=== PATIENT | male | born 1950 | race Caucasian/White ===

== ENCOUNTER 2024-09-15 13:42 | Emergency (ER) | payer MEDICARE, SELFPAY ==
[2024-09-15 13:44] VITALS: BP 126/71; PULSE 79; RESP 16; TEMP 36.6; O2SAT 98
--- NOTE | 2024-09-15 14:06 | EDS_ITS ---
HPI HPI - Fall History of Present Illness Chief Complaint: Fall Informant: patient and family Occured/Mechanism Occurred: Weeks Usually ambulates: Without assistance Pain/Injury Pain Location: head, neck and upper extremity (Right shoulder) Current Severity: Mild Maximum Severity: Mild Narrative Narrative: 74-year-old male history of hypertension and Parkinson's. Fell at home 2 to 3 weeks ago in the middle of the night. Denies any LOC. CT of his head complains some neck discomfort and right shoulder discoveries had since that time. Worse with movement. He is on no blood thinners. He denies any recent illness. Prior similar symptoms: Yes Recent Illness/Hospitalization: No PFSH PFSH Medical History Essential (primary) hypertension Home Medications ?Medication ?Instructions ?Recorded ?Last Taken ?Type gabapentin 600 mg tablet 600 mg PO QHS 02/17/24 Unkno wn History losartan 25 mg tablet 25 mg PO QDAY 02/17/24 Unkno wn History sertraline 25 mg tablet 25 mg PO QDAY 02/17/24 Unkno wn History carbidopa ER 50 mg-levodopa 200 mg See Rx Instructions PO .COMPLEX 04/29/24 Unknown History tablet,extended release pramipexole 0.75 mg tablet 0.75 mg PO TID 05/06/24 Unk nown History Allergy/AdvReac Type Severity Reaction Status Date / Time No Known Allergies Allergy Verified 09/15/24 13:46 Family History Mother , 80 yrs old No problems noted. Father , 83 years old Heart disease Surgical History Hx of appendectomy Social History household members: spouse and children current occupational status: retired pets and animals: No Smoking Status: Former smoker alcohol intake: never caffeine: Yes Type: coffee Number of servings: 1 do you feel safe at home: Yes ROS ROS ED ROS Narrative Denies recent illness. Constitutional Constitutional ED: Denies chills or fever(s) Eyes Eyes: Denies blurry vision ENT ENT ED: Denies ear pain Cardiovascular Cardiovascular: Denies chest pain Respiratory/Chest Respiratory/Chest: Denies cough or dyspnea Gastrointestinal Gastrointestinal: Denies abdominal pain Genitourinary Genitourinary ED: Denies dysuria or hematuria Musculoskeletal Musculoskeletal: Reports neck pain; Denies arthralgias or back pain Integumentary Denies abscess or Abrasions Neurologic Neurologic: Denies headache(s) Psychiatric Psychiatric: Denies anxiety Endocrine Endocrinology: Denies polydipsia Hematologic/Lymphatic Hematologic/Lymphatic: Denies easy bleeding, easy bruising or lymphadenopathy Allergic/Immunologic Allergic/Immunologic ED: Denies mouth swelling, tongue swelling or urticaria EXAM Physical Exam Narrative Exam Narrative: Well-appearing 74-year-old male. Vital signs are stable afebrile. He is sitting upright in bed. Family is present. No distress. H EENT exam. Right [place]. Moist membranes. No trauma to his face or scalp. Nontender no hematomas. Neck diffuse soft tissue tenderness. Trachea midline. Back, thoracic and lumbar spine nontender no bruising. Lungs clear to auscultation bilaterally. Heart regular rhythm no murmur. Rate about 80. Chest wall and ribs nontender. Abdomen soft nontender. Pelvic girdle intact. Patient is moving all 4 extremities. No deformity. Normal key carrier strength. Normal dorsi plantarflexion. Hips are nontender and without rotation or shortening. Mild tenderness right shoulder no deformity. No swelling. No redness or warmth. Bilateral elbows forearms wrist and hands are nontender. Neurologically he is awake alert. Answering questions and following commands. Parkinsonian movements. He knows month, year and president. Const Vital Signs: 09/15/24 13:44 09/15/24 14:06 Temperature 97.8 F Temperature Source Oral Pulse Rate 79 Respiratory Rate 16 Respiratory Effort Normal Respiratory Depth Normal Respiratory Pattern Normal Blood Pressure 126/71 H Blood Pressure Mean 89 Pulse Ox 98 Oxygen Delivery Method Room Air Room Air Positive well nourished and well developed; Negative for obese, cachectic, contractures or unkempt General Appearance ED: well developed and NAD; Negative for unkempt, cachectic or contractures Nutritional Appearance: Negative for cachectic or obese HEENT Reports normocephalic atraumatic; Negative for trauma, contusion, hematoma or tenderness Eyes PERRL and EOMs intact bilaterally General Eye ED: Negative for pale conjunctiva or scleral icterus Neck full ROM, no lymphadenopathy and supple General: Negative for tenderness Chest Wall inspection of chest normal and palpation of chest normal Resp normal respiratory effort, no retractions and clear to auscultation bilaterally Auscultation: Negative for rales, rhonchi, wheezes or diminished lung sounds Cardio regular rate, regular rhythm, S1 normal heart sound, S2 normal heart sound and no murmurs GI non-tender, non-distended and no masses Auscultation: normoactive bowel sounds Palpation: soft; Negative for guarding or rebound tenderness present Back/Spine no CVA tenderness General Back: Negative for CVA tenderness Cervical Spine: Negative for cervical spine tenderness Thoracic Spine / Upper Back: Negative for ROM limited Lumbar Spine / Lower Back: Negative for lumbar spinal tenderness or paraspinal muscle tenderness Neuro oriented x3, CN's II-XII intact bilaterally, moves all extremities and no focal motor deficits Markell Coma Scale: document GCS findings Spontaneous Obeys Commands Oriented 15 Sensorium / Orientation: alert, oriented to person, oriented to place, oriented to time and orientation impaired; Negative for confused, lethargic or stuporous Motor Exam: strength 5/5 throughout Psych mental status grossly normal and thought process normal Appearance: Negative for unkempt Attitude: No agitated Mood & Affect: Negative for depressed, anxious or tearful Skin Lesions: no lesions Rashes: no rashes Trauma: Negative for abrasion or laceration MDM MDM MDM Narrative Medical decision making narrative: 74-year-old male fell 2 to 3 weeks ago complaining of right shoulder discomfort and neck discomfort x-rays being obtained. No LOC. No headache. No blood thinners I do not think he needs a CAT scan of his head. His neurologic exam other than his Parkinson disease is relatively normal. Repeat exam unchanged. Doing well at 2:50 PM. We discussed his x-ray results. To be discharged home. Motrin and Tylenol for pain. History & Record Review Discussion w/independent historian: Patient and Family Additional record(s) reviewed:: Prior inpatient record, Prior outpatient record, Prior ED visit and Prior labs Radiography Diagnostic Testing: Clinical Impression(s) from Imaging Studies Cervical Spine X-Ray 09/15/24 14:25 IMPRESSION: 1. No acute fracture. 2. Degenerative changes of the cervical spine as described. Reading [facility] Shoulder X-Ray 09/15/24 14:25 IMPRESSION: 1. No acute fracture. 2. Degenerative changes as above. Reading Location: [facility] Right shoulder x-ray, 4 views, interpreted by myself and radiologist. Shows chronic changes. No fracture. No dislocation. C-spine x-ray, 3 views, interpreted by myself and the radiologist, shows chronic changes. Arthritis. No acute process. No fracture. Discharge Plan Triage Chief Complaint: Fall ED Provider: Cas Boyer Dx/Rx/DC Orders Prescriptions: No Action gabapentin 600 mg tablet 600 mg PO QHS losartan 25 mg tablet 25 mg PO QDAY sertraline 25 mg tablet 25 mg PO QDAY carbidopa-levodopa 50-200 mg tablet extended release See Rx Instructions PO .COMPLEX Rx Instructions: 1 tablet at 6 am, 11 am, 4 pm, and 10 pm pramipexole 0.75 mg tablet 0.75 mg PO TID Primary Care Provider: Earnest Amaral Referrals: Demetrio Golden DO [Non-Staff] - Print Language: Frisian
--- NOTE | 2024-09-15 14:25 | RAD_ITS ---
EXAM: XR Cervical Spine, 4 or 5 Views CLINICAL INDICATION: FALL TECHNIQUE: Frontal, lateral and bilateral oblique views of the cervical spine. COMPARISON: No relevant prior studies available. FINDINGS: VERTEBRAE: Degenerative facet arthropathy throughout the cervical spine. Normal alignment. No acute fracture. DISC SPACES: Degenerative disc disease throughout the cervical spine. SOFT TISSUES: Soft tissue swelling. RAD/Cerv Spine 2 or 3 Views IMPRESSION: 1. No acute fracture. 2. Degenerative changes of the cervical spine as described. Reading Location: [facility]
--- NOTE | 2024-09-15 14:25 | RAD_ITS ---
EXAM: XR Right Shoulder Complete, 2 or More Views CLINICAL INDICATION: FALL TECHNIQUE: Two or more views of the right shoulder. COMPARISON: No relevant prior studies available. FINDINGS: BONES/JOINTS: Mild degenerative change of the acromioclavicular and glenohumeral joints. No dislocation. No acute fracture. SOFT TISSUES: Soft tissue swelling. RAD/Shoulder min 2 Views IMPRESSION: 1. No acute fracture. 2. Degenerative changes as above. Reading Location: [facility]
[2024-09-15 15:12] VITALS: BP 122/78; PULSE 82; RESP 16; TEMP 36.6; O2SAT 98
== END 2024-09-15 15:13 | disposition home or self-care (01) ==
PROVIDERS: Emergency Provider Emergency Medicine; PCP Internal Medicine; Visit Provider Emergency Medicine
DX: M25.511 Pain in right shoulder (principal); G20.A1 Parkinson's disease without dyskinesia, without mention of fluctuations; M54.2 Cervicalgia; W19.XXXA Unspecified fall, initial encounter; Y92.009 Unspecified place in unspecified non-institutional (private) residence as the place of occurrence of the external cause; I10 Essential (primary) hypertension; Z79.899 Other long term (current) drug therapy; Z87.891 Personal history of nicotine dependence
CPT/HCPCS: 72040; 73030; 99282

== ENCOUNTER → 2024-09-20 | Outpatient (CLI) | payer MEDICARE, SELFPAY ==
[2024-09-20 18:05] LABS: CRP < 3.00 mg/L (0.0-3.0)
[2024-09-22 14:09] LABS: ANTINUCLEAR ANTIBODIES DIRECT Negative (Negative)
[2024-09-24 18:08] LABS: Albumin 4.1 g/dL (2.9-4.4); Folate, Hemolysate Test > 620.0 ng/mL (Not Estab.); Folate, RBC (Hct) Test 41.9 % (37.5-51.0); Folates, RBC Test > 1480 ng/mL (>498); Gamma Globulin 1.5 g/dL (0.4-1.8); Immunoglobulin A 145 mg/dL (61-437); Immunoglobulin G 1454 mg/dL (603-1613); Immunoglobulin M 130 mg/dL (15-143); PROEL- TOTAL PROTEIN 7.4 g/dL (6.0-8.5); Vitamin B1, Thiamine 79.6 nmol/L (66.5-200.0)
== END | disposition home or self-care (01) ==
LOC: MTLAB 15:11
PROVIDERS: PCP Internal Medicine
DX: G24.9 Dystonia, unspecified (principal); M62.838 Other muscle spasm; R20.9 Unspecified disturbances of skin sensation
CPT/HCPCS: 36415; 82747; 82784; 83883; 84165; 84425; 85014; 85652; 86038; 86140; 86225; 86235; 86334

== ENCOUNTER → 2024-10-07 | Outpatient (CLI) | payer MEDICARE, SELFPAY ==
--- NOTE | 2024-10-07 06:47 | MRI_ITS ---
PROCEDURE: BRAIN W/WO CONTRAST 10/07/2024 REASON FOR EXAM: HYPERREFLEXIA, SPASTICITY. Weakness on the right side for 1 month. TECHNIQUE: BRAIN W/WO CONTRAST Multiplanar and multisequence images were obtained. CONTRAST: Clariscan VOLUME: 14 mL intravenous COMPARISON: None. FINDINGS: Brain: No intracranial mass or mass effect is seen. No acute process is evident. Diffusion: Diffusion-weighted images demonstrate no area of restricted diffusion. Ventricles: Normal for age. Sinuses: [id number] mucosal thickening is seen of the bilateral ethmoid and maxillary sinuses. No air-fluid level is noted. The remaining paranasal sinuses appear clear. Mastoids: Clear. Following intravenous contrast administration, no area of abnormal enhancement is seen.: MRI/Brain W/WO Contrast IMPRESSION: 1. No acute intracranial process is seen. 2. Chronic appearing paranasal sinus disease. Reading Location: [place] [id number]
--- NOTE | 2024-10-07 06:47 | MRI_ITS ---
PROCEDURE: SPINE THORACIC W/WO CONTRAST 10/07/2024 REASON FOR EXAM: HYPERREFLEXIA, SPASTICITY. Right-sided weakness for 1 month. TECHNIQUE: Thoracic spine MRI without and with intravenous gadolinium-based contrast. Multiplanar and multisequence images were obtained. CONTRAST: Clariscan VOLUME: 14mL IV COMPARISON: None. FINDINGS: Vertebrae: Thoracic vertebral body heights are preserved. Bone marrow signal is unremarkable. Alignment: Normal. No spondylolisthesis. Spinal Cord: Thoracic spinal cord is of normal size. No clear thoracic cord signal changes are seen. No area of abnormal enhancement is seen. Disc spaces: Mild degenerative disc disease is seen, most prominent in the mid to lower thoracic spine. No significant disc bulge or herniation is evident. No spinal canal stenosis or significant neural foraminal narrowing is evident. Paraspinal Tissues: Unremarkable. Postcontrast images: No area of abnormal enhancement is seen. MRI/Spine Thoracic W/WO Contrast IMPRESSION: Mild degenerative changes, most prominent at the mid to lower thoracic spine. Reading Location: [place] [id number]
--- OUTSIDE RECORDS SUMMARY | 2024-10-07 07:06 | XMS RPT_ITS | CCD ---
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 Name Role Phone LINH LATHAM MD Admitting Unavailable LINH LATHAM MD Attending Unavailable LINH LATHAM MD Primary Care Unavailable LINH LATHAM MD Consulting Unavailable PROVIDER, UNKNOWN Consulting Unavailable PROVIDER, UNKNOWN Consulting Unavailable PROVIDER, UNKNOWN Consulting Unavailable LINH LATHAM MD Admitting Unavailable LATOUFlora, LINH WONG Attending Unavailable LINH LATHAM MD Primary Care Unavailable LINH LATHAM MD Consulting Unavailable PROVIDER, UNKNOWN Consulting Unavailable PROVIDER, UNKNOWN Consulting Unavailable PROVIDER, UNKNOWN Consulting Unavailable LATOUFlora, LINH WONG Admitting Unavailable LATOUFlora, LINH WONG Attending Unavailable LINH LATHAM MD Primary Care Unavailable LINH LATHAM MD Consulting Unavailable PROVIDER, UNKNOWN Consulting Unavailable PROVIDER, UNKNOWN Consulting Unavailable PROVIDER, UNKNOWN Consulting Unavailable Merlin WONG, Dr. Cardozo Emergency Provider [phone] Munir WONG, Dr. Tinoco Primary Care Provider Dr. Earnest Amaral MD Referring Provider Britta PACKAGE DELIVERY DRIVER-CSussy Attending Provider [phone] Merlin WONG, Dr. Cardozo Attending Provider Britta PACKAGE DELIVERY DRIVER-CSussy Referring Provider [phone] Sussy Callejas Attending Unavailable Sussy Callejas Referring Unavailable Nam, Earnest Primary Care Unavailable Nam, Earnest Primary Care Unavailable Cas Boyer Attending Unavailable Sussy Callejas Referring Unavailable Nam, Earnest Primary Care Unavailable Sussy Callejas Attending Unavailable Demetrio Golden Primary Care Unavailable Demetrio Golden Referring Unavailable Sly Cervantes Attending Unavailable Nam, Earnest Primary Care Unavailable Nam, Earnest Referring Unavailable Sussy Callejas Attending Unavailable Sussy Callejas Attending Unavailable Nam, Earnest Primary Care Unavailable Nam, Earnest Referring Unavailable Demetrio Golden Primary Care Unavailable Linh Latham Referring Unavailable Sly Cervantes Attending Unavailable Demetrio Golden Primary Care Unavailable Demetrio Golden Referring Unavailable Sly Cervantes Attending Unavailable Stephanie Machado Attending Provider David WONG, Dr. Peralta Attending Provider [phone] Medications Current Medications Medication Drug Class(es) Dates Sig (Normalized) Sig (Original) Petroleum (3 sources) Start: 09-29-2024 take 1 tablet by mouth twice daily Petroleum 650 mg tablet Active 650 mg PO TWICE A DAY September 29, 2024 12:00am baclofen 5 mg oral tablet (3 sources) gamma-Aminobutyri c Acid-ergic Agonist Start: 09-29-2024 take 1 tablet by mouth once daily before dinner Baclofen 5 mg tablet Active 5 mg PO EVERY EVENING 30 1 September 29, 2024 12:00am Take before dinner Capsicum (Cayenne) (3 sources) Start: 09-29-2024 take 1 capsule by mouth once daily Capsicum (Cayenne) 450 mg capsule Active 450 mg PO daily September 29, 2024 12:00am cholecalciferol 0.025 mg oral capsule (3 sources) Vitamin D Start: 09-29-2024 take 1 capsule by mouth once daily Cholecalciferol (Vitamin D3) 25 mcg (1,000 unit) capsule Active 25 ug PO daily September 29, 2024 12:00am colon support (3 sources) Start: 09-29-2024 take 40 mg by mouth twice daily as needed colon support Active 1 {tbl} PO TWICE A DAY as needed September 29, 2024 12:00am Potassium 99mg, slippery elm 200mg, senna leaf 85mg, Inulin 75mg, cascara bark extract 50mg, black walnut hulls 50mg, aloe vera extract 40mg gabapentin 600 mg oral tablet (6 sources) Anti-epileptic Agent Start: 02-17-2024 take 1 tablet by mouth at bedtime Gabapentin 600 mg tablet Active 600 mg PO AT BEDTIME February 17, 2024 1:00am Handicap Placard (2 sources) Start: 09-30-2024 Handicap Placard Active 0 .ROUTE .COMPLEX 1 0 September 30, 2024 12:00am Duration: 5 years ICD10: Z86.69 homeopathic prostate drops (3 sources) Start: 09-29-2024 take 1 drop(s) by mouth twice daily homeopathic prostate drops Active 0 PO .COMPLEX September 29, 2024 12:00am orally 1/2 dropper full BID - Dr. Darci Bangura; losartan potassium 25 mg oral tablet (9 sources) Angiotensin 2 Receptor Raymond Start: 09-29-2024 take 1 tablet by mouth twice daily Losartan 25 mg tablet Active 25 mg PO TWICE A DAY September 29, 2024 11:39am Start: 02-17-2024 End: 09-29-2024 take 1 tablet by mouth once daily Losartan 25 mg tablet Discontinued 25 mg PO daily February 17, 2024 1:00am September 29, 2024 11:48am lysine 1000 mg oral tablet (3 sources) Start: 09-29-2024 take 1 tablet by mouth once daily Lysine 1,000 mg tablet Active 1000 mg PO daily September 29, 2024 12:00am magnesium oxide 500 mg oral capsule (3 sources) Start: 09-29-2024 take 1 capsule by mouth once daily Magnesium Oxide 500 mg capsule Active 500 mg PO daily September 29, 2024 12:00am olive leaf extract 500 mg oral capsule (3 sources) Start: 09-29-2024 take 1 capsule by mouth once daily [place] 500 mg capsule Active 500 mg PO daily September 29, 2024 12:00am oregano allergenic extract (3 sources) Non-Standardized Food Allergenic Extract Start: 09-29-2024 take 1 tablet by mouth once daily oregano 450 mg tablet Active 1 NMA PO daily September 29, 2024 12:00am pramipexole dihydrochloride 0.75 mg oral tablet (18 sources) Nonergot Dopamine Agonist Start: 05-06-2024 take 1 tablet by mouth three times daily Pramipexole 0.75 mg tablet Active 0.75 mg PO THREE TIMES A DAY May 06, 2024 2:39pm Start: 04-29-2024 End: 05-06-2024 take 1 tablet by mouth twice daily Pramipexole 0.75 mg tablet Discontinued 0.75 mg PO TWICE A DAY April 29, 2024 2:39pm May 06, 2024 2:39pm Start: 02-17-2024 End: 04-29-2024 take 1 tablet by mouth three times daily Pramipexole 0.75 mg tablet Discontinued 0.75 mg PO THREE TIMES A DAY February 17, 2024 1:00am April 29, 2024 2:53pm sertraline 50 mg oral tablet (9 sources) Serotonin Reuptake Inhibitor Start: 09-29-2024 take 1 tablet by mouth once daily in the morning Sertraline 50 mg tablet Active 50 mg PO EVERY MORNING September 29, 2024 12:00am Start: 02-17-2024 End: 09-29-2024 take 1 tablet by mouth once daily Sertraline 25 mg tablet Discontinued 25 mg PO daily February 17, 2024 1:00am September 29, 2024 11:39am tiZANidine 4 mg oral tablet (5 sources) Central alpha-2 Adrenergic Agonist Start: 09-20-2024 take 1-2 tablets by mouth once daily at bedtime as needed for muscle spasms Tizanidine 4 mg tablet Active 8 mg PO AT BEDTIME as needed for muscle spasticity 60 1 September 20, 2024 12:00am Take 1 - 2 tablets PRN muscle spasms QHS Vitamins A,C,P-Vkov-Zvogyv (Preservision Areds) 4,296 mcg-226 mg-90 mg capsule (3 sources) Start: 09-29-2024 Vitamins A,C,K-Wvpy-Mpcgcj (Preservision Areds) 4,296 mcg-226 mg-90 mg capsule Active 1 NMA PO every day in the morning and in the evening September 29, 2024 12:00am zinc gluconate 50 mg oral tablet (3 sources) Start: 09-29-2024 take 1 tablet by mouth every other day Zinc Gluconate 50 mg tablet Active 50 mg PO every other day September 29, 2024 12:00am Completed/Discontinued Medications Medication Drug Class(es) Dates Sig (Normalized) Sig (Original) carbidopa 50 mg / levodopa 200 mg extended release oral tablet (20 sources) Aromatic Amino Acid Decarboxylation Inhibitor, Aromatic Amino Acid Start: 02-17-2024 End: 04-29-2024 Carbidopa-Levodop a 50-200 mg tablet extended release Discontinued 0 PO .COMPLEX 120 1 March 31, 2024 2:24pm April 29, 2024 2:33pm Take 1 tablet PO at 6:30am, 1 tablet PO at 2:00pm, and 2 tablets PO at 10:00pm clonazePAM 1 mg oral tablet (5 sources) Benzodiazepine Start: 09-20-2024 End: 09-29-2024 Clonazepam (Klonopin) 1 mg tablet Discontinued 1 mg PO ONCE 1 0 September 20, 2024 12:00am September 29, 2024 11:48am MRI Take 30 minutes prior to MRI levoFLOXacin 500 mg oral tablet (6 sources) Quinolone Antimicrobial Start: 08-31-2013 End: 02-17-2024 take 1 tablet by mouth once daily Levofloxacin 500 MG tablet Discontinued 500 mg PO DAILY August 31, 2013 12:00am February 17, 2024 3:28pm predniSONE 10 mg oral tablet (6 sources) Start: 08-31-2013 End: 02-17-2024 take 6 tablets by mouth once daily, then take 4 tablets by mouth once daily, then take 2 tablets by mouth once daily, then take 1 tablet by mouth once daily Prednisone 10 MG tablet Discontinued 10 mg PO DAILY 48 0 August 31, 2013 12:00am February 17, 2024 3:28pm 6 po qd x 3 days, 4 po qd x 3 days, 2 po qd x 3 days, 1 po qd x 3 days Problems Problem Classification Problem Date Documented Da te Episodic/Chronic Diseases of white blood cells (1 source) Decreased white blood cell count, unspecified; Translations: [Decreased white blood cell count, unspecified] Onset: 08-02-2024 Chronic Disorders of lipid metabolism (1 source) Pure hypercholesterolemi a, unspecified; Translations: [Pure hypercholesterolemi a, unspecified] Onset: 08-02-2024 Chronic E Codes: Fall (6 sources) Fall; Translations: [Unspecified fall, initial encounter] 09-15-2024 Episodic Essential hypertension (1 source) Essential (primary) hypertension; Translations: [Essential (primary) hypertension] Onset: 07-28-2024 Chronic Genitourinary symptoms and ill-defined conditions (12 sources) Urinary incontinence; Translations: [Unspecified urinary incontinence] Onset: 09-29-2024 09-21-2024 Chronic Malaise and fatigue (1 source) Other fatigue; Translations: [Other fatigue] Onset: 07-28-2024 Episodic Mood disorders (1 source) Major depressive disorder, recurrent, in full remission; Translations: [Major depressive disorder, recurrent, in full remission] Onset: 07-28-2024 Chronic Nutritional deficiencies (1 source) Vitamin D deficiency, unspecified; Translations: [Vitamin D deficiency, unspecified] Onset: 08-02-2024 Chronic Other connective tissue disease (12 sources) Spasticity; Translations: [Other muscle spasm] 09-20-2024 Episodic Other connective tissue disease (2 sources) Other muscle spasm; Translations: [Other muscle spasm] Onset: 09-20-2024 Episodic Other hereditary and degenerative nervous system conditions (1 source) Restless legs syndrome; Translations: [Restless legs syndrome] Onset: 07-28-2024 Chronic Other hereditary and degenerative nervous system conditions (13 sources) Dyskinesia; Translations: [Dystonia, unspecified] 04-29-2024 Chronic Comment on above: 04/07/2024 patient tyler samaniegoues to have marked dyskinesia. It is hard to say if he improves slightly or not. He does have a early a.m. stiffness which is new since we have reduced his Sinemet slightly. During the day though he has recurrent dyskinesia.In order to address this we have decided to reduce the daytime Sinemet 25 200 ER to 1 in the AM 1 at 2 PM and 2 nightly. Hopefully he will have less dyskinesia during the day and have less stiffness and decreased movement in the morning.Today only with asked him to skip his 2 PM dose. We have asked him to note any changes in his stiffness or movement and to give us a call tomorrow to let us know how he is progressing.04/29/2024Patient shows continued prominent movements. Nevertheless this is much less than what he initially presented with.At this point in time I hope to get a CT of the head to see what the intracranial anatomy looks like. We have been hoping to obtain an MRI but I think his movement is too prominent to allow an MRI to be done and I am unwilling to provide the patient with significant sedation or conscious sedation for purposes of obtaining an MRI. Other hereditary and degenerative nervous system conditions (2 sources) Dystonia, unspecified; Translations: [Dystonia, unspecified] Onset: 09-24-2024 Chronic Other nervous system disorders (7 sources) Cervical myelopathy; Translations: [Disease of spinal cord, unspecified] 09-20-2024 Chronic Other nervous system disorders (13 sources) H/O: brain disorder; Translations: [Personal history of other diseases of the nervous system and sense organs] 09-15-2024 Episodic Other nervous system disorders (12 sources) Disturbed sensory perception; Translations: [Unspecified disturbances of skin sensation] 09-20-2024 Episodic Other nervous system disorders (12 sources) Hyperreflexia; Translations: [Abnormal reflex] 09-20-2024 Episodic Other nervous system disorders (1 source) Abnormal reflex; Translations: [Abnormal reflex] Onset: 09-29-2024 Episodic Other nervous system disorders (2 sources) Unspecified disturbances of skin sensation; Translations: [Unspecified disturbances of skin sensation] Onset: 09-20-2024 Episodic Other nervous system disorders (1 source) Personal history of other diseases of the nervous system and sense organs; Translations: [Personal history of other diseases of the nervous system and sense organs] Onset: 09-29-2024 Episodic Other non-traumatic joint disorders (7 sources) Pain in right shoulder; Translations: [Acute pain of right shoulder] Onset: 09-22-2024 09-15-2024 Episodic Other screening for suspected conditions (not mental disorders or infectious disease) (1 source) Encounter for screening for malignant neoplasm of prostate; Translations: [Encounter for screening for malignant neoplasm of prostate] Onset: 08-02-2024 Episodic Parkinson`s disease (2 sources) Parkinson`s disease; Translations: [Parkinson's disease without dyskinesia, without mention of fluctuations] Onset: 03-15-2024 Spondylosis; intervertebral disc disorders; other back problems (6 sources) Neck pain; Translations: [Cervicalgia] 09-15-2024 Episodic Results Test Name Value Interpretation Reference Range Facility Neurology Visit Reporton Neurology Visit Report [facility] [address], [address] [place] [id number] OFFICE VISIT Date of Service: 09/29/24 MR#: [id number] Acct: [id number] Name: SYDNIE JESUS Rep #: [id number] : 1950 Provider: ELSIE burr Age/Sex: 74/M Location: [facility] Status: Signed HPI HPI Chief Complaint: Acute follow-up Details: History of present illness: Mr. Jesus is a 74-year-old right-handed male who originally established care with neurologist Dr. Cervantes on 02/17/2024 for management of Parkinson's disease. Patient reported symptoms of Parkinson's disease being present for approximately 4 years, but possibly longer. Prior to establishing care, he was managed by his primary care physician who prescribed carbidopa???levodopa with adjunct therapy of pramipexole and gabapentin 600mg QHS for restless leg syndrome. He also takes sertraline for depression. Patient has marked, recurrent dyskinesias on exam but also reports periods of rigidity, particularly in the morning. Patient would likely benefit from consultation with a movement disorder specialist as his Parkinson's is complex. This was discussed with patient and and they would like to defer at this time as long distance transportation appears to be an issue. His carbidopa???levodopa ER 50-200mg frequency has been adjusted several times in attempts to maintain within his therapeutic window. Original: 2 tab / 2 tab / 1 tab 1st adjustment: 1.5 tab / 1.5 tab / 1 tab 2nd adjustment: 1 tab / 1 tab / 2 tab 3rd adjustment: 1 tab / 1 tab / 1 tab / 1 tab (6a, 11a, 4p, 10p) Additionally, his pramipexole 0.75mg frequency has been adjusted. Original: 0.75 mg TID 1st adjustment: 0.75 mg BID 2nd adjustment: 0.75 mg TID (05/03/24 called with complaints of increased RLS so returned to original dose) Most recent laboratory studies all grossly unremarkable conducted at [facility] (07/28/2024): CBC: WBC 4, Hgb 14.3, Hct 40.6, MCV 94, Plt 189 Ferritin: 191 (normal) CMP: Na 143, K 3.5, Glucose 101, BUN 22, Cr 0.92, AST 18, ALT 18, eGFR >60 Lipid profile: LDL 127, HDL 85, cholesterol 230, TG 92 TSH: 2.58 Vit D: 32.4 Vit B12: 920 Ma.1 Interim history: Mr. Jesus presents to neurology today for an acute visit for ongoing muscle spasticity and pain. He was last seen by myself on 09/20/2024 for acute concerns. He is accompanied by his and daughter. At his last visit, patient was found to be hyperreflexic and spastic with concerns of a demyelinating disease or myelopathy superimposed on his Parkinson's disease. MRI imaging of his b rain/spine were ordered along with several labs. Tizanidine was prescribed for his muscle spasms and he was encouraged to use OTC medications for pain/discomfort. Orthopedic referral was placed for right shoulder evaluation. Laboratory studies that were ordered were reviewed and are listed below. MRI is scheduled for 10/28/2024. Laboratory Tests: 09/20/24 15:15 ESR 5 C-React Prot Ext Range < 3.00 Total Protein (PEP) 7.4 Globulin 3.3 Whole Bld Vitamin B1 79.6 RBC Folate Hemolysate > 620.0 RBC Folate > 1480 Hematocrit 41.9 IgG 1454 IgA 145 IgM 130 Albumin (YANDEL) 4.1 Albumin/Globulin (YANDEL) 1.3 Lrcet-4-Bvfjliywq YANDEL 0.3 Owcmh-0-Swogfsbbo YANDEL 0.6 Beta-Globulins (YANDEL) 0.9 Gamma Globulins (YANDEL) 1.5 YANDEL M-Edmond Not Observed [place] Screen Negative Free [place] LC, Quant 34.9 H Free Lambda LC, Quant 19.4 Free [place]/Lambda Ratio 1.80 H HTLVI/II Antibodies Negative Patient was examined concurrently with neurologist Dr. Cervantes today. Patient remains hyperreflexic on exam and demonstrates poor mobility in general. There is no rigidity or p arkinsonian tremor. Patient reports ongoing muscle spasms and pain in his lower extremities with onset in the evenings. Baclofen will be prescribed in addition to his tizanidine. ROS: Unchanged since previous visit Physical Exam: Constitutional: Well-developed, thinly built right-handed male. Unable to obtain today's weight. Respiratory: Somewhat shallow respirations but breathing comfortably on room air. Symmetric chest movement. Clear to auscultation bilaterally. Cardio: Regular rate and rhythm. No auscultated murmurs. Neurological Exam: Mental Status: Awake and alert. Oriented to day, month, and year. He is bradyphrenic. Reflexes: Patient remains hyperreflexic. Triceps, biceps, and brachioradialis deep tendon reflexes are 3+ bilaterally. Patellar deep tendon reflexes are 4+ bilaterally. Motor: Muscle bulk normal, but there is increased tone throughout. There is no cogwheeling of the wrists. He has continuous (more content not included)... Normal [facility] Folates, RBCon 09-24-2024 Fol.,Hemolysate > 620.0 Normal Not Estab. [facility] Comment on above: Order Comment: Test( s) [id number]-Erp. B1, Whole Blood was developed and its performance characteristics determined by [facility]. It has not been cleared or approved by the Food and Drug Administration. Performed By: #### L 3100.5450, L501.6710, L3410.9992, L3100.3425, L3100.1725, L101.9900, L3130.0010, L3300.8000 #### [facility] [address] [place], [place], [address] Folate, RBC > 1480 Normal >498 [facility] Comment on above: Order Comment: Test( s) [id number]-Zxa. B1, Whole Blood was developed and its performance characteristics determined by [facility]. It has not been cleared or approved by the Food and Drug Administration. Performed By: #### L 3100.5450, L501.6710, L3410.9992, L3100.3425, L3100.1725, L101.9900, L3130.0010, L3300.8000 #### [facility] [address] [place], [place], [id number] [phone]) Hematocrit (Bld) [Volume fraction] 41.9 % Normal 37.5-51.0 [facility] Comment on above: Order Comment: Test( s) [id number]-Sbv. B1, Whole Blood was developed and its performance characteristics determined by [facility]. It has not been cleared or approved by the Food and Drug Administration. Performed By: #### L 3100.5450, L501.6710, L3410.9992, L3100.3425, L3100.1725, L101.9900, L3130.0010, L3300.8000 #### [facility] [address] [place], [place], [id number] (790) YANDEL + Protein Elect, Serumon 09-24-2024 Albumin [Mass/Vol] 4.1 g/dL Normal 2.9-4.4 [facility] Comment on above: Order Comment: Test( s) [id number]-Eyy. B1, Whole Bloodwas developed and its performance characteristicsdetermined by [facility]. It has not been cleared or approvedby the Food and Drug Administration.N Performed By: #### L 3100.5450, L501.6710, L3410.9992, L3100.3425, L3100.1725, L101.9900, L3130.0010, L3300.8000 ####[facility] [address] [place], [address] Albumin/Globulin [Mass ratio] 1.3 {ratio} Normal 0.7-1.7 [facility] Comment on above: Order Comment: Test( s) 458157-Smg. B1, Whole Bloodwas developed and its performance characteristicsdetermined by [facility]. It has not been cleared or approvedby the Food and Drug Administration.N Performed By: #### L 3100.5450, L501.6710, L3410.9992, L3100.3425, L3100.1725, L101.9900, L3130.0010, L3300.8000 ####[facility] [address] [place], [place], [phone]) WHEID-2-OAPJ 0.3 g/dL Normal 0.0-0.4 [facility] Comment on above: Order Comment: Test( s) [id number]-Lfa. B1, Whole Bloodwas developed and its performance characteristicsdetermined by [facility]. It has not been cleared or approvedby the Food and Drug Administration.N Performed By: #### L 3100.5450, L501.6710, L3410.9992, L3100.3425, L3100.1725, L101.9900, L3130.0010, L3300.8000 ####[facility] [address] [place], [place], [phone](111) VGLNA-6-BJJI 0.6 g/dL Normal 0.4-1.0 [facility] Comment on above: Order Comment: Test( s) [id number]-Pab. B1, Whole Bloodwas developed and its performance characteristicsdetermined by [facility]. It has not been cleared or approvedby the Food and Drug Administration.N Performed By: #### L 3100.5450, L501.6710, L3410.9992, L3100.3425, L3100.1725, L101.9900, L3130.0010, L3300.8000 ####[facility] [address] [place], [place], [phone](861) BETA GLOBULIN 0.9 g/dL Normal 0.7-1.3 [facility] Comment on above: Order Comment: Test( s) 188023-Izl. B1, Whole Bloodwas developed and its performance characteristicsdetermined by [facility]. It has not been cleared or approvedby the Food and Drug Administration.N Performed By: #### L 3100.5450, L501.6710, L3410.9992, L3100.3425, L3100.1725, L101.9900, L3130.0010, L3300.8000 ####[facility] [address] [place], [address] GAMMA GLOBULIN 1.5 g/dL Normal 0.4-1.8 [facility] Comment on above: Order Comment: Test( s) 523189-Ioz. B1, Whole Bloodwas developed and its performance characteristicsdetermined by [facility]. It has not been cleared or approvedby the Food and Drug Administration.N Performed By: #### L 3100.5450, L501.6710, L3410.9992, L3100.3425, L3100.1725, L101.9900, L3130.0010, L3300.8000 ####[facility] [address] [place], [address] Globulin (S) [Mass/Vol] 3.3 g/dL Normal 2.2-3.9 [facility] Comment on above: Order Comment: Test( s) 559509-Bnp. B1, Whole Bloodwas developed and its performance characteristicsdetermined by [facility]. It has not been cleared or approvedby the Food and Drug Administration.N Performed By: #### L 3100.5450, L501.6710, L3410.9992, L3100.3425, L3100.1725, L101.9900, L3130.0010, L3300.8000 ####[facility] [address] [place], [address] YANDEL RESULT,S Comment Normal . [facility] Comment on above: Order Comment: Test( s) 470283-Fsy. B1, Whole Bloodwas developed and its performance characteristicsdetermined by [facility]. It has not been cleared or approvedby the Food and Drug Administration.N Result Comment: No m onoclonality detected. Performed By: #### L 3100.5450, L501.6710, L3410.9992, L3100.3425, L3100.1725, L101.9900, L3130.0010, L3300.8000 ####[facility] [address] [place], [address] IMMUNOGLOB A QN 145 mg/dL Normal 61-437 [facility] Comment on above: Order Comment: Test( s) 326272-Kzc. B1, Whole Bloodwas developed and its performance characteristicsdetermined by Alexis Bittar. It has not been cleared or approvedby the Food and Drug Administration.N Performed By: #### L 3100.5450, L501.6710, L3410.9992, L3100.3425, L3100.1725, L101.9900, L3130.0010, L3300.8000 ####[facility] [address] [place], [address] IMMUNOGLOB G QN 1454 mg/dL Normal 603-1613 [facility] Comment on above: Order Comment: Test( s) 305468-Eyt. B1, Whole Bloodwas developed and its performance characteristicsdetermined by Alexis Bittar. It has not been cleared or approvedby the Food and Drug Administration.N Performed By: #### L 3100.5450, L501.6710, L3410.9992, L3100.3425, L3100.1725, L101.9900, L3130.0010, L3300.8000 ####[facility] [address] [place], [address] IMMUNOGLOB M QN 130 mg/dL Normal 15-143 [facility] Comment on above: Order Comment: Test( s) 657490-Lqe. B1, Whole Bloodwas developed and its performance characteristicsdetermined by Alexis Bittar. It has not been cleared or approvedby the Food and Drug Administration.N Performed By: #### L 3100.5450, L501.6710, L3410.9992, L3100.3425, L3100.1725, L101.9900, L3130.0010, L3300.8000 ####[facility] [address] [place], [address] M-Edmond Not Observed Normal Not Observed [facility] Comment on above: Order Comment: Test( s) 905001-Plp. B1, Whole Bloodwas developed and its performance characteristicsdetermined by Alexis Bittar. It has not been cleared or approvedby the Food and Drug Administration.N Performed By: #### L 3100.5450, L501.6710, L3410.9992, L3100.3425, L3100.1725, L101.9900, L3130.0010, L3300.8000 ####[facility] [address] [place], [address] NOTE: Comment Normal . [facility] Comment on above: Order Comment: Test( s) 289320-Aps. B1, Whole Bloodwas developed and its performance characteristicsdetermined by Alexis Bittar. It has not been cleared or approvedby the Food and Drug Administration.N Result Comment: Prot ein electrophoresis scan will follow via computer, mail, or thermometer maker delivery. Performed By: #### L 3100.5450, L501.6710, L3410.9992, L3100.3425, L3100.1725, L101.9900, L3130.0010, L3300.8000 ####[facility] [address] [place], [place], [address] Protein [Mass/Vol] 7.4 g/dL Normal 6.0-8.5 [facility] Comment on above: Order Comment: Test( s) 609757-Dyo. B1, Whole Bloodwas developed and its performance characteristicsdetermined by Alexis Bittar. It has not been cleared or approvedby the Food and Drug Administration.N Performed By: #### L 3100.5450, L501.6710, L3410.9992, L3100.3425, L3100.1725, L101.9900, L3130.0010, L3300.8000 ####[facility] [address] [place], [place], [id number] [place] Lambda Light Chainson 09-24-2024 FR KAPPA LT CHN 34.9 mg/L Abnormal 3.3-19.4 [facility] Comment on above: Order Comment: Test( s) 358432-Wjh. B1, Whole Bloodwas developed and its performance characteristicsdetermined by Alexis Bittar. It has not been cleared or approvedby the Food and Drug Administration. Performed By: #### L 3100.5450, L501.6710, L3410.9992, L3100.3425, L3100.1725, L101.9900, L3130.0010, L3300.8000 ####[facility] [address] [place], [address] FR LAMBDA LT CH 19.4 mg/L Normal 5.7-26.3 [facility] Comment on above: Order Comment: Test( s) 190919-Xdt. B1, Whole Bloodwas developed and its performance characteristicsdetermined by Alexis Bittar. It has not been cleared or approvedby the Food and Drug Administration. Performed By: #### L 3100.5450, L501.6710, L3410.9992, L3100.3425, L3100.1725, L101.9900, L3130.0010, L3300.8000 ####[facility] [address] [place], [place], [id number] KAPPA/LAMBDA % 1.80 Abnormal 0.26-1.65 [facility] Comment on above: Order Comment: Test( s) 450008-Kmb. B1, Whole Bloodwas developed and its performance characteristicsdetermined by Alexis Bittar. It has not been cleared or approvedby the Food and Drug Administration. Performed By: #### L 3100.5450, L501.6710, L3410.9992, L3100.3425, L3100.1725, L101.9900, L3130.0010, L3300.8000 ####[facility] [address] [place], [place], [address] Vitamin B1, Thiamineon 09-24 VIT B1 THIAMINE 79.6 nmol/L Normal 66.5-200.0 [facility] Comment on above: Order Comment: Test( s) 742098-Qmz. B1, Whole Bloodwas developed and its performance characteristicsdetermined by Alexis Bittar. It has not been cleared or approvedby the Food and Drug Administration. Result Comment: Perf ormed at: - [facility] [id number] Case Management Associate: Deny Donahue PhD, Phone: [phone] Performed at: [address] [id number] Case Management Associate: Aj Watson MD, Phone: [phone] Performed By: #### L 3100.5450, L501.6710, L3410.9992, L3100.3425, L3100.1725, L101.9900, L3130.0010, L3300.8000 ####[facility] [address] [place], [address] [place] w/ Reflex Mult Confirmon 09-23-2024 ANTI-DNA (DS)AB TNP Normal [facility] Comment on above: Performed By: #### L 3100.5450, L501.6710, L3410.9992, L3100.3425, L3100.1725, L101.9900, L3130.0010, L3300.8000 #### [facility] [address] [place], [place], [id number] ANTI-SS-A TNP Normal [facility] Comment on above: Performed By: #### L 3100.5450, L501.6710, L3410.9992, L3100.3425, L3100.1725, L101.9900, L3130.0010, L3300.8000 #### [facility] [address] [place], [address] ANTI-SS-B TNP Normal [facility] Comment on above: Performed By: #### L 3100.5450, L501.6710, L3410.9992, L3100.3425, L3100.1725, L101.9900, L3130.0010, L3300.8000 #### [facility] [address] [place], [address] L3410.9992on 09-22-2024 [facility] COM[facility] Normal . [facility] Comment on above: Order Comment: [id number] HTLV-1/HTLV-2 Result Comment: Test Ordered: [id number] HTLV-I/II Antibodies, Qual HTLV-I/II Antibodies, Qual Negative LALCA Reference Range: Negative Performed at: [facility] [address] [id number] Case Management Associate: [facility], Phone: [phone] Performed at: [address] [id number] Case Management Associate: Deny Donahue PhD, Phone: [phone] Performed By: #### L 3100.5450, L501.6710, L3410.9992, L3100.3425, L3100.1725, L101.9900, L3130.0010, L3300.8000 #### [facility] [address] [place], [address] Albumin Elph [Mass/Vol]Order ed By: Sussy Callejas on 09-20-2024 Albumin [Mass/Vol] 4.1 g/dL 2.9-4.4 [facility] CRPon 09-20-2024 C-REACTIVE PROT < 3.00 Normal 0.0-3.0 [facility] Comment on above: Performed By: #### L 3100.5450, L501.6710, L3410.9992, L3100.3425, L3100.1725, L101.9900, L3130.0010, L3300.8000 #### [facility] [address] [place], [address] Erythrocyte Sed Rateon 09-20 SED RATE 5 mm/hr Normal 0-20 [facility] Comment on above: Performed By: #### L 3100.5450, L501.6710, L3410.9992, L3100.3425, L3100.1725, L101.9900, L3130.0010, L3300.8000 #### [facility] [address] [place], [address] Erythrocyte folate measureme nt with hematocritOrdered By: Sussy Callejas on 09-20-2024 Hematocrit (Bld) [Volume fraction] 41.9 % 37.5-51.0 [facility] Erythrocyte sedimentation ra teOrdered By: Sussy Callejas on 09-20-2024 ESR (Bld) [Velocity] 5 mm/h 0-20 [facility] Interpretation of serum or p lasma protein pattern by immunofixation (narrative resultOrdered By: Sussy Callejas on 09-20-2024 Protein Fractions Immunofixation Eric [Interp] Not Observed g/dL Not Observed [facility] Neurology Visit Reporton Neurology Visit Report [facility] [address], [address] [place] [address] OFFICE VISIT Date of Service: 09/20/24 MR#: [id number] Acct: [id number] Name: SYDNIE JESUS Rep #: [id number] : 1950 Provider: ELSIE burr Age/Sex: 74/M Location: [facility] Status: Signed HPI HPI Details: History of present illness: Mr. Jesus is a 74-year-old right-handed male who originally established care with neurologist Dr. Cervantes on 02/17/2024 for management of Parkinson's disease. Patient reported symptoms of Parkinson's disease being present for approximately 4 years, but possibly longer. Prior to establishing care, he was managed by his primary care physician who prescribed carbidopa???levodopa with adjunct therapy of pramipexole and gabapentin 600mg QHS for restless leg syndrome. He also takes sertraline for depression. Patient has marked, recurrent dyskinesias on exam but also reports periods of rigidity, particularly in the morning. Patient would likely benefit from consultation with a movement disorder specialist as his Parkinson's is complex. This was discussed with patient and and they would like to defer at this time as long distance transportation appears to be an issue. His carbidopa???levodopa ER 50-200mg frequency has been adjusted several times in attempts to maintain within his therapeutic window. Original: 2 tab / 2 tab / 1 tab 1st adjustment: 1.5 tab / 1.5 tab / 1 tab 2nd adjustment: 1 tab / 1 tab / 2 tab 3rd adjustment: 1 tab / 1 tab / 1 tab / 1 tab (6a, 11a, 4p, 10p) Additionally, his pramipexole 0.75mg frequency has been adjusted. Original: 0.75 mg TID 1st adjustment: 0.75 mg BID 2nd adjustment: 0.75 mg TID (05/03/24 called with complaints of increased RLS so returned to original dose) Most recent laboratory studies all grossly unremarkable conducted at OSH (07/28/2024): CBC: WBC 4, Hgb 14.3, Hct 40.6, MCV 94, Plt 189 Ferritin: 191 (normal) CMP: Na 143, K 3.5, Glucose 101, BUN 22, Cr 0.92, AST 18, ALT 18, eGFR >60 Lipid profile: LDL 127, HDL 85, cholesterol 230, TG 92 TSH: 2.58 Vit D: 32.4 Vit B12: 920 Ma.1 Interim history: Mr. Jesus presents to neurology today 09/20/2024 with his and daughter for an acute follow- up with complaints of progressive weakness and pain. He was last seen in office by Dr. Cervantes on 04/29/2024. On today's exam, patient is further debilitated when compared to his office presentation in April. He is confined to a wheelchair. He has difficulty standing and is unable to take more than a few shuffled steps. Previously, he could ambulate down the hallway and back without difficulty. Patient is very spastic with 4+ hyperreflexia in the lower extremities and 3+ in the upper extremities. There is clonus noted in the lower extremities. He has an extensor plantar response. Additionally, there is vibratory sensory loss noted in his lower extremities. Patient with persistent dyskinesias but they are markedly decreased in severity. Due to the concern of these newly identified neurological abnormalities, exam was repeated concurrently with Dr. Meyer who is in agreement with the subsequent assessment and plan. A question is raised for presence of a demyelinating disease or myelopathy superimposed on his Parkinson's disease. Detailed neuroimaging and lab work will need to be pursued. An order for an urgent MRI W/WO contrast of the brain, cervical, thoracic, and lumbar is placed. At his previous neurology visit, a baseline CT brain without contrast was ordered by Dr. Cervantes but was not completed as patient/ ultimately declined. Patient presented to the emergency department on 09/15/2024 after sustaining a fall 2 to 3 weeks prior. Patient presented with complaints of persistent pain, particularly in his right shoulder. X-rays of his cervical spine and shoulder were conducted and are available on chart review. Chronic degenerative changes were noted but there was no evidence of acute fracture or dislocation. He was treated with Tylenol and Motrin and discharged home. His fall may have been related to the above findings. subsequently called the neurology office requesting an orthopedic consult for a steroid injection and also a muscle relaxant. A referral was placed to orthopedics for right shoulder evaluation. A muscle relaxant was deferred until patient could be assessed in office. Patient was advised to use OTC medications such as acetaminophen and ibuprofen or diclofenac gel PRN for discomfort. Patient still endorses pain in his lower extremities due to muscle spasms. Tizanidine 4-8 mg tablet PO nightly as needed will be prescribed. Additionally, at his previous appointment, pramipexole 0.75 mg was reduced from TID dosing to BID dosing. The patient reportedly did not tolerate this with complaints of increased restless leg symptoms and r (more content not included)... Normal [facility] No Panel InformationOrdered By: Sussy Callejas on 09-20-2024 Addendum Document Comment . [facility] Comment on above: Protein electrophore sis scan will follow via computer,mail, or thermometer maker delivery. Serum DNA double strand anti body assay (units/volume)Ordered By: Sussy Callejas on 09-20-2024 DNA double strand Ab Qn (S) [facility] Comment on above: Test not performed Serum Scl-70 antibody assay (units/volume)Ordered By: Sussy Callejas on 09-20-2024 SCL-70 extractable nuclear Ab Qn (S) [facility] Comment on above: Test not performed Serum globulin measurement ( mass/volume)Ordered By: Sussy Callejas on 09-20-2024 Globulin (S) [Mass/Vol] 3.3 g/dL 2.2-3.9 [facility] Serum immunoglobulin kappa l ight chains/immunoglobulin lambda light chains mass ratioOrdered By: Sussy Callejas on 09-20-2024 Immunoglobulin light chains.kappa/Immunoglob ulin light chains.lambda (S) [Mass ratio] 1.80 High 0.26-1.65 [facility] Serum or plasma C reactive p rotein measurement (mass/volume)Ordered By: Sussy Callejas on 09-20-2024 CRP [Mass/Vol] mg/L 0.0-3.0 [facility] Serum or plasma IgA measurem ent (mass/volume)Ordered By: Sussy Callejas on 09-20-2024 IgA [Mass/Vol] 145 mg/dL 61-437 [facility] Serum or plasma IgG measurem ent (mass/volume)Ordered By: Sussy Callejas on 09-20-2024 IgG [Mass/Vol] 1454 mg/dL 603-1613 [facility] Serum or plasma alpha 1 glob ulin measurement by electrophoresis (mass/volume)Ordered By: Sussy Callejas on 09-20-2024 Alpha 1 globulin Elph [Mass/Vol] 0.3 g/dL 0.0-0.4 [facility] Alpha 1 globulin Elph [Mass/Vol] 0.6 g/dL 0.4-1.0 [facility] Serum or plasma beta globuli n measurement by electrophoresis (mass/volume)Ordered By: Sussy Callejas on 09-20-2024 Beta globulin Elph [Mass/Vol] 0.9 g/dL 0.7-1.3 [facility] Serum or plasma gamma globul in measurement by electrophoresis (mass/volume)Ordered By: Sussy Callejas on 09-20-2024 Gamma globulin Elph [Mass/Vol] 1.5 g/dL 0.4-1.8 [facility] Serum or plasma immunoelectr ophoresis interpretation (nominal result)Ordered By: Sussy Callejas on 09-20-2024 Interpretation IEP [Interp] Comment . [facility] Comment on above: No monoclonality det ected. Serum or plasma immunoglobul in kappa light chains measurement (mass/volume)Ordered By: Sussy Callejas on 09-20-2024 Immunoglobulin light chains.kappa [Mass/Vol] 34.9 mg/L High 3.3-19.4 [facility] Serum or plasma protein herrera urement (mass/volume)Ordered By: Sussy Callejas on 09-20-2024 Protein [Mass/Vol] 7.4 g/dL 6.0-8.5 [facility] Serum or plasma thiamine frantz surement (mass/volume)Ordered By: Sussy Callejas on 09-20-2024 Thiamine [Mass/Vol] 79.6 nmol/L 66.5-200.0 [facility] Comment on above: Performed at: - [facility] [address] [id number] Director: Deny Donahue PhD, Phone: [phone] at: - [facility] [address] [id number] Director: Aj Watson MD, Phone: [phone] Cerv Spine 2 or 3 Viewson Cerv Spine 2 or 3 Views [facility] Imaging Services [address] [place] [address] Cerv Spine 2 or 3 Views MR#: [id number] Acct: [id number] Name: SYDNIE JESUS Rep #: [id number] : 1950 M 74 From: Asaf Avalos MD PCP: Dr. Earnest Amaral MD Status: REG ER Study: Cerv Spine 2 or 3 Views Date of Exam: 09/15/24 Exam# [id number] Ordering Dr: Cas Boyer MD EXAM: XR Cervical Spine, 4 or 5 Views CLINICAL INDICATION: FALL TECHNIQUE: Frontal, lateral and bilateral oblique views of the cervical spine. COMPARISON: No relevant prior studies available. FINDINGS: VERTEBRAE: Degenerative facet arthropathy throughout the cervical spine. Normal alignment. No acute fracture. DISC SPACES: Degenerative disc disease throughout the cervical spine. SOFT TISSUES: Soft tissue swelling. RAD/Cerv Spine 2 or 3 Views IMPRESSION: 1. No acute fracture. 2. Degenerative changes of the cervical spine as described. Reading Location: [facility] CC: Dr. Cas Boyer MD; Dr. Earnest Amaral MD Lead Tinner: Signed Normal [facility] Emergency Department Summary on 09-15-2024 [facility] [address] [place] [address] Emergency Department Summary 09/15/24 MR#: [id number] Acct: [id number] Name: SYDNIE JESUS Rep #: [id number] : 1950 74 From: Cas Boyer MD PCP: Dr. Earnest Amaral MD Status:REG ER Location: ED HPI HPI - Fall History of Present Illness Chief Complaint: Fall Informant: patient and family Occured/Mechanism Occurred: Weeks Usually ambulates: Without assistance Pain/Injury Pain Location: head, neck and upper extremity (Right shoulder) Current Severity: Mild Maximum Severity: Mild Narrative Narrative: 74-year-old male history of hypertension and Parkinson's. Fell at home 2 to 3 weeks ago in the middle of the night. Denies any LOC. CT of his head complains some neck discomfort and right shoulder discoveries had since that time. Worse with movement. He is on no blood thinners. He denies any recent illness. Prior similar symptoms: Yes Recent Illness/Hospitalization: No PFSH PFS Medical History Essential (primary) hypertension Home Medications ???Medication ???Instructions ???Recorded ???Last Taken ???Type gabapentin 600 mg tablet 600 mg PO QHS 02/17/24 Unknown His tory losartan 25 mg tablet 25 mg PO QDAY 02/17/24 Unknown His tory sertraline 25 mg tablet 25 mg PO QDAY 02/17/24 Unknown His tory carbidopa ER 50 mg-levodopa 200 mg See Rx Instructions PO .COMPLEX 04/29/24 Unknown History tablet,extended release pramipexole 0.75 mg tablet 0.75 mg PO TID 05/06/24 Unknown Hi story Allergy/AdvReac Type Severity Reaction Status Date / Time No Known Allergies Allergy Verified 09/15/24 13:46 Family History Mother , 80 yrs old No problems noted. Father , 83 years old Heart disease Surgical History Hx of appendectomy Social History household members: spouse and children current occupational status: retired pets and animals: No Smoking Status: Former smoker alcohol intake: never caffeine: Yes Type: coffee Number of servings: 1 do you feel safe at home: Yes ROS ROS ED ROS Narrative Denies recent illness. Constitutional Constitutional ED: Denies chills or fever(s) Eyes Eyes: Denies blurry vision ENT ENT ED: Denies ear pain Cardiovascular Cardiovascular: Denies chest pain Respiratory/Chest Respiratory/Chest: Denies cough or dyspnea Gastrointestinal Gastrointestinal: Denies abdominal pain Genitourinary Genitourinary ED: Denies dysuria or hematuria Musculoskeletal Musculoskeletal: Reports neck pain; Denies arthralgias or back pain Integumentary Denies abscess or Abrasions Neurologic Neurologic: Denies headache(s) Psychiatric Psychiatric: Denies anxiety Endocrine Endocrinology: Denies polydipsia Hematologic/Lymphatic Hematologic/Lymphatic: Denies easy bleeding, easy bruising or lymphadenopathy Allergic/Immunologic Allergic/Immunologic ED: Denies mouth swelling, tongue swelling or urticaria EXAM Physical Exam Narrative Exam Narrative: Well-appearing 74-year-old male. Vital signs are stable afebrile. He is sitting upright in bed. Family is present. No distress. H EENT exam. Right [place]. Moist membranes. No trauma to his face or scalp. Nontender no hematomas. Neck diffuse soft tissue tenderness. Trachea midline. Back, thoracic and lumbar spine nontender no bruising. Lungs clear to auscultation bilaterally. Heart regular rhythm no murmur. Rate about 80. Chest wall and ribs nontender. Abdomen soft nontender. Pelvic girdle intact. Patient is moving all 4 extremities. No deformity. Normal explosive ordnance specialist strength. Normal dorsi plantarflexion. Hips are nontender and without rotation or shortening. Mild tenderness right shoulder no deformity. No swelling. No redness or warmth. Bilateral elbows forearms wrist and hands are nontender. Neurologically he is awake alert. Answering questions and following commands. Parkinsonian movements. He knows month, year and president. Const Vital Signs: 09/15/24 13:44 09/15/24 14:06 Temperature 97.8 F Temperature Source Oral Pulse Rate 79 Respiratory Rate 16 Respiratory Effort Normal Respiratory Depth Normal Respiratory Pattern Normal Blood Pressure 126/71 H Blood Pressure Mean 89 Pulse Ox 98 Oxygen Delivery Method Room Air Room Air Positive well nourished and well developed; Negative for obese, cachectic, contractures or unkempt General Appearance ED: well developed and NAD; Negative for unkempt, cachectic or contractures Nutritional Appearance: Negative for cachectic or obese HEENT Reports normocephalic atraumatic; (more content not included)... Normal [facility] Shoulder min 2 Viewson 09-15 Shoulder min 2 Views [facility] Imaging Services [address] [place] [address] Shoulder min 2 Views MR#: [id number] Acct: [id number] Name: SYDNIE JESUS Rep #: [id number] : 1950 74 From: Asaf Avalos MD PCP: Dr. Earnest Amaral MD Status: REG ER Study: Shoulder min 2 Views Date of Exam: 09/15/24 Exam# [id number] Ordering Dr: Cas Boyer MD EXAM: XR Right Shoulder Complete, 2 or More Views CLINICAL INDICATION: FALL TECHNIQUE: Two or more views of the right shoulder. COMPARISON: No relevant prior studies available. FINDINGS: BONES/JOINTS: Mild degenerative change of the acromioclavicular and glenohumeral joints. No dislocation. No acute fracture. SOFT TISSUES: Soft tissue swelling. RAD/Shoulder min 2 Views IMPRESSION: 1. No acute fracture. 2. Degenerative changes as above. Reading [facility] CC: Dr. Cas Boyer MD; Dr. Earnest Amaral MD Lead Tinner: Signed Normal [facility] FERRITIN [CCL]on 07-29-2024 Ferritin [Mass/Vol] 191.0 ng/mL Normal 30.3-565.7 [facility] Comment on above: Result Comment: [address] [address] Leonardo Stacy III, M.D. [id number] Performed By: #### 2 [id number] #### [facility],[address] [place] [address] CBC + DIFFon 07-28-2024 Baso # 0.01 x10EE3/UL Normal 0.00 - 0.10 [facility] Comment on above: Performed By: #### 2 [id number] #### [facility],[address] [place] [address] Basophils/100 WBC (Bld) 0.2 % Normal 0.0 - 2.0 [facility] Comment on above: Performed By: #### 2 10236 #### [facility],[address] [place] [address] CBC + DIFF Normal [facility] Comment on above: Result Comment: CBC- COMPLETE BLOOD COUNT Performed By: #### 2 57843 #### [facility],[address] [place] [address] EO # 0.30 x10EE3/UL Normal 0.00 - 0.50 [facility] Comment on above: Performed By: #### 2 50610 #### [facility],[address] [place], [place] [id number] Eosinophils/100 WBC (Bld) 7.4 % High 0.0 - 7.0 [facility] Comment on above: Performed By: #### 2 91103 #### [facility],[address] [place], [place] [id number] Erythrocyte distribution width (RBC) [Ratio] 12.8 % Normal 12.0 - 15.6 [facility] Comment on above: Performed By: #### 2 68135 #### [facility],[address] [place] [address] Hematocrit (Bld) [Volume fraction] 40.6 % Normal 40.0 - 52.0 [facility] Comment on above: Performed By: #### 2 51407 #### [facility],[address] [place] [address]7029 Hemoglobin (Bld) [Mass/Vol] 14.3 g/dL Normal 13.0 - 17.5 [facility] Comment on above: Performed By: #### 2 04904 #### [facility],[address] [place] [address]1302 Lymph # 1.22 x10EE3/UL Normal 0.80 - 2.80 [facility] Comment on above: Performed By: #### 2 21867 #### [facility],[address] [place], [place] [id number] Lymphocytes/100 WBC (Bld) 30.4 % Normal 20.0 - 45.0 [facility] Comment on above: Performed By: #### 2 00108 #### [facility],[address] [place] [address] 14059 MANUAL DIFF N/A Normal [facility] Comment on above: Performed By: #### 2 65537 #### [facility],[address] [place] [address] MCH (RBC) [Entitic mass] 33 pg Normal 27 - 33 [facility] Comment on above: Performed By: #### 2 11783 #### [facility],[address] [place] [address] MCHC 35 X10 3 Normal 32 - 36 [facility] Comment on above: Performed By: #### 2 53027 #### [facility],[address] [place] [address] 59262 MCV (RBC) [Entitic vol] 94 fL Normal 81 - 98 [facility] Comment on above: Performed By: #### 2 24934 #### [facility],[address] [place] [address] 72761 Hodgeman # 0.31 x10EE3/UL Normal 0.20 - 1.00 [facility] Comment on above: Performed By: #### 2 74190 #### [facility],[address] [place] [address] 31733 MONOS % 7.6 % Normal 0.0 - 10.0 [facility] Comment on above: Performed By: #### 2 69265 #### [facility] [place] [address] 84234 Morphology Eric (Bld) [Interp] N/A Normal [facility] Comment on above: Performed By: #### 2 39234 #### [facility],[address] [place] [address] 29844 Neut # 2.18 x10EE3/UL Normal 1.50 - 7.10 [facility] Comment on above: Performed By: #### 2 08105 #### [facility],[address] [place] [address] 18342 Neutrophils/100 WBC (Bld) 54.4 % Normal 46.0 - 76.0 [facility] Comment on above: Performed By: #### 2 54098 #### [facility],[address] [place] [address] 50616 PLATELET 189 x10EE3/UL Normal 150 - 450 [facility] Comment on above: Performed By: #### 2 39396 #### [facility],[address] [place], [place] [id number] Platelet mean volume (Bld) [Entitic vol] 9.0 fL Normal 6.4 - 10.5 [facility] Comment on above: Result Comment: AUTO MATED DIFFERENTIAL Performed By: #### 2 63097 #### [facility],[address] [place] [address] 90739 RBC 4.32 x 10EE6/UL Low 4.50 - 6.00 [facility] Comment on above: Performed By: #### 2 05278 #### [facility],[address] [place] [address] 22140 WBC 4.0 x 10EE3/UL Low 4.5 - 10.8 [facility] Comment on above: Performed By: #### 2 74411 #### [facility],[address] [place] [address] 96755 CMP with eGFRon 07-28-2024 AGE 73 years Normal [facility] Comment on above: Performed By: #### 2 37607 #### [facility],[address] [place] [address] 33220 Albumin [Mass/Vol] 3.8 g/dL Normal 3.4 - 5.0 [facility] Comment on above: Performed By: #### 2 67724 #### [facility],[address] [place] [address] 77114 Albumin/Globulin [Mass ratio] 1.2 {ratio} Normal 0.9 - 1.6 [facility] Comment on above: Performed By: #### 2 03967 #### [facility],[address] [place] [address] 40237 ALK PHOS 76 U/L Normal 46 - 116 [facility] Comment on above: Performed By: #### 2 37627 #### [facility],[address] [place] [address] 78380 ALT [Catalytic activity/Vol] 18 U/L Normal 16 - 63 [facility] Comment on above: Performed By: #### 2 14936 #### [facility],[address] [place] [address] 19834 Anion gap [Moles/Vol] 10 mmol/L Normal 10 - 20 [facility] Comment on above: Performed By: #### 2 79771 #### [facility],[address] [place] [address] 60666 AST [Catalytic activity/Vol] 18 U/L Normal 15 - 37 [facility] Comment on above: Performed By: #### 2 24391 #### [facility],[address] [place] [address] 53486 B/C RATIO 24 ratio Normal 0 - 30 [facility] Comment on above: Performed By: #### 2 57280 #### [facility],[address] [place] [address] 71726 Bilirubin [Mass/Vol] 0.8 mg/dL Normal 0.2 - 1.0 [facility] Comment on above: Performed By: #### 2 32305 #### [facility],[address] [place] [address] 64942 Calcium [Mass/Vol] 9.0 mg/dL Normal 8.5 - 10.1 [facility] Comment on above: Performed By: #### 2 74281 #### [facility],[address] [place] [address] 45517 Chloride [Moles/Vol] 106 mmol/L Normal 98 - 107 [facility] Comment on above: Performed By: #### 2 94552 #### [facility],[address] [place] [address] 50316 CMP with eGFR Normal [facility] Comment on above: Result Comment: COMP REHENSIVE METABOLIC PANEL Performed By: #### 2 70901 #### [facility],[address] [place] [address] 64389 CO2 [Moles/Vol] 30.2 mmol/L Normal 21.0 - 32.0 [facility] Comment on above: Performed By: #### 2 37100 #### [facility],[address] [place] [address] 36719 Creatinine [Mass/Vol] 0.92 mg/dL Normal 0.70 - 1.30 [facility] Comment on above: Performed By: #### 2 82989 #### [facility],[address] [place] [address] 90872 GFR/1.73 sq M.predicted among non-blacks MDRD (S/P/Bld) [Vol rate/Area] mL/min/{1.73_m2} Normal 60 - 999 [facility] Comment on above: Performed By: #### 2 47417 #### [facility],[address] [place] [address] 49239 Result Comment: ACCO RDING TO THE NATIONAL KIDNEY DISEASE EDUCATION PROGRAM(NKDE), A NORMAL eGFR IS A VALUE GREATER THAN OR EQUAL TO 60 ML/MIN/1.73 SQ METERS. CHRONIC KIDNEY DISEASE: <60mL/MIN/1.73 SQ METERS KIDNEY FAILURE: <15mL/MIN/1.73 SQ METERS THIS TEST SHOULD ONLY BE USED FOR PATIENTS 18 YEARS OF AGE AND OLDER. Globulin (S) [Mass/Vol] 3.2 g/dL Normal 1.5 - 3.8 [facility] Comment on above: Performed By: #### 2 38983 #### [facility],[address] [place] [address] 25368 Glucose [Mass/Vol] 101 mg/dL Normal 74 - 106 [facility] Comment on above: Performed By: #### 2 55889 #### [facility],[address] [place] [address] 49408 Potassium [Moles/Vol] 3.5 mmol/L Normal 3.5 - 5.1 [facility] Comment on above: Performed By: #### 2 74960 #### [facility],[address] [place] [address] 16656 Protein [Mass/Vol] 7.0 g/dL Normal 6.4 - 8.2 [facility] Comment on above: Performed By: #### 2 28634 #### [address] [address] Sodium [Moles/Vol] 143 mmol/L Normal 136 - 145 [facility] Comment on above: Performed By: #### 2 15473 #### [facility],[address] [place] [address] 62725 Urea nitrogen [Mass/Vol] 22 mg/dL High 7 - 18 [facility] Comment on above: Performed By: #### 2 75206 #### [facility],[address] [place] [address] 69372 LIPID PROFILEon 07-28-2024 Cholesterol [Mass/Vol] 230 mg/dL Normal 0 - 240 [facility] Comment on above: Performed By: #### 2 90317 #### [facility],[address] [place] [address] 36059 Cholesterol in HDL [Mass/Vol] 85 mg/dL High 40 - 60 [facility] Comment on above: Performed By: #### 2 49310 #### [facility],[address] [place] [address] 04672 Cholesterol in LDL [Mass/Vol] 127 mg/dL Normal 0 - 129 [facility] Comment on above: Performed By: #### 2 47236 #### [facility],[address] [place] [address] 37088 Cholesterol.total/Gardenia sterol in HDL [Mass ratio] 2.7 {ratio} Normal 0.0 - 5.0 [facility] Comment on above: Performed By: #### 2 10362 #### [facility],[address] [place] [address] 26395 Lipid 1996 panel Normal [facility] Comment on above: Result Comment: LIPI D PROFILE Performed By: #### 2 42792 #### [facility],[address] [place] [address] 29594 Triglyceride [Mass/Vol] 92 mg/dL Normal 0 - 150 [facility] Comment on above: Performed By: #### 2 69655 #### [facility],[address] [place] [address] 68656 MAGNESIUMon 07-28-2024 Magnesium [Mass/Vol] 2.1 mg/dL Normal 1.8 - 2.4 [facility] Comment on above: Performed By: #### 2 92804 #### [facility],[address] [place] [address] 90208 TSHon 07-28-2024 TSH Qn 2.58 m[IU]/L Normal 0.35 - 3.74 [facility] Comment on above: Performed By: #### 2 19224 #### [facility],[address] [place] [address] 53699 VITAMIN B-12on 07-28-2024 Cobalamin (Vitamin B12) [Mass/Vol] 920 pg/mL Normal 193 - 986 [facility] Comment on above: Performed By: #### 2 24524 #### [facility],[address] [place], [place] [id number] VITAMIN D, 25 HYDROXYon 05-2 VitD 32.40 ng/mL Normal 30.00 - 100 [facility] Comment on above: Result Comment: 25-O HD3 indicates both endogenous production and supplementation. 25-OHD2 is an indicator of exogenous sources, such as diet or supplementation. Therapy is based on measurement of Total 25-OHD, with levels <20 ng/mL indicative of Vitamin D deficiency, while levels between 20 ng/mL and 30 ng/mL suggest insufficiency. Optimal levels are >=30ng/mL. Vitamin D, 25-OH D3 Not Established Vitamin D, 25-OH D2 Not Established Performed By: #### 2 26022 #### [facility],[address] [place] [address] 79176 Neurology Visit Reporton Neurology Visit Report [facility] [address], [address] [place] [address] OFFICE VISIT Date of Service: 04/29/24 MR#: [id number] Acct: [id number] Name: SYDNIE JESUS Rep #: [id number] : 1950 Provider: Dr. Sly cee MD Age/Sex: 73/M Location: [facility].BN Status: Signed HPI HPI Details: The patient is a 73-year-old right handed male who presents for a 1 month follow up on Dyskinesia and Parkinson's disease. Patient presents with his for follow-up evaluation of movement disorder. Patient has been previously seen by me in neurology clinic. Date was 03/31/2024. Patient had uncontrolled choreiform and dystonic movements consistent with excess dopamine dosing. Patient had been on Sinemet at a higher dose as well as Mirapex. Sinemet was reduced to Sinemet 25 200 ER 1 in the AM and 1 nightly. Mirapex was continued at the same dose. Patient appeared to make good improvement in his dosing but experienced increased stiffness particularly in the morning. Patient had talked to nurse practitioner Sussy Israel on 04/27/2024. Sinemet was changed at that time to Sinemet ER 50-100 to schedule noted below. Patient apparently has improved substantially. Patient remains on Mirapex(Pramipexole)0.75 mg 3 times daily. This will be reduced to Mirapex 0.75 mg p.o. twice daily. Exam Const Other: Blood pressure 144/84 pulse 86 respiration 17 temperature 98.7 O2 sat 98%. BMI is 20.6%. Neurologic examination: Mental status: Patient remains awake and alert. He does have a recent memory defect. He does have some limitations in comprehension since . CN II-XII: Shows the patient has continuous movement of head for the most part. There are some pauses. It is dyskinesia of the head. Less dyskinesia of the face and tongue noted. No ocular movement abnormality noted. Motor exam shows that he has continued baseline strength arms and legs. Cerebellar function shows that at the moment he does not have cogwheel rigidity or bradykinesia. He does have significant dyskinesia but much less than noted on prior evaluation. This dosing schedule seems to be helping. He still has too much dyskinesia though. Reflexes deferred at this time because of movement disorder. Sensory exam showed no particular sensory difficulties. Station gait patient is able to rise from chair with normal speed. He is able to walk down the hallway and back again with normal speed. Less movement of arms and trunk dyskinesia noted. Assessment and Plan Assessment and Plan (1) Dyskinesia: Status: Chronic Comment: 04/07/2024 patient continues to have marked dyskinesia. It is hard to say if he improves slightly or not. He does have a early a.m. stiffness which is new since we have reduced his Sinemet slightly. During the day though he has recurrent dyskinesia. In order to address this we have decided to reduce the daytime Sinemet 25 200 ER to 1 in the AM 1 at 2 PM and 2 nightly. Hopefully he will have less dyskinesia during the day and have less stiffness and decreased movement in the morning. Today only with asked him to skip his 2 PM dose. We have asked him to note any changes in his stiffness or movement and to give us a call tomorrow to let us know how he is progressing. 04/29/2024 Patient shows continued prominent movements. Nevertheless this is much less than what he initially presented with. At this point in time I hope to get a CT of the head to see what the intracranial anatomy looks like. We have been hoping to obtain an MRI but I think his movement is too prominent to allow an MR I to be done and I am unwilling to provide the patient with significant sedation or conscious sedation for purposes of obtaining an MRI. Plan: 1. Mirapex dose will be reduced to twice daily. 2. Current sentiment dose will be continued. Next line #3. CT of the head will be obtained. 4. Patient return to neurology clinic in about 2 months. Orders: Orders Brain/Head without Contrast Today G24.9 - Dystonia, unspecified Medications: Changed From carbidopa-levodopa 50-200 mg ER Take 1 tablet PO at 6:30am, 1 tablet PO at 2:00pm, and 2 tablets PO at 10:00pm 120 tabs 1RF To carbidopa-levodopa 50-200 mg ER 1 tablet at 6 am, 11 am, 4 pm, and 10 pm From pramipexole 0.75 mg PO TID To pramipexole 0.75 mg PO BID Intake Vital Signs 03/31/24 13:08 04/29/24 13:27 Height 5 ft 10.25 in 5 ft 10.25 in Weight: 143 lb 145 lb BMI 20.3 20.6 BP 140/86 H 144/84 H Blood Pressure Location Lt brachial Lt brachial Position Sitting Sitting Respiration 15 17 Pulse 80 86 Pulse Source Monitor Monitor Temp 98.4 F 98.7 F Temp Source Temporal Temporal Pulse Oximetry (%) 97 98 Oxygen Delivery Method room air room air Intake Visit Reasons: 1 M Track Rider Required: No Accompanied by: A (more content not included)... Normal [facility] Neurology Visit Reporton Neurology Visit Report [facility] [address] [place] [id number] OFFICE VISIT Date of Service: 03/31/24 MR#: [id number] Acct: [id number] Name: SYDNIE JESUS Rep #: [id number] : 1950 Provider: Dr. Sly cee MD Age/Sex: 73/M Location: [facility] Status: Signed with Addenda ADDENDUM by ELSIE Callejas on 04/07/24 at 1140 Addendum (04/07/24): The patient and his , Lexy, had reached out in regard to poor tolerance of changing the timing / dosing of his Sinemet. His therapeutic window has been difficult to determine with his concurrent symptoms of both stiffness and dyskinesias. At last office visit on 03/31/24, the patient was instructed to skip his afternoon dose of Sinemet with hopes of improving his dyskinesias. The reported that this caused intolerable stiffness and did not help with the abnormal movements. The timing / dosing of the Sinemet was also adjusted starting the following day. The patient stated that this caused worsening of stiffness and they ultimately went back to the previous timing / dosing of 1.5 tabs @ 0630; 1.5 tabs @ 1400; 1 tab @ 2200. He is currently on Sinemet ER 50-200 mg. The timing / dosing has been adjusted twice. The course was as follows on a 0630, 1400, 2200 schedule: Original dosage: 2 tab / 2 tab / 1 tab 1st visit adjustment: 1.5 tab / 1.5 tab / 1 tab 2nd visit adjustment: 1 tab / 1 tab / 2 tab The patient describes some morning stiffness, but the 'wearing off effect' appears to be most prominent prior to the 1400 dose and 2200 dose. After discussion, it was mutually agreed upon to tri al QID dosing of the Sinemet rather than TID in hopes of minimizing his motor fluctuations. Timing / dosing adjusted to: 0600: 1 tab 1100: 1 tab 1600: 1 tab 2200: 1 tab The patient/ stated they will call the office in a few days to discuss whether or not this adjustment was beneficial. If it was not, adjunct pharmacotherapy may need to be added or current regimen adjusted further. The patient may need to follow up with a movement disorder specialist. In addition to Sinemet, the patient takes pramipexole and sertraline. He stated that he was prescribed the the pramipexole around the same time or before Sinemet was prescribed. He stated he has been on/off sertraline for depression. Most recently, he stated he was off sertraline for the summer months but restarted in the winter months. He is currently still taking. 04/07/24 1140 Date Sussy Callejas cc: * Signed HPI HPI Details: The patient is a 73-year-old right handed male who presents for a 1 month follow up on Parkinson's disease. This patient has Parkinson's disease. He is accompanied by his mother for evaluation. Patient has marked dyskinesia that appears to be related to excess Sinemet. Patient was reducing Sinemet to 1-1/2 pill every morning 1/2 pill every afternoon and 1 pill nightly. The medicine he takes is Sinemet 25 200 ER. Patient notes that he has some regulatory consultant stiffness. Then when he is active during the day he has marked dyskinesia which is very uncontrolled. He may have some stiffening if he sits in a chair or becomes relatively inactive. Because of his marked dyskinesia we have decided to reduce his Sinemet 25 200 ER to 1 in the morning, 1 at 2 PM and 2 nightly. 2 pills a nightly is an attempt to manage regulatory consultant stiffness. Today only the patient will not take his 2 PM dose at all to see if his dyskinesia decreases during the day. He will call him tomorrow to inform us as to the result. Neuroexam: Mental status: He is awake and alert and has intact cognition as before. CN II-XII: Pupils are equal extraocular muscles are intact marked dyskinesia of head face noted. Patient can phonate and he can swallow. Motor: No focal weakness. He is relatively thinly built. BMI is 20.3. He has marked dyskinesia mostly of the upper extremities but to a lesser extent the trunk and legs. Cerebellar testing shows that he does not have bradykinesia, cogwheeling or altered gait. The most amazing feature is his marked dyskinesia. There is no parkinsonian tremor. Reflexes somewhat difficult to ascertain but I believe on the order of 1+. His movement makes it difficult to check. Sensory appears intact. Station and gait patient is able to walk down the hallway and back quickly without difficulty. He has normal turning. He does not freeze. Assessment and Plan Assessment and Plan (1) Dyskinesia: Status: Chronic Comment: Patient continues to have marked dyskinesia. It is hard to say if he improves slightly or not. He does have a early a.m. stiffness which is new since we have reduced his Sinemet slightly. During the day though he has recurrent dyskinesia. In order to address this we have decided to reduce the dayt (more content not included)... Normal [facility] Neurology Visit Reporton Neurology Visit Report [facility] [address], [address] [place] [address] OFFICE VISIT Date of Service: 02/17/24 MR#: [id number] Acct: [id number] Name: SYDNIE JESUS Rep #: [id number] : 1950 Provider: Dr. Sly cee MD Age/Sex: 73/M Location: [facility]. Status: Signed HPI HPI Chief Complaint: Establish Care Details: The patient is a 73-year-old right handed male who presents to [facility]. He was referred 01/16/[address] Linh Latham with [facility] for parkinsons disease. This patient presents with his for evaluation of Parkinson's disease. Nurse practitioner Sussy is present value stream coach. Patient is awake and alert and able to answer questions on his own behalf. His is also able to add additional information is needed. Outside records are available for review. Patient has had Parkinson's for about 3 years. This is according to his statement by the patient. Patient's current therapeutic regimen includes Sinemet 50/200 extended release 2 at 10:30 AM, 2 at 2 PM and 1 at 10 PM. Patient notes that he is often stiff in the morning but the medicine does begin taking effect. He then developed diffuse dyskinesia which is disturbing. It tends to decrease at 2 PM and resumes following taking the 2 PM doses. He goes to bed at about 10 PM and takes 1 pill prior to going to sleep. He is also on Mirapex for restless leg syndrome as well as gabapentin for restless leg syndrome. Patient is seen a number of physicians for management of his Parkinson's disease. Currently he is disease is being managed by primary care. Patient does not have constipation. Patient does have active times during the day with limited movement as long as he is doing something of purpose such as walking to a particular target. When he stops at rest dyskinesias emerge and are difficult if not impossible to control. Patient does not have hallucinations or delusions. Mentation remains relatively good although he may have a recent memory defect that may be of concern. ROS General Denies recent viral illnesses. Head without headache. No changes in vision no change in hearing. No difficulty swallowing. Respiratory without hemoptysis normal breathing Cardiac no chest pain or palpitations Abdomen denies constipation. Does not cough up blood vomit blood past blood in stool or urine. Extremities without trauma. He does have uncontrolled dyskinesia. Skin without rash or wound. Endocrine without thyroid disease or diabetes Psychiatric without delusions or hallucination. Possible recent memory defect Exam Const Other: Blood pressure is 150/90 pulse is 81 respiration 16 temperature 98.2 O2 sat 97%. General appearance is that of a thinly built male with a BMI of 19.9% (weight is stable) HEENT shows he is normocephalic. No conjunctival injection Respirations clear to auscultation Cardiac normal heart sounds without murmur Abdomen nondistended Extremities without evidence of trauma Skin without rash Neurologic examination Mental status: Patient is awake and alert. He is oriented to person place day month year. Memory testing is 1 out of 3. Patient may have been distracted. Language shows no psychological operations expression. Insight and judgment appears to be preserved. No delusions or hallucinations noted. CN II-XII: Pupils equal round 4 mm in size minimal reaction. Visual umanzor full to confrontation. Extraocular muscles are intact. No nystagmus. No ptosis. No gaze palsy. Sensory function face appears to be intact. Motor function face shows that he may have a mildly masked facies. Hearing is intact. Oropharyngeal function shows that he appears to be able to swallow without difficulty. No vocal tremor present. Tongue midline. No lingual dyskinesia identified. Motor examination no focal weakness identified. Cerebellar function: No tremor but he has marked dyskinesia of whole body including trunk arms and legs. He has difficulty controlling the movement. When I ask him to do something purposeful such as to sit forward so I can listen to his lungs he could do so without dyskinesia. When I ask him to walk down the hallway he is able to do that with minimal dyskinesia. When he comes to rest dyskinesia becomes prominent. No obvious parkinsonian tremor noted at this point in time. He does not demonstrate cogwheeling or bradykinesia and can move fluidly. Reflexes 2+ at biceps 3+ at knees. Toes signs not checked. Sensory exam is intact to tactile and vibratory sense all 4 extremities. Station gait shows that when he does ambulate he does so smoothly and quickly. He has normal turning. He has normal arm swing. When he comes to rest for Romberg testing he has a tendency to develop dyskinesia again. When he actually performs Romberg testing and holds his arms in front of him no dyskinesia noted. Assessment and Plan Assessment and (more content not included)... Normal [facility] CBC + DIFFon 10-02-2023 Baso # 0.01 x10EE3/UL Normal 0.00 - 0.10 [facility] Comment on above: Performed By: #### 2 72025 #### [facility],[address] [place] [address] Basophils/100 WBC (Bld) 0.2 % Normal 0.0 - 2.0 [facility] Comment on above: Performed By: #### 2 84639 #### [facility],[address] [place] [address] CBC + DIFF Normal [facility] Comment on above: Result Comment: CBC- COMPLETE BLOOD COUNT Performed By: #### 2 64137 #### [facility],[address] [place] [address] EO # 0.20 x10EE3/UL Normal 0.00 - 0.50 [facility] Comment on above: Performed By: #### 2 53397 #### [facility],[address] [place] [address] Eosinophils/100 WBC (Bld) 5.5 % Normal 0.0 - 7.0 [facility] Comment on above: Performed By: #### 2 64299 #### [facility],[address] [place] [address] Erythrocyte distribution width (RBC) [Ratio] 12.8 % Normal 12.0 - 15.6 [facility] Comment on above: Performed By: #### 2 94545 #### [facility],[address] [place], [place] [id number] Hematocrit (Bld) [Volume fraction] 39.1 % Low 40.0 - 52.0 [facility] Comment on above: Performed By: #### 2 71816 #### [facility],[address] [place] [address] 30150 Hemoglobin (Bld) [Mass/Vol] 13.5 g/dL Normal 13.0 - 17.5 [facility] Comment on above: Performed By: #### 2 54021 #### [facility],[address] [place] [address] Lymph # 0.94 x10EE3/UL Normal 0.80 - 2.80 [facility] Comment on above: Performed By: #### 2 19356 #### [facility],[address] [place], [place] [id number] Lymphocytes/100 WBC (Bld) 25.7 % Normal 20.0 - 45.0 [facility] Comment on above: Performed By: #### 2 32025 #### [facility],[address] [place] [address] 64443 MANUAL DIFF N/A Normal [facility] Comment on above: Performed By: #### 2 66539 #### [facility],[address] [place] [address] 61660 MCH (RBC) [Entitic mass] 32 pg Normal 27 - 33 [facility] Comment on above: Performed By: #### 2 63737 #### [facility],[address] [place] [address] 38427 MCHC 34 X10 3 Normal 32 - 36 [facility] Comment on above: Performed By: #### 2 59431 #### [facility],[address] [place] [address] 56521 MCV (RBC) [Entitic vol] 93 fL Normal 81 - 98 [facility] Comment on above: Performed By: #### 2 05744 #### [facility],[address] [place] [address] 15308 Hodgeman # 0.21 x10EE3/UL Normal 0.20 - 1.00 [facility] Comment on above: Performed By: #### 2 40348 #### [facility],[address] [place] [address] 22076 MONOS % 5.6 % Normal 0.0 - 10.0 [facility] Comment on above: Performed By: #### 2 55652 #### [facility],[address] [place] [address] 81573 Morphology Eric (Bld) [Interp] N/A Normal [facility] Comment on above: Performed By: #### 2 63118 #### [facility],[address] [place] [address] 53877 Neut # 2.31 x10EE3/UL Normal 1.50 - 7.10 [facility] Comment on above: Performed By: #### 2 04208 #### [facility],[address] [place] [address] 56625 Neutrophils/100 WBC (Bld) 63.0 % Normal 46.0 - 76.0 [facility] Comment on above: Performed By: #### 2 39335 #### [facility],[address] [place] [address] 20513 PLATELET 190 x10EE3/UL Normal 150 - 450 [facility] Comment on above: Performed By: #### 2 28151 #### [facility],[address] [place] [address] 93670 Platelet mean volume (Bld) [Entitic vol] 8.8 fL Normal 6.4 - 10.5 [facility] Comment on above: Result Comment: AUTO MATED DIFFERENTIAL Performed By: #### 2 60663 #### [facility],[address] [place] [address] 73988 RBC 4.19 x 10EE6/UL Low 4.50 - 6.00 [facility] Comment on above: Performed By: #### 2 03727 #### [facility],[address] [place] [address] 84308 WBC 3.7 x 10EE3/UL Low 4.5 - 10.8 [facility] Comment on above: Performed By: #### 2 17098 #### [facility],[address] [place] [address] 25613 CMP with eGFRon 10-02-2023 AGE 73 years Normal [facility] Comment on above: Performed By: #### 2 50948 #### [facility],[address] [place] [address] 81056 Albumin [Mass/Vol] 3.5 g/dL Normal 3.4 - 5.0 [facility] Comment on above: Performed By: #### 2 71251 #### [facility],[address] [place] [address] 07437 Albumin/Globulin [Mass ratio] 1.0 {ratio} Normal 0.9 - 1.6 [facility] Comment on above: Performed By: #### 2 20419 #### [facility],[address] [place] [address] 29776 ALK PHOS 63 U/L Normal 46 - 116 [facility] Comment on above: Performed By: #### 2 51070 #### [facility],[address] [place] [address] 75532 ALT [Catalytic activity/Vol] 8 U/L Low 16 - 63 [facility] Comment on above: Performed By: #### 2 26786 #### [facility],[address] [place] [address] 52571 Anion gap [Moles/Vol] 9 mmol/L Low 10 - 20 [facility] Comment on above: Performed By: #### 2 33720 #### [facility],[address] [place] [address] 67788 AST [Catalytic activity/Vol] 17 U/L Normal 15 - 37 [facility] Comment on above: Performed By: #### 2 19579 #### [facility],[address] [place] [address] 80114 B/C RATIO 21 ratio Normal 0 - 30 [facility] Comment on above: Performed By: #### 2 52810 #### [facility],[address] [place] [address] 73492 Bilirubin [Mass/Vol] 1.2 mg/dL High 0.2 - 1.0 [facility] Comment on above: Performed By: #### 2 03203 #### [facility],[address] [place] [address] 86577 Calcium [Mass/Vol] 8.9 mg/dL Normal 8.5 - 10.1 [facility] Comment on above: Performed By: #### 2 21712 #### [facility],[address] [place] [address] 26564 Chloride [Moles/Vol] 105 mmol/L Normal 98 - 107 [facility] Comment on above: Performed By: #### 2 17608 #### [facility],[address] [place] [address] 49238 CMP with eGFR Normal [facility] Comment on above: Result Comment: COMP REHENSIVE METABOLIC PANEL Performed By: #### 2 15765 #### [facility],[address] [place] [address] 61099 CO2 [Moles/Vol] 30.6 mmol/L Normal 21.0 - 32.0 [facility] Comment on above: Performed By: #### 2 94441 #### [facility],[address] [place] [address] 95746 Creatinine [Mass/Vol] 0.86 mg/dL Normal 0.70 - 1.30 [facility] Comment on above: Performed By: #### 2 55651 #### [facility],[address] [place] [address] 95452 GFR/1.73 sq M.predicted among non-blacks MDRD (S/P/Bld) [Vol rate/Area] mL/min/{1.73_m2} Normal 60 - 999 [facility] Comment on above: Performed By: #### 2 97782 #### [facility],[address] [place] [address] 07616 Result Comment: ACCO RDING TO THE NATIONAL KIDNEY DISEASE EDUCATION PROGRAM(NKDE), A NORMAL eGFR IS A VALUE GREATER THAN OR EQUAL TO 60 ML/MIN/1.73 SQ METERS. CHRONIC KIDNEY DISEASE: <60mL/MIN/1.73 SQ METERS KIDNEY FAILURE: <15mL/MIN/1.73 SQ METERS THIS TEST SHOULD ONLY BE USED FOR PATIENTS 18 YEARS OF AGE AND OLDER. Globulin (S) [Mass/Vol] 3.6 g/dL Normal 1.5 - 3.8 [facility] Comment on above: Performed By: #### 2 90094 #### [address] [address] Glucose [Mass/Vol] 102 mg/dL Normal 74 - 106 [facility] Comment on above: Performed By: #### 2 79170 #### [facility],[address] [place] [address] 56638 Potassium [Moles/Vol] 3.6 mmol/L Normal 3.5 - 5.1 [facility] Comment on above: Performed By: #### 2 38490 #### [facility],[address] [place] [address] 24493 Protein [Mass/Vol] 7.1 g/dL Normal 6.4 - 8.2 [facility] Comment on above: Performed By: #### 2 83146 #### [facility],[address] [place] [address] 54104 Sodium [Moles/Vol] 141 mmol/L Normal 136 - 145 [facility] Comment on above: Performed By: #### 2 30765 #### [facility],[address] [place] [address] 67256 Urea nitrogen [Mass/Vol] 18 mg/dL Normal 7 - 18 [facility] Comment on above: Performed By: #### 2 59261 #### [facility],[address] [place] [address] 28392 FERRITINon 10-02-2023 Ferritin [Mass/Vol] 227 ng/mL Normal 8 - 388 [facility] Comment on above: Performed By: #### 2 56531 #### [facility],[address] [place] [address] 09224 LIPID PROFILEon 10-02-2023 Cholesterol [Mass/Vol] 195 mg/dL Normal 0 - 240 [facility] Comment on above: Performed By: #### 2 78580 #### [facility],[address] [place] [address] 65731 Cholesterol in HDL [Mass/Vol] 86 mg/dL High 40 - 60 [facility] Comment on above: Performed By: #### 2 08704 #### [facility],[address] [place] [address] 55908 Cholesterol in LDL [Mass/Vol] 100 mg/dL Normal 0 - 129 [facility] Comment on above: Performed By: #### 2 62253 #### [facility],[address] [place] [address] 63733 Cholesterol.total/Gardenia sterol in HDL [Mass ratio] 2.3 {ratio} Normal 0.0 - 5.0 [facility] Comment on above: Performed By: #### 2 42541 #### [facility],[address] [place] [address] 69583 Lipid 1996 panel Normal [facility] Comment on above: Result Comment: LIPI D PROFILE Performed By: #### 2 38674 #### [facility],[address] [place] [address] 80457 Triglyceride [Mass/Vol] 43 mg/dL Normal 0 - 150 [facility] Comment on above: Performed By: #### 2 53897 #### [facility],[address] [place], [place] [id number] VITAMIN D, 25 HYDROXYon 08-0 VitD 34.50 ng/mL Normal 30.00 - 100 [facility] Comment on above: Result Comment: 25-O HD3 indicates both endogenous production and supplementation. 25-OHD2 is an indicator of exogenous sources, such as diet or supplementation. Therapy is based on measurement of Total 25-OHD, with levels <20 ng/mL indicative of Vitamin D deficiency, while levels between 20 ng/mL and 30 ng/mL suggest insufficiency. Optimal levels are >=30ng/mL. Vitamin D, 25-OH D3 Not Established Vitamin D, 25-OH D2 Not Established Performed By: #### 2 68795 #### [place] [id number] Vital Signs Date Time Vital Sign Value Performing Clinician Faci lity 09-29-2024 11:32-0400 Body temperature 98.6 [degF] Dr. Cas Boyer MD Work Phone: 6(010)271-053634 [place] [address] 09-29-2024 11:32-0400 Diastolic blood pressure 88 mm[Hg] Dr. Cas Boyer MD Work Phone: 5(423)750-808234 [place] [address] 09-29-2024 11:32-0400 Heart rate 82 /min Dr. Cas Boyer MD Work Phone: 4(004)339-099972 [place] [address] 09-29-2024 11:32-0400 Respiratory rate 15 /min Dr. Cas Boyer MD Work Phone: 6(381)993-726772 [place] [address] 09-29-2024 11:32-0400 SaO2% (BldA) [Mass fraction] 100 % Dr. Cas Boyer MD Work Phone: 4(264)192-093472 [place] [address] 09-29-2024 11:32-0400 Systolic blood pressure 153 mm[Hg] Dr. Cas Boyer MD Work Phone: 9(410)331-018272 [address] [place] [address] 09-20-2024 13:23-0400 Body temperature 98.4 [degF] Dr. Cas Boyer MD Work Phone: 3(641)466-743134 [place] [address] 09-20-2024 13:23-0400 Diastolic blood pressure 77 mm[Hg] Dr. Cas Boyer MD Work Phone: 0(807)436-146472 [place] [address] 09-20-2024 13:23-0400 Heart rate 83 /min Dr. Cas Boyer MD Work Phone: 6(116)302-665072 [place] [address] 09-20-2024 13:23-0400 Respiratory rate 15 /min Dr. Cas Boyer MD Work Phone: 0(472)183-117234 [place] [address] 09-20-2024 13:23-0400 SaO2% (BldA) [Mass fraction] 98 % Dr. Cas Boyer MD Work Phone: 1(076)509-324072 [place] [address] 09-20-2024 13:23-0400 Systolic blood pressure 127 mm[Hg] Dr. Cas Boyer MD Work Phone: 5(583)416-573934 [place] [address] 09-15-2024 15:12-0400 Body temperature 97.8 [degF] Dr. Cas Boyer MD Work Phone: 8(937)591-569734 [place] [address] 09-15-2024 15:12-0400 Diastolic blood pressure 78 mm[Hg] Dr. Cas Boyer MD Work Phone: 4(641)360-378134 [place] [address] 09-15-2024 15:12-0400 Heart rate 82 /min Dr. Cas Boyer MD Work Phone: 9(121)318-424972 [place] [address] 09-15-2024 15:12-0400 Respiratory rate 16 /min Dr. Cas Boyer MD Work Phone: 2(129)130-611872 [place] [address] 09-15-2024 15:12-0400 SaO2% (BldA) [Mass fraction] 98 % Dr. Cas Boyer MD Work Phone: 1(478)287-324572 [place] [address] 09-15-2024 15:12-0400 Systolic blood pressure 122 mm[Hg] Dr. Cas Boyer MD Work Phone: 7(701)865-973072 [place] [address] 09-15-2024 13:44-0400 Body height 178.[address] Cas Boyer MD Work Phone: 3(175)730-493734 [place] [address] Encounters Encounter Date Encounter Type Care Provider Facility Start: 10-06-2024 End: 10-06-[address] Cas Boyer MD Work Phone: 4(566)[phone] [place] [address] Radiology Start: 10-06-2024 End: 10-06-[address] Fabian Hernandez MD -[facility] Start: 09-29-2024 End: 09-29-2024 Patient encounter procedure Sussy Callejas NP-C -[facility] Work Phone: Start: 09-29-2024 End: 09-29-[address] Cas Boyer MD Work Phone: [facility] Start: 09-20-2024 End: 09-20-[address] Cas Boyer MD Work Phone: -[facility] [place] Start: 09-20-2024 End: 09-20-2024 Patient encounter procedure Sussy Callejas NP-C -[facility] Work Phone: Start: 09-20-2024 End: 09-20-2024 Patient encounter procedure Sussy Callejas NP-C -[facility] Work Phone: Start: 09-20-2024 End: 09-20-[address] Cas Boyer MD Work Phone: [facility] Start: 09-20-2024 End: 09-20-2024 ambulatory Sussy Callejas Facility:[facility] Start: 09-15-2024 End: 09-15-2024 Emergency department patient visit Dr. Cas Boyer MD Work Phone: -Emergency Department Work Phone: Start: 08-02-2024 [facility] Start: 07-28-2024 End: 07-28-2024 [facility] Start: 07-28-2024 End: 07-28-2024 Encounter for general adult medical examination without abnormal findings [facility] Start: 04-29-2024 End: 04-29-2024 ambulatory Demetrio Golden Facility:[facility] Start: 03-31-2024 End: 03-31-2024 ambulatory Demetrio Chantel Facility:[facility] Start: 02-17-2024 End: 02-17-2024 ambulatory Demetrio Chantel Facility:[facility] Start: 10-02-2023 End: 10-02-2023 [facility] Procedures Date Procedure Procedure Detail Performing Clinician Start: 09-20-2024 Albumin/Globulin ratio Dr. Cas Boyer MD Work Phone: Start: 09-20-[address] Ronal Boyer MD Work Phone: Comment on above: Performed at: [place] [id number] Director: Deny Donahue PhD, Phone: [phone] Start: 09-20-2024 Antibody to centrome re measurement Dr. Cas Boyer MD Work Phone: Comment on above: Test not performed Start: 09-20-2024 Antibody to extracta ble nuclear antigen measurement Dr. Cas Boyer MD Work Phone: Comment on above: Test not performed Start: 09-20-2024 Antibody to JEN-[address] Cas Boyer MD Work Phone: Comment on above: Test not performed Start: 09-20-2024 Antibody to lupus La protein measurement Dr. Cas Boyer MD Work Phone: Comment on above: Test not performed Start: 09-20-2024 Antibody to SS-A measurement Dr. Cas Boyer MD Work Phone: Comment on above: Test not performed Start: 09-20-[address] Cas Boyer MD Work Phone: Comment on above: Test not performed Start: 09-20-2024 Folic acid measurement, RBC Dr. Cas Boyer MD Work Phone: Start: 09-20-[address] measurement Dr[address] Cas Boyer MD Work Phone: Start: 09-20-[address] Cas cruz MD Work Phone: Comment on above: Test Ordered: [id number] HTLV-I/II Antibodies, QualHTLV-I/II Antibodies, Qual Negative [facility] Reference Range: NegativePerformed at: [facility] - [employer] [id number] [id number] Director: [facility], Phone: [phone] at: [facility] LabTim[place] [id number] [place], [place] [id number] Director: Deny Donahue PhD, Phone: [phone] Start: 09-20-2024 LENGTH CONTROL TESTER antibody measurement Dr. Cas Boyer MD Work Phone: Comment on above: Test not performed Start: 09-20-2024 Urine lambda light c arielle measurement Dr. Cas Boyer MD Work Phone: Start: 09-15-2024 Plain X-ray of shoulder Dr. Cas Boyer MD Work Phone: Start: 09-15-2024 X-ray of cervical spine Dr. Cas Boyer MD Work Phone: Plan of Treatment Date Care Activity Detail Author Start: 10-28-2024 ambulatory Ambulatory Facility:[facility] Start: 10-06-2024 X-ray of cervical spine Cerv Spine 2 or 3 Views [facility] Start: 10-06-2024 XR Cervical spine 2 or 3 Views [facility] Start: 09-15-2024 [facility] C reactive protein [Mass/volume] in Serum or Plasma [facility] Cytoplasmic ANCA Screen [facility] Erythrocyte sediment ation rate [facility] Folic acid measureme nt, RBC [facility] MR Brain WO and W co ntrast IV [facility] MR Cervical spine WO and W contrast IV [facility] MR Lumbar spine WO a nd W contrast IV [facility] MRI of thoracic spin e with contrast [facility] Patient Education ED [facility] Work Phone: Procedure [facility] Serum immunofixation [facility] Thiamine measurement [facility] Vitamin B6 measurement [facility] Payers Date Payer Category Payer Self-pay 2017 Medicaid [id number] 1950 Unknown [id number] 2.16.8 [id number] 1950 Unknown [id number] 2.16.8 [id number] 1950 Unknown [id number] 2.16.8 [id number] Medicare [id number] Unknown [id number] 2.16.8 [id number] Unknown [id number] 2.16.8 [id number] Unknown [id number] 2.16.8 [id number] Unknown [id number] 2.16.8 [id number] Unknown [id number] 2.16.8 [id number] Unknown [id number] 2.16.8 [id number] Unknown [id number] 2.16.8 [id number] Unknown [id number] 2.16.8 [id number] Social History Date Type Detail Facility Start: 09-15-2024 [facility] Start: 1950 Sex Assigned At Male [facility] Evaluation note 09-20-2024 Note Date & Type Note Facility 09-20-2024 Evaluation note Diagnosis Onset Date Resolution Alteration in sensory perception acute September 20, 2024 1:21pm Hyperreflexia acute September 20, 2024 1:21pm Muscle spasticity acute September 202024 1:21pm Urinary incontinence acute September 20, 2024 1:21pm Dyskinesia chronic September 20 1:21pm Cervical myelopathy suspected September 20, 2024 1:21pm History of Parkinson's disease inactive September 20, 2024 1:21pm [facility] Work Phone: Evaluation note 09-20-2024 Note Date & Type Note Facility 09-20-2024 Evaluation note Diagnosis Onset Date Resolution Alteration in sensory perception acute September 20, 2024 1:21pm Hyperreflexia acute September 20, 2024 1:21pm Muscle spasticity acute September 202024 1:21pm Urinary incontinence acute September 20, 2024 1:21pm Dyskinesia chronic September 20 1:21pm Cervical myelopathy suspected September 20, 2024 1:21pm History of Parkinson's disease inactive September 20, 2024 1:21pm Alteration in sensory perception acute September 29, 2024 11:23am Hyperreflexia acute September 29, 2024 11:23am Muscle spasticity acute September 292024 11:23am Urinary incontinence acute September 29, 2024 11:23am Dyskinesia chronic September 29 11:23am Cervical myelopathy suspected September 29, 2024 11:23am History of Parkinson's disease inactive September 29, 2024 11:23am [facility] Work Phone: Evaluation note 09-20-2024 Note Date & Type Note Facility 09-20-2024 Evaluation note Diagnosis Onset Date Resolution Alteration in sensory perception acute September 20, 2024 1:21pm Hyperreflexia acute September 20, 2024 1:21pm Muscle spasticity acute September 202024 1:21pm Urinary incontinence acute September 20, 2024 1:21pm Dyskinesia chronic September 20 1:21pm History of Parkinson's disease chronic September 20, 2024 1:21pm Cervical myelopathy suspected September 20, 2024 1:21pm Alteration in sensory perception acute September 29, 2024 11:23am Hyperreflexia acute September 29, 2024 11:23am Muscle spasticity acute September 292024 11:23am Urinary incontinence acute September 29, 2024 11:23am Dyskinesia chronic September 29 11:23am History of Parkinson's disease chronic September 29, 2024 11:23am Cervical myelopathy suspected September 29, 2024 11:23am [employer] Work Phone: Discharge summary 09-15-2024 Note Date & Type Note Facility 09-15-2024 Discharge summary [facility] Radiology Diagnostic study note 09-15-2024 Note Date & Type Note Facility 09-15-2024 Radiology Diagnostic study note [facility] Imaging Services [address] [place] [address] Shoulder min 2 Views MR#: [id number] Acct: [id number] Name: SYDNIE JESUS Rep #: [id number] : 1950 M 74 From: Tiera Avalos MD PCP: Dr. Earnest Amaral MD Status: REG ER Study:Shoulder min 2 Views Date of Exam: 09/15/24 Exam# [id number] Ordering Dr: Arminda Boyer MD EXAM: XR Right Shoulder Complete, 2 or More Views CLINICAL INDICATION: FALL TECHNIQUE: Two or more views of the right shoulder. COMPARISON: No relevant prior studies available. FINDINGS: BONES/JOINTS: Mild degenerative change of the acromioclavicular and glenohumeral joints. No dislocation. No acute fracture. SOFT TISSUES: Soft tissue swelling. RAD/Shoulder min 2 Views IMPRESSION: 1. No acute fracture. 2. Degenerative changes as above. Reading Location: [facility] CC: Dr. Cas Boyer MD; Dr. Earnest Amaral MD ~ Lead Tinner: Signed [facility] Radiology Diagnostic study note 09-15-2024 Note Date & Type Note Facility 09-15-2024 Radiology Diagnostic study note [facility] Imaging Services [address] [place], [place] [address] Cerv Spine 2 or 3 Views MR#: [id number] Acct: [id number] Name: SYDNIE JESUS Rep #: [id number] : 1950 M 74 From: Tiera Avalos MD PCP: Dr. Earnest Amaral MD Status: REG ER Study:Cerv Spine 2 or 3 Views Date of Exam: 09/15/24 Exam# [id number] Ordering Dr: Arminda Boyer MD EXAM: XR Cervical Spine, 4 or 5 Views CLINICAL INDICATION: FALL TECHNIQUE: Frontal, lateral and bilateral oblique views of the cervical spine. COMPARISON: No relevant prior studies available. FINDINGS: VERTEBRAE: Degenerative facet arthropathy throughout the cervical spine. Normal alignment. No acute fracture. DISC SPACES: Degenerative disc disease throughout the cervical spine. SOFT TISSUES: Soft tissue swelling. RAD/Cerv Spine 2 or 3 Views IMPRESSION: 1. No acute fracture. 2. Degenerative changes of the cervical spine as described. [facility] CC: Dr. Cas Boyer MD; Dr. Earnest Amaral MD ~ Lead Tinner: Signed [facility] Discharge summary 09-15-2024 Note Date & Type Note Facility 09-15-2024 Discharge summary Note Date/Time September 15, 2024 2:51pm [facility] Medical Records Department [address] [place] [address] Emergency Department Summary 09/15/24 MR#: [id number] Acct: [id number] Name: SYDNIE JESUS Rep #:[id number] : 1950 74 From: Cas Boyer MD PCP: Dr. Earnest Amaral MD Status:REG ER Location: ED HPI HPI - Fall History of Present Illness Chief Complaint: Fall Informant: patient and family Occured/Mechanism Occurred: Weeks Usually ambulates: Without assistance Pain/Injury Pain Location: head, neck and upper extremity (Right shoulder) Current Severity: Mild Maximum Severity: Mild Narrative Narrative: 74-year-old male history of hypertension and Parkinson's. Fell at home 2 to 3 weeks ago in the middle of the night. Denies any LOC. CT of his head complainssome neck discomfort and right shoulder discoveries had since that time. Worse with movement. He is on no blood thinners. He denies any recent illness. Prior similar symptoms: Yes Recent Illness/Hospitalization: No [facility] Medical History Essential (primary) hypertension Home Medications ?Medication ?Instructions ?Recorded ?Last Taken ?Type gabapentin 600 mg tablet 600 mg PO QHS 02/17/24 Unkno wn History losartan 25 mg tablet 25 mg PO QDAY 02/17/24 Unkno wn History sertraline 25 mg tablet 25 mg PO QDAY 02/17/24 Unkno wn History carbidopa ER 50 mg-levodopa 200 mg See Rx Instructions PO .COMPLEX 04/29/24 Unknown History tablet,extended release pramipexole 0.75 mg tablet 0.75 mg PO TID 05/06/24 Unk nown History Allergy/AdvReac Type Severity Reaction Status Date / Time No Known Allergies Allergy Verified 09/15/24 13:46 Family History Mother , 80 yrs old No problems noted. Father , 83 years old Heart disease Surgical History Hx of appendectomy Social History household members: spouse and children current occupational status: retired pets and animals: No Smoking Status: Former smoker alcohol intake: never caffeine: Yes Type: coffee Number of servings: 1 do you feel safe at home: Yes ROS ROS ED ROS Narrative Denies recent illness. Constitutional Constitutional ED: Denies chills or fever(s) Eyes Eyes: Denies blurry vision ENT ENT ED: Denies ear pain Cardiovascular Cardiovascular: Denies chest pain Respiratory/Chest Respiratory/Chest: Denies cough or dyspnea Gastrointestinal Gastrointestinal: Denies abdominal pain Genitourinary Genitourinary ED: Denies dysuria or hematuria Musculoskeletal Musculoskeletal: Reports neck pain; Denies arthralgias or back pain Integumentary Denies abscess or Abrasions Neurologic Neurologic: Denies headache(s) Psychiatric Psychiatric: Denies anxiety Endocrine Endocrinology: Denies polydipsia Hematologic/Lymphatic Hematologic/Lymphatic: Denies easy bleeding, easy bruising or lymphadenopathy Allergic/Immunologic Allergic/Immunologic ED: Denies mouth swelling, tongue swelling or urticaria EXAM Physical Exam Narrative Exam Narrative: Well-appearing 74-year-old male. Vital signs are stable afebrile. He is sitting upright in bed. Family is present. No distress. H EENT exam. Right [place]. Moist membranes. No trauma to his face or scalp. Nontender no hematomas. Neck diffuse soft tissue tenderness. Trachea midline. Back, thoracic and lumbar spine nontender no bruising. Lungs clear to auscultation bilaterally. Heart regular rhythm no murmur. Rate about 80. Chest wall and ribs nontender. Abdomen soft nontender. Pelvic girdle intact. Patient is moving all 4 extremities. No deformity. Normal explosive ordnance specialist strength. Normal dorsi plantarflexion. Hips are nontender and without rotation or shortening. Mild tenderness right shoulder no deformity. No swelling. No redness or warmth. Bilateral elbows forearms wrist and hands are nontender. Neurologically he is awake alert. Answering questions and following commands. Parkinsonian movements. He knows month, year and president. Const Vital Signs: 09/15/24 13:44 09/15/24 14:06 Temperature 97.8 F Temperature Source Oral Pulse Rate 79 Respiratory Rate 16 Respiratory Effort Normal Respiratory Depth Normal Respiratory Pattern Normal Blood Pressure 126/71 H Blood Pressure Mean 89 Pulse Ox 98 Oxygen Delivery Method Room Air Room Air Positive well nourished and well developed; Negative for obese, cachectic, contractures or unkempt General Appearance ED: well developed and NAD; Negative for unkempt, cachectic or contractures Nutritional Appearance: Negative for cachectic or obese HEENT Reports normocephalic atraumatic; Negative for trauma, contusion, hematoma or tenderness Eyes PERRL and EOMs intact bilaterally General Eye ED: Negative for pale conjunctiva or scleral icterus Neck full ROM, no lymphadenopathy and supple General: Negative for tenderness Chest Wall inspection of chest normal and palpation of chest normal Resp normal respiratory effort, no retractions and clear to auscultation bilaterally Auscultation: Negative for rales, rhonchi, wheezes or diminished lung sounds Cardio regular rate, regular rhythm, S1 normal heart sound, S2 normal heart sound and no murmurs GI non-tender, non-distended and no masses Auscultation: normoactive bowel sounds Palpation: soft; Negative for guarding or rebound tenderness present Back/Spine no CVA tenderness General Back: Negative for CVA tenderness Cervical Spine: Negative for cervical spine tenderness Thoracic Spine / Upper Back: Negative for ROM limited Lumbar Spine / Lower Back: Negative for lumbar spinal tenderness or paraspinal muscle tenderness Neuro oriented x3, CN's II-XII intact bilaterally, moves all extremities and no focal motor deficits Markell Coma Scale: document GCS findings Spontaneous Obeys Commands Oriented 15 Sensorium / Orientation: alert, oriented to person, oriented to place, oriented to time and orientation impaired; Negative for confused, lethargic or stuporous Motor Exam: strength 5/5 throughout Psych mental status grossly normal and thought process normal Appearance: Negative for unkempt Attitude: No agitated Mood & Affect: Negative for depressed, anxious or tearful Skin Lesions: no lesions Rashes: no rashes Trauma: Negative for abrasion or laceration MDM MDM MDM Narrative Medical decision making narrative: 74-year-old male fell 2 to 3 weeks ago complaining of right shoulder discomfort and neck discomfort x-rays being obtained. No LOC. No headache. No blood thinners I do not think he needs a CAT scan of his head. His neurologic exam other than his Parkinson disease is relatively normal. Repeat exam unchanged. Doing well at 2:50 PM. We discussed his x-ray results. To be discharged home. Motrin and Tylenol for pain. History & Record Review Discussion w/independent historian: Patient and Family Additional record(s) reviewed:: Prior inpatient record, Prior outpatient record,Prior ED visit and Prior labs Radiography Diagnostic Testing: Clinical Impression(s) from Imaging Studies Cervical Spine X-Ray 09/15/24 14:25 IMPRESSION: 1. No acute fracture. 2. Degenerative changes of the cervical spine as described. Reading Location: [facility] Shoulder X-Ray 09/15/24 14:25 IMPRESSION: 1. No acute fracture. 2. Degenerative changes as above. Reading Location: RAD-- Right shoulder x-ray, 4 views, interpreted by myself and radiologist. Shows chronic changes. No fracture. No dislocation. C-spine x-ray, 3 views, interpreted by myself and the radiologist, shows chronicchanges. Arthritis. No acute process. No fracture. Discharge Plan Triage Chief Complaint: Fall ED Provider: Cas Boyer Dx/Rx/DC Orders Prescriptions: No Action gabapentin 600 mg tablet 600 mg PO QHS losartan 25 mg tablet 25 mg PO QDAY sertraline 25 mg tablet 25 mg PO QDAY carbidopa-levodopa 50-200 mg tablet extended release See Rx Instructions PO .COMPLEX Rx Instructions: 1 tablet at 6 am, 11 am, 4 pm, and 10 pm pramipexole 0.75 mg tablet 0.75 mg PO TID Primary Care Provider: Earnest Amaral Referrals: Demetrio Golden DO [Non-Staff] - Print Language: Swedish What to do if you have Problems For any increased pain, shortness of breath, bleeding, nausea or vomiting, chestpain, or any unexpected problems, contact your Primary Care Provider. Call [facility] ([phone]) or report to the closest Emergency Room. Call 911 if necessary. 09/15/24 1451 <Electronically signed by Cas Boyer MD> Cosigner Signature (if applicable): CC: Dr. Earnest Amaral MD ~ Signed [facility] Work Phone: Evaluation note Note Date & Type Note Facility Evaluation note No assessment information availa ble [facility] Work Phone: Hospital Discharge instructions Note Date & Type Note Facility Hospital Discharge instructions Additional Instructions Motrin for inflammation and pain. Tylenol for pain. Ice to your shoulder. Ice and heat to your neck. If this is not progressively getting better follow-up with a local orthopedic physician they can do a steroid injection in your right shoulder. 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 Yes September 15, 2024 2:06pm Chief Complaint and Reason for Visit Chief Complaint Admit Date Fall September 15, 2024 1:42 pm Chief Complaint Admit Date Fall September 15, 2024 1:42 pm Follow up September 20, 2024 1:21 pm Chief Complaint Admit Date fallSeptember 15, 2024 1:42 pm Follow up September 20, 2024 1:21 pm EORDERS September 20, 2024 3:10 pm Reason for Visit Admit Date Alteration in sensory perception September 202024 1:21pm Hyperreflexia September 20, 2024 1:21 pm Muscle spasticity September 20, 2024 1:21 pm Urinary incontinence September 20, 2024 1:2 1pm Dyskinesia September 20, 2024 1:21 pm Cervical myelopathy September 20, 2024 1:21 pm History of Parkinson's disease August 1:21pm Chief Complaint Admit Date Fall September 15, 2024 1:42 pm Follow up September 20, 2024 1:21 pm EORDERS September 20, 2024 3:10 pm ACUTE VISIT September 29, 2024 11:2 3am Reason for Visit Admit Date Alteration in sensory perception September 202024 1:21pm Hyperreflexia September 20, 2024 1:21 pm Muscle spasticity September 20, 2024 1:21 pm Urinary incontinence September 20, 2024 1:2 1pm Dyskinesia September 20, 2024 1:21 pm Cervical myelopathy September 20, 2024 1:21 pm History of Parkinson's disease August 1:21pm Alteration in sensory perception September 292024 11:23am Hyperreflexia September 29, 2024 11:2 3am Muscle spasticity September 29, 2024 11:2 3am Urinary incontinence September 29, 2024 11: 23am Dyskinesia September 29, 2024 11:2 3am Cervical myelopathy September 29, 2024 11:2 3am History of Parkinson's disease August 11:23am Chief Complaint Admit Date Fall September 15, 2024 1:42 pm Follow up September 20, 2024 1:21 pm EORDERS September 20, 2024 3:10 pm ACUTE VISIT September 29, 2024 11:2 3am CERVICAL SPINE October 06, 2024 1:3 2pm Room 3 October 06, 2024 1:4 8pm Reason for Visit Admit Date Alteration in sensory perception September 202024 1:21pm Hyperreflexia September 20, 2024 1:21 pm Muscle spasticity September 20, 2024 1:21 pm Urinary incontinence September 20, 2024 1:2 1pm Dyskinesia September 20, 2024 1:21 pm History of Parkinson's disease August 1:21pm Cervical myelopathy September 20, 2024 1:21 pm Alteration in sensory perception September 292024 11:23am Hyperreflexia September 29, 2024 11:2 3am Muscle spasticity September 29, 2024 11:2 3am Urinary incontinence September 29, 2024 11: 23am Dyskinesia September 29, 2024 11:2 3am History of Parkinson's disease August 11:23am Cervical myelopathy September 29, 2024 11:2 3am Additional Source Comments (unrecognized sect ion and content) No Status Records FoundNo Status Records Found INFORMATION SOURCE (unrecogn ized section and content) DATE CREATED AUTHOR 08/03/[address] [facility] DATE CREATED AUTHOR AUTHOR'S ORGANIZ ATION 10/01/2024 [facility] Care Teams (unrecognized sec tion and content) Team Status: Active Member Role/Relationship Status Dates Dr. Earnest Amaral MD Primary Care Provider Active Team Status: Inactive Member Role/Relationship Status Dates Dr. Cas Boyer MD Emergency Provider Active S tart: September 15, 2024 End: September 15, 2024 Dr. Earnest Amaral MD Primary Care Provider Active Start: September 15, 2024 End: September 15, 2024 Team Status: Inactive Member Role/Relationship Status Dates Dr. Earnest Amaral MD Primary Care Provider Active Start: September 20, 2024 End: September 20, 2024 Dr. Earnest Amaral MD Referring Provider Active Sta rt: September 20, 2024 End: September 20, 2024 Sussy Callejas NP-C Attending Provider Active S tart: September 20, 2024 End: September 20, 2024 Team Status: Inactive Member Role/Relationship Status Dates Dr. Cas Boyer MD Attending Provider Active S tart: September 15, 2024 End: September 15, 2024 Dr. Cas Boyer MD Emergency Provider Active S tart: September 15, 2024 End: September 15, 2024 Dr. Earnest Amaral MD Primary Care Provider Active Start: September 15, 2024 End: September 15, 2024 Team Status: Inactive Member Role/Relationship Status Dates Dr. Earnest Amaral MD Primary Care Provider Active Start: September 20, 2024 End: September 20, 2024 Sussy Callejas NP-C Attending Provider Active S tart: September 20, 2024 End: September 20, 2024 Sussy Callejas NP-C Referring Provider Active S tart: September 20, 2024 End: September 20, 2024 Team Status: Inactive Member Role/Relationship Status Dates Dr. Earnest Amaral MD Primary Care Provider Active Start: September 29, 2024 End: September 29, 2024 Dr. Earnest Amaral MD Referring Provider Active Sta rt: September 29, 2024 End: September 29, 2024 Sussy aCllejas NP-C Attending Provider Active S tart: September 29, 2024 End: September 29, 2024 Team Status: Active Member Role/Relationship Status Dates Dr. Earnest Amaral MD Primary Care Provider Active Start: October 06, 2024 Dr. Earnest Amaral MD Referring Provider Active Sta rt: October 06, 2024 JE Davidson Attending Provider Active Star t: October 06, 2024 Team Status: Inactive Member Role/Relationship Status Dates Dr. Earnest Amaral MD Primary Care Provider Active Start: October 06, 2024 End: October 06, 2024 Dr. Fabian Hernandez MD Attending Provider Active S tart: October 06, 2024 End: October 06, 2024 Team Status: Inactive Member Role/Relationship Status Dates Dr. Earnest Amaral MD Primary Care Provider Active Start: October 06, 2024 End: October 06, 2024 Dr. Earnest Amaral MD Referring Provider Active Sta rt: October 06, 2024 End: October 06, 2024 JE Davidson Attending Provider Active Star t: October 06, 2024 End: October 06, 2024 Goals (unrecognized section and content) Goals may be documented in a n alternate sectionGoals may be documented in an alternate sectionGoals may be documented in an alternate sectionGoals may be documented in an alternate sectionGoals may be documented in an alternate sectionGoals may be documented in an alternate section FOR RECORDS PERTAINING TO PATIENTS WHO ARE OR HAVE BEEN ENROLLED IN A CHEMICAL DEPENDENCY/SUBSTANCEABUSE PROGRAM, SOME INFORMATION MAY BE OMITTED. This clinical summary was aggregated from multiple sources. Caution should be exercised in using it in the provision of clinical care. This summary normalizes information from multiple sources, and as a consequence, information in this document may materially change the coding, format and clinical context of patient data. In addition, data may be omitted in some cases. CLINICAL DECISIONS SHOULD BE BASED ON THE PRIMARY CLINICAL RECORDS. [employer] provides no warranty or guarantee of the accuracy or completeness of information in this document.
--- NOTE | 2024-10-07 07:10 | MRI_ITS ---
PROCEDURE: SPINE CERVICAL W/WO CONTRAST 10/07/2024 REASON FOR EXAM: HYPERREFLEXIA, SPASTICITY. Weakness on right side for 1 month. TECHNIQUE: SPINE CERVICAL W/WO CONTRAST Multiplanar and multisequence images were obtained with intravenous gadolinium-based contrast administration. CONTRAST: Clariscan VOLUME: 14 mL intravenous. COMPARISON: Cervical spine studies of 10/06/2024 and of 09/15/2024.. FINDINGS: Vertebrae: Cervical vertebral body heights are preserved. Cervical spine degenerative changes are again seen, again most prominent in the C6-C7 level, where moderately severe disc narrowing is noted, and vertebral body osteophytosis is seen, along with more subtle other osseous reactive changes. Alignment: No significant subluxation is seen. Spinal Cord: At the level of greatest spinal canal narrowing, C3-C4, cervical cord signal changes are consistent with chronic cord contusion. C2-3: Unremarkable C3-4: At least moderate spinal canal stenosis is seen, in the presence of ligamentum flavum hypertrophy, uncovertebral joint hypertrophy, [id number] broad-based disc protrusion/extrusion. No definite neural foraminal narrowing noted. C4-5: Mild disc bulge. No central canal or neural foraminal stenosis. C5-6: No significant disc bulge or herniation is noted. No spinal canal stenosis or significant neural foraminal narrowing is identified. C6-7: Mild vertebral body osteophytosis and a mild disc bulge are noted. No significant degree of spinal canal stenosis is seen. No definite neural foraminal narrowing is noted. C7-T1: Unremarkable Postcontrast images: No area of significant postcontrast enhancement is seen. MRI/Spine Cervical W/WO Contrast IMPRESSION: Multilevel cervical degenerative disc disease, as described, but with at least moderate spinal canal stenosis at the C3-C4 level, also with cervical cord signal changes at that level consistent with chronic co rd contusion. Reading Location: [facility]
--- NOTE | 2024-10-07 07:10 | MRI_ITS ---
PROCEDURE: SPINE LUMBAR W/WO CONTRAST 10/07/2024 REASON FOR EXAM: HYPERREFLEXIA, SPASCITY TECHNIQUE: SPINE LUMBAR W/WO CONTRAST Multiplanar and multisequence images were obtained without and with intravenous gadolinium-based contrast administration. CONTRAST: Clariscan VOLUME: 14 mL COMPARISON: None FINDINGS: Vertebrae: There are no compression fractures. There are no significant bone marrow abnormalities. Alignment: There is maintenance of the normal lumbar lordosis. Conus Medullaris: The conus medullaris terminates normally at the T12-L1 level. L1-2: There is mild disc degeneration. There is no disc bulging or disc protrusion. There is mild bilateral facet arthropathy with ligamentum flavum bulging. There is mild compression of the thecal sac. There is no lateral recess stenosis. There is mild foraminal narrowing bilaterally. L2-3: There is mild disc degeneration. There is no disc bulging or disc protrusion. There is mild bilateral facet arthropathy with ligamentum flavum bulging. There is mild compression of the thecal sac. There is no lateral recess stenosis. There is mild foraminal narrowing bilaterally. L3-4: There is mild disc degeneration. There is no disc bulging or disc protrusion. There is mild bilateral facet arthropathy with ligamentum flavum bulging. There is mild compression of the thecal sac. There is no lateral recess stenosis. There is mild foraminal narrowing bilaterally. L4-5: There is mild disc degeneration. There is no disc bulging or disc protrusion. There is mild bilateral facet arthropathy with ligamentum flavum bulging. There is mild compression of the thecal sac. There is no lateral recess stenosis. There is mild foraminal narrowing bilaterally. L5-S1: There is mild disc degeneration. There is no disc bulging or disc protrusion. There is mild bilateral facet arthropathy with ligamentum flavum bulging. There is mild compression of the thecal sac. There is no lateral recess stenosis. There is mild foraminal narrowing bilaterally. Sacrum: Unremarkable. Postcontrast images: There is no abnormal contrast enhancement. MRI/Spine Lumbar W/WO Contrast IMPRESSION: Mild diffuse degenerative disc disease of the lumbar spine. There is mild comp ression of the thecal sac and mild foraminal narrowing, bilaterally, throughout the lumbar spine. Reading Location: [id number]
== END | disposition home or self-care (01) ==
PROVIDERS: PCP Internal Medicine
DX: G95.9 Disease of spinal cord, unspecified (principal); M62.838 Other muscle spasm; R29.2 Abnormal reflex; G24.9 Dystonia, unspecified; R20.9 Unspecified disturbances of skin sensation; Z86.69 Personal history of other diseases of the nervous system and sense organs; R32 Unspecified urinary incontinence; R26.9 Unspecified abnormalities of gait and mobility
CPT/HCPCS: 70553; 72156; 72157; 72158; A9575

== ENCOUNTER 2024-10-16 17:36 | Inpatient (IN) | payer MEDICARE, SELFPAY ==
--- OUTSIDE RECORDS SUMMARY | 2024-10-16 17:40 | XMS RPT_ITS | CCD ---
Author Organization [facility] Care Team Providers Care Figure Refinisher And Repairer Name Role Phone LINH LATHAM MD Admitting Unavailable LINH LATHAM MD Attending Unavailable VIRGILIO, LINH WONG Primary Care Unavailable VIRGILIO, LINH WONG Consulting Unavailable PROVIDER, UNKNOWN Consulting Unavailable PROVIDER, UNKNOWN Consulting Unavailable PROVIDER, UNKNOWN Consulting Unavailable LATOUFlora, LINH WONG Admitting Unavailable LATOUFlora, LINH WONG Attending Unavailable VIRGILIO, LINH WONG Primary Care Unavailable VIRGILIO, LINH WONG Consulting Unavailable PROVIDER, UNKNOWN Consulting Unavailable PROVIDER, UNKNOWN Consulting Unavailable PROVIDER, UNKNOWN Consulting Unavailable LATOUFlora, LINH WONG Admitting Unavailable LATOUFlora, LINH WONG Attending Unavailable LATOUFlora, LINH WONG Primary Care Unavailable LINH LATHAM MD Consulting Unavailable PROVIDER, UNKNOWN Consulting Unavailable PROVIDER, UNKNOWN Consulting Unavailable PROVIDER, UNKNOWN Consulting Unavailable Dr. Cas Boyer MD Emergency Provider Dr. Earnest Amaral MD Primary Care Provider Dr. Earnest Amaral MD Referring Provider [phone] Britta SHARMA-Sussy Curry Attending Provider [phone] Dr. Cas Boyer MD Attending Provider Britta SPIDER ASSEMBLER-CSussy Referring Provider [phone] Stephanie Machado Attending Provider [phone] Fabian Hernandez MD Attending Provider [phone] Earnest Amaral Primary Care Unavailable Sussy Callejas Attending Unavailable Sussy Callejas Referring Unavailable ChantelDemetrio miller Primary Care Unavailable Demetrio Golden Referring Unavailable Sly Cervantes Attending Unavailable Demetrio Golden Referring Unavailable Sly Cervantes Attending Unavailable Demetrio Golden Primary Care Unavailable Earnest Amaral Referring Unavailable Nam, Earnest Primary Care Unavailable Sussy Callejas Attending Unavailable Stephanie Mayer Attending Unavailable Nam, Earnest Referring Unavailable Nam, Earnest Primary Care Unavailable Fabian Hernandez Attending Unavailable Nam, Earnest Primary Care Unavailable Nam, Earnest Primary Care Unavailable Nam, Earnest Referring Unavailable Sussy Callejas Attending Unavailable Demetrio Golden Primary Care Unavailable Sly Cervantes Attending Unavailable Linh Latham Referring Unavailable Munir, Earnest Primary Care Unavailable Sussy Callejas Attending Unavailable Sussy Callejas Referring Unavailable Nam, Earnest Primary Care Unavailable Cas Boyer Attending Unavailable MALACHI BOYER Attending Unavailable PENNY GARAY Consulting Unavailable DERIAN FITZPATRICK Admitting Unavailable Medications Current Medications Medication Drug Class(es) Dates Sig (Normalized) Sig (Original) Leslie (4 sources) Start: 09-29-2024 take 1 tablet by mouth twice daily Leslie 650 mg tablet Active 650 mg PO TWICE A DAY September 29, 2024 12:00am baclofen 5 mg oral tablet (4 sources) gamma-Aminobutyri c Acid-ergic Agonist Start: 09-29-2024 take 1 tablet by mouth once daily before dinner Baclofen 5 mg tablet Active 5 mg PO EVERY EVENING 30 September 29, 2024 12:00am Take before dinner Capsicum (Cayenne) (4 sources) Start: 09-29-2024 take 1 capsule by mouth once daily Capsicum (Cayenne) 450 mg capsule Active 450 mg PO daily September 29, 2024 12:00am cholecalciferol 0.025 mg oral capsule (4 sources) Vitamin D Start: 09-29-2024 take 1 capsule by mouth once daily Cholecalciferol (Vitamin D3) 25 mcg (1,000 unit) capsule Active 25 ug PO daily September 29, 2024 12:00am colon support (4 sources) Start: 09-29-2024 take 40 mg by mouth twice daily as needed colon support Active 1 {tbl} PO TWICE A DAY as needed September 29, 2024 12:00am Potassium 99mg, slippery elm 200mg, senna leaf 85mg, Inulin 75mg, cascara bark extract 50mg, black walnut hulls 50mg, aloe vera extract 40mg gabapentin 600 mg oral tablet (7 sources) Anti-epileptic Agent Start: 02-17-2024 take 1 tablet by mouth at bedtime Gabapentin 600 mg tablet Active 600 mg PO AT BEDTIME February 17, 2024 1:00am Handicap Placard (3 sources) Start: 09-30-2024 Handicap Placard Active 0 .ROUTE .COMPLEX 1 0 September 30, 2024 12:00am Duration: 5 years ICD10: Z86.69 homeopathic prostate drops (4 sources) Start: 09-29-2024 take 1 drop(s) by mouth twice daily homeopathic prostate drops Active 0 PO .COMPLEX September 29, 2024 12:00am orally 1/2 dropper full BID - Dr. Darci Bangura; losartan potassium 25 mg oral tablet (11 sources) Angiotensin 2 Receptor Raymond Start: 09-29-2024 take 1 tablet by mouth twice daily Losartan 25 mg tablet Active 25 mg PO TWICE A DAY September 29, 2024 11:39am Start: 02-17-2024 End: 09-29-2024 take 1 tablet by mouth once daily Losartan 25 mg tablet Discontinued 25 mg PO daily February 17, 2024 1:00am September 29, 2024 11:48am lysine 1000 mg oral tablet (4 sources) Start: 09-29-2024 take 1 tablet by mouth once daily Lysine 1,000 mg tablet Active 1000 mg PO daily September 29, 2024 12:00am magnesium oxide 500 mg oral capsule (4 sources) Start: 09-29-2024 take 1 capsule by mouth once daily Magnesium Oxide 500 mg capsule Active 500 mg PO daily September 29, 2024 12:00am olive leaf extract 500 mg oral capsule (4 sources) Start: 09-29-2024 take 1 capsule by mouth once daily [place] 500 mg capsule Active 500 mg PO daily September 29, 2024 12:00am oregano allergenic extract (4 sources) Non-Standardized Food Allergenic Extract Start: 09-29-2024 take 1 tablet by mouth once daily oregano 450 mg tablet Active 1 NMA PO daily September 29, 2024 12:00am pramipexole dihydrochloride 0.75 mg oral tablet (20 sources) Nonergot Dopamine Agonist Start: 05-06-2024 take [...] 2024 2:53pm sertraline 50 mg oral tablet (11 sources) Serotonin Reuptake Inhibitor Start: 09-29-2024 take 1 tablet by mouth once daily in the morning Sertraline 50 mg tablet Active 50 mg PO EVERY MORNING September 29, 2024 12:00am Start: 02-17-2024 End: 09-29-2024 take 1 tablet by mouth once daily Sertraline 25 mg tablet Discontinued 25 mg PO daily February 17, 2024 1:00am September 29, 2024 11:39am tiZANidine 4 mg oral tablet (6 sources) Central alpha-2 Adrenergic Agonist Start: 09-20-2024 take 1-2 tablets by mouth once daily at bedtime as needed for muscle spasms Tizanidine 4 mg tablet Active 8 mg PO AT BEDTIME as needed for muscle spasticity 60 1 September 20, 2024 12:00am Take 1 - 2 tablets PRN muscle spasms QHS Vitamins A,C,O-Prtz-Ilxjcq (Preservision Areds) 4,296 mcg-226 mg-90 mg capsule (4 sources) Start: 09-29-2024 Vitamins A,C,T-Vohv-Ytcquc (Preservision Areds) 4,296 mcg-226 mg-90 mg capsule Active 1 NMA PO every day in the morning and in the evening September 29, 2024 12:00am zinc gluconate 50 mg oral tablet (4 sources) Start: 09-29-2024 take 1 tablet by [...] at 10:00pm clonazePAM 1 mg oral tablet (6 sources) Benzodiazepine Start: 09-20-2024 End: 09-29-2024 Clonazepam (Klonopin) 1 mg tablet Discontinued 1 mg PO ONCE 1 0 September 20, 2024 12:00am September 29, 2024 11:48am MRI Take 30 minutes prior to MRI levoFLOXacin 500 mg oral tablet (7 sources) Quinolone Antimicrobial Start: 08-31-2013 End: 02-17-2024 take 1 tablet by mouth once daily Levofloxacin 500 MG tablet Discontinued 500 mg PO DAILY August 31, 2013 12:00am February 17, 2024 3:28pm predniSONE 10 mg oral tablet (7 sources) Start: 08-31-2013 End: 02-17-2024 take 6 [...] days Problems Problem Classification Problem Date Documented Date Episodic/Chronic Diseases of white blood cells (1 source) Decreased white blood cell count, unspecified; Translations: [Decreased white blood cell count, unspecified] Onset: 08-02-2024 Chronic Disorders of lipid metabolism (1 source) Pure hypercholesterolemia , unspecified; Translations: [Pure hypercholesterolemia , unspecified] Onset: 08-02-2024 Chronic E Codes: Fall (7 sources) Fall; Translations: [Unspecified fall, initial encounter] 09-15-2024 Episodic Essential hypertension (1 source) Essential (primary) hypertension; Translations: [Essential (primary) hypertension] Onset: 07-28-2024 Chronic Genitourinary symptoms and ill-defined conditions (15 sources) Urinary incontinence; Translations: [Unspecified urinary incontinence] Onset: 10-07-2024 09-21-2024 Chronic Infective arthritis and osteomyelitis (except that caused by tuberculosis or sexually transmitted disease) (1 source) Osteomyelitis of vertebra, cervical region; Translations: [Osteomyelitis of cervical spine (HCC)] Onset: 10-07-2024 Chronic Malaise and fatigue (1 source) Other fatigue; Translations: [Other fatigue] Onset: 07-28-2024 Episodic Mood disorders (1 source) Major depressive disorder, recurrent, in full remission; Translations: [Major depressive disorder, recurrent, in full remission] Onset: 07-28-2024 Chronic Nutritional deficiencies (1 source) Vitamin D deficiency, unspecified; Translations: [Vitamin D deficiency, unspecified] Onset: 08-02-2024 Chronic Other INFORMATION ASSURANCE SPECIALIST infection and poliomyelitis (1 source) Extradural and subdural abscess, unspecified; Translations: [Epidural abscess (HCC)] Onset: 10-07-2024 Episodic Other connective tissue disease (15 sources) Spasticity; Translations: [Other muscle spasm] 09-20-2024 Episodic Other connective tissue disease (2 sources) Other muscle spasm; Translations: [Other muscle spasm] Onset: 09-20-2024 Episodic Other hereditary and degenerative nervous system conditions (1 source) Restless legs syndrome; Translations: [Restless legs syndrome] Onset: 07-28-2024 Chronic Other hereditary and degenerative nervous system conditions (16 sources) Dyskinesia; Translations: [Dystonia, unspecified] 04-29-2024 Chronic Comment on above: 04/07/2024 patient tyler adenues to have marked dyskinesia. It is hard [...] Onset: 09-24-2024 Chronic Other nervous system disorders (10 sources) Cervical myelopathy; Translations: [Disease of spinal cord, unspecified] 09-20-2024 Chronic Other nervous system disorders (2 sources) Disease of spinal cord, unspecified; Translations: [Disease of spinal cord, unspecified] Onset: 10-07-2024 Chronic Other nervous system disorders (17 sources) H/O: brain disorder; Translations: [Personal history of other diseases of the nervous system and sense organs] 09-15-2024 Episodic Other nervous system disorders (15 sources) Disturbed sensory perception; Translations: [Unspecified disturbances of skin sensation] 09-20-2024 Episodic Other nervous system disorders (16 sources) Hyperreflexia; Translations: [Abnormal reflex] 09-20-2024 Episodic Other nervous system disorders (1 source) Abnormal reflex; Translations: [Abnormal reflex] Onset: 10-07-2024 Episodic Other nervous system disorders (2 sources) Unspecified disturbances of skin sensation; Translations: [Unspecified disturbances of skin sensation] Onset: 09-20-2024 Episodic Other nervous system disorders (1 source) Personal history of other diseases of the nervous system and sense organs; Translations: [Personal history of other diseases of the nervous system and sense organs] Onset: 10-07-2024 Episodic Other nervous system disorders (1 source) Unspecified abnormalities of gait and mobility; Translations: [Unspecified abnormalities of gait and mobility] Onset: 10-07-2024 Episodic Other non-traumatic joint disorders (8 sources) Pain in right shoulder; Translations: [Acute [...] Spondylosis; intervertebral disc disorders; other back problems (9 sources) Neck pain; Translations: [Cervicalgia] Onset: 10-06-2024 09-15-2024 Episodic Results Test Name Value Interpretation Reference Range Facility CBC W Auto Differential pane l (Bld)on 10-14-2024 Basophils (Bld) [#/Vol] 0.03 10*3/uL Normal <0.11 [facility] Comment on above: Order Comment: Speci men Type: BLOOD SPECIMENOrdering Facility: [facility] Address: [address] [place] [address] Performed By: #### 6 465-8, 686-6 #### [facility] CLIA [id number] [address] [place] [address] [place] Basophils/100 WBC (Bld) 0.7 % Normal [facility] Comment on above: Order Comment: Speci men Type: BLOOD SPECIMENOrdering Facility: [facility] Address: [address] [place] [address] Performed By: #### 6 462-6, 093-1 #### [facility] CLIA [id number] [address] [place] [address] [place] Differential cell count method Nom (Bld) Auto Normal [facility] Comment on above: Order Comment: Speci men Type: BLOOD SPECIMENOrdering Facility: [facility] Address: [address] [place] [address] Performed By: #### 6 430-3, 263-7 #### [facility] CLIA [id number] [address] [place] [address] [place] Eosinophils (Bld) [#/Vol] 0.45 10*3/uL Normal <0.46 [facility] Comment on above: Order Comment: Speci men Type: BLOOD SPECIMENOrdering Facility: [facility] Address: [address] [place] [address] Performed By: #### 6 464-1, 355-3 #### [facility] CLIA [id number] [address] [place] Eosinophils/100 WBC (Bld) 9.9 % Normal [facility] Comment on above: Order Comment: Speci men Type: BLOOD SPECIMENOrdering Facility: [facility] Address: [address] [place] [address] Performed By: #### 6 469-5, 615-3 #### [facility] CLIA [id number] [address] [place] Erythrocyte distribution width (RBC) [Ratio] 12.7 % Normal 11.5-15.0 [facility] Comment on above: Order Comment: Speci men Type: BLOOD SPECIMENOrdering Facility: [facility] Address: [address] [place] [address] Performed By: #### 6 466-0, 096-3 #### [facility] CLIA [id number] [address] [place] Hematocrit (Bld) [Volume fraction] 34.5 % Low 39.0-51.0 [facility] Comment on above: Order Comment: Speci men Type: BLOOD SPECIMENOrdering Facility: [facility] Address: [address] [place] [address] Performed By: #### 6 555-0, 571-3 #### [facility] CLIA [id number] [address] [place] Hemoglobin (Bld) [Mass/Vol] 11.7 g/dL Low 13.0-17.0 [facility] Comment on above: Order Comment: Speci men Type: BLOOD SPECIMENOrdering Facility: [facility] Address: [address] [place] [address] Performed By: #### 6 464-7, 694-4 #### [facility] CLIA [id number] [address] [place] Immature granulocytes (Bld) [#/Vol] 10*3/uL Normal <0.10 [facility] Comment on above: Order Comment: Speci men Type: BLOOD SPECIMENOrdering Facility: [facility] Address: [address] [place] [address] Performed By: #### 6 4626, 905-3 #### [facility] CLIA [id number] [address] Immature granulocytes/100 WBC (Bld) 0.2 % Normal [facility] Comment on above: Order Comment: Speci men Type: BLOOD SPECIMENOrdering Facility: [facility] Address: [address] [place] [address] Performed By: #### 6 462, 147-3 #### [facility] CLIA [id number] [address] Lymphocytes (Bld) [#/Vol] 0.74 10*3/uL Low 1.00-4.00 [facility] Comment on above: Order Comment: Speci men Type: BLOOD SPECIMENOrdering Facility: [facility] Address: [address] [place] [address] Performed By: #### 6 462-9, 997-3 #### [facility] CLIA [id number] [address] Lymphocytes/100 WBC (Bld) 16.2 % Normal [facility] Comment on above: Order Comment: Speci men Type: BLOOD SPECIMENOrdering Facility: [facility] Address: [address] [place] [address] Performed By: #### 6 4626, 435-3 #### [facility] CLIA [id number] [address] MCH (RBC) [Entitic mass] 32.2 pg Normal 26.0-34.0 [facility] Comment on above: Order Comment: Speci men Type: BLOOD SPECIMENOrdering Facility: [facility] Address: [address] [place] [address] Performed By: #### 6 4626, 695-3 #### [facility] CLIA [id number] [address] MCHC (RBC) [Mass/Vol] 33.9 g/dL Normal 30.5-36.0 [facility] Comment on above: Order Comment: Speci men Type: BLOOD SPECIMENOrdering Facility: [facility] Address: [address] [place] [address] Performed By: #### 6 4626, 875-3 #### [facility] CLIA [id number] [address] MCV (RBC) [Entitic vol] 95.0 fL Normal 80.0-100.0 [facility] Comment on above: Order Comment: Speci men Type: BLOOD SPECIMENOrdering Facility: [facility] Address: [address] [place] [address] Performed By: #### 6 4626, 235-3 #### [facility] CLIA [id number] [address] Monocytes (Bld) [#/Vol] 0.41 10*3/uL Normal <0.87 [facility] Comment on above: Order Comment: Speci men Type: BLOOD SPECIMENOrdering Facility: [facility] Address: [address] [place] [address] Performed By: #### 6 4626, 975-3 #### [facility] CLIA [id number] [address] Monocytes/100 WBC (Bld) 9.0 % Normal [facility] Comment on above: Order Comment: Speci men Type: BLOOD SPECIMENOrdering Facility: [facility] Address: [address] [place] [address] Performed By: #### 6 465-9, 885-3 #### [facility] CLIA [id number] [address] Neutrophils (Bld) [#/Vol] 2.92 10*3/uL Normal 1.45-7.50 [facility] Comment on above: Order Comment: Speci men Type: BLOOD SPECIMENOrdering Facility: [facility] Address: [address] [place] [address] Performed By: #### 6 462-6, 555-3 #### [facility] CLIA [id number] [address] Neutrophils/100 WBC (Bld) 64.0 % Normal [facility] Comment on above: Order Comment: Speci men Type: BLOOD SPECIMENOrdering Facility: [facility] Address: [address] [place] [address] Performed By: #### 6 462-6, 955-3 #### [facility] CLIA [id number] [address] [place] Nucleated RBC (Bld) [#/Vol] 10*3/uL Normal <0.01 [facility] Comment on above: Order Comment: Speci men Type: BLOOD SPECIMENOrdering Facility: [facility] Address: [address] [place] [address] Performed By: #### 6 462-6, 461-3 #### [facility] CLIA [id number] [address] Nucleated RBC/100 WBC (Bld) [Ratio] 0.0 /100 WBC Normal [facility] Comment on above: Order Comment: Speci men Type: BLOOD SPECIMENOrdering Facility: [facility] Address: [address] [place] [address] Performed By: #### 6 462-6, 385-3 #### [facility] CLIA [id number] [address] [place] Platelet mean volume (Bld) [Entitic vol] 9.3 fL Normal 9.0-12.7 [facility] Comment on above: Order Comment: Speci men Type: BLOOD SPECIMENOrdering Facility: [facility] Address: [address] [place] [address] Performed By: #### 6 462-6, 246-3 #### [facility] CLIA [id number] [address] [place] Platelets (Bld) [#/Vol] 191 10*3/uL Normal 150-400 [facility] Comment on above: Order Comment: Speci men Type: BLOOD SPECIMENOrdering Facility: [facility] Address: [address] [place] [address] Performed By: #### 6 462-6, 635-3 #### [facility] CLIA [id number] [address] OF [facility] RBC (Bld) [#/Vol] 3.63 10*6/uL Low 4.20-6.00 [facility] Comment on above: Order Comment: Speci men Type: BLOOD SPECIMENOrdering Facility: [facility] Address: [address] [place] [address] Performed By: #### 6 462-6, 635-3 #### [facility] CLIA [id number] [address] [place] [address] OF [facility] WBC (Bld) [#/Vol] 4.56 10*3/uL Normal 3.70-11.00 [facility] Comment on above: Order Comment: Speci men Type: BLOOD SPECIMENOrdering Facility: [facility] Address: [address] [place] [address] Performed By: #### 6 462-6, 635-3 #### [facility] CLIA [id number] [address] OF [facility] Comprehensive metabolic 2000 panelon 10-14-2024 Albumin [Mass/Vol] 3.5 g/dL Low 3.9-4.9 [facility] Comment on above: Order Comment: Speci men Type: BLOOD SPECIMENOrdering Facility: [facility] Address: [address] [place] [address] Performed By: #### 2 4323-8, 72851-3, 2777-1 ####[facility] [id number] [place] [address] [place] ALP [Catalytic activity/Vol] 75 U/L Normal 38-113 [facility] Comment on above: Order Comment: Speci men Type: BLOOD SPECIMENOrdering Facility: [facility] Address: [address] [place] [address] Performed By: #### 2 4323-8, , 2776-03 ####[facility] [id number] [place] [id number] [place] ALT With P-5'-P [Catalytic activity/Vol] U/L Low 10-54 [facility] Comment on above: Order Comment: Speci men Type: BLOOD SPECIMENOrdering Facility: [facility] Address: [address] [place] [address] Performed By: #### 2 4323-8, , 2776-03 ####[facility] [id number] [address] STATES OF [facility] Anion gap [Moles/Vol] 10 mmol/L Normal 8-15 [facility] Comment on above: Order Comment: Speci men Type: BLOOD SPECIMENOrdering Facility: [facility] Address: [address] [place] [address] Performed By: #### 2 4323-8, , 2776-03 ####[facility] [id number] [address] [place] AST With P-5'-P [Catalytic activity/Vol] 34 U/L Normal 14-40 [facility] Comment on above: Order Comment: Speci men Type: BLOOD SPECIMENOrdering Facility: [facility] Address: [address] [place] [address] Performed By: #### 2 4323-8, , 2776-03 ####[facility] [id number] [place] [address] [place] Bilirubin [Mass/Vol] 0.5 mg/dL Normal 0.2-1.3 [facility] Comment on above: Order Comment: Speci men Type: BLOOD SPECIMENOrdering Facility: [facility] Address: [address] [place] [address] Performed By: #### 2 4323-8, , 2776-03 ####[facility] [id number] [place] [address] [place] Calcium [Mass/Vol] 9.0 mg/dL Normal 8.5-10.2 [facility] Comment on above: Order Comment: Speci men Type: BLOOD SPECIMENOrdering Facility: [facility] Address: [address] [place] [address] Performed By: #### 2 4323-8, , 2776-03 ####[facility]ORY[facility] [id number] [place] [address] [place] Chloride [Moles/Vol] 104 mmol/L Normal 98-107 [facility] Comment on above: Order Comment: Speci men Type: BLOOD SPECIMENOrdering Facility: [facility] Address: [address] [place] [address] Performed By: #### 2 4323-8, , 2776-03 ####[facility] [id number] [place] [address] [place] CO2 [Moles/Vol] 26 mmol/L Normal 22-30 [facility] Comment on above: Order Comment: Speci men Type: BLOOD SPECIMENOrdering Facility: [facility] Address: [address] [place] [address] Performed By: #### 2 4323-8, , 2776-03 ####[facility] [id number] [place] [id number] [place] Creatinine [Mass/Vol] 0.57 mg/dL Low 0.73-1.22 [facility] [facility] Comment on above: Order Comment: Speci men Type: BLOOD SPECIMENOrdering Facility: [facility] Address: [address] [place] [address] Performed By: #### 2 4323-8, , 2776-03 ####[facility] EASTCLIA [id number] [place] [address] [place] eGFRcr SerPlBld CKD-EPI 2020 104 mL/min/1.73m??? Normal >=60 [facility] Comment on above: Order Comment: Dwayne cheung Type: BLOOD SPECIMENOrdering Facility: [facility] Address: [address] [place] [address] Result Comment: Gifty mated Glomerular Filtration Rate (eGFR) is calculated using the 2020 CKD-EPI creatinine equation. This equation utilizes serum creatinine, sex, and age as parameters. The creatinine assay has traceable calibration to isotope dilution-mass spectrometry. Refer to KDIGO guidelines for clinical interpretation. In patients with unstable renal function, e.g. those with acute kidney injury, the eGFR may not accurately reflect actual GFR. Performed By: #### 2 4323-8, 60730-2, 2776- ####[facility] [id number] [place] [id number] [place] Glucose [Mass/Vol] 103 mg/dL High 74-99 [facility] Comment on above: Order Comment: Dwayne jonatan Type: BLOOD SPECIMENOrdering Facility: [facility] Address: [address] [place] [address] Result Comment: The [place] Diabetes Association (ADA) provides guidance for cutoff values for fasting glucose and random glucose. The ADA defines fasting as no caloric intake for at least 8 hours. Fasting plasma glucose results between 100 to 125 mg/dL indicate increased risk for diabetes (prediabetes). Fasting plasma glucose results greater than or equal to 126 mg/dL meet the criteria for diagnosis of diabetes. In the absence of unequivocal hyperglycemia, results should be confirmed by repeat testing. In a patient with classic symptoms of hyperglycemia or hyperglycemic crisis, random plasma glucose results greater than or equal to 200 mg/dL meet the criteria for diagnosis of diabetes. Reference: Standards of Medical Care in Diabetes 2016, [place] Diabetes Association. Diabetes Care. 2016.39(Suppl 1). Performed By: #### 2 4323-8, 85700-0, 2776- ####[facility] LABORATORYCLIA [id number] [place] [address] [place] Potassium [Moles/Vol] 3.8 mmol/L Normal 3.7-5.1 [facility] Comment on above: Order Comment: Speci men Type: BLOOD SPECIMENOrdering Facility: [facility] Address: [address] [place] [address] Performed By: #### 2 4323-8, , 2776-03 ####[facility]ORATORYCLIA [id number] [place] [address] [place] Protein [Mass/Vol] 6.2 g/dL Low 6.3-8.0 [facility] Comment on above: Order Comment: Speci men Type: BLOOD SPECIMENOrdering Facility: [facility] Address: [address] [place] [address] Performed By: #### 2 4323-8, , 2776-03 ####[facility]ORATORYCLIA [id number] [place] [address] [place] Sodium [Moles/Vol] 140 mmol/L Normal 136-144 [facility] Comment on above: Order Comment: Speci men Type: BLOOD SPECIMENOrdering Facility: [facility] Address: [address] [place] [address] Performed By: #### 2 4323-8, , 2776-03 ####[facility]ORATORYCLIA [id number] [place] [address] [place] Urea nitrogen [Mass/Vol] 18 mg/dL Normal 9-24 [facility] Comment on above: Order Comment: Speci men Type: BLOOD SPECIMENOrdering Facility: [facility] Address: [address] [place] [address] Performed By: #### 2 4323-8, , 2776-03 ####[facility]ORATORYCLIA [id number] [place] [address] [place] Magnesium SerPl-mCncon 10-14 Magnesium [Mass/Vol] 1.9 mg/dL Normal 1.7-2.3 [facility] Comment on above: Order Comment: Speci men Type: BLOOD SPECIMENOrdering Facility: [facility] Address: [address] [place] [address] Performed By: #### 2 4323-8, 23058-7, 2777-1 ####[facility]CLIA [id number] [place] [address] [facility] [place] Phosphate SerPl-mCncon 10-14 Phosphate [Mass/Vol] 3.1 mg/dL Normal 2.7-4.8 [facility] Comment on above: Order Comment: Speci men Type: BLOOD SPECIMENOrdering Facility: [facility] Address: [address] [place] [address] Performed By: #### 2 4323-8, 08094-6, 2777-1 ####[facility] LABORATORYCLIA [id number] [place] [address] [facility] [place] THERAPY NTon 10-14-2024 THERAPY NT HNO ID: [id number] Author: URBANO KRAFT OTR/Leobardo Service: Occupational Therapy Author Type: Occupational Therapist Type: Therapy (PT/OT/Speech/Resp) Filed: 10/14/2024 13:55 Note Text: Occupational Therapy Treatment Summary SERVICE DATE: 10/14/2024 SERVICE TIME: 1315 to 1341 ROOM: [place] [address] OT 6 Clicks Score: 13 DISCHARGE RECOMMENDATIONS Acute Rehab Recommended Discharge Disposition Comments: Pt currenlty functioning well below functional baseline at this time. Recommending AR at ar for continued skilled therapy services. Recommended Discharge Disposition Due to: Patient requires active, intensive rehabilitation by multiple therapy disciplines. Anticipate the patient will tolerate 3 hours of therapy per day., Patient requires daily (5x/week) skilled therapy at next level of care., ADL impairment, Coordination deficits, Dominant side deficits, Functional status decline, Motor planning deficits, Requires multiple therapy disciplines ASSESSMENT Response to Therapy Interventions: Good Participation in Activities, Low Activity Tolerance, Pain, Requires Additional Time to Complete Activities Patient progress well overall, as he requires less physical assistance for transfers and mobility. Patient does still require increased assistance with ADLs due to weakness in hands with limited dexterity. At this time, patient needs further OT services to maximize functional independence, all goals on-going. PRECAUTIONS Bed/Chair Alarm, Fall Risk, Spine, Brace [place] collar CURRENT HOSPITAL COURSE Presents with progressive RUE/RLE weakness and numbness. 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 s/p C3-C6 PSF with decompressive laminectomies on 10/08. Relevant Past Medical History: Parkinson's disease HOME LIVING Patient Lives With: Spouse Assistance Available: Part-Time Entry To Home: Ramp Number Of Stairs To Bed/Bath: 0 Tub/Shower Type: tub shower (however pt sponge bathes) Equipment Owned: Cane PRIOR FUNCTIONAL LEVEL Within Functional Limits Independent with mobility with only occasional use of a cane. Reports a few falls over the past few months. Baseline Cognition: Oriented to self, Oriented to place, Oriented to situation, Oriented to time SUBJECTIVE agreeable to session COGNITION Orientation Deficits: (AxOx3) Responsiveness: Alert Follows Commands: 2-step Commands Cueing to Follow Commands: Minimum Executive Function Deficits: Sequencing, Safety Awareness, Problem Solving 4AT Score: 0 (10/12/24) Delirium Positive/Negative: Negative (10/12/24) THERAPY DIAGNOSIS Decreased activities of daily living (ADL), Reduced mobility-other, Muscle Weakness (generalized), Unsteadiness on feet, General symptoms and signs-other, Signs and Symptoms Involving Cognitive Functions and Awareness TREATMENT INTERVENTIONS Therapeutic Activity (68336), Self Residential Management (97463) Timed Code Treatment (minutes): 26 Skilled Treatment Time (minutes): 26 Therapeutic Activity (85377) Treatment Minutes: 14 $ Therapeutic Activity (02802) Billed Units: 1 unit Self Residential Management (66056) Treatment Minutes: 12 $ Self Residential Management (23098) Billed Units: 1 unit TRAINING AND EDUCATION PROVIDED Assistive Device Use, Benefits of In-Hospital Mobility, Bed Mobility, Disease Specific Education, Discharge Planning, Functional Mobility Involving ADLs, Fine Motor Coordination, Role of Occupational Therapy, Safety/Judgment, Precautions/Restrictions, Transfer - Sit to Stand, Transfer - Toilet/Commode, Grooming Tasks THERAPEUTIC SKILLS USED Activity Dosing, Cues for Sequencing/Proper Technique for Activity, Cuing Tactile, Cuing Verbal, Cuing Visual, Physical Assist FUNCTIONAL STATUS Activities of Daily Living Assist Level Additional Information Feeding Minimal Assistance Issued red built up handles to help patient be able to hold and manipulate feeding utensils better. Grooming Moderate Assistance Facilitated hair washing, hair combing and face washing activity to increase activity tolerance and participation in self care. Patient struggling to open shower cap packaging due to limited hand strength and dexterity. Bathing Upper Body Moderate Assistance Bathing Lower Body Maximal Assistance Dressing Upper Body Moderate Assistance Dressing Lower Body Maximal Assistance Toileting Maximal Assistance Mobility Assist Level Additional Information Bed Mobility Rolling: Minimal Assistance Reviewed cervical precautions and log roll technique. Supine To Sit: Minimal Assistance Sit to Stand Minimal Assistance Min direction for hand placement when standing up. Stand to Sit Minimal Assistance Min direction for good eccentric control and safety. Bed to Chair Toilet/Commode Minimal Assistance Min verbal direction for hand and body placement and safety with use of grab bar. Shower Functional Mobility Minimal Assistance, Additional Infor (more content not included)... Normal [facility] CBC W Auto Differential pane l (Bld)on 10-13-2024 Basophils (Bld) [#/Vol] 10*3/uL Normal <0.11 [facility] Comment on above: Order Comment: Speci men Type: BLOOD SPECIMENOrdering Facility: [facility] Address: [address] [place] [address] Performed By: #### 4 3408-4, 635-3 #### [facility] CLIA [id number] [address] [place] [address] [place] Basophils/100 WBC (Bld) 0.4 % Normal [facility] Comment on above: Order Comment: Speci men Type: BLOOD SPECIMENOrdering Facility: [facility] Address: [address] [place] [address] Performed By: #### 4 3408-4, 635-3 #### [facility] CLIA [id number] [address] [place] [address] [place] Differential cell count method Nom (Bld) Auto Normal [facility] Comment on above: Order Comment: Speci men Type: BLOOD SPECIMENOrdering Facility: [facility] Address: [address] [place] [address] Performed By: #### 4 3408-4, 635-3 #### [facility] CLIA [id number] [address] [place] [address] [place] Eosinophils (Bld) [#/Vol] 0.50 10*3/uL High <0.46 [facility] Comment on above: Order Comment: Speci men Type: BLOOD SPECIMENOrdering Facility: [facility] Address: [address] [place] [address] Performed By: #### 4 3408-4, 635-3 #### [facility] CLIA [id number] [address] STATES OF [facility] Eosinophils/100 WBC (Bld) 10.8 % Normal [facility] Comment on above: Order Comment: Speci men Type: BLOOD SPECIMENOrdering Facility: [facility] Address: [address] [place] [address] Performed By: #### 4 3408-4, 715-3 #### [facility] CLIA [id number] [address] [place] Erythrocyte distribution width (RBC) [Ratio] 12.8 % Normal 11.5-15.0 [facility] Comment on above: Order Comment: Speci men Type: BLOOD SPECIMENOrdering Facility: [facility] Address: [address] [place] [address] Performed By: #### 4 3408-4, 305-3 #### [facility] CLIA [id number] [address] STATES OF [facility] Hematocrit (Bld) [Volume fraction] 32.4 % Low 39.0-51.0 [facility] Comment on above: Order Comment: Speci men Type: BLOOD SPECIMENOrdering Facility: [facility] Address: [address] [place] [address] Performed By: #### 4 3408-4, 925-3 #### [facility] CLIA [id number] [address] [place] Hemoglobin (Bld) [Mass/Vol] 11.1 g/dL Low 13.0-17.0 [facility] Comment on above: Order Comment: Speci men Type: BLOOD SPECIMENOrdering Facility: [facility] Address: [address] [place] [address] Performed By: #### 4 3408-4, 635-3 #### [facility] CLIA [id number] [address] Immature granulocytes (Bld) [#/Vol] 10*3/uL Normal <0.10 [facility] Comment on above: Order Comment: Speci men Type: BLOOD SPECIMENOrdering Facility: [facility] Address: [address] [place] [address] Performed By: #### 4 3408-4, 635-3 #### [facility] CLIA [id number] [address] Immature granulocytes/100 WBC (Bld) 0.2 % Normal [facility] Comment on above: Order Comment: Speci men Type: BLOOD SPECIMENOrdering Facility: [facility] Address: [address] [place] [address] Performed By: #### 4 3408-4, 635-3 #### [facility] CLIA [id number] [address] Lymphocytes (Bld) [#/Vol] 0.91 10*3/uL Low 1.00-4.00 [facility] Comment on above: Order Comment: Speci men Type: BLOOD SPECIMENOrdering Facility: [facility] Address: [address] [place] [address] Performed By: #### 4 3408-4, 635-3 #### [facility] CLIA [id number] [address] Lymphocytes/100 WBC (Bld) 19.7 % Normal [facility] Comment on above: Order Comment: Speci men Type: BLOOD SPECIMENOrdering Facility: [facility] Address: [address] [place] [address] Performed By: #### 4 3408-4, 635-3 #### [facility] CLIA [id number] [address] MCH (RBC) [Entitic mass] 33.0 pg Normal 26.0-34.0 [facility] Comment on above: Order Comment: Speci men Type: BLOOD SPECIMENOrdering Facility: [facility] Address: [address] [place] [address] Performed By: #### 4 3408-4, 635-3 #### [facility] CLIA [id number] [address] [place] MCHC (RBC) [Mass/Vol] 34.3 g/dL Normal 30.5-36.0 [facility] Comment on above: Order Comment: Speci men Type: BLOOD SPECIMENOrdering Facility: [facility] Address: [address] [place] [address] Performed By: #### 4 3408-4, 635-3 #### [facility] CLIA [id number] [address] STATES OF [facility] MCV (RBC) [Entitic vol] 96.4 fL Normal 80.0-100.0 [facility] Comment on above: Order Comment: Speci men Type: BLOOD SPECIMENOrdering Facility: [facility] Address: [address] [place] [address] Performed By: #### 4 3408-4, 365-3 #### [facility] CLIA [id number] [address] OF [facility] Monocytes (Bld) [#/Vol] 0.40 10*3/uL Normal <0.87 [facility] Comment on above: Order Comment: Speci men Type: BLOOD SPECIMENOrdering Facility: [facility] Address: [address] [place] [address] Performed By: #### 4 3408-4, 635-3 #### [facility] CLIA [id number] [address] Monocytes/100 WBC (Bld) 8.6 % Normal [facility] Comment on above: Order Comment: Speci men Type: BLOOD SPECIMENOrdering Facility: [facility] Address: [address] [place] [address] Performed By: #### 4 3408-4, 635-3 #### [facility] CLIA [id number] [address] [place] [address] [place] Neutrophils (Bld) [#/Vol] 2.79 10*3/uL Normal 1.45-7.50 [facility] Comment on above: Order Comment: Speci men Type: BLOOD SPECIMENOrdering Facility: [facility] Address: [address] [place] [address] Performed By: #### 4 3408-4, 635-3 #### [facility] CLIA [id number] [address] [place] [address] [place] Neutrophils/100 WBC (Bld) 60.3 % Normal [facility] Comment on above: Order Comment: Speci men Type: BLOOD SPECIMENOrdering Facility: [facility] Address: [address] [place] [address] Performed By: #### 4 3408-4, 635-3 #### [facility] CLIA [id number] [address] [place] [address] [place] Nucleated RBC (Bld) [#/Vol] 10*3/uL Normal <0.01 [facility] Comment on above: Order Comment: Speci men Type: BLOOD SPECIMENOrdering Facility: [facility] Address: [address] [place] [address] Performed By: #### 4 3408-4, 635-3 #### [facility] CLIA [id number] [address] [place] Nucleated RBC/100 WBC (Bld) [Ratio] 0.0 /100 WBC Normal [facility] Comment on above: Order Comment: Speci men Type: BLOOD SPECIMENOrdering Facility: [facility] Address: [address] [place] [address] Performed By: #### 4 3408-4, 635-3 #### [facility] CLIA [id number] [address] [place] [address] [place] Platelet mean volume (Bld) [Entitic vol] 9.5 fL Normal 9.0-12.7 [facility] Comment on above: Order Comment: Speci men Type: BLOOD SPECIMENOrdering Facility: [facility] Address: [address] [place] [address] Performed By: #### 4 3408-4, 635-3 #### [facility] CLIA [id number] [address] OF [facility] Platelets (Bld) [#/Vol] 187 10*3/uL Normal 150-400 [facility] Comment on above: Order Comment: Speci men Type: BLOOD SPECIMENOrdering Facility: [facility] Address: [address] [place] [address] Performed By: #### 4 3408-4, 635-3 #### [facility] CLIA [id number] [address] OF [facility] RBC (Bld) [#/Vol] 3.36 10*6/uL Low 4.20-6.00 [facility] Comment on above: Order Comment: Speci men Type: BLOOD SPECIMENOrdering Facility: [facility] Address: [address] [place] [address] Performed By: #### 4 3408-4, 635-3 #### [facility] CLIA [id number] [address] WBC (Bld) [#/Vol] 4.63 10*3/uL Normal 3.70-11.00 [facility] Comment on above: Order Comment: Speci men Type: BLOOD SPECIMENOrdering Facility: [facility] Address: [address] [place] [address] Performed By: #### 4 3408-4, 635-3 #### [facility] CLIA [id number] [address] Comprehensive metabolic 2000 panelon 10-13-2024 Albumin [Mass/Vol] 3.4 g/dL Low 3.9-4.9 [facility] Comment on above: Order Comment: Speci men Type: BLOOD SPECIMENOrdering Facility: [facility] Address: [address] [place] [address] Performed By: #### 2 4323-8 ####[facility]ORYCLIA [id number] [address] [place] ALP [Catalytic activity/Vol] 69 U/L Normal 38-113 [facility] Comment on above: Order Comment: Speci men Type: BLOOD SPECIMENOrdering Facility: [facility] Address: [address] [place] [address] Performed By: #### 2 4323-8 ####[facility]ORATORYCLIA [id number] [place] [address] [place] ALT With P-5'-P [Catalytic activity/Vol] U/L Low 10-54 [facility] Comment on above: Order Comment: Speci men Type: BLOOD SPECIMENOrdering Facility: [facility] Address: [address] [place] [address] Performed By: #### 2 4323-8 ####[facility]ATORYCLIA [id number] [address] Anion gap [Moles/Vol] 6 mmol/L Low 8-15 [facility] Comment on above: Order Comment: Speci men Type: BLOOD SPECIMENOrdering Facility: [facility] Address: [address] [place] [address] Performed By: #### 2 4323-8 ####[facility]ATORYCLIA [id number] [address] [place] AST With P-5'-P [Catalytic activity/Vol] 25 U/L Normal 14-40 [facility] Comment on above: Order Comment: Speci men Type: BLOOD SPECIMENOrdering Facility: [facility] Address: [address] [place] [address] Performed By: #### 2 4323-8 ####[facility]ATORYCLIA [id number] [address] [place] Bilirubin [Mass/Vol] 0.4 mg/dL Normal 0.2-1.3 [facility] Comment on above: Order Comment: Speci men Type: BLOOD SPECIMENOrdering Facility: [facility] Address: [address] [place] [address] Performed By: #### 2 4323-8 ####[facility]ATORYCLIA [id number] [place] [address] [place] Calcium [Mass/Vol] 8.9 mg/dL Normal 8.5-10.2 [facility] Comment on above: Order Comment: Speci men Type: BLOOD SPECIMENOrdering Facility: [facility] Address: [address] [place] [address] Performed By: #### 2 4323-8 ####[facility]ATORYCLIA [id number] [address] [place] Chloride [Moles/Vol] 104 mmol/L Normal 98-107 [facility] Comment on above: Order Comment: Speci men Type: BLOOD SPECIMENOrdering Facility: [facility] Address: [address] [place] [address] Performed By: #### 2 4323-8 ####[facility]ORYCLIA [id number] [address] [place] CO2 [Moles/Vol] 28 mmol/L Normal 22-30 [facility] Comment on above: Order Comment: Speci men Type: BLOOD SPECIMENOrdering Facility: [facility] Address: [address] [place] [address] Performed By: #### 2 4323-8 ####[facility]ATORYCLIA [id number] [place] [address] [place] Creatinine [Mass/Vol] 0.62 mg/dL Low 0.73-1.22 [facility] Comment on above: Order Comment: Speci men Type: BLOOD SPECIMENOrdering Facility: [facility] Address: [address] [place] [address] Performed By: #### 2 4323-8 ####[facility]ORYCLIA [id number] [place] [address] [place] eGFRcr SerPlBld CKD-EPI 2020 102 mL/min/1.73m??? Normal >=60 [facility] Comment on above: Order Comment: Dwayne cheung Type: BLOOD SPECIMENOrdering Facility: [facility] Address: [address] [place] [address] Result Comment: Gifty mated Glomerular Filtration Rate (eGFR) is calculated using the 2020 CKD-EPI creatinine equation. This equation utilizes serum creatinine, sex, and age as parameters. The creatinine assay has traceable calibration to isotope dilution-mass spectrometry. Refer to KDIGO guidelines for clinical interpretation. In patients with unstable renal function, e.g. those with acute kidney injury, the eGFR may not accurately reflect actual GFR. Performed By: #### 2 4323-8 ####[facility]ORYCLIA [id number] [place] [address] [place] Glucose [Mass/Vol] 103 mg/dL High 74-99 [facility] Comment on above: Order Comment: Dwayne cehung Type: BLOOD SPECIMENOrdering Facility: [facility] Address: [address] [place] [address] Result Comment: The [place] [employer] (ADA) provides guidance for cutoff values for fasting glucose and random glucose. The ADA defines fasting as no caloric intake for at least 8 hours. Fasting plasma glucose results between 100 to 125 mg/dL indicate increased risk for diabetes (prediabetes). Fasting plasma glucose results greater than or equal to 126 mg/dL meet the criteria for diagnosis of diabetes. In the absence of unequivocal hyperglycemia, results should be confirmed by repeat testing. In a patient with classic symptoms of hyperglycemia or hyperglycemic crisis, random plasma glucose results greater than or equal to 200 mg/dL meet the criteria for diagnosis of diabetes. Reference: Standards of Medical Care in Diabetes 2016, [place] [employer]. Diabetes Care. 2016.39(Suppl 1). Performed By: #### 2 4323-8 ####[facility] LABORATORYCLIA [id number] [place] [address] [place] Potassium [Moles/Vol] 3.9 mmol/L Normal 3.7-5.1 [facility] Comment on above: Order Comment: Dwayne cheung Type: BLOOD SPECIMENOrdering Facility: [facility] Address: [address] [place] [address] Performed By: #### 2 4323-8 ####[facility]ORYCLIA [id number] [place] [address] [place] Protein [Mass/Vol] 6.0 g/dL Low 6.3-8.0 [facility] Comment on above: Order Comment: Speci men Type: BLOOD SPECIMENOrdering Facility: [facility] Address: [address] [place] [address] Performed By: #### 2 4323-8 ####[facility]ORYCLIA [id number] [place] [address] [place] Sodium [Moles/Vol] 138 mmol/L Normal 136-144 [facility] Comment on above: Order Comment: Speci men Type: BLOOD SPECIMENOrdering Facility: [facility] Address: [address] [place] [address] Performed By: #### 2 4323-8 ####[facility]ORYCLIA [id number] [address] STATES [facility] Urea nitrogen [Mass/Vol] 22 mg/dL Normal 9-24 [facility] Comment on above: Order Comment: Speci men Type: BLOOD SPECIMENOrdering Facility: [facility] Address: [address] [place] [address] Performed By: #### 2 4323-8 ####[facility]ORYCLIA [id number] [place] [address] [place] Magnesium SerPl-mCncon 10-13 Magnesium [Mass/Vol] 2.0 mg/dL Normal 1.7-2.3 [facility] Comment on above: Order Comment: Speci men Type: BLOOD SPECIMENOrdering Facility: [facility] Address: [address] [place] [address] Performed By: #### 6 462-6, 635-3 #### [facility] CLIA [id number] [address] [place] [address] [place] NURSING PROGon 10-13-2024 NURSING PROG HNO ID: [id number] Author: KATHIA MILLS, ALEA Service: Nursing Author Type: Registered Nurse Type: Nursing Progress Note Filed: 10/13/2024 14:01 Note Text: Transfer Note: PATIENT NAME: Phillip Jesus Patient Location: [id number]- 01 Room: CX-KVCI-0597 Patient transferred out to room/unit in stable condition. Actions taken: Report given/called to 9100 Normal [facility] Phosphate SerPl-mCncon 10-13 Phosphate [Mass/Vol] 2.8 mg/dL Normal 2.7-4.8 [facility] Comment on above: Order Comment: Speci men Type: BLOOD SPECIMENOrdering Facility: [facility] Address: [address] [place] [address] Performed By: #### 6 462-6, 635-3 #### [facility] CLIA [id number] [address] THERAPY NTon 10-13-2024 THERAPY NT HNO ID: [id number] Author: LALY STILES, ROBBIE Service: Physical Therapy Author Type: Automotive Brake Adjuster Type: Therapy (PT/OT/Speech/Resp) Filed: 10/13/2024 11:59 Note Text: -- Attestation signed by Laly Stiles, PT at 10/13/2024 11:59 AM I reviewed and agree with the documentation corresponding to this therapy visit. SIGNATURE: Laly Stiles PT DATE: October 13, 2024 TIME: 11:59 AM -- Physical Therapy Treatment Summary SERVICE DATE: 10/13/2024 SERVICE TIME: 900 to 927 ROOM: [place] [address] PT 6 Clicks Score: 15 DISCHARGE RECOMMENDATIONS Acute Rehab Recommended Discharge Disposition Due to: Patient requires active, intensive rehabilitation by multiple therapy disciplines. Anticipate the patient will tolerate 3 hours of therapy per day., Balance deficits, Functional status decline, Requires multiple therapy disciplines, Coordination deficits ASSESSMENT Response to Therapy Interventions: Good Participation in Activities, Improved Tolerance for Activity, Multiple Ongoing Medical Issues Patient continues to progress towards physical therapy goals with hands-on assist. Pt improving, however, no PT goals met and remains well below his baseline. Pt is motivated and will easily tolerate 15hrs of therapy weekly. Continue to recommend Acute Rehab at discharge. PRECAUTIONS Bed/Chair Alarm, Fall Risk, Spine, Brace [place] collar CURRENT HOSPITAL COURSE Presents with progressive RUE/RLE weakness and numbness. 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 s/p C3-C6 PSF with decompressive laminectomies on 10/08. Relevant Past Medical History: Parkinson's disease HOME LIVING Patient Lives With: Spouse Assistance Available: Part-Time Entry To Home: Ramp Number Of Stairs To Bed/Bath: 0 Tub/Shower Type: tub shower (however pt sponge bathes) Equipment Owned: Cane PRIOR FUNCTIONAL LEVEL Within Functional Limits Independent with mobility with only occasional use of a cane. Reports a few falls over the past few months. SUBJECTIVE Pt pleasant and agreeable to PT. THERAPY DIAGNOSIS Reduced mobility-other, Muscle Weakness (generalized), Unsteadiness on feet, General symptoms and signs-other TREATMENT INTERVENTIONS Therapeutic Exercise (41719), Therapeutic Activity (71255) Timed Code Treatment (minutes): 27 Skilled Treatment Time (minutes): 27 Therapeutic Exercise (62920) Treatment Minutes: 12 $ Therapeutic Exercise (27796) Billed Units: 1 unit Exercise Ankle Pumps (number of reps): 10 BLE Quad Sets (number of reps): 10 BLE Glut Sets (number of reps): 10 Heel Slides (number of reps): 10 BLE SAQ (number of reps): 10 BLE LAQ (number of reps): 10 BLE Hip Abduction (number of reps): 10 BLE Exercise: Hip adduction against pillow with 2s hold: 10 BLE Hands on assist for majority of exercises to maintain proper joint alignment. Verbal, tactile, and visual cues to encouraged respective muscle activation and optimal range of motion. Educated pt on importance of completing these exercises throughout the day to maintain current strength levels. Therapeutic Activity (42986) Treatment Minutes: 15 $ Therapeutic Activity (17606) Billed Units: 1 unit Challenged pt to complete bed mobility, transfers, and increased ambulation this session with decreased physical assist. Discussed spinal precautions and how to maintain with all tasks. Pt able to recite 3/3 this session. See grid below for all mobility details. TRAINING AND EDUCATION PROVIDED Bed Mobility, Benefits of In-Hospital Mobility, Discharge Planning, Falls Prevention, Positioning, Role of Physical Therapy, Transfers THERAPEUTIC SKILLS USED Activity Dosing, Assessment of Tolerance Including Vitals Response to Activity, Cues for Sequencing/Proper Technique for Activity, Physical Assist, Movement Facilitation FUNCTIONAL STATUS mobility performed during session in bold, other mobility completed during prior session and may no longer be correct or appropriate to complete. Bed Mobility Rolling: Minimal Assistance, Additional Information x1 via log roll to the right for bed mobility Supine To Sit: Moderate Assistance, Additional Information HOB elevated ~30 degrees. Slightly progressing towards Sweta. Cues and physical assist for all sequencing. Scooting: Minimal Assistance, Additional Information Cues to scoot towards the EOB so that bilat feet were evenly placed on the floor. Very light assist via draw sheet. Transfers Sit To Stand: Moderate Assistance, Additional Information EOB elevated ~2-3 inches. Cues for hand placement to correct pt from pulling up on FWW. Progressing towards Sweta. Stand To Sit: Minimal Assistance, Additional Information x1 to recliner. Cues for body positioning and alignment. Cues to reach ba (more content not included)... Normal [facility] CBC W Auto Differential pane l (Bld)on 10-12-2024 Basophils (Bld) [#/Vol] 10*3/uL Normal <0.11 [facility] Comment on above: Order Comment: Speci men Type: BLOOD SPECIMEN [facility] Address: [address] [place] [address] Performed By: #### T SCR #### [facility] CLIA [id number] 1 [place] [address] [place] Basophils/100 WBC (Bld) 0.5 % Normal [facility] Comment on above: Order Comment: Speci men Type: BLOOD SPECIMEN [facility] Address: [address] [place] [address] Performed By: #### T SCR #### [facility] CLIA [id number] [address] Differential cell count method Nom (Bld) Auto Normal [facility] Comment on above: Order Comment: Speci men Type: BLOOD SPECIMEN [facility] Address: [address] [place] [address] Performed By: #### T SCR #### [facility] CLIA [id number] [address] Eosinophils (Bld) [#/Vol] 0.46 10*3/uL High <0.46 [facility] Comment on above: Order Comment: Speci men Type: BLOOD SPECIMEN [facility] Address: [address] [place] [address] Performed By: #### T SCR #### [facility] CLIA [id number] [address] Eosinophils/100 WBC (Bld) 11.0 % Normal [facility] Comment on above: Order Comment: Speci men Type: BLOOD SPECIMEN [facility] Address: [address] [place] [address] Performed By: #### T SCR #### [facility] CLIA [id number] [address] Erythrocyte distribution width (RBC) [Ratio] 12.8 % Normal 11.5-15.0 [facility] Comment on above: Order Comment: Speci men Type: BLOOD SPECIMEN [facility] Address: [address] [place] [address] Performed By: #### T SCR #### [facility] CLIA [id number] [address] [place] Hematocrit (Bld) [Volume fraction] 30.9 % Low 39.0-51.0 [facility] Comment on above: Order Comment: Speci men Type: BLOOD SPECIMEN [facility] Address: [address] [place] [address] Performed By: #### T SCR #### [facility] CLIA [id number] [address] [place] Hemoglobin (Bld) [Mass/Vol] 10.1 g/dL Low 13.0-17.0 [facility] Comment on above: Order Comment: Speci men Type: BLOOD SPECIMEN [facility] Address: [address] [place] [address] Performed By: #### T SCR #### [facility] CLIA [id number] [address] [place] Immature granulocytes (Bld) [#/Vol] 10*3/uL Normal <0.10 [facility] Comment on above: Order Comment: Speci men Type: BLOOD SPECIMEN [facility] Address: [address] [place] [address] Performed By: #### T SCR #### [facility] CLIA [id number] [address] Immature granulocytes/100 WBC (Bld) 0.2 % Normal [facility] Comment on above: Order Comment: Speci men Type: BLOOD SPECIMEN [facility] Address: [address] [place] [address] Performed By: #### T SCR #### [facility] CLIA [id number] [address] [place] Lymphocytes (Bld) [#/Vol] 0.72 10*3/uL Low 1.00-4.00 [facility] Comment on above: Order Comment: Speci men Type: BLOOD SPECIMEN [facility] Address: [address] [place] [address] Performed By: #### T SCR #### [facility] CLIA [id number] [address] [place] Lymphocytes/100 WBC (Bld) 17.2 % Normal [facility] Comment on above: Order Comment: Speci men Type: BLOOD SPECIMEN [facility] Address: [address] [place] [address] Performed By: #### T SCR #### [facility] CLIA [id number] [address] MCH (RBC) [Entitic mass] 31.3 pg Normal 26.0-34.0 [facility] Comment on above: Order Comment: Speci men Type: BLOOD SPECIMEN [facility] Address: [address] [place] [address] Performed By: #### T SCR #### [facility] CLIA [id number] [address] MCHC (RBC) [Mass/Vol] 32.7 g/dL Normal 30.5-36.0 [facility] Comment on above: Order Comment: Speci men Type: BLOOD SPECIMEN [facility] Address: [address] [place] [address] Performed By: #### T SCR #### [facility] CLIA [id number] [address] MCV (RBC) [Entitic vol] 95.7 fL Normal 80.0-100.0 [facility] Comment on above: Order Comment: Speci men Type: BLOOD SPECIMEN [facility] Address: [address] [place] [address] Performed By: #### T SCR #### [facility] CLIA [id number] [address] Monocytes (Bld) [#/Vol] 0.36 10*3/uL Normal <0.87 [facility] Comment on above: Order Comment: Speci men Type: BLOOD SPECIMEN [facility] Address: [address] [place] [address] Performed By: #### T SCR #### [facility] CLIA [id number] [address] [place] Monocytes/100 WBC (Bld) 8.6 % Normal [facility] Comment on above: Order Comment: Speci men Type: BLOOD SPECIMEN [facility] Address: [address] [place] [address] Performed By: #### T SCR #### [facility] CLIA [id number] [address] [place] [address] [place] Neutrophils (Bld) [#/Vol] 2.61 10*3/uL Normal 1.45-7.50 [facility] Comment on above: Order Comment: Speci men Type: BLOOD SPECIMEN [facility] Address: [address] [place] [address] Performed By: #### T SCR #### [facility] CLIA [id number] [address] Neutrophils/100 WBC (Bld) 62.5 % Normal [facility] Comment on above: Order Comment: Speci men Type: BLOOD SPECIMEN [facility] Address: [address] [place] [address] Performed By: #### T SCR #### [facility] [place] [id number] [address] [place] Nucleated RBC (Bld) [#/Vol] 10*3/uL Normal <0.01 [facility] Comment on above: Order Comment: Speci men Type: BLOOD SPECIMEN [facility] Address: [address] [place] [address] Performed By: #### T SCR #### [facility] CLIA [id number] [address] [place] Nucleated RBC/100 WBC (Bld) [Ratio] 0.0 /100 WBC Normal [facility] Comment on above: Order Comment: Speci men Type: BLOOD SPECIMEN [facility] Address: [facility] [place] [address] Performed By: #### T SCR #### [facility] CLIA [id number] [address] [place] Platelet mean volume (Bld) [Entitic vol] 10.1 fL Normal 9.0-12.7 [facility] Comment on above: Order Comment: Speci men Type: BLOOD SPECIMEN [facility] Address: [address] [place] [address] Performed By: #### T SCR #### [facility] CLIA [id number] [address] [place] Platelets (Bld) [#/Vol] 156 10*3/uL Normal 150-400 [facility] Comment on above: Order Comment: Speci men Type: BLOOD SPECIMEN [facility] Address: [address] [place] [address] Performed By: #### T SCR #### [facility] CLIA [id number] [address] RBC (Bld) [#/Vol] 3.23 10*6/uL Low 4.20-6.00 [facility] Comment on above: Order Comment: Speci men Type: BLOOD SPECIMEN [facility] Address: [address] [place] [address] Performed By: #### T SCR #### [facility] CLIA [id number] [address] WBC (Bld) [#/Vol] 4.18 10*3/uL Normal 3.70-11.00 [facility] Comment on above: Order Comment: Speci men Type: BLOOD SPECIMEN [facility] Address: [address] [place] [address] Performed By: #### T SCR #### [facility] CLIA [id number] [address] Comprehensive metabolic 2000 panelon 10-12-2024 Albumin [Mass/Vol] 3.3 g/dL Low 3.9-4.9 [facility] Comment on above: Order Comment: Speci men Type: BLOOD SPECIMENOrdering Facility: [facility] Address: [address] [place] [address] Performed By: #### 2 4323-8, , 2776-03 ####[facility] LABORATORYCLIA [id number] [address] STATES OF [facility] ALP [Catalytic activity/Vol] 59 U/L Normal 38-113 [facility] Comment on above: Order Comment: Speci men Type: BLOOD SPECIMENOrdering Facility: [facility] Address: [address] [place] [address] Performed By: #### 2 4323-8, , 2776-03 ####[facility]ORYCLIA [id number] [address] STATES OF [facility] ALT With P-5'-P [Catalytic activity/Vol] 20 U/L Normal 10-54 [facility] Comment on above: Order Comment: Speci men Type: BLOOD SPECIMENOrdering Facility: [facility] Address: [address] [place] [address] Performed By: #### 2 4323-8, , 2776-03 ####[facility]ORYCLIA [id number] [address] Anion gap [Moles/Vol] 8 mmol/L Normal 8-15 [facility] Comment on above: Order Comment: Speci men Type: BLOOD SPECIMENOrdering Facility: [facility] Address: [address] [place] [address] Performed By: #### 2 4323-8, , 2776-03 ####[facility]ORYCLIA [id number] [address] [place] AST With P-5'-P [Catalytic activity/Vol] 27 U/L Normal 14-40 [facility] Comment on above: Order Comment: Speci men Type: BLOOD SPECIMENOrdering Facility: [facility] Address: [address] [place] [address] Performed By: #### 2 4323-8, , 2776-03 ####[facility]ORYCLIA [id number] [place] [address] [place] Bilirubin [Mass/Vol] 0.4 mg/dL Normal 0.2-1.3 [facility] Comment on above: Order Comment: Speci men Type: BLOOD SPECIMENOrdering Facility: [facility] Address: [address] [place] [address] Performed By: #### 2 4322-8, , 2776-03 ####[facility]ORYCLIA [id number] [place] [id number] [place] Calcium [Mass/Vol] 8.6 mg/dL Normal 8.5-10.2 [facility] Comment on above: Order Comment: Speci men Type: BLOOD SPECIMENOrdering Facility: [facility] Address: [address] [place] [address] Performed By: #### 2 8, , 2776-03 ####[facility]ORYCLIA [id number] [place] [address] [place] Chloride [Moles/Vol] 106 mmol/L Normal 98-107 [facility] Comment on above: Order Comment: Speci men Type: BLOOD SPECIMENOrdering Facility: [facility] Address: [address] [place] [address] Performed By: #### 2 4322-8, , 2776-03 ####[facility]ORYCLIA [id number] [place] [id number] [place] CO2 [Moles/Vol] 25 mmol/L Normal 22-30 [facility] Comment on above: Order Comment: Speci men Type: BLOOD SPECIMENOrdering Facility: [facility] Address: [address] [place] [address] Performed By: #### 2 4322-8, , 2776-03 ####[facility]ORYCLIA [id number] [place] [address] [place] Creatinine [Mass/Vol] 0.63 mg/dL Low 0.73-1.22 [facility] Comment on above: Order Comment: Dwayne cheung Type: BLOOD SPECIMENOrdering Facility: [facility] Address: [address] [place] [address] Performed By: #### 2 4323-8, 16300-9, 2776-03 ####[facility]ORYCLIA [id number] [address] [place] eGFRcr SerPlBld CKD-EPI 2020 101 mL/min/1.73m??? Normal >=60 [facility] Comment on above: Order Comment: Dwayne cheung Type: BLOOD SPECIMENOrdering Facility: [facility] Address: [address] [place] [address] Result Comment: Gifty mated Glomerular Filtration Rate (eGFR) is calculated using the 2020 CKD-EPI creatinine equation. This equation utilizes serum creatinine, sex, and age as parameters. The creatinine assay has traceable calibration to isotope dilution-mass spectrometry. Refer to KDIGO guidelines for clinical interpretation. In patients with unstable renal function, e.g. those with acute kidney injury, the eGFR may not accurately reflect actual GFR. Performed By: #### 2 4323-8, , 2776-03 ####[facility]ORYCLIA [id number] [place] [address] [place] Glucose [Mass/Vol] 94 mg/dL Normal 74-99 [facility] Comment on above: Order Comment: Dwayne cheung Type: BLOOD SPECIMENOrdering Facility: [facility] Address: [address] [place] [address] Result Comment: The [place] Diabetes [employer] (ADA) provides guidance for cutoff values for fasting glucose and random glucose. The ADA defines fasting as no caloric intake for at least 8 hours. Fasting plasma glucose results between 100 to 125 mg/dL indicate increased risk for diabetes (prediabetes). Fasting plasma glucose results greater than or equal to 126 mg/dL meet the criteria for diagnosis of diabetes. In the absence of unequivocal hyperglycemia, results should be confirmed by repeat testing. In a patient with classic symptoms of hyperglycemia or hyperglycemic crisis, random plasma glucose results greater than or equal to 200 mg/dL meet the criteria for diagnosis of diabetes. Reference: Standards of Medical Care in Diabetes 2016, [place] [employer]. Diabetes Care. 2016.39(Suppl 1). Performed By: #### 2 4323-8, , 2776-03 ####[facility]ORYCLIA [id number] [place] [address] [place] Potassium [Moles/Vol] 4.1 mmol/L Normal 3.7-5.1 [facility] Comment on above: Order Comment: Speci men Type: BLOOD SPECIMENOrdering Facility: [facility] Address: [address] [place] [address] Performed By: #### 2 4323-8, , 2776-03 ####[facility]ORYCLIA [id number] [place] [address] [place] Protein [Mass/Vol] 5.9 g/dL Low 6.3-8.0 [facility] Comment on above: Order Comment: Speci men Type: BLOOD SPECIMENOrdering Facility: [facility] Address: [address] [place] [address] Performed By: #### 2 4323-8, , 2776-03 ####[facility]ATORYCLIA [id number] [place] [address] [place] Sodium [Moles/Vol] 139 mmol/L Normal 136-144 [facility] Comment on above: Order Comment: Speci men Type: BLOOD SPECIMENOrdering Facility: [facility] Address: [address] [place] [address] Performed By: #### 2 4323-8, , 2776-03 ####[facility]ORYCLIA [id number] [place] [address] [place] Urea nitrogen [Mass/Vol] 21 mg/dL Normal 9-24 [facility] Comment on above: Order Comment: Speci men Type: BLOOD SPECIMENOrdering Facility: [facility] Address: [facility] [place] [address] Performed By: #### 2 4323-8, , 2776-03 ####[facility]ORYCLIA [id number] [place] [address] [place] ECG COMPLETEon 10-12-2024 ECG COMPLETE Ventricular Rate : 8 9 BPM Atrial Rate : 89 BPM P-R Interval : 160 ms QRS Duration : 86 ms Q-T Interval : 360 ms QTC Calculation(Bazett) : 438 ms Calculated P [place] : 15 degrees Calculated R [place] : -20 degrees Calculated T [place] : 230 degrees SINUS RHYTHM WITH OCCASIONAL PREMATURE VENTRICULAR COMPLEXES LEFT VENTRICULAR HYPERTROPHY WITH REPOLARIZATION ABNORMALITY ( Sokolow-Mendez , Romhilt-Berrios ) ABNORMAL ECG WHEN COMPARED WITH ECG OF 08-Oct-2024 05:27, PREMATURE VENTRICULAR COMPLEXES ARE NOW PRESENT QT HAS SHORTENED Confirmed by MD VUONG VINAY ([id number]) on 10/12/2024 3:33:36 PM NAME : PHILLIP JESUS PID : [id number] : 1950 Gender : Male Race : ORD : [id number] Procedure Date : Oct 12 2024 09:52:43 Edit Date : Oct 12 2024 15:33:39 Diagnosis: SINUS RHYTHM WITH OCCASIONAL PREMATURE VENTRICULAR COMPLEXES LEFT VENTRICULAR HYPERTROPHY WITH REPOLARIZATION ABNORMALITY ( Sokolow-Mendez , Romhilt-Berrios ) ABNORMAL ECG WHEN COMPARED WITH ECG OF 08-Oct-2024 05:27, PREMATURE VENTRICULAR COMPLEXES ARE NOW PRESENT QT HAS SHORTENED Confirmed by MD VUONG VINAY ([id number]) on 10/12/2024 3:33:36 PM Test Reason : Chest Pain Location : 200 : [facility] 3201 Overread By : MD VUONG VINAY Edited By : MD VUONG VINAY Referred By : , Acquired by : LESTER THAYER [facility] HIGH SENSITIVITY TROPONIN To n 10-12-2024 Troponin T.cardiac High sensitivity method [Mass/Vol] 19 ng/L High <12 [facility] Comment on above: Order Comment: Speci men Type: BLOOD SPECIMEN Ordering Facility: [facility] Address: [address] [place] [address] [place] [address] Performed By: #### T SCR #### [facility] CLIA [id number] [address] [place] Troponin T.cardiac High sensitivity method [Mass/Vol] 18 ng/L High <12 [facility] Comment on above: Order Comment: Speci men Type: BLOOD SPECIMEN Ordering Facility: [facility] Address: [address] [place] [address] Performed By: #### T SCR #### [facility] CLIA [id number] [address] Magnesium SerPl-mCncon 10-12 Magnesium [Mass/Vol] 1.9 mg/dL Normal 1.7-2.3 [facility] Comment on above: Order Comment: Speci men Type: BLOOD SPECIMENOrdering Facility: [facility] Address: [address] [place] [address] Performed By: #### 2 4323-8, 52091-7, 2777-1 ####[facility] [id number] [address] Phosphate SerPl-mCncon 10-12 Phosphate [Mass/Vol] 2.7 mg/dL Normal 2.7-4.8 [facility] Comment on above: Order Comment: Speci men Type: BLOOD SPECIMENOrdering Facility: [facility] Address: [address] [place] [address] Performed By: #### 2 4323-8, 43746-9, 2777-1 ####[facility] [id number] [address] THERAPY NTon 10-12-2024 THERAPY NT HNO ID: [id number] Author: PRABHU GROVE OTR/L Service: Occupational Therapy Author Type: Occupational Therapist Type: Therapy (PT/OT/Speech/Resp) Filed: 10/12/2024 13:27 Note Text: Occupational Therapy Evaluation Summary SERVICE DATE: 10/12/2024 SERVICE TIME: 1018 to 1044 ROOM: [place] [address] OT 6 Clicks Score: 13 DISCHARGE RECOMMENDATIONS Acute Rehab Recommended Discharge Disposition Comments: Pt currenlty functioning well below functional baseline at this time. Recommending [facility] for continued skilled therapy services. Recommended Discharge Disposition Due to: Patient requires active, intensive rehabilitation by multiple therapy disciplines. Anticipate the patient will tolerate 3 hours of therapy per day., Patient requires daily (5x/week) skilled therapy at next level of care., ADL impairment, Coordination deficits, Dominant side deficits, Functional status decline, Motor planning deficits, Requires multiple therapy disciplines ASSESSMENT Response to Therapy Interventions: Good Participation in Activities, Low Activity Tolerance, Pain, Requires Additional Time to Complete Activities Mr. Jesus was seen today for an occupational therapy evaluation. Pt currently functioning well below functional baseline and requires significant assist with all ADLs and iADLs. Recommending [facility] for continued skilled therapy services. Anticipate that he will be able to tolerate 3 hours of skilled therapy services a day. PRECAUTIONS Bed/Chair Alarm, Fall Risk, Spine, Brace [place] collar CURRENT HOSPITAL COURSE Presents with progressive RUE/RLE weakness and numbness. 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 s/p C3-C6 PSF with decompressive laminectomies on 10/08. Relevant Past Medical History: Parkinson's disease HOME LIVING Patient Lives With: Spouse Assistance Available: Part-Time Entry To Home: Ramp Number Of Stairs To Bed/Bath: 0 Tub/Shower Type: tub shower (however pt sponge bathes) Equipment Owned: Cane PRIOR FUNCTIONAL LEVEL Within Functional Limits Independent with mobility with only occasional use of a cane. Reports a few falls over the past few months. Baseline Cognition: Oriented to self, Oriented to place, Oriented to situation, Oriented to time SUBJECTIVE Pt pleasant and agreeable to OT session COGNITION Orientation Deficits: (AxOx3) Responsiveness: Awake, Alert Follows Commands: 2-step Commands, Cueing Needed Cueing to Follow Commands: Minimum Executive Function Deficits: Sequencing, Safety Awareness, Problem Solving 4AT Score: 0 (10/12/24) Delirium Positive/Negative: Negative (10/12/24) THERAPY DIAGNOSIS Decreased activities of daily living (ADL), Reduced mobility-other, Muscle Weakness (generalized), Unsteadiness on feet, General symptoms and signs-other, Signs and Symptoms Involving Cognitive Functions and Awareness TREATMENT INTERVENTIONS Evaluation, Self Residential Management (09378) Timed Code Treatment (minutes): 11 Skilled Treatment Time (minutes): 26 $ Evaluation - Moderate (88612) Billed Units: 1 unit Self Residential Management (57354) Treatment Minutes: 11 $ Self Residential Management (15967) Billed Units: 1 unit TRAINING AND EDUCATION PROVIDED Activity Adaptation/Compensatory Strategies, Bed Mobility, Benefits of In-Hospital Mobility, Command Following, Expected Functional Level, Energy Conservation, Functional Mobility Involving ADLs, Grooming Tasks, Life Roles/Routines/Habits, Lower Extremity Dressing, Positioning, Role of Occupational Therapy, Precautions/Restrictions, Sitting Balance to Improve [place] with ADLs/Self-Care, Standing Balance to Improve [place] with ADLs/Self-Care, Transfer - Sit to Stand, Upper Extremity Dressing THERAPEUTIC SKILLS USED Activity Dosing, Assessment of Tolerance Including Vitals Response to Activity, Cues for Sequencing/Proper Technique for Activity, Cuing Verbal, Cuing Tactile, Physical Assist, Therapeutic Use of Self FUNCTIONAL STATUS Activities of Daily Living Assist Level Additional Information Feeding Minimal Assistance Modified with Ue's elevated on pillows and silverware built up to increase ease and independence due to swelling in hands and arms. Grooming Moderate Assistance Facilitated in unsupported sitting. Increased assist with repositioning and maintaining balance as well as supporting arm for washing face. Bathing Upper Body Moderate Assistance Bathing Lower Body Maximal Assistance Dressing Upper Body Moderate Assistance Education on importance of [place] J collar. Increased assist with management and adjusting collar at EOB Dressing Lower Body Maximal Assistance Education on figure-4 lower body dressing technique to maximize functional independence and safety with spinal precautions. Toileting Maximal Assistance Mobility Assist Level Additional Information Bed Mobility Supine To Sit: Moderate Assistance Sit to Stand (more content not included)... Normal [facility] THERAPY NT HNO ID: [id number] Author: LALY STILES PT Service: Physical Therapy Author Type: Automotive Brake Adjuster Type: Therapy (PT/OT/Speech/Resp) Filed: 10/12/2024 13:03 Note Text: -- Attestation signed by Laly Stiles PT at 10/12/2024 1:03 PM I reviewed and agree with the documentation corresponding to this therapy visit. SIGNATURE: Laly Stiles PT DATE: October 12, 2024 TIME: 1:03 PM -- Physical Therapy Treatment Summary SERVICE DATE: 10/12/2024 SERVICE TIME: 1131 to 1154 ROOM: [place] [address] PT 6 Clicks Score: 12 DISCHARGE RECOMMENDATIONS Acute Rehab Recommended Discharge Disposition Due to: Patient requires active, intensive rehabilitation by multiple therapy disciplines. 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 Patient progressing towards goals . Patient well below baseline . Recommend Acute Rehab to improve functional mobility to return to [facility]. PRECAUTIONS Bed/Chair Alarm, Fall Risk, Spine, Brace [place] J collar CURRENT HOSPITAL COURSE Presents with progressive RUE/RLE weakness and numbness. 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 s/p C3-C6 PSF with decompressive laminectomies on 10/08. Relevant Past Medical History: Parkinson's disease HOME LIVING Patient Lives With: Spouse Assistance Available: Part-Time Entry To Home: Ramp Number Of Stairs To Bed/Bath: 0 Tub/Shower Type: tub shower (however pt sponge bathes) Equipment Owned: Cane PRIOR FUNCTIONAL LEVEL Within Functional Limits Independent with mobility with only occasional use of a cane. Reports a few falls over the past few months. SUBJECTIVE agreeable to PT THERAPY DIAGNOSIS Reduced mobility-other, Muscle Weakness (generalized), Unsteadiness on feet, General symptoms and signs-other TREATMENT INTERVENTIONS Therapeutic Exercise (06342) Treatment Minutes: 10 $ Therapeutic Exercise (88798) Billed Units: 1 unit Patient completed general strengthening exercises in chair (ankle pump, quad set, gluteal set,long arc quad, short arc quad, hip adductor squeeze) x 10 reps bilateral lower extremity, with minimal assist. Therapeutic Activity (55588) Treatment Minutes: 5 $ Therapeutic Activity (44897) Billed Units: 0 units Gait Training (75018) Treatment Minutes: 8 $ Gait Training (66231) Billed Units: 1 unit Therapeutic Exercise (40738), Therapeutic Activity (27713), Gait Training (68068) Timed Code Treatment (minutes): 23 Skilled Treatment Time (minutes): 23 TRAINING AND EDUCATION PROVIDED Bed Mobility, Benefits of In-Hospital Mobility, Discharge Planning, Falls Prevention, Positioning, Role of Physical Therapy, Transfers THERAPEUTIC SKILLS USED Activity Dosing, Assessment of Tolerance Including Vitals Response to Activity, Cues for Sequencing/Proper Technique for Activity, Physical Assist, Movement Facilitation FUNCTIONAL STATUS mobility performed during session in bold, other mobility completed during prior session and may no longer be correct or appropriate to complete. Bed Mobility Supine To Sit: Moderate Assistance, Additional Information Scooting: Maximal Assistance, Additional Information Transfers Sit To Stand: Moderate Assistance, Minimal Assistance, Additional Information cues/assist to push up though LE's, hand placement and safety Stand To Sit: Minimal Assistance, Additional Information cues/assist to align up to chair , slowly lower , hand placement and safety Bed to Chair Gait Minimal Assistance, Additional Information cues/assist for upright posture , gait sequence and walker placement Gait Device: Wheeled Walker General Deviations/Observations: Narrow Base of Support, Flexed trunk posture, Sherry decreased, Step length decreased, Shuffling Gait, Non-functional gait speed Gait Distance (feet): 35- 40 feet intervals Stairs GOALS Patient will demonstrate progress to optimize functional mobility, maximize activity tolerance and endurance to maximize function upon discharge. Rolling with: Independent Transfer Supine to/from Sit with: Modified Independent Transfer Sit to/from Stand with: Modified Independent Ambulate with: Supervision Distance: 150 Device: Wheeled Walker Goal: Pt will recall and adhere to spinal precautions 100% of the time. Rehab Potential: Good Prog (more content not included)... Normal [facility] XR CERVICAL 2V AP/LATon 10-01 XR CERVICAL 2V AP/LAT * * *Final Report* * * DATE OF EXAM: Oct 12 2024 2:30PM AKX 5308 - XR CERVICAL 2V AP/LAT / PROCEDURE REASON: Post-operative / post-procedure assessment, asymptomatic * * * * Physician Interpretation * * * * EXAMINATION: XR CERVICAL 2V AP/LAT HISTORY: POST OP EVALUATION Post-operative / post-procedure assessment, asymptomatic. COMPARISON: Cervical spine radiographs 10/07/2024 TECHNIQUE: XR CERVICAL 2V AP/LAT Laterality: NOT APPLICABLE Number of different views (projections): 2 M: XB_1 FINDINGS: Surgical changes of posterior fusion spanning C3-C6. No hardware complication. Severe degenerative changes at C6-C7. IMPRESSION: C3-C6 posterior fusion. Marker Assembler: CHARISMA Transcribe Date/Time: Oct 12 2024 3:35P Dictated by : SHARON BOYCE MD This examination was interpreted and the report reviewed and electronically signed by: SHARON BOYCE MD on Oct 12 2024 3:36PM EST [id number] Normal [facility] CBC W Auto Differential pane l (Bld)on 10-11-2024 Basophils (Bld) [#/Vol] 10*3/uL Normal <0.11 [facility] Comment on above: Order Comment: Speci men Type: BLOOD SPECIMENOrdering Facility: [facility] Address: [address] [place] [address] Performed By: #### 4 3408-4, 635-3 #### [facility] CLIA [id number] [address] [place] [address] [place] Basophils/100 WBC (Bld) 0.4 % Normal [facility] Comment on above: Order Comment: Speci men Type: BLOOD SPECIMENOrdering Facility: [facility] Address: [address] [place] [address] Performed By: #### 4 3408-4, 635-3 #### [facility] CLIA [id number] [address] [place] [address] [place] Differential cell count method Nom (Bld) Auto Normal [facility] Comment on above: Order Comment: Speci men Type: BLOOD SPECIMENOrdering Facility: [facility] Address: [address] [place] [address] Performed By: #### 4 3408-4, 635-3 #### [facility] CLIA [id number] [address] [place] [address] [place] Eosinophils (Bld) [#/Vol] 0.34 10*3/uL Normal <0.46 [facility] Comment on above: Order Comment: Speci men Type: BLOOD SPECIMENOrdering Facility: [facility] Address: [address] [place] [address] Performed By: #### 4 3408-4, 635-3 #### [facility] CLIA [id number] [address] Eosinophils/100 WBC (Bld) 7.4 % Normal [facility] Comment on above: Order Comment: Speci men Type: BLOOD SPECIMENOrdering Facility: [facility] Address: [address] [place] [address] Performed By: #### 4 3408-4, 385-3 #### [facility] CLIA [id number] [address] [place] Erythrocyte distribution width (RBC) [Ratio] 12.4 % Normal 11.5-15.0 [facility] Comment on above: Order Comment: Speci men Type: BLOOD SPECIMENOrdering Facility: [facility] Address: [address] [place] [address] Performed By: #### 4 3408-4, 555-3 #### [facility] CLIA [id number] [address] [facility] Hematocrit (Bld) [Volume fraction] 33.5 % Low 39.0-51.0 [facility] Comment on above: Order Comment: Speci men Type: BLOOD SPECIMENOrdering Facility: [facility] Address: [address] [place] [address] Performed By: #### 4 3408-4, 585-3 #### [facility] CLIA [id number] [address] [place] Hemoglobin (Bld) [Mass/Vol] 11.1 g/dL Low 13.0-17.0 [facility] Comment on above: Order Comment: Speci men Type: BLOOD SPECIMENOrdering Facility: [facility] Address: [address] [place] [address] Performed By: #### 4 3408-4, 085-3 #### [facility] CLIA [id number] [address] Immature granulocytes (Bld) [#/Vol] 10*3/uL Normal <0.10 [facility] Comment on above: Order Comment: Speci men Type: BLOOD SPECIMENOrdering Facility: [facility] Address: [address] [place] [address] Performed By: #### 4 3408-4, 635-3 #### [facility] CLIA [id number] [address] Immature granulocytes/100 WBC (Bld) 0.4 % Normal [facility] Comment on above: Order Comment: Speci men Type: BLOOD SPECIMENOrdering Facility: [facility] Address: [address] [place] [address] Performed By: #### 4 3408-4, 635-3 #### [facility] CLIA [id number] [address] Lymphocytes (Bld) [#/Vol] 0.83 10*3/uL Low 1.00-4.00 [facility] Comment on above: Order Comment: Speci men Type: BLOOD SPECIMENOrdering Facility: [facility] Address: [address] [place] [address] Performed By: #### 4 3408-4, 635-3 #### [facility] CLIA [id number] [address] Lymphocytes/100 WBC (Bld) 18.1 % Normal [facility] Comment on above: Order Comment: Speci men Type: BLOOD SPECIMENOrdering Facility: [facility] Address: [address] [place] [address] Performed By: #### 4 3408-4, 635-3 #### [facility] CLIA [id number] [address] [facility] MCH (RBC) [Entitic mass] 31.1 pg Normal 26.0-34.0 [facility] Comment on above: Order Comment: Speci men Type: BLOOD SPECIMENOrdering Facility: [facility] Address: [address] [place] [address] Performed By: #### 4 3408-4, 635-3 #### [facility] CLIA [id number] [address] MCHC (RBC) [Mass/Vol] 33.1 g/dL Normal 30.5-36.0 [facility] Comment on above: Order Comment: Speci men Type: BLOOD SPECIMENOrdering Facility: [facility] Address: [address] [place] [address] Performed By: #### 4 3408-4, 635-3 #### [facility] CLIA [id number] [address] [place] MCV (RBC) [Entitic vol] 93.8 fL Normal 80.0-100.0 [facility] Comment on above: Order Comment: Speci men Type: BLOOD SPECIMENOrdering Facility: [facility] Address: [address] [place] [address] Performed By: #### 4 3408-4, 635-3 #### [facility] CLIA [id number] [address] [place] Monocytes (Bld) [#/Vol] 0.39 10*3/uL Normal <0.87 [facility] Comment on above: Order Comment: Speci men Type: BLOOD SPECIMENOrdering Facility: [facility] Address: [address] [place] [address] Performed By: #### 4 3408-4, 635-3 #### [facility] CLIA [id number] [address] Monocytes/100 WBC (Bld) 8.5 % Normal [facility] Comment on above: Order Comment: Speci men Type: BLOOD SPECIMENOrdering Facility: [facility] Address: [address] [place] [address] Performed By: #### 4 3408-4, 635-3 #### [facility] CLIA [id number] [address] [place] [address] [place] Neutrophils (Bld) [#/Vol] 2.99 10*3/uL Normal 1.45-7.50 [facility] Comment on above: Order Comment: Speci men Type: BLOOD SPECIMENOrdering Facility: [facility] Address: [address] [place] [address] Performed By: #### 4 3408-4, 635-3 #### [facility] CLIA [id number] [address] [place] [address] [place] Neutrophils/100 WBC (Bld) 65.2 % Normal [facility] Comment on above: Order Comment: Speci men Type: BLOOD SPECIMENOrdering Facility: [facility] Address: [address] [place] [address] Performed By: #### 4 3408-4, 635-3 #### [facility] CLIA [id number] [address] [place] [address] [place] Nucleated RBC (Bld) [#/Vol] 10*3/uL Normal <0.01 [facility] Comment on above: Order Comment: Speci men Type: BLOOD SPECIMENOrdering Facility: [facility] Address: [address] [place] [address] Performed By: #### 4 3408-4, 635-3 #### [facility] CLIA [id number] [address] [place] Nucleated RBC/100 WBC (Bld) [Ratio] 0.0 /100 WBC Normal [facility] Comment on above: Order Comment: Speci men Type: BLOOD SPECIMENOrdering Facility: [facility] Address: [address] [place] [address] Performed By: #### 4 3408-4, 635-3 #### [facility] CLIA [id number] [address] [place] Platelet mean volume (Bld) [Entitic vol] 9.7 fL Normal 9.0-12.7 [facility] Comment on above: Order Comment: Speci men Type: BLOOD SPECIMENOrdering Facility: [facility] Address: [address] [place] [address] Performed By: #### 4 3408-4, 635-3 #### [facility] CLIA [id number] [address] Platelets (Bld) [#/Vol] 169 10*3/uL Normal 150-400 [facility] Comment on above: Order Comment: Speci men Type: BLOOD SPECIMENOrdering Facility: [facility] Address: [address] [place] [address] Performed By: #### 4 3408-4, 635-3 #### [facility] CLIA [id number] [address] [facility] RBC (Bld) [#/Vol] 3.57 10*6/uL Low 4.20-6.00 [facility] Comment on above: Order Comment: Speci men Type: BLOOD SPECIMENOrdering Facility: [facility] Address: [address] [place] [address] Performed By: #### 4 3408-4, 635-3 #### [facility] CLIA [id number] [address] WBC (Bld) [#/Vol] 4.59 10*3/uL Normal 3.70-11.00 [facility] Comment on above: Order Comment: Speci men Type: BLOOD SPECIMENOrdering Facility: [facility] Address: [address] [place] [address] Performed By: #### 4 3408-4, 635-3 #### [facility] CLIA [id number] [address] CONSULTon 10-11-2024 CONSULT HNO ID: [id number] Author: ALEX MARTIN MD Service: Physical Medicine AND Rehabilitation Author Type: Physician Type: Consults Filed: 10/11/2024 11:03 Note Text: HOSPITAL INITIAL CONSULTATION: PMANDR SERVICE DATE: 10/11/2024 REASON FOR CONSULTATION: assessment of rehab service needs and recommendations regarding level of care assignment ASSESSMENT AND PLAN: Phillip Jesus is a 74 year old male with PMH of Parkinson's disease who was admitted to [facility] on 10/07/2024 for cervical cord compression with myelopathy due to epidural abscess s/p C3-C6 posterior spinal fusion w/ decompressive laminectomies. Patient currently in ICU for MAP goals, IV antibiotics as per ID, being evaluated for source of infection, echo completed 10/11. Patient was evaluated by physical therapy and noted to have functional deficits. PMANDR consulted to help address rehab needs. Patient deferred MYNOR-ISNCSCI exam, Clinical evaluation suggests incomplete tetraplegia. 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 Recommend OT evaluation to assess functional status. Bowel: Continue to monitor bowel pattern/frequency. Last bowel movement 10/10/2024. Patient reports preserved sensation and control. Bladder: Currently on external urinary collection device. May consider trial of void in appropriate with bladder scan to assess post void residual. Skin: Stage I decubitus ulcer over sacral region- continue excellent nursing cares and repositioning every 2 hours. Spasticity: - Limited assessment of proximal lower extremity spasticity but 1+ spasticity in both ankle plantar flexors. - Recommend PRAFOs at HS, remove in AM. Perform regular skin check. - Recommend daily range of motion and gentle stretching exercises. Regarding disposition: Too early to determine Rationale: - OT evaluation pending - Patient currently in ICU for MAP goals - Pending evaluation for source of infection - Pending cervical spine upright x-ray Patient admitted with cervical cord compression with myelopathy as a result of epidural abscess status post surgical decompression with resultant incomplete quadriplegia and impaired mobility and ADLs. Patient will benefit with acute inpatient rehabilitation once medically optimized and following pending evaluation. Discussed this in detail with patient and patient's (telephonically). Patient is interested to participate in acute inpatient rehabilitation to be able to go back to his functional baseline. Family/Patient Counseling: Provided SCI rehabilitation counseling to patient and/or family, discussed the role of [facility], current functional status and educated on different rehab settings. Follow-up: Recommend outpatient follow up with [facility] for continued SCI care. Patient deferred this to his is agreeable to schedule initial virtual follow-up. [facility] will continue to follow and update recommendations as appropriate. SUBJECTIVE: HPI: Phillip Jesus is a 74-year-old right-handed male with past medical history of Parkinson's disease who presented to [facility] on 10/07 with worsening weakness for past 1 month. Patient had a fall 1 month ago while ambulating without assistive device and since then he has noted progressive decline in function, progressive right upper and lower extremity weakness and numbness. He was unable to ambulate prior to admission and reported neck pain. He denied any change in bowel or bladder status. MRI at outside hospital demonstrated cervical cord compression, concern for C3-4 septic arthritis with compressive epidural abscess. [facility] was consulted who recommended surgical intervention. Patient underwent C3-C6 posterior spinal fusion w/ decompressive laminectomies on 10/08. Currently in ICU for MAP goals, on cefepime, vancomycin per ID, being evaluated for source of infection. Noted to have functional deficits on physical therapy assessment, OT assessment pending. Case management working onReferral to referral to acute rehab at [place]. Due to functional impairments with need for multidisciplinary therapy services and complex medical issues needing medical supervision, patient was referred [facility] for rehab recommendations and level of care assignment, Bowel/Bladder: LBM /10, Senna-Docusate BID, Miralax Daily, Dulcolax suppository PRN; External urinary collection device Pain Mgmt: Scheduled Tylenol, Robaxin, Gabapentin; PRN Oxycodone Wounds: Surgical incision over neck, stage I sacral decubitus ulcer DVT PPx: Heparin 5000 units q8 Weightbearing restrictions/precautions: Cervical orthosis Patient (more content not included)... Normal [facility] CONSULT PROGon 10-11-2024 CONSULT PROG HNO ID: [id number] Author: RADHA SO RPh Service: Pharmacy Author Type: Pharmacist Type: Consult Progress Note Filed: 10/11/2024 16:10 Note Text: PHARMACY VANCOMYCIN DOSING NOTE Patient Name: Phillip Jesus Admission Date: 10/07/2024 Date of Consult: 10/11/2024 Time of Consult: 4:10 PM RECOMMENDATIONS/PLAN: Pharmacy consulted for vancomycin dosing for Phillip Jesus, a 74 year old male. Vancomycin therapy has been discontinued. Vancomycin level(s) have been discontinued: Yes. The pharmacy vancomycin dosing service will sign off. Thank you for allowing us to participate in this patient's care. Please contact pharmacy if there are questions. Radha So [facility] CONSULT PROG HNO ID: [id number] Author: NAEEM POE DO Service: Infectious Disease Author Type: Physician Type: Consult Progress Note Filed: 10/12/2024 08:59 Note Text: PROGRESS NOTE INFECTIOUS DISEASE Some elements of the history, review of systems, and medical decision-making may be copied from my previous notes, however, all information has been reviewed and verified by me today. SERVICE TIME: 4:05 PM Following for abscess?. Reviewed available chart/notes/labs/microbiol ogical data and imaging. Subjective Patient more awake today, denies any fever or chills prior to admission Interval Events: Spoke with ortho spine- no purulence or necrosis seen in the OR Estimated Creatinine Clearance: 101.9 mL/min (A) (based on SCr of 0.61 mg/dL (L)). Medications: Current Facility-Administered Medications Medication Dose Route Frequency vancomycin dosing and monitoring per pharmacy OTHER As Directed NaCl 0.9% iv flush bag 20 mL INTRAVENOUS PRN potassium chloride ER 20-40 mEq tab(s) (KLOR-CON) 20-40 mEq ORAL/FEEDING TUBE PRN Or potassium chloride iv piggyback 20 mEq/100 mL 20 mEq INTRAVENOUS PRN magnesium sulfate iv piggyback in sterile water 2 g 50 mL 2 g INTRAVENOUS PRN phosphorus 500 mg tab(s) (K PHOS NEUTRAL) 500 mg ORAL/FEEDING TUBE PRN(NO DISPENSE) calcium gluconate 4 g in NaCl 0.9% 250 mL 4 g INTRAVENOUS PRN gabapentin 300 mg cap(s) (NEURONTIN) 300 mg ORAL/FEEDING TUBE q 12 H [Transfer Hold] sodium chloride 0.9 % (flush) 2-10 mL (BD POSIFLUSH) 2-10 mL INTRAVENOUS DIRECTED PRN And [Transfer Hold] perflutren lipid microspheres 1.1 mg/mL 1.3 mL injection (DEFINITY) 1.3 mL INTRAVENOUS DIRECTED PRN mupirocin 2 % 0.5 g nasal ointment (BACTROBAN) 0.5 g NASAL BID oxyCODONE IR 5-10 mg tab(s) (ROXICODONE) 5-10 mg ORAL q 4 H PRN ondansetron 4 mg tab(s) (ZOFRAN) 4 mg ORAL q 6 H PRN Or ondansetron (PF) 4 mg injection (ZOFRAN) 4 mg INTRAVENOUS q 6 H PRN polyethylene glycol 3350 17 g packet 17 g ORAL DAILY bisacodyl 10 mg suppository (DULCOLAX) 10 mg RECTAL DAILY PRN methocarbamol 750 mg tab(s) (ROBAXIN) 750 mg ORAL TID acetaminophen 1,000 mg tab(s) (TYLENOL) 1,000 mg ORAL q 6 H carbidopa-levodopa CR 50-200 mg 1 tablet (SINEMET CR) 1 tablet ORAL 4 times per day senna-docusate 8.6-50 mg 2 tablet (SENNA-S) 2 tablet ORAL/FEEDING TUBE BID pramipexole (MIRAPEX) tab(s) 0.75 mg 0.75 mg ORAL TID QUEtiapine 12.5 mg tab(s) (SEROquel) 12.5 mg ORAL/FEEDING TUBE AT BEDTIME vancomycin iv piggyback 1.25 g in D5W 250 mL (VANCOCIN) 1.25 g INTRAVENOUS q 12 HR labetalol 10 mg injection syringe (NORMODYNE) 10 mg INTRAVENOUS q 1 H PRN polyvinyl alcohol-povidone 1.4-0.6 % 1 drop (REFRESH) 1 drop BOTH EYES PRN heparin 5,000 Units injection 5,000 Units SUBCUTANEOUS q 8 H cefTRIAXone iv piggyback 2 g in dextrose (iso-osmotic) 50 mL (ROCEPHIN) 2 g INTRAVENOUS q 12 H [START ON 10/12/2024] sertraline 25 mg tab(s) (ZOLOFT) 25 mg ORAL/FEEDING TUBE DAILY Objective Physical Exam: BP 124/83 Pulse 84 Temp 36.9 ?C (98.4 ?F) (Oral) Resp 26 Ht 180.3 cm (5' 11) Wt 65.8 kg (145 lb 1 oz) SpO2 97% BMI 20.23 kg/m? Physical Exam Constitutional: Appearance: Normal appearance. He is not ill-appearing. HENT: Head: Normocephalic and atraumatic. Eyes: Extraocular Movements: Extraocular movements intact. Conjunctiva/sclera: Conjunctivae normal. Neck: Comments: +in collar Pulmonary: Effort: Pulmonary effort is normal. No respiratory distress. Breath sounds: Normal breath sounds. Abdominal: General: There is no distension. Palpations: Abdomen is soft. Tenderness: There is no abdominal tenderness. Musculoskeletal: General: No swelling. Normal range of motion. Skin: General: Skin is warm. Coloration: Skin is not jaundiced. Neurological: Mental Status: He is alert and oriented to person, place, and time. Mental status is at baseline. Lab data: Lab Results Component Value Date NEUTP 65.2 10/11/2024 ABSNEUT 2.99 10/11/2024 LYMPHP 18.1 10/11/2024 ABSLYMPH 0.83 10/11/2024 ABSMONO 0.39 10/11/2024 EODINP 7.4 10/11/2024 ABSEOSIN 0.34 10/11/2024 BASOP 0.4 10/11/2024 ABSBASO <0.03 10/11/2024 Lab Results Component Value Date PLT 169 10/11/2024 HB 11.1 10/11/2024 HCT 33.5 10/11/2024 ALB 3.3 10/11/2024 CA 8.7 10/11/2024 TBILI 0.5 10/11/2024 ALKPHOS 58 10/11/2024 AST 23 10/11/2024 GLUC 101 10/11/2024 BUN 16 10/11/2024 NA 141 10/11/2024 K 4.0 10/11/2024 CHLOR 106 10/11/2024 CO2 25 10/11/2024 ANION 10 10/11/2024 ALT <5 10/11/2024 Sed Rate, Westergren (mm/hr) Date Value 10/09/2024 10 CRP (mg/dL) Date Value 10/09/2024 <0.3 Microbiology data: Personally reviewed Positive Micro-30 Days No results found for the last 720 hours. ANTIMICROBIAL AGENTS: Active Antimicrobials (From admission, onward) Start Stop 10/11/24 1000 cefTRIAXone iv piggyback 2 g in dextrose (iso-osmotic) 50 mL (ROCEPHIN) 2 g, INTRAVENOUS, EVERY 12 H (more content not included)... 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 1. Patient is currently ordered Vancomycin 1.25 g IV q12h. Today is day 4 of therapy. 2. The most recent vancomycin level was 9.8 mcg/mL drawn at 0628 on 10-10-24. This is a 11.5 hour level on the 3rd day of therapy. This was a level before the 5th dose of the regimen 1gq12 hours. Dose was subsequently increased to 1.25g q12 hours. 3. The present dose of vancomycin is the recommended dosage for this patient at this time. Continue therapy as prescribed. While could consider increasing to 1.5g q12 hours to target level closer to 15 mcg/mL, will leave current dose since patient has already received x 2 doses of this regimen and age > 70 years (anticipate some accumulation) 4. The next vancomycin level has been ordered for 1800 on 10-12-24. (Completed) We will follow patient renal function, vancomycin levels and doses with you during the course of therapy. Additional recommendations will appear in follow up notes. If you have any questions, please contact Nando Klein at [employer]. Age: [age] year old Allergies: ALLERGIES[1] Last 3 Encounter Wt Readings: Date: Wt: 10/07/2024 65.8 kg (145 lb 1 oz) Last 1 Encounter Ht Readings: Date: Ht: 10/07/2024 180.3 cm (5' 11) CrCl: 101.9 mL/min Temp (24hrs), Av.6 ?C (97.9 ?F), Min:36.4 ?C (97.6 ?F), Max:36.9 ?C (98.4 ?F) - Current Temp: 36.4 ?C (97.6 ?F) Labs BUN (mg/dL) Date Value 10/11/2024 16 10/10/2024 17 10/09/2024 13 Creatinine (mg/dL) Date Value 10/11/2024 0.61 (L) 10/10/2024 0.68 (L) 10/09/2024 0.64 (L) WBC (k/uL) Date Value 10/11/2024 4.59 10/10/2024 5.80 10/09/2024 6.93 Vancomycin Levels: Vancomycin (ug/mL) Date/Time Value 10/10/2024 0628 9.8 (L) Nando Klein [facility] [1] No Known Allergies Normal [facility] CONSULT PROG HNO ID: [id number] Author: JULIA PALOMINO APRN.CNP Service: Wound/Ostomy Author Type: Nurse Practitioner Type: Consult Progress Note Filed: 10/11/2024 11:03 Note Text: -- Summary: Inpatient Wound Care EXCEPTIONAL CHILDREN TEACHER ASSISTANT -- WOUND CARE SERVICE CONSULT EXCEPTIONAL CHILDREN TEACHER ASSISTANT NOTE SERVICE DATE: 10/11/2024 SERVICE TIME: 08:16 am REASON FOR CONSULT: Wound Consult (From admission, onward) Start Ordered 10/10/2430 WOUND CARE CONSULT ([place], [place]) ONCE Electronically Signed By: Tereza Castaneda APRN.CNP [ ] 10/10/24 0916 My final recommendations will be communicated back to the requesting physician by way of shared Medical record. CHIEF COMPLAINT: coccyx Subjective HISTORY OF PRESENT ILLNESS: Mr. Jesus is a 74 year old male who is seen today with Rubina Marcelo, Wound/electrician journeyman wireman, and presented to hospital with complaints of Weakness. Patient has past medical history of Parkinson's disease and had a mechanical fall about one month ago and admits to functual decline since. PERTINENT REVIEW OF SYSTEMS: GENERAL: alert, appears weak PAIN ASSESSMENT: denies pain at this time SKIN: admits to having a dimple on coccyx for a long time, denies wounds RESPIRATORY: denies SOB GI/: denies nausea or vomiting PAST MEDICAL HISTORY[1] No past surgical history on file. SOCIAL HISTORY[2] FAMILY HISTORY[3] MEDICATIONS: Current Facility-Administered Medications Medication Dose Route Frequency vancomycin dosing and monitoring per pharmacy OTHER As Directed NaCl 0.9% iv flush bag 20 mL INTRAVENOUS PRN potassium chloride ER 20-40 mEq tab(s) (KLOR-CON) 20-40 mEq ORAL/FEEDING TUBE PRN Or potassium chloride iv piggyback 20 mEq/100 mL 20 mEq INTRAVENOUS PRN magnesium sulfate iv piggyback in sterile water 2 g 50 mL 2 g INTRAVENOUS PRN phosphorus 500 mg tab(s) (K PHOS NEUTRAL) 500 mg ORAL/FEEDING TUBE PRN(NO DISPENSE) calcium gluconate 4 g in NaCl 0.9% 250 mL 4 g INTRAVENOUS PRN gabapentin 300 mg cap(s) (NEURONTIN) 300 mg ORAL/FEEDING TUBE q 12 H [Transfer Hold] sodium chloride 0.9 % (flush) 2-10 mL (BD POSIFLUSH) 2-10 mL INTRAVENOUS DIRECTED PRN And [Transfer Hold] perflutren lipid microspheres 1.1 mg/mL 1.3 mL injection (DEFINITY) 1.3 mL INTRAVENOUS DIRECTED PRN mupirocin 2 % 0.5 g nasal ointment (BACTROBAN) 0.5 g NASAL BID oxyCODONE IR 5-10 mg tab(s) (ROXICODONE) 5-10 mg ORAL q 4 H PRN ondansetron 4 mg tab(s) (ZOFRAN) 4 mg ORAL q 6 H PRN Or ondansetron (PF) 4 mg injection (ZOFRAN) 4 mg INTRAVENOUS q 6 H PRN polyethylene glycol 3350 17 g packet 17 g ORAL DAILY bisacodyl 10 mg suppository (DULCOLAX) 10 mg RECTAL DAILY PRN methocarbamol 750 mg tab(s) (ROBAXIN) 750 mg ORAL TID acetaminophen 1,000 mg tab(s) (TYLENOL) 1,000 mg ORAL q 6 H carbidopa-levodopa CR 50-200 mg 1 tablet (SINEMET CR) 1 tablet ORAL 4 times per day senna-docusate 8.6-50 mg 2 tablet (SENNA-S) 2 tablet ORAL/FEEDING TUBE BID pramipexole (MIRAPEX) tab(s) 0.75 mg 0.75 mg ORAL TID QUEtiapine 12.5 mg tab(s) (SEROquel) 12.5 mg ORAL/FEEDING TUBE AT BEDTIME vancomycin iv piggyback 1.25 g in D5W 250 mL (VANCOCIN) 1.25 g INTRAVENOUS q 12 HR labetalol 10 mg injection syringe (NORMODYNE) 10 mg INTRAVENOUS q 1 H PRN polyvinyl alcohol-povidone 1.4-0.6 % 1 drop (REFRESH) 1 drop BOTH EYES PRN sertraline 50 mg tab(s) (ZOLOFT) 50 mg ORAL/FEEDING TUBE DAILY heparin 5,000 Units injection 5,000 Units SUBCUTANEOUS q 8 H cefTRIAXone iv piggyback 2 g in dextrose (iso-osmotic) 50 mL (ROCEPHIN) 2 g INTRAVENOUS q 12 H ALLERGIES[4] Objective PHYSICAL EXAM: BP 140/75 Pulse 99 Temp 36.5 ?C (97.7 ?F) (Axillary) Resp 25 Ht 180.3 cm (5' 11) Wt 65.8 kg (145 lb 1 oz) SpO2 97% BMI 20.23 kg/m? General appearance: alert and oriented male lying in NSICU bed Respiratory: no Shortness of Breath noted on room air Cardiovascular: faint pedal pulses Extremities: skylar heels intact, bilateral elbows intact. Integumentary: coccyx intact, stage 1 with dimpling- chronic. DATA Labs: WBC 4.59 Presenting wound information: Wound 10/08/24 1900 Pressure Injury Coccyx (Active) Assessments 10/11/2024 8:20 AM Wound Image IF PATIENT HAS A PRESSURE INJURY: WHEN WAS IT ACQUIRED? (Document one time during this admission) Present on Admission during this Encounter Pressure Injury Stage Stage 1 Site Assessment [place];Intact Riana-Wound Assessment Intact Shape dimple in tissue - not open that patient admits he has had Drainage Amount None Treatments Cleansed Dressing Foam- Adhesive Dressing Changed Changed Dressing Status Clean;Dry;Intact Active Orders Date Order Priority Status Authorizing Provider 10/11/24 1042 DRESSING CARE (SPECIFY) ([place]), Pressure Injury Coccyx Routine Active Shalini, Julia Woo APRN.MANUFACTURING TEST ENGINEER - Specify:: Allevyn to the coccyx - Specify:: Michael (more content not included)... Normal [facility] Comprehensive metabolic 2000 panelon 10-11-2024 Albumin [Mass/Vol] 3.3 g/dL Low 3.9-4.9 [facility] Comment on above: Order Comment: Speci men Type: BLOOD SPECIMEN Ordering Facility: [facility] Address: [address] [place] [address] Performed By: #### T SCR #### [facility] CLIA [id number] [address] OF [facility] ALP [Catalytic activity/Vol] 58 U/L Normal 38-113 [facility] Comment on above: Order Comment: Speci men Type: BLOOD SPECIMEN Ordering Facility: [facility] Address: [address] [place] [address] Performed By: #### T SCR #### [facility] CLIA [id number] [address] [place] [facility] ALT With P-5'-P [Catalytic activity/Vol] U/L Low 10-54 [facility] Comment on above: Order Comment: Speci men Type: BLOOD SPECIMEN Ordering Facility: [facility] Address: [address] [place] [address] Performed By: #### T SCR #### [facility] CLIA [id number] [address] Anion gap [Moles/Vol] 10 mmol/L Normal 8-15 [facility] Comment on above: Order Comment: Speci men Type: BLOOD SPECIMEN Ordering Facility: [facility] Address: [address] [place] [address] Performed By: #### T SCR #### [facility] CLIA [id number] [address] [facility] AST With P-5'-P [Catalytic activity/Vol] 23 U/L Normal 14-40 [facility] Comment on above: Order Comment: Speci men Type: BLOOD SPECIMEN Ordering Facility: [facility] Address: [address] [place] [address] Performed By: #### T SCR #### [facility] CLIA [id number] [address] [place] Bilirubin [Mass/Vol] 0.5 mg/dL Normal 0.2-1.3 [facility] Comment on above: Order Comment: Speci men Type: BLOOD SPECIMEN Ordering Facility: [facility] Address: [address] [place] [address] Performed By: #### T SCR #### [facility] CLIA [id number] [address] [place] [facility] Calcium [Mass/Vol] 8.7 mg/dL Normal 8.5-10.2 [facility] Comment on above: Order Comment: Speci men Type: BLOOD SPECIMEN Ordering Facility: [facility] Address: [address] [place] [address] Performed By: #### T SCR #### [facility] CLIA [id number] [address] [place] Chloride [Moles/Vol] 106 mmol/L Normal 98-107 [facility] Comment on above: Order Comment: Speci men Type: BLOOD SPECIMEN Ordering Facility: [facility] Address: [address] [place] [address] Performed By: #### T SCR #### [facility] CLIA [id number] [address] [place] CO2 [Moles/Vol] 25 mmol/L Normal 22-30 [facility] Comment on above: Order Comment: Speci men Type: BLOOD SPECIMEN Ordering Facility: [facility] Address: [address] [place] [address] Performed By: #### T SCR #### [facility] [place] [id number] [address] [place] Creatinine [Mass/Vol] 0.61 mg/dL Low 0.73-1.22 [facility] Comment on above: Order Comment: Speci men Type: BLOOD SPECIMEN Ordering Facility: [facility] Address: [address] [place] [address] Performed By: #### T SCR #### [facility] CLIA [id number] [address] OF [facility] eGFRcr SerPlBld CKD-EPI 2020 102 mL/min/1.73m??? Normal >=60 [facility] Comment on above: Order Comment: Speci jonatan Type: BLOOD SPECIMEN Ordering Facility: [facility] Address: [address] [place] [address] Result Comment: Gifty mated Glomerular Filtration Rate (eGFR) is calculated using the 2020 CKD-EPI creatinine equation. This equation utilizes serum creatinine, sex, and age as parameters. The creatinine assay has traceable calibration to isotope dilution-mass spectrometry. Refer to KDIGO guidelines for clinical interpretation. In patients with unstable renal function, e.g. those with acute kidney injury, the eGFR may not accurately reflect actual GFR. Performed By: #### T SCR #### [facility] CLIA [id number] [address] [facility] Glucose [Mass/Vol] 101 mg/dL High 74-99 [facility] Comment on above: Order Comment: Speci men Type: BLOOD SPECIMEN Ordering Facility: [facility] Address: [address] [place] [address] Result Comment: The [place] Diabetes Association (ADA) provides guidance for cutoff values for fasting glucose and random glucose. The ADA defines fasting as no caloric intake for at least 8 hours. Fasting plasma glucose results between 100 to 125 mg/dL indicate increased risk for diabetes (prediabetes). Fasting plasma glucose results greater than or equal to 126 mg/dL meet the criteria for diagnosis of diabetes. In the absence of unequivocal hyperglycemia, results should be confirmed by repeat testing. In a patient with classic symptoms of hyperglycemia or hyperglycemic crisis, random plasma glucose results greater than or equal to 200 mg/dL meet the criteria for diagnosis of diabetes. Reference: Standards of Medical Care in Diabetes 2016, [place] [employer] Association. Diabetes Care. 2016.39(Suppl 1). Performed By: #### T SCR #### [facility] CLIA [id number] [address] [place] [facility] Potassium [Moles/Vol] 4.0 mmol/L Normal 3.7-5.1 [facility] Comment on above: Order Comment: Speci men Type: BLOOD SPECIMEN Ordering Facility: [facility] Address: [address] [place] [address] Performed By: #### T SCR #### [facility] CLIA [id number] [address] [place] Protein [Mass/Vol] 5.6 g/dL Low 6.3-8.0 [facility] Comment on above: Order Comment: Speci men Type: BLOOD SPECIMEN Ordering Facility: [facility] Address: [address] [place] [address] Performed By: #### T SCR #### [facility] CLIA [id number] [address] Sodium [Moles/Vol] 141 mmol/L Normal 136-144 [facility] Comment on above: Order Comment: Speci men Type: BLOOD SPECIMEN Ordering Facility: [facility] Address: [address] [place] [address] Performed By: #### T SCR #### [facility] CLIA [id number] [address] [place] Urea nitrogen [Mass/Vol] 16 mg/dL Normal 9-24 [facility] Comment on above: Order Comment: Speci men Type: BLOOD SPECIMEN Ordering Facility: [facility] Address: [address] [place] [address] Performed By: #### T SCR #### [facility] CLIA [id number] [address] [place] [facility] ECHO 10-11-2024 Echocardiography Echocardiography Rep ort: Transthoracic Echo [facility] Date of service: 10/11/2024 9:25:13 [facility] Ordering physician: CADENCE HO Exam indication: Initial evaluation of infective endocarditis with positive blood cultures Technologist: Jeanne Campbell [facility] Interpreting physician: Rupinder Castrejon MD PATIENT: Name: PHILLIP JESUS : 1950 Age: 74 years Gender: M Primary rhythm: sinus. Height: 180.30 cm BSA: 1.82 m Weight: 65.80 kg BMI: 20.2 kg/m Heart rate 94 bpm Blood pressure 123/54 mmHg Technically difficult exam due to suboptimal positioning and C Collar. Color Doppler was utilized to interrogate the cardiac valves assessed and spectral Doppler was utilized to determine the flow velocities and pressure gradients reported in this exam. MEASUREMENTS: Value Indexed Normal Max aortic dimension 3.2 cm Ao < 3.8 Left atrium diameter 3.9 cm (2D) Left atrial volume 74 ml (biplane A-L) 40 ml/m Lala <= 34 LV ID (diastole) 4.4 cm (2D) 2.45 cm/m LV ID (systole) 3.2 cm (2D) 1.76 cm/m IVS, leaflet tips 1.3 cm (2D) Posterior wall thickness 1.1 cm (2D) Left ventricular mass 191 g (2D) 105 g/m LV stroke volume 66 ml (2D biplane) LV end diastolic volume 100 ml (2D biplane) 55.0 ml/m 34<=EDVi<75 LV end systolic volume 34 ml (2D biplane) 18.8 ml/m Ejection Fraction 66 % (2D biplane) EF > 52 FINDINGS: LEFT VENTRICLE The left ventricle is normal in size. There is mild concentric left ventricular hypertrophy. Left ventricular systolic function is normal globally. Left ventricular diastolic function was not evaluated due to E/A fusion. Wall Motion: All scored segments are normal. RIGHT VENTRICLE The right ventricle is normal in size. Right ventricular systolic function is normal. RV systolic tissue Doppler velocity is 14.6 cm/s. Tricuspid annular displacement is 2.2 cm. Estimated right ventricular systolic pressure is 37 mmHg consistent with mild pulmonary hypertension. Estimated right atrial pressure is 8 mmHg based on IVC assessment. LEFT ATRIUM The left atrial cavity is mildly dilated. RIGHT ATRIUM The right atrial cavity is normal in size. Inferior Vena Cava: The inferior vena cava appears dilated measuring 2.4 cm. The vessel decreases greater than 50 percent with inspiration. MITRAL VALVE There is trace mitral valve regurgitation. There is mild thickening. TRICUSPID VALVE The tricuspid valve leaflets are structurally normal. There is mild (1+) tricuspid valve regurgitation. AORTIC VALVE The aortic valve cusps are structurally normal. There is no aortic valve regurgitation. Tricuspid aortic valve. PULMONIC VALVE The pulmonic valve cusps are structurally normal. There is no pulmonic valve regurgitation. AORTA The visualized aorta is normal in size. Measurements - Sinus: 3.2 cm. PULMONARY ARTERIES The pulmonary arteries are unseen or not interrogated. INTERATRIAL SEPTUM The interatrial septum is mobile. There is no evidence of intracardiac shunting as detected by Doppler. PERICARDIUM There is no pericardial effusion. CONCLUSIONS: - Technically difficult exam due to suboptimal positioning and C Collar. - Exam indication: Initial evaluation of infective endocarditis with positive blood cultures - The left ventricle is normal in size. There is mild concentric left ventricular hypertrophy. Left ventricular systolic function is normal. EF = 66 5% (2D biplane) Left ventricular diastolic function was not evaluated due to E/A fusion. - The right ventricle is normal in size. Right ventricular systolic function is normal. - The left atrial cavity is mildly dilated. - Estimated right ventricular systolic pressure is 37 mmHg consistent with mild pulmonary hypertension. Estimated right atrial pressure is 8 mmHg based on IVC assessment. - There are no significant valvular abnormalities. - The patient has not had a prior CC echocardiographic exam for comparison. * * * Final * * * [facility] [facility] Image : [id number] Normal [facility] Magnesium SerPl-mCncon 10-11 Magnesium [Mass/Vol] 1.9 mg/dL Normal 1.7-2.3 [facility] Comment on above: Order Comment: Speci men Type: BLOOD SPECIMEN Ordering Facility: [facility] Address: [address] [place] [address] Performed By: #### T SCR #### [facility] CLIA [id number] 1 [place] [id number] [facility] NUTRITIONon 10-11-2024 NUTRITION HNO ID: [id number] Author: LIZZIE YEPEZ RD Service: Nutrition Therapy Author Type: Registered Dietitian Type: Nutrition Filed: 10/11/2024 16:01 Note Text: NUTRITION THERAPY INITIAL ASSESSMENT SERVICE DATE: 10/11/2024 SERVICE TIME: Start Time: 1437 Nutrition Assessment: Recommended Malnutrition Diagnosis: Severe Protein-Calorie Malnutrition In the context of: Acute Illness or Injury Based on: Muscle Loss, Subcutaneous Fat Loss Nutrition Diagnosis: Problem: Suboptimal protein/energy intake Related to: Acute illness (c/b food preferences, difficulties chewing, nausea) As evidenced by: Depletion of fat/muscle stores, Patient/family self-report, Intake records Care Plan: Continue current diet (pt selecting soft foods/menu provided/removed whole wheat bread from CBOARD preferences) Supplements: Ensure Plus High Protein (started 10/10--continue BID) Vitamins and Minerals: Multivitamin with minerals Monitor and Evaluation: Meet greater than 75% of estimated needs, Monitor labs, I/Os, vital signs, weight Discharge Recommendations: Diet Diet: Regular HPI: Admitted with progressive cervical myelopathy s/p fall 1 month prior. Recent spinal fusion with decompressive laminectomies. Noted to have spinal epidural abscess s/p washout 10/08/24. H/o parkinson's disease. Pt ordered a regular diet since 10/08/24 -Eating 25% of meals, improved today slightly -Accepting Ensure supplements once daily -c/o chewing difficulties 2/2 ill-fitting upper dentures -c/o intermittent nausea, improved today -dislikes hospital food -reports N/V with whole wheat food, particularly with bread; can tolerate whole wheat in small amounts Intake History: Nutrition Intake Prior to Admission: Greater than 75% estimated energy needs greater than or equal to 1 month Current Nutrition Intake: Less than 75% estimated energy needs Current Intake Over time: (4 days) Dosing Weight: 65.8 kg (145 lb) Dosing Weight Type: Current weight Estimated kilocalorie needs: 9167-4119 Estimated protein needs (grams): 78-98 Grams protein determined by: 1.2 - 1.5 g/kg Diet Orders (From admission, onward) Start Ordered 10/10/24 1415 DIET SUPPLEMENTS START NOW Question Answer Comment Supplement 1 ENSURE PLUS HIGH PROTEIN VANILLA Supplement 1 Frequency DINNER Supplement 1 Frequency BREAKFAST 10/10/24 1409 10/08/24 1900 DIET REGULAR START NOW 10/08/24 1851 Anthropometrics: Height: 180.3 cm (5' 11) Weight: 65.8 kg (145 lb 1 oz) Usual Weight: 74.8 kg (165 lb) 1 year ago Usual Weight Obtained From: Patient Body mass index is 20.23 kg/m?. Weight change percentage over time: ~12% wt loss x 1 year per pt weight history report Weight Change: Potentially clinically significant but does not meet criteria to support malnutrition diagnosis Physical Exam: Subcutaneous fat loss: Subcutaneous Fat Loss Assessed Orbital: Slightly dark circles, somewhat hollow look (Mod) Upper Arm (Triceps): Some depth to pinch, not ample fat (Mod) Muscle loss: Muscle Loss Assessed Temporalis: Slight depression (Mod) Clavicle: More prominent bone, less prominent muscle (Mod) Acromion: Acromion process slightly protrudes (Mild) Scapula: Slight depression, bone slightly show (Mod) Interosseous (Hand): Slight depression of muscle (Mild) Quadricep: Mild depression on inner thigh, kneecap more prominent (Mod) Gastrocnemius: Not well-developed muscle (Mild) Potential micronutrient deficiency: Nails (koilonychia, splinter hemorrhages) Edema/Ascites: No edema GI Symptoms: Chewing problems Stool Amount: WNL (last BM 10/10/24 per pt) Functional Status: Not related to malnutrition status Potential Signs of Inflammation: Acute post-operative, Hypoalbuminemia, Imaging studies Lines, Drains, and Airways Drain Duration External Collection Device 10/07/24 1831 [facility] 3 days MNT Billing: $ Initial Assessment: 1 unit Time Spent (mins): 14 SIGNATURE: Lizzie Yepez RD PATIENT NAME: Phillip Jesus DATE: October 11, 2024 TIME: 2:54 PM Normal [facility] Phosphate SerPl-mCncon 10-11 Phosphate [Mass/Vol] 2.9 mg/dL Normal 2.7-4.8 [facility] Comment on above: Order Comment: Speci men Type: BLOOD SPECIMEN Ordering Facility: [facility] Address: [facility] [place] [address] Performed By: #### T SCR #### [facility] CLIA [id number] 1 [place] [address] [place] THERAPY NTon 10-11-2024 THERAPY NT HNO ID: [id number] Author: LALY STILES, PT Service: Physical Therapy Author Type: Physical Therapist Type: Therapy (PT/OT/Speech/Resp) Filed: 10/11/2024 14:30 Note Text: Physical Therapy Treatment Summary SERVICE DATE: 10/11/2024 SERVICE TIME: 1325 to 1352 ROOM: [place] [address] PT 6 Clicks Score: 13 DISCHARGE RECOMMENDATIONS Acute Rehab Recommended Discharge Disposition Due to: Patient requires active, intensive rehabilitation by multiple therapy disciplines. Anticipate the patient will tolerate 3 hours of therapy per day., Balance deficits, Functional status decline, Requires multiple therapy disciplines, Coordination deficits ASSESSMENT Response to Therapy Interventions: Good Participation in Activities, Low Activity Tolerance, Multiple Ongoing Medical Issues PRECAUTIONS Bed/Chair Alarm, Fall Risk, Spine, Brace [place] collar CURRENT HOSPITAL COURSE Presents with progressive RUE/RLE weakness and numbness. 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 s/p C3-C6 PSF with decompressive laminectomies on 10/08. Relevant Past Medical History: Parkinson's disease HOME LIVING Patient Lives With: Spouse Assistance Available: Part-Time ( walks with a walker) Entry To Home: Ramp Number Of Stairs To Bed/Bath: 0 Tub/Shower Type: tub shower (however pt sponge bathes) Equipment Owned: Cane PRIOR FUNCTIONAL LEVEL Within Functional Limits Independent with mobility with only occasional use of a cane. Reports a few falls over the past few months. SUBJECTIVE agreeable to PT THERAPY DIAGNOSIS Reduced mobility-other, Muscle Weakness (generalized), Unsteadiness on feet, General symptoms and signs-other TREATMENT INTERVENTIONS Therapeutic Activity (08247) Timed Code Treatment (minutes): 27 Skilled Treatment Time (minutes): 27 Therapeutic Activity (27169) Treatment Minutes: 27 $ Therapeutic Activity (34918) Billed Units: 2 units Cues for safe mobility per grid below Cues to bring LEs to edge of bed--needed assist to complete and needed assist to bring trunk into upright position Cues for hand placement and safety at edge of bed and then at recliner Ambulate out to hallway with wheeled walker--repeated cues for upright posture, take big steps Needed increased time and effort to complete each aspects of mobility Seated at edge of bed with close stand by assist for several min TRAINING AND EDUCATION PROVIDED Bed Mobility, Benefits of In-Hospital Mobility, Discharge Planning, Falls Prevention, Positioning, Role of Physical Therapy, Transfers THERAPEUTIC SKILLS USED Activity Dosing, Assessment of Tolerance Including Vitals Response to Activity, Cues for Sequencing/Proper Technique for Activity, Physical Assist, Movement Facilitation FUNCTIONAL STATUS mobility performed during session in bold, other mobility completed during prior session(s) and may no longer be correct or appropriate to complete. Bed Mobility Supine To Sit: Moderate Assistance, Additional Information HOB elevated; cues to bring LEs to EOB--needed assist to bring LEs to EOB and off bed; needed assist to bring trunk into upright position Scooting: Maximal Assistance, Additional Information using draw sheet to scoot to EOB Transfers Sit To Stand: Moderate Assistance, Additional Information cues for hand placement and safety--needed significant assist to elevate from bed Stand To Sit: Moderate Assistance, Additional Information cues to reach back to recliner and slowly sit down' decreased eccentric to sit down Bed to Chair Gait Minimal Assistance cues to keep feet apart and take bigger steps; cues for upright posture Gait Device: Wheeled Walker General Deviations/Observations: Narrow Base of Support, Flexed trunk posture, Sherry decreased, Step length decreased, Shuffling Gait, Non-functional gait speed (narrow MARY JANE) Gait Distance (feet): 35'x2 Stairs GOALS Patient will demonstrate progress to optimize functional mobility, maximize activity tolerance and endurance to maximize function upon discharge. Rolling with: Independent Transfer Supine to/from Sit with: Modified Independent Transfer Sit to/from Stand with: Modified Independent Ambulate with: Supervision Distance: 150 Device: Wheeled Walker Goal: Pt will recall and adhere to spinal precautions 100% of the time. Rehab Potential: Good Progress Toward Goals: Progressing as expected ACUTE CARE TREATMENT PLAN PT Frequency: Once Daily Treatment Interventions: Education, Strengthening, Functional Mobility Training, Balance Training, Neuromuscular Re-education, Pain Management SIGNATURE: Laly Stiles PT PATIENT NAME: Phillip Jesus DATE: October 11, 2024 TIME: 2:24 PM Normal [facility] CBC W Auto Differential pane l (Bld)on 10-10-2024 Basophils (Bld) [#/Vol] 10*3/uL Normal <0.11 [facility] Comment on above: Order Comment: Speci men Type: BLOOD SPECIMENOrdering Facility: [facility] Address: [address] [place] [address] Performed By: #### 5 7021-8 ####[facility] [id number] [place] [address] [place] Basophils/100 WBC (Bld) 0.3 % Normal [facility] Comment on above: Order Comment: Speci men Type: BLOOD SPECIMENOrdering Facility: [facility] Address: [address] [place] [address] Performed By: #### 5 7021-8 ####[facility] [id number] [place] [address] [place] Differential cell count method Nom (Bld) Auto Normal [facility] Comment on above: Order Comment: Speci men Type: BLOOD SPECIMENOrdering Facility: [facility] Address: [address] [place] [address] Performed By: #### 5 7021-8 ####[facility] [id number] [place] [address] [place] Eosinophils (Bld) [#/Vol] 0.11 10*3/uL Normal <0.46 [facility] Comment on above: Order Comment: Speci men Type: BLOOD SPECIMENOrdering Facility: [facility] Address: [address] [place] [address] Performed By: #### 5 7021-8 ####[facility]IA [id number] [address] [place] Eosinophils/100 WBC (Bld) 1.9 % Normal [facility] Comment on above: Order Comment: Speci men Type: BLOOD SPECIMENOrdering Facility: [facility] Address: [address] [place] [address] Performed By: #### 5 7021-8 ####[facility] [id number] [address] [place] Erythrocyte distribution width (RBC) [Ratio] 12.6 % Normal 11.5-15.0 [facility] Comment on above: Order Comment: Speci men Type: BLOOD SPECIMENOrdering Facility: [facility] Address: [address] [place] [address] Performed By: #### 5 7021-8 ####[facility]ORYCLIA [id number] [address] Hematocrit (Bld) [Volume fraction] 35.4 % Low 39.0-51.0 [facility] Comment on above: Order Comment: Speci men Type: BLOOD SPECIMENOrdering Facility: [facility] Address: [address] [place] [address] Performed By: #### 5 7021-8 ####[facility]ORYCLIA [id number] [address] [place] Hemoglobin (Bld) [Mass/Vol] 12.2 g/dL Low 13.0-17.0 [facility] Comment on above: Order Comment: Speci men Type: BLOOD SPECIMENOrdering Facility: [facility] Address: [address] [place] [address] Performed By: #### 5 7021-8 ####[facility]ORYCLIA [id number] [address] [place] Immature granulocytes (Bld) [#/Vol] 10*3/uL Normal <0.10 [facility] Comment on above: Order Comment: Speci men Type: BLOOD SPECIMENOrdering Facility: [facility] Address: [address] [place] [address] Performed By: #### 5 7021-8 ####[facility]ORYCLIA [id number] [address] Immature granulocytes/100 WBC (Bld) 0.3 % Normal [facility] Comment on above: Order Comment: Speci men Type: BLOOD SPECIMENOrdering Facility: [facility] Address: [address] [place] [address] Performed By: #### 5 7021-8 ####[facility]ORYCLIA [id number] [address] [place] Lymphocytes (Bld) [#/Vol] 0.99 10*3/uL Low 1.00-4.00 [facility] Comment on above: Order Comment: Speci men Type: BLOOD SPECIMENOrdering Facility: [facility] Address: [address] [place] [address] Performed By: #### 5 7021-8 ####[facility]ORYCLIA [id number] [address] Lymphocytes/100 WBC (Bld) 17.1 % Normal [facility] Comment on above: Order Comment: Speci men Type: BLOOD SPECIMENOrdering Facility: [facility] Address: [address] [place] [address] Performed By: #### 5 7021-8 ####[facility]ORYCLIA [id number] [address] STATES OF [facility] MCH (RBC) [Entitic mass] 32.2 pg Normal 26.0-34.0 [facility] Comment on above: Order Comment: Speci men Type: BLOOD SPECIMENOrdering Facility: [facility] Address: [address] [place] [address] Performed By: #### 5 7021-8 ####[facility]ORYCLIA [id number] [address] [place] MCHC (RBC) [Mass/Vol] 34.5 g/dL Normal 30.5-36.0 [facility] Comment on above: Order Comment: Speci men Type: BLOOD SPECIMENOrdering Facility: [facility] Address: [address] [place] [address] Performed By: #### 5 7021-8 ####[facility]OR[facility]ORYCLIA [id number] [address] [place] MCV (RBC) [Entitic vol] 93.4 fL Normal 80.0-100.0 [facility] Comment on above: Order Comment: Speci men Type: BLOOD SPECIMENOrdering Facility: [facility] Address: [address] [place] [address] Performed By: #### 5 7021-8 ####[facility]ORYCLIA [id number] [address] [place] Monocytes (Bld) [#/Vol] 0.44 10*3/uL Normal <0.87 [facility] Comment on above: Order Comment: Speci men Type: BLOOD SPECIMENOrdering Facility: [facility] Address: [address] [place] [address] Performed By: #### 5 7021-8 ####[facility]ATORYCLIA [id number] [address] Monocytes/100 WBC (Bld) 7.6 % Normal [facility] Comment on above: Order Comment: Speci men Type: BLOOD SPECIMENOrdering Facility: [facility] Address: [address] [place] [address] Performed By: #### 5 7021-8 ####[facility]ATORYCLIA [id number] [address] [place] Neutrophils (Bld) [#/Vol] 4.22 10*3/uL Normal 1.45-7.50 [facility] Comment on above: Order Comment: Speci men Type: BLOOD SPECIMENOrdering Facility: [facility] Address: [address] [place] [address] Performed By: #### 5 7021-8 ####[facility]CLIA [id number] [address] [place] Neutrophils/100 WBC (Bld) 72.8 % Normal [facility] Comment on above: Order Comment: Speci men Type: BLOOD SPECIMENOrdering Facility: [facility] Address: [address] [place] [address] Performed By: #### 5 7021-8 ####[facility]ORYCLIA [id number] [place] [address] [place] Nucleated RBC (Bld) [#/Vol] 10*3/uL Normal <0.01 [facility] Comment on above: Order Comment: Speci men Type: BLOOD SPECIMENOrdering Facility: [facility] Address: [facility] [place] [address] Performed By: #### 5 7021-8 ####[facility]ORATORYCLIA [id number] [place] [address] [place] Nucleated RBC/100 WBC (Bld) [Ratio] 0.0 /100 WBC Normal [facility] Comment on above: Order Comment: Speci men Type: BLOOD SPECIMENOrdering Facility: [facility] Address: [address] [place] [address] Performed By: #### 5 7021-8 ####[facility]ATORYCLIA [id number] [place] [address] [place] Platelet mean volume (Bld) [Entitic vol] 9.7 fL Normal 9.0-12.7 [facility] Comment on above: Order Comment: Speci men Type: BLOOD SPECIMENOrdering Facility: [facility] Address: [address] [place] [address] Performed By: #### 5 7021-8 ####[facility]ORYCLIA [id number] [place] [address] [place] Platelets (Bld) [#/Vol] 177 10*3/uL Normal 150-400 [facility] Comment on above: Order Comment: Speci men Type: BLOOD SPECIMENOrdering Facility: [facility] Address: [address] [place] [address] Performed By: #### 5 7021-8 ####[facility]ORYCLIA [id number] [place] [address] [place] RBC (Bld) [#/Vol] 3.79 10*6/uL Low 4.20-6.00 [facility] Comment on above: Order Comment: Speci men Type: BLOOD SPECIMENOrdering Facility: [facility] Address: [address] [place] [address] Performed By: #### 5 7021-8 ####[facility]ORATORYCLIA [id number] [place] [address] [place] WBC (Bld) [#/Vol] 5.80 10*3/uL Normal 3.70-11.00 [facility] Comment on above: Order Comment: Speci men Type: BLOOD SPECIMENOrdering Facility: [facility] Address: [address] [place] [address] Performed By: #### 5 7021-8 ####[facility]ORATORYCLIA [id number] [place] [address] [facility] Comprehensive metabolic 2000 panelon 10-10-2024 Albumin [Mass/Vol] 3.6 g/dL Low 3.9-4.9 [facility] Comment on above: Order Comment: Speci men Type: BLOOD SPECIMENOrdering Facility: [facility] Address: [address] [place] [address] Performed By: #### 2 4323-8, , 2776-03 ####[facility]ORYCLIA [id number] [address] [place] ALP [Catalytic activity/Vol] 64 U/L Normal 38-113 [facility] Comment on above: Order Comment: Speci men Type: BLOOD SPECIMENOrdering Facility: [facility] Address: [address] [place] [address] Performed By: #### 2 4323-8, , 2776- ####[facility]ORATORYCLIA [id number] [place] [id number] [facility] ALT With P-5'-P [Catalytic activity/Vol] U/L Low 10-54 [facility] Comment on above: Order Comment: Speci men Type: BLOOD SPECIMENOrdering Facility: [facility] Address: [address] [place] [address] Performed By: #### 2 4323-8, , 2776- ####[facility]ORYCLIA [id number] [place] [address] [facility] Anion gap [Moles/Vol] 11 mmol/L Normal 8-15 [facility] Comment on above: Order Comment: Speci men Type: BLOOD SPECIMENOrdering Facility: [facility] Address: [address] [place] [address] Performed By: #### 2 4323-8, , 2776-03 ####[facility]ORYCLIA [id number] [place] [address] [place] AST With P-5'-P [Catalytic activity/Vol] 28 U/L Normal 14-40 [facility] Comment on above: Order Comment: Speci men Type: BLOOD SPECIMENOrdering Facility: [facility] Address: [address] [place] [address] Performed By: #### 2 4323-8, , 2776-03 ####[facility]ORYCLIA [id number] [place] [address] [place] Bilirubin [Mass/Vol] 0.8 mg/dL Normal 0.2-1.3 [facility] Comment on above: Order Comment: Speci men Type: BLOOD SPECIMENOrdering Facility: [facility] Address: [address] [place] [address] Performed By: #### 2 4323-8, , 2776-03 ####[facility]ATORYCLIA [id number] [place] [address] [place] Calcium [Mass/Vol] 8.6 mg/dL Normal 8.5-10.2 [facility] Comment on above: Order Comment: Speci men Type: BLOOD SPECIMENOrdering Facility: [facility] Address: [address] [place] [address] Performed By: #### 2 4323-8, , 2776-03 ####[facility]ATORYCLIA [id number] [place] [address] [place] Chloride [Moles/Vol] 105 mmol/L Normal 98-107 [facility] Comment on above: Order Comment: Speci men Type: BLOOD SPECIMENOrdering Facility: [facility] Address: [address] [place], [place] [address] Performed By: #### 2 4323-8, , 2776-03 ####[facility]ATORYCLIA [id number] [place] [address] [place] CO2 [Moles/Vol] 25 mmol/L Normal 22-30 [facility] Comment on above: Order Comment: Speci men Type: BLOOD SPECIMENOrdering Facility: [facility] Address: [address] [place] [address] Performed By: #### 2 4323-8, , 2776-03 ####[facility] [id number] [place] [id number] [place] Creatinine [Mass/Vol] 0.68 mg/dL Low 0.73-1.22 [facility] Comment on above: Order Comment: Speci men Type: BLOOD SPECIMENOrdering Facility: [facility] Address: [address] [place] [address] Performed By: #### 2 4323-8, , 2776-03 ####[facility] [id number] [address] OF [facility] eGFRcr SerPlBld CKD-EPI 2020 99 mL/min/1.73m??? Normal >=60 [facility] Comment on above: Order Comment: Speci men Type: BLOOD SPECIMENOrdering Facility: [facility] Address: [address] [place] [address] Result Comment: Gifty mated Glomerular Filtration Rate (eGFR) is calculated using the 2020 CKD-EPI creatinine equation. This equation utilizes serum creatinine, sex, and age as parameters. The creatinine assay has traceable calibration to isotope dilution-mass spectrometry. Refer to KDIGO guidelines for clinical interpretation. In patients with unstable renal function, e.g. those with acute kidney injury, the eGFR may not accurately reflect actual GFR. Performed By: #### 2 4323-8, 80635-0, 2776-03 ####[facility]ATORYCLIA [id number] [place] [address] [place] Glucose [Mass/Vol] 105 mg/dL High 74-99 [facility] Comment on above: Order Comment: Dwayne cheung Type: BLOOD SPECIMENOrdering Facility: [facility] Address: [address] [place] [address] Result Comment: The [place] Diabetes [employer] (ADA) provides guidance for cutoff values for fasting glucose and random glucose. The ADA defines fasting as no caloric intake for at least 8 hours. Fasting plasma glucose results between 100 to 125 mg/dL indicate increased risk for diabetes (prediabetes). Fasting plasma glucose results greater than or equal to 126 mg/dL meet the criteria for diagnosis of diabetes. In the absence of unequivocal hyperglycemia, results should be confirmed by repeat testing. In a patient with classic symptoms of hyperglycemia or hyperglycemic crisis, random plasma glucose results greater than or equal to 200 mg/dL meet the criteria for diagnosis of diabetes. Reference: Standards of Medical Care in Diabetes 2016, [place] [employer] Association. Diabetes Care. 2016.39(Suppl 1). Performed By: #### 2 4323-8, , 2776-03 ####[facility]ATORYCLIA [id number] [place] [address] [place] Potassium [Moles/Vol] 3.6 mmol/L Low 3.7-5.1 [facility] Comment on above: Order Comment: Dwayne cheung Type: BLOOD SPECIMENOrdering Facility: [facility] Address: [address] [place] [address] Performed By: #### 2 4323-8, , 2776-03 ####[facility]ATORYCLIA [id number] [place] [address] [place] Protein [Mass/Vol] 6.1 g/dL Low 6.3-8.0 [facility] Comment on above: Order Comment: Dwayne chenug Type: BLOOD SPECIMENOrdering Facility: [facility] Address: [address] [place] [address] Performed By: #### 2 4323-8, , 2776-03 ####[facility]ATORYCLIA [id number] [place] [address] [place] Sodium [Moles/Vol] 141 mmol/L Normal 136-144 [facility] Comment on above: Order Comment: Speci men Type: BLOOD SPECIMENOrdering Facility: [facility] Address: [facility] [place] [id number] Performed By: #### 2 4323-8, 46444-6, 2776-03 ####[facility]ORATORYCLIA [id number] [place] [address] [place] [facility] Urea nitrogen [Mass/Vol] 17 mg/dL Normal 9-24 [facility] Comment on above: Order Comment: Speci men Type: BLOOD SPECIMENOrdering Facility: [facility] Address: [address] [place], [place] [address] Performed By: #### 2 4323-8, , 2776-03 ####[facility]ATORYCLIA [id number] [place] [address] [place] Magnesium SerPl-mCncon 10-10 Magnesium [Mass/Vol] 2.0 mg/dL Normal 1.7-2.3 [facility] Comment on above: Order Comment: Speci men Type: BLOOD SPECIMENOrdering Facility: [facility] Address: [address] [place], [place] [address] Performed By: #### 2 4323-8, , 2776-03 ####[facility]ATORYCLIA [id number] [place] [id number] [place] NUTRITIONon 10-10-2024 NUTRITION HNO ID: [id number] Author: PETE DALAL RD Service: Nutrition Therapy Author Type: Registered Dietitian Type: Nutrition Filed: 10/10/2024 14:10 Note Text: NUTRITION BRIEF NOTE SERVICE DATE: 10/10/2024 Care Plan: Continue current diet Supplements: Ensure Plus High Protein (added BID, per request from RN for supplement of Ensure) Monitor and Evaluation: Meet greater than 75% of estimated needs, Monitor fluid/electrolyte balance, Monitor bowel function, Monitor labs, I/Os, vital signs, weight Interval History: RN called requesting Ensure for patient. Adding Ensure Plus BID, vailla ordered per patient preference for, per RN. MNT Billing: $ Routine Care : 1 unit SIGNATURE: Pete CORINNE Dalal DATE: 10/10/2024 TIME: 1:41 PM Normal [facility] Phosphate SerPl-mCncon 10-10 Phosphate [Mass/Vol] 2.7 mg/dL Normal 2.7-4.8 [facility] Comment on above: Order Comment: Speci men Type: BLOOD SPECIMENOrdering Facility: [facility] Address: [address] [place] [address] Performed By: #### 2 4323-8, 06320-8, 2777-1 ####[facility]ORATORYCLIA [id number] [address] THERAPY NTon 10-10-2024 THERAPY NT HNO ID: [id number] Author: TAMAR DIXON PT Service: Physical Therapy Author Type: Physical Therapist Type: Therapy (PT/OT/Speech/Resp) Filed: 10/10/2024 10:42 Note Text: Physical Therapy Evaluation Summary SERVICE DATE: 10/10/2024 SERVICE TIME: 904 to 943 ROOM: [place] [address] PT Clicks Score: 14 DISCHARGE RECOMMENDATIONS Acute Rehab Recommended Discharge Disposition Due to: Patient requires active, intensive rehabilitation by multiple therapy disciplines. Anticipate the patient will tolerate 3 hours of therapy per day., Balance deficits, Functional status decline, Requires multiple therapy disciplines, Coordination deficits ASSESSMENT Response to Therapy Interventions: Good Participation in Activities Prior to the onset of pts symptoms 1-2 months ago, he was independent with mobility and ADL's and only used his cane occasionally. Since then he experienced progressively worsening RUE and RLE weakness to the point that he was unable to walk and had to crawl to get around his home. He lives at home with his who herself uses a walker for mobility. PT eval was completed today. Pt is requiring mod/max A for bed mobility and min/mod assist with transfers and ambulation. He was able to walk 25 feet with a walker. He reported mild neck pain (2-3/10) with ambulation. He tolerated the PT eval/tx well. Pt is a good candidate for acute rehab. Anticipate he will tolerate 3 hours of therapy a day well. He is also highly motivated to return to his PLOF. PRECAUTIONS Bed/Chair Alarm, Fall Risk, Spine, Brace [place] collar CURRENT HOSPITAL COURSE Presents with progressive RUE/RLE weakness and numbness. 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 s/p C3-C6 PSF with decompressive laminectomies on 10/08. Relevant Past Medical History: Parkinson's disease HOME LIVING Patient Lives With: Spouse Assistance Available: Part-Time ( walks with a walker) Entry To Home: Ramp Number Of Stairs To Bed/Bath: 0 Tub/Shower Type: tub shower (however pt sponge bathes) Equipment Owned: Cane PRIOR FUNCTIONAL LEVEL Within Functional Limits Independent with mobility with only occasional use of a cane. Reports a few falls over the past few months. SUBJECTIVE Agreeable to PT. Denies significant pain throughout eval. THERAPY DIAGNOSIS Reduced mobility-other, Muscle Weakness (generalized), Unsteadiness on feet, General symptoms and signs-other TREATMENT INTERVENTIONS Evaluation, Therapeutic Exercise (44588), Gait Training (58530) Timed Code Treatment (minutes): 23 Skilled Treatment Time (minutes): 39 $ Evaluation-High (21174) Billed Units: 1 unit Therapeutic Exercise (60459) Treatment Minutes: 10 $ Therapeutic Exercise (94906) Billed Units: 1 unit Exercise Ankle Pumps (number of reps): 15 Quad Sets (number of reps): 10 Glut Sets (number of reps): 10 Heel Slides (number of reps): 5 Hip Abduction (number of reps): 5 Gait Training (11035) Treatment Minutes: 13 $ Gait Training (99432) Billed Units: 1 unit Gait training on level surfaces using a FWW. Pt walks with a very narrow MARY JANE at feet, slow speed, shuffling steps and flexed fwd posture. Cues for increased M[place] JANE at feet, big steps and upright posture. TRAINING AND EDUCATION PROVIDED Assistive Device Use, Bed Mobility, Benefits of In-Hospital Mobility, Falls Prevention, Gait Pattern, Reduction of Deviations, Exercise Program, Positioning, Precautions/Restrictions, Transfers, Role of Physical Therapy THERAPEUTIC SKILLS USED Activity Dosing, Assessment of Tolerance Including Vitals Response to Activity, Cuing Verbal, Facilitation of Joint Range of Motion, Management of Critical Lines, Tubes and/or Drains, Movement Facilitation, Physical Assist, Postural Alignment Correction FUNCTIONAL STATUS Bed Mobility Supine To Sit: Moderate Assistance, Maximal Assistance, Additional Information HOB elevated significantly, required assist for trunk management, also required assist to pivot hips towards the EOB using the draw pad, VC's for moving LE's over the side of the bed Scooting: Moderate Assistance, Maximal Assistance, Additional Information mod/max A x 1 to scoot to EOB in sitting Transfers Sit To Stand: Minimal Assistance, Moderate Assistance, Additional Information assist to boost to standing, cues for hand placement and to power through LE's, cues to scoot to EOB more before attempting the transfer Stand To Sit: Minimal Assistance, Moderate Assistance, Additional Information assist to control descent to sitting, cues for safety including backing up fully to the chair, hand placement and descending slowing into sitting Bed to Chair Gait Minimal Assistance, Moderate Assistance, Additional Information very narrow MARY JANE at feet (nearly stepping on his own feet), slow, shuffling steps, flexed trunk, increased difficulty noted bringing his RUE up onto the walker Gait Device: Wheeled Wal (more content not included)... Normal [facility] Vancomycin random [Mass/Vol] on 10-10-2024 Vancomycin [Mass/Vol] 9.8 ug/mL Low 10.0-20.0 [facility] Comment on above: Order Comment: Speci jonatan Type: BLOOD SPECIMENOrdering Facility: [facility] Address: [address] [place] [address] Result Comment: Refe rence ranges and high/low indicator flags are provided as general guidelines only. The treating physician must determine appropriate target levels/dosing based on the specific clinical situation. Performed By: #### 6 462-6, 635-3 #### [facility] CLIA [id number] [address] [place] [address] CBC W Auto Differential pane l (Bld)on 10-09-2024 Basophils (Bld) [#/Vol] 10*3/uL Normal <0.11 [facility] Comment on above: Order Comment: Dwayne cheung Type: BLOOD SPECIMEN [facility] Address: [address] [place] [address] Performed By: #### T SCR #### [facility] CLIA [id number] [address] Basophils/100 WBC (Bld) 0.1 % Normal [facility] Comment on above: Order Comment: Speci men Type: BLOOD SPECIMEN [facility] Address: [address] [place] [address] Performed By: #### T SCR #### [facility] CLIA [id number] [address] [place] Differential cell count method Nom (Bld) Auto Normal [facility] Comment on above: Order Comment: Speci men Type: BLOOD SPECIMEN [facility] Address: [address] [place] [address] Performed By: #### T SCR #### [facility] CLIA [id number] [address] Eosinophils (Bld) [#/Vol] 10*3/uL Normal <0.46 [facility] Comment on above: Order Comment: Speci men Type: BLOOD SPECIMEN [facility] Address: [address] [place] [address] Performed By: #### T SCR #### [facility] CLIA [id number] [address] Eosinophils/100 WBC (Bld) 0.1 % Normal [facility] Comment on above: Order Comment: Speci men Type: BLOOD SPECIMEN [facility] Address: [address] [place] [address] Performed By: #### T SCR #### [facility] CLIA [id number] [address] [place] Erythrocyte distribution width (RBC) [Ratio] 12.3 % Normal 11.5-15.0 [facility] Comment on above: Order Comment: Speci men Type: BLOOD SPECIMEN [facility] Address: [address] [place] [address] Performed By: #### T SCR #### [facility] CLIA [id number] [address] [place] Hematocrit (Bld) [Volume fraction] 36.0 % Low 39.0-51.0 [facility] Comment on above: Order Comment: Speci men Type: BLOOD SPECIMEN [facility] Address: [address] [place] [address] Performed By: #### T SCR #### [facility] CLIA [id number] [address] [place] Hemoglobin (Bld) [Mass/Vol] 12.3 g/dL Low 13.0-17.0 [facility] Comment on above: Order Comment: Speci men Type: BLOOD SPECIMEN [facility] Address: [address] [place] [address] Performed By: #### T SCR #### [facility] CLIA [id number] [address] [place] Immature granulocytes (Bld) [#/Vol] 10*3/uL Normal <0.10 [facility] Comment on above: Order Comment: Speci men Type: BLOOD SPECIMEN [facility] Address: [address] [place] [address] Performed By: #### T SCR #### [facility] CLIA [id number] [address] [place] Immature granulocytes/100 WBC (Bld) 0.3 % Normal [facility] Comment on above: Order Comment: Speci men Type: BLOOD SPECIMEN [facility] Address: [address] [place] [address] Performed By: #### T SCR #### [facility] CLIA [id number] [address] [place] Lymphocytes (Bld) [#/Vol] 0.53 10*3/uL Low 1.00-4.00 [facility] Comment on above: Order Comment: Speci men Type: BLOOD SPECIMEN [facility] Address: [address] [place] [address] Performed By: #### T SCR #### [facility] CLIA [id number] [address] Lymphocytes/100 WBC (Bld) 7.6 % Normal [facility] Comment on above: Order Comment: Speci men Type: BLOOD SPECIMEN [facility] Address: [address] [place] [address] Performed By: #### T SCR #### [facility] CLIA [id number] [address] MCH (RBC) [Entitic mass] 31.6 pg Normal 26.0-34.0 [facility] Comment on above: Order Comment: Speci men Type: BLOOD SPECIMEN [facility] Address: [address] [place] [address] Performed By: #### T SCR #### [facility] CLIA [id number] [address] OF [facility] MCHC (RBC) [Mass/Vol] 34.2 g/dL Normal 30.5-36.0 [facility] Comment on above: Order Comment: Speci men Type: BLOOD SPECIMEN [facility] Address: [address] [place] [address] Performed By: #### T SCR #### [facility] CLIA [id number] [address] MCV (RBC) [Entitic vol] 92.5 fL Normal 80.0-100.0 [facility] Comment on above: Order Comment: Speci men Type: BLOOD SPECIMEN [facility] Address: [address] [place] [address] Performed By: #### T SCR #### [facility] CLIA [id number] [address] Monocytes (Bld) [#/Vol] 0.50 10*3/uL Normal <0.87 [facility] Comment on above: Order Comment: Speci men Type: BLOOD SPECIMEN [facility] Address: [address] [place] [address] Performed By: #### T SCR #### [facility] CLIA [id number] [address] [place] Monocytes/100 WBC (Bld) 7.2 % Normal [facility] Comment on above: Order Comment: Speci men Type: BLOOD SPECIMEN [facility] Address: [address] [place] [address] Performed By: #### T SCR #### [facility] CLIA [id number] [address] [place] Neutrophils (Bld) [#/Vol] 5.86 10*3/uL Normal 1.45-7.50 [facility] Comment on above: Order Comment: Speci men Type: BLOOD SPECIMEN [facility] Address: [address] [place] [address] Performed By: #### T SCR #### [facility] CLIA [id number] [address] Neutrophils/100 WBC (Bld) 84.7 % Normal [facility] Comment on above: Order Comment: Speci men Type: BLOOD SPECIMEN [facility] Address: [address] [place] [address] Performed By: #### T SCR #### [facility] CLIA [id number] [address] [place] Nucleated RBC (Bld) [#/Vol] 10*3/uL Normal <0.01 [facility] Comment on above: Order Comment: Speci men Type: BLOOD SPECIMEN [facility] Address: [address] [place] [address] Performed By: #### T SCR #### [facility] CLIA [id number] [address] Nucleated RBC/100 WBC (Bld) [Ratio] 0.0 /100 WBC Normal [facility] Comment on above: Order Comment: Speci men Type: BLOOD SPECIMEN [facility] Address: [address] [place] [address] Performed By: #### T SCR #### [facility] CLIA [id number] [address] [place] [facility] Platelet mean volume (Bld) [Entitic vol] 9.6 fL Normal 9.0-12.7 [facility] Comment on above: Order Comment: Speci men Type: BLOOD SPECIMEN [facility] Address: [address] [place] [address] Performed By: #### T SCR #### [facility] CLIA [id number] [address] [place] Platelets (Bld) [#/Vol] 186 10*3/uL Normal 150-400 [facility] Comment on above: Order Comment: Speci men Type: BLOOD SPECIMEN [facility] Address: [address] [place] [address] Performed By: #### T SCR #### [facility] CLIA [id number] [address] RBC (Bld) [#/Vol] 3.89 10*6/uL Low 4.20-6.00 [facility] Comment on above: Order Comment: Speci men Type: BLOOD SPECIMEN [facility] Address: [address] [place] [address] Performed By: #### T SCR #### [facility] CLIA [id number] [address] WBC (Bld) [#/Vol] 6.93 10*3/uL Normal 3.70-11.00 [facility] Comment on above: Order Comment: Speci men Type: BLOOD SPECIMEN [facility] Address: [address] [place] [address] Performed By: #### T SCR #### [facility] CLIA [id number] [address] CONSULTon 10-09-2024 CONSULT HNO ID: [id number] Author: KOTEKAL, DHATRI, DO Service: Infectious Disease Author Type: Physician Type: Consults Filed: 10/09/2024 13:57 Note Text: INFECTIOUS DISEASE CONSULT NOTE SERVICE DATE: October 09, 2024 SERVICE TIME: 10:09 AM We were asked to evaluate Mr. Phillip Jesus, a 74 year old yo male by Dr. Fitzpatrick for cervical epidural abscess .Our findings and recommendations will be communicated through the shared medical record. History obtained by patient Subjective HPI: Phillip Jesus is a 74 year old male with pertinent past medical history of Parkinson's disease who presented to the ED on 10/07 with worsening weakness for the past 1 month. On admission MRI with C3-C4 septic arthritis with compressive epidural abscess. Pt was taken to the OR on 10/08 with ortho and underwent I/D, laminectomies, and spinal fusion from C3-C6. Cultures pending. Pt was admitted to the neuro ICU for continued monitoring post op. Patient states he does not remember having an illness prior to his fall. He denies any fever/chills during the month after the fall. Does not get back injections. No swelling of any joints, no hardware elsewhere in the body. Current other medications reviewed. Current Facility-Administered Medications Medication Dose Route Frequency acetaminophen 1,000 mg tab(s) (TYLENOL) 1,000 mg ORAL q 6 H carbidopa-levodopa CR 50-200 mg 1 tablet (SINEMET CR) 1 tablet ORAL 4 times per day gabapentin 300 mg cap(s) (NEURONTIN) 300 mg ORAL/FEEDING TUBE q 12 H niCARdipine iv infusion 40 mg in NaCl (iso-osmotic) 200 mL (CARDENE) 2.5-15 mg/hr INTRAVENOUS CONTINUOUS [Transfer Hold] sodium chloride 0.9 % (flush) 2-10 mL (BD POSIFLUSH) 2-10 mL INTRAVENOUS DIRECTED PRN And [Transfer Hold] perflutren lipid microspheres 1.1 mg/mL 1.3 mL injection (DEFINITY) 1.3 mL INTRAVENOUS DIRECTED PRN mupirocin 2 % 0.5 g nasal ointment (BACTROBAN) 0.5 g NASAL BID NaCl 0.9% iv infusion 75 mL/hr INTRAVENOUS CONTINUOUS HYDROmorphone 0.2 mg injection (DILAUDID) 0.2 mg INTRAVENOUS q 3 H PRN oxyCODONE IR 5-10 mg tab(s) (ROXICODONE) 5-10 mg ORAL q 4 H PRN ondansetron 4 mg tab(s) (ZOFRAN) 4 mg ORAL q 6 H PRN Or ondansetron (PF) 4 mg injection (ZOFRAN) 4 mg INTRAVENOUS q 6 H PRN docusate sodium 100 mg cap(s) (COLACE) 100 mg ORAL BID polyethylene glycol 3350 17 g packet 17 g ORAL DAILY methocarbamol 750 mg tab(s) (ROBAXIN) 750 mg ORAL TID vancomycin iv piggyback 1 g in D5W 200 mL (VANCOCIN) 1 g INTRAVENOUS q 12 HR vancomycin dosing and monitoring per pharmacy OTHER As Directed cefepime 2 g in D5W 100 mL Vial-Bag (MAXIPIME) 2 g INTRAVENOUS q 8 H metroNIDAZOLE iv piggyback 500 mg in NaCl (iso-osmotic) 100 mL (FLAGYL) 500 mg INTRAVENOUS q 8 H NaCl 0.9% iv flush bag 20 mL INTRAVENOUS PRN senna-docusate 8.6-50 mg 1 tablet (SENNA-S) 1 tablet ORAL/FEEDING TUBE BID potassium chloride ER 20-40 mEq tab(s) (KLOR-CON) 20-40 mEq ORAL/FEEDING TUBE PRN Or potassium chloride iv piggyback 20 mEq/100 mL 20 mEq INTRAVENOUS PRN magnesium sulfate iv piggyback in sterile water 2 g 50 mL 2 g INTRAVENOUS PRN phosphorus 500 mg tab(s) (K PHOS NEUTRAL) 500 mg ORAL/FEEDING TUBE PRN(NO DISPENSE) calcium gluconate 4 g in NaCl 0.9% 250 mL 4 g INTRAVENOUS PRN PAST MEDICAL HISTORY[1] No past surgical history on file. SOCIAL HISTORY[2] FAMILY HISTORY[3] ALLERGIES[4] REVIEW OF SYSTEMS: Review of Systems All other systems reviewed and are negative. Objective PHYSICAL EXAM: BP 154/104 Pulse 88 Temp 36.5 ?C (97.7 ?F) (Axillary) Resp 17 Ht 180.3 cm (5' 11) Wt 65.8 kg (145 lb 1 oz) SpO2 98% BMI 20.23 kg/m? Intake/Output Summary (Last 24 hours) at 10/09/2024 1009 Last data filed at 10/09/2024 0900 Gross per 24 hour Intake 5073 ml Output 2420 ml Net 2653 ml Physical Exam Constitutional: Appearance: Normal appearance. He is not ill-appearing. HENT: Head: Normocephalic and atraumatic. Eyes: Extraocular Movements: Extraocular movements intact. Conjunctiva/sclera: Conjunctivae normal. Neck: Comments: +in collar Pulmonary: Effort: Pulmonary effort is normal. No respiratory distress. Breath sounds: Normal breath sounds. Abdominal: General: There is no distension. Palpations: Abdomen is soft. Tenderness: There is no abdominal tenderness. Musculoskeletal: General: No swelling. Normal range of motion. Skin: General: Skin is warm. Coloration: Skin is not jaundiced. Neurological: Mental Status: He is alert and oriented to person, place, and time. Mental status is at baseline. LABS: WBC (k/uL) Date Value 10/09/2024 6.93 10/08/2024 5.64 10/07/2024 4.03 Creatinine (mg/dL) Date Value 10/09/2024 0.64 10/08/2024 0.68 10/07/2024 0.81 Lab Results Component Value Date NEUTP 84.7 10/09/2024 ABSNEUT 5.86 10/09/2024 LYMPHP 7.6 10/09/2024 ABSLYMPH 0.53 10/09/2024 ABSMONO 0.50 10/09/2024 EODINP 0.1 10/09/2024 ABSEOSIN <0.03 10/09/2024 BASOP 0.1 08/ more content not included)... Normal [facility] CRP SerPl-mCncon 10-09-2024 CRP [Mass/Vol] mg/L Normal <0.9 [facility] Comment on above: Order Comment: Dwayne cheung Type: BLOOD SPECIMENOrdering Facility: [facility] Address: [address] [place] [address] Performed By: #### 4 3408-4, 635-3 #### [facility] CLIA [id number] 1 [place] [address] [place] Comprehensive metabolic 2000 panelon 10-09-2024 Albumin [Mass/Vol] 3.7 g/dL Low 3.9-4.9 [facility] Comment on above: Order Comment: Dwayne cheung Type: BLOOD SPECIMENOrdering Facility: [facility] Address: [address] [place] [address] Performed By: #### 4 3408-4, 635-3 #### [facility] CLIA [id number] [address] STATES OF [facility] ALP [Catalytic activity/Vol] 67 U/L Normal 38-113 [facility] Comment on above: Order Comment: Speci men Type: BLOOD SPECIMENOrdering Facility: [facility] Address: [facility] [place] [address] Performed By: #### 4 3408-4, 635-3 #### [facility] CLIA [id number] [address] OF [facility] ALT With P-5'-P [Catalytic activity/Vol] U/L Low 10-54 [facility] Comment on above: Order Comment: Speci men Type: BLOOD SPECIMENOrdering Facility: [facility] Address: [address] [place] [address] Performed By: #### 4 3408-4, 635-3 #### [facility] CLIA [id number] [address] STATES OF [facility] Anion gap [Moles/Vol] 10 mmol/L Normal 8-15 [facility] Comment on above: Order Comment: Speci men Type: BLOOD SPECIMENOrdering Facility: [facility] Address: [address] [place] [address] Performed By: #### 4 3408-4, 635-3 #### [facility] CLIA [id number] [address] OF [facility] AST With P-5'-P [Catalytic activity/Vol] 21 U/L Normal 14-40 [facility] Comment on above: Order Comment: Speci men Type: BLOOD SPECIMENOrdering Facility: [facility] Address: [facility] [place] [address] Performed By: #### 4 3408-4, 635-3 #### [facility] CLIA [id number] [address] Bilirubin [Mass/Vol] 0.9 mg/dL Normal 0.2-1.3 [facility] Comment on above: Order Comment: Speci men Type: BLOOD SPECIMENOrdering Facility: [facility] Address: [address] [place] [address] Performed By: #### 4 3408-4, 635-3 #### [facility] CLIA [id number] [address] [place] [address] [place] Calcium [Mass/Vol] 8.7 mg/dL Normal 8.5-10.2 [facility] Comment on above: Order Comment: Speci men Type: BLOOD SPECIMENOrdering Facility: [facility] Address: [address] [place] [address] Performed By: #### 4 3408-4, 635-3 #### [facility] CLIA [id number] [address] [place] [address] [place] Chloride [Moles/Vol] 102 mmol/L Normal 98-107 [facility] Comment on above: Order Comment: Speci men Type: BLOOD SPECIMENOrdering Facility: [facility] Address: [address] [place] [address] Performed By: #### 4 3408-4, 635-3 #### [facility] CLIA [id number] [address] [place] [address] [place] CO2 [Moles/Vol] 23 mmol/L Normal 22-30 [facility] Comment on above: Order Comment: Speci men Type: BLOOD SPECIMENOrdering Facility: [facility] Address: [address] [place] [address] Performed By: #### 4 3408-4, 635-3 #### [facility] CLIA [id number] [address] [place] [address] [place] Creatinine [Mass/Vol] 0.64 mg/dL Low 0.73-1.22 [facility] Comment on above: Order Comment: Speci men Type: BLOOD SPECIMENOrdering Facility: [facility] Address: [address] [place] [address] Performed By: #### 4 3408-4, 635-3 #### [facility] CLIA [id number] [address] [place] [address] [place] eGFRcr SerPlBld CKD-EPI 2020 101 mL/min/1.73m??? Normal >=60 [facility] Comment on above: Order Comment: Juditjustine cheung Type: BLOOD SPECIMENOrdering Facility: [facility] Address: [address] [place] [address] Result Comment: Gifty mated Glomerular Filtration Rate (eGFR) is calculated using the 2020 CKD-EPI creatinine equation. This equation utilizes serum creatinine, sex, and age as parameters. The creatinine assay has traceable calibration to isotope dilution-mass spectrometry. Refer to KDIGO guidelines for clinical interpretation. In patients with unstable renal function, e.g. those with acute kidney injury, the eGFR may not accurately reflect actual GFR. Performed By: #### 4 3408-4, 635-3 #### [facility] CLIA [id number] [address] [place] [address] [place] Glucose [Mass/Vol] 115 mg/dL High 74-99 [facility] Comment on above: Order Comment: Specjustine cheung Type: BLOOD SPECIMENOrdering Facility: [facility] Address: [address] [place] [address] Result Comment: The [place] Diabetes [employer] (ADA) provides guidance for cutoff values for fasting glucose and random glucose. The ADA defines fasting as no caloric intake for at least 8 hours. Fasting plasma glucose results between 100 to 125 mg/dL indicate increased risk for diabetes (prediabetes). Fasting plasma glucose results greater than or equal to 126 mg/dL meet the criteria for diagnosis of diabetes. In the absence of unequivocal hyperglycemia, results should be confirmed by repeat testing. In a patient with classic symptoms of hyperglycemia or hyperglycemic crisis, random plasma glucose results greater than or equal to 200 mg/dL meet the criteria for diagnosis of diabetes. Reference: Standards of Medical Care in Diabetes 2016, [place] Diabetes Association. Diabetes Care. 2016.39(Suppl 1). Performed By: #### 4 3408-4, 635-3 #### [facility] CLIA [id number] [address] [place] [address] [place] Potassium [Moles/Vol] 3.7 mmol/L Normal 3.7-5.1 [facility] Comment on above: Order Comment: Speci men Type: BLOOD SPECIMENOrdering Facility: [facility] Address: [address] [place] [address] Performed By: #### 4 3408-4, 635-3 #### [facility] CLIA [id number] [address] [place] [address] [place] Protein [Mass/Vol] 6.1 g/dL Low 6.3-8.0 [facility] Comment on above: Order Comment: Speci men Type: BLOOD SPECIMENOrdering Facility: [facility] Address: [address] [place] [address] Performed By: #### 4 3408-4, 635-3 #### [facility] CLIA [id number] [address] [place] [address] [place] Sodium [Moles/Vol] 135 mmol/L Low 136-144 [facility] Comment on above: Order Comment: Speci men Type: BLOOD SPECIMENOrdering Facility: [facility] Address: [address] [place] [address] Performed By: #### 4 3408-4, 105-3 #### [facility] CLIA [id number] [address] [place] [address] [place] Urea nitrogen [Mass/Vol] 13 mg/dL Normal 9-24 [facility] Comment on above: Order Comment: Speci men Type: BLOOD SPECIMENOrdering Facility: [facility] Address: [address] [place] [address] Performed By: #### 4 3408-4, 635-3 #### [facility] CLIA [id number] [address] [place] [address] [place] ESR Westergren method (Bld) [Velocity]on 10-09-2024 ESR (Bld) [Velocity] 10 mm/h Normal 0-15 [facility] Comment on above: Order Comment: Speci men Type: BLOOD SPECIMENOrdering Facility: [facility] Address: [address] [place] [address] Performed By: #### 6 462-6, 635-3 #### [facility] CLIA [id number] [address] HIV 1+2 Ab IA Qlon 5 HIV 1 and 2 Ab IA.rapid Nom (S/P/Bld) Normal [facility] Comment on above: Order Comment: Speci men Type: BLOOD SPECIMENOrdering Facility: [facility] Address: [address] [place] [address] Result Comment: Test not indicated. Performed By: #### 4 3408-4, 635-3 #### [facility] CLIA [id number] [address] HIV 1+2 Ab+HIV1 p24 Ag IA Ql Non-Reactive Normal Nonreactive [facility] Comment on above: Order Comment: Speci men Type: BLOOD SPECIMENOrdering Facility: [facility] Address: [address] [place] [address] Performed By: #### 4 3408-4, 635-3 #### [facility] CLIA [id number] [address] HIV immunoassay testing algorithm interpretation (S/P/Bld) [Interp] [facility] Comment on above: Order Comment: Speci men Type: BLOOD SPECIMENOrdering Facility: [facility] Address: [address] [place] [address] Result Comment: No e vidence of HIV-1 or HIV-2 infection. Should recent infection be suspected, repeat testing may be considered 2-3 weeks after this draw. [place] Rev. Code 3701.243(E): This information has been disclosed to you from confidential records protected from disclosure by state law. You shall make no further disclosure of this information without the specific, written, and informed release of the individual to whom it pertains or as otherwise permitted by state law. A general authorization for the release of medical or other information is not sufficient for the purpose of the release of HIV test results or diagnoses. Performed By: #### 4 3408-4, 635-3 #### [facility] CLIA [id number] [address] [place] [address] [place] Magnesium SerPl-mCncon 10-09 Magnesium [Mass/Vol] 1.6 mg/dL Low 1.7-2.3 [facility] Comment on above: Order Comment: Speci men Type: BLOOD SPECIMENOrdering Facility: [facility] Address: [address] [place] [address] Performed By: #### 4 3408-4, 635-3 #### [facility] CLIA [id number] [address] [place] [address] [place] Phosphate SerPl-mCncon 10-09 Phosphate [Mass/Vol] 2.9 mg/dL Normal 2.7-4.8 [facility] Comment on above: Order Comment: Speci men Type: BLOOD SPECIMENOrdering Facility: [facility] Address: [address] [place] [address] Performed By: #### 4 3408-4, 635-3 #### [facility] CLIA [id number] [address] [place] [address] [place] ANES PRE-OPon 10-08-2024 ANES PRE-OP HNO ID: [id number] Author: FRANSISCO KING DO Service: Anesthesiology Author Type: Physician Type: Anesthesia Preprocedure Evaluation Filed: 10/08/2024 12:42 Note Text: ANESTHESIOLOGY DAY OF SURGERY NOTE : 1950 Procedure Information Date/Time: 10/08/24 1045 Procedure: POSTERIOR SEGMENTAL INSTRUMENTATION FOLLOWING CERVICAL FUSION 3-6 LEVELS (Bilateral: Neck) Location: [place] / [place] Surgeons: Penny Garay MD Estimated body mass index is 20.23 kg/m? as calculated from the following: Height as of this encounter: 180.3 cm (5' 11). Weight as of this encounter: 65.8 kg (145 lb 1 oz). Most recent hematocrit and potassium results: Hematocrit 38.4 10/08/2024 Potassium 3.4 10/08/2024 Relevant Problems Neurology (+) Cervical cord compression with myelopathy (HCC) (+) Parkinson disease (HCC) Infectious Disease (+) Spinal epidural abscess (HCC) Other (+) Septic arthritis of vertebra I - PHYSICAL EVALUATION AIRWAY Patient intubated: No. Tracheostomy tube not present Mallampati: II. TM distance: >3 FB. Neck ROM: limited extension. Mouth opening: adequate. Short neck: no. Thick neck: no Burris present: yes DENTAL Dental findings: edentulous. Additional exam findings: yes. CARDIOVASCULAR Normal cardiovascular observations. PULMONARY Normal pulmonary observations. II - ANESTHESIA PLAN ASA Score: 4 Anesthetic Plan: general Airway type: ETT NPO Status: adequate Anesthetic plan additional comments: Icu postop Possible postoperative respiratory failure requiring prolonged mechanical ventilation Possible central line Possible blood products. Beta Raymond Monitoring Plan Monitoring plan: standard ASA and invasive hemodynamic monitoring. Monitoring method: arterial Line Post Procedure Analgesic Plan Postoperative analgesic plan: parenteral or oral opioids, multimodal analgesia and go to ICU. Informed Consent Anesthetic risks, benefits, alternatives, personnel and consent discussed: yes. Patient / Responsible Constitution Party agrees to proceed: yes Patient / Surrogate agrees to blood products: Yes Significant changes in the patient condition since the History and Physical, not otherwise documented in primary service progress note: no. Vitals Value Taken Time BP 145/83 10/08/24 1200 Pulse 106 10/08/24 1239 Resp 25 10/08/24 1239 Temp SpO2 95 % 10/08/24 1239 Vitals shown include unfiled device data. Facility-Administered Medications as of 10/07/2024 Medication Dose Route Frequency oxyCODONE IR 2.5-5 mg tab(s) (ROXICODONE) 2.5-5 mg ORAL/FEEDING TUBE q 6 H PRN gabapentin 300 mg cap(s) (NEURONTIN) 300 mg ORAL/FEEDING TUBE q 12 H niCARdipine iv infusion 40 mg in NaCl (iso-osmotic) 200 mL (CARDENE) 2.5-15 mg/hr INTRAVENOUS CONTINUOUS sodium chloride 0.9 % (flush) 2-10 mL (BD POSIFLUSH) 2-10 mL INTRAVENOUS DIRECTED PRN And perflutren lipid microspheres 1.1 mg/mL 1.3 mL injection (DEFINITY) 1.3 mL INTRAVENOUS DIRECTED PRN carbidopa-levodopa CR 50-200 mg 1 tablet (SINEMET CR) 1 tablet ORAL ONCE iv contrast (radiology procedure) INTRAVENOUS DIRECTED PRN iv contrast (radiology procedure) INTRAVENOUS DIRECTED PRN iv contrast (radiology procedure) INTRAVENOUS DIRECTED PRN [COMPLETED] carbidopa-levodopa CR 50-200 mg 1 tablet (SINEMET CR) 1 tablet ORAL ONCE [COMPLETED] diazePAM 2.5 mg injection (VALIUM) 2.5 mg INTRAVENOUS ONCE [COMPLETED] NaCl 0.9% 500 mL iv bolus 500 mL INTRAVENOUS ONCE vancomycin dosing and monitoring per pharmacy OTHER As Directed cefepime 2 g in D5W 100 mL Vial-Bag (MAXIPIME) 2 g INTRAVENOUS q 8 H metroNIDAZOLE iv piggyback 500 mg in NaCl (iso-osmotic) 100 mL (FLAGYL) 500 mg INTRAVENOUS q 8 H NaCl 0.9% iv flush bag 20 mL INTRAVENOUS PRN [COMPLETED] vancomycin iv piggyback 1 g in D5W 200 mL (VANCOCIN) 0.015 g/kg/dose INTRAVENOUS ONCE senna-docusate 8.6-50 mg 1 tablet (SENNA-S) 1 tablet ORAL/FEEDING TUBE BID bisacodyl 10 mg suppository (DULCOLAX) 10 mg RECTAL DAILY PRN ondansetron (PF) 4 mg injection (ZOFRAN) 4 mg INTRAVENOUS q 4 H PRN NaCl 0.9% iv infusion 100 mL/hr INTRAVENOUS CONTINUOUS acetaminophen 650 mg tab(s) (TYLENOL) 650 mg ORAL/FEEDING TUBE q 4 H PRN potassium chloride ER 20-40 mEq tab(s) (KLOR-CON) 20-40 mEq ORAL/FEEDING TUBE PRN Or potassium chloride iv piggyback 20 mEq/100 mL 20 mEq INTRAVENOUS PRN magnesium sulfate iv piggyback in sterile water 2 g 50 mL 2 g INTRAVENOUS PRN phosphorus 500 mg tab(s) (K PHOS NEUTRAL) 500 mg ORAL/FEEDING TUBE PRN(NO DISPENSE) calcium gluconate 4 g in NaCl 0.9% 250 mL 4 g INTRAVENOUS PRN No current outpatient medications on file as of 10/07/2024. I have interviewed and examined the patient. I have reviewed the medical record and/or the pre-anesthesia evaluation, pertinent labs, and test results. This contains updated information obtained within 48 hours of Surgery/Procedure. SIGNATURE: Fransisco King DO PATIENT NAME: Phillip Jesus (more content not included)... Normal [facility] BRIEF OP NOTon 10-08-2024 BRIEF OP NOT HNO ID: [id number] Author: PING HAMILTON MD Service: Orthopaedic Surgery Author Type: Resident Type: Brief Op Note Filed: 10/08/2024 17:17 Note Text: BRIEF OPERATIVE / PROCEDURE NOTE LOG ID: [id number] SURGERY/PROCEDURE DATE: 10/08/2024 INCISION/PROCEDURE START TIME: 2:27 PM INCISION CLOSE/PROCEDURE END TIME: 4:43 PM SURGEON(S)/PROCEDURALIST(S ) AND SWIMMING POOL MAINTENANCE(S): Surgeons and Role: * Penny Garay MD - Primary * Ping Hamilton MD - Resident - Assisting Nurse Practitioner: Poncho Martinez APRN.MANUFACTURING TEST ENGINEER Physician Sweetbread Trimmer: Didier Chapa PA-C; Valentino Bertrand PA-C SURGERY/PROCEDURE(S): C3-C6 posterior spinal fusion ANESTHESIA: Choice - Anesthesia Consult FINDINGS: See op note FLUIDS: Per anesthesia ESTIMATED BLOOD LOSS: 100 ml ANTIBIOTICS: Ancef 2g SPECIMENS: C3-C4 facet swab x3, phlegmon COMPLICATIONS: None PRE-OP/PRE-PROCEDURE DIAGNOSIS: C3-C4 septic facet, C3-C4 epidural abscess POST-OP/POST-PROCEDURE DIAGNOSIS: same as pre-op Post-Operative Plan: -MAP goals >80 x 3 days -Medical management: per primary -Pain control -PT/OT -[place] consult for [place] -PMR consult for myelopathy -Antibiotics: Cefepime, Vanc, Flagyl per primary/ID, Ancef 2g x 2 doses -DVT ppx: SCDs, can start heparin 5000 BID morning of POD2 -Diet: per primary -Imaging: cervical uprights when able -Dressing: gauze, tegederms -Drains: posterior cervical drain -Dispo: pending clinical disposition Ping Hamilton MD Orthopaedic Surgery - PGY1 October 08, 2024 5:06 PM Please page [phone] from 5p-6a and on weekends for any issues. Normal [facility] Bacteria Spec Anaerobe Culto n 10-08-2024 Bacteria identified Anaer cx Nom (Unsp spec) ORGANISM ID: 1 Rare Cutibacterium (Propionibacterium) acnes Susceptibility testing on C. acnes not performed due to predictable susceptibility to penicillin. C. acnes is intrinsically resistant to metronidazole. Normal [facility] Comment on above: Performed By: #### 4 3408-4, 635-3 ####[facility] [id number] [address] Bacteria identified Anaer cx Nom (Unsp spec) ORGANISM ID: 1 One colony Cutibacterium (Propionibacterium) acnes Susceptibility testing on C. acnes not performed due to predictable susceptibility to penicillin. C. acnes is intrinsically resistant to metronidazole. [facility] Comment on above: Performed By: #### 6 462-6, 635-3 #### [facility] CLIA [id number] [address] Bacteria identified Anaer cx Nom (Unsp spec) ORGANISM ID: 1 Rare Cutibacterium (Propionibacterium) acnes Susceptibility testing on C. acnes not performed due to predictable susceptibility to penicillin. C. acnes is intrinsically resistant to metronidazole. Normal [facility] Comment on above: Performed By: #### 4 3408, 54-3 ####[facility] [id number] [address] Bacteria identified Anaer cx Nom (Unsp spec) Negative Normal [facility] Comment on above: Performed By: #### 6 4604-08, 90-3 ####[facility] [id number] [address] [place] Bacteria Tiss Culton 025 Bacteria identified Cx Nom (Tiss) CULTURE, TISSUE: No growth 5 days GRAM STAIN: No organisms seen No Polymorphonuclear Leukocytes [facility] Comment on above: Performed By: #### 4 3408 055-3 ####[facility] [id number] [address] [place] Bacteria identified Cx Nom (Tiss) CULTURE, TISSUE: No growth 5 days GRAM STAIN: No organisms seen No Polymorphonuclear Leukocytes [facility] Comment on above: Performed By: #### 4 3408-, 735-3 #### [facility] CLIA [id number] [address] [place] Bacteria Wnd Culton 10-09-19 25 Bacteria identified Cx Nom (Wound) CULTURE, WOUND: No growth 3 days GRAM STAIN: No organisms seen Few Polymorphonuclear leukocytes Many Red Blood Cells Normal [facility] Comment on above: Performed By: #### 6 462-4, 725-3 #### [facility] CLIA [id number] [address] Bacteria identified Cx Nom (Wound) CULTURE, WOUND: No growth 3 days GRAM STAIN: No organisms seen No Polymorphonuclear Leukocytes Normal [facility] Comment on above: Performed By: #### 6 246-1, 545-3 ####[facility] [id number] [address] OF [facility] CBC W Auto Differential pane l (Bld)on 10-08-2024 Basophils (Bld) [#/Vol] 0.03 10*3/uL Normal <0.11 [facility] Comment on above: Order Comment: Speci men Type: BLOOD SPECIMENOrdering Facility: [facility] Address: [address] [place] [address] Performed By: #### 6 840-6, 300-3 #### [facility] CLIA [id number] [address] Basophils/100 WBC (Bld) 0.5 % Normal [facility] Comment on above: Order Comment: Speci men Type: BLOOD SPECIMENOrdering Facility: [facility] Address: [address] [place] [address] Performed By: #### 6 539-0, 259-3 #### [facility] CLIA [id number] [address] Differential cell count method Nom (Bld) Auto Normal [facility] Comment on above: Order Comment: Speci men Type: BLOOD SPECIMENOrdering Facility: [facility] Address: [facility] [place] [address] Performed By: #### 6 024-0, 376-3 #### [facility] CLIA [id number] [address] OF [facility] Eosinophils (Bld) [#/Vol] 0.34 10*3/uL Normal <0.46 [facility] Comment on above: Order Comment: Speci men Type: BLOOD SPECIMENOrdering Facility: [facility] Address: [address] [place] [address] Performed By: #### 6 462-2, 545-6 #### [facility] CLIA [id number] [address] Eosinophils/100 WBC (Bld) 6.0 % Normal [facility] Comment on above: Order Comment: Speci men Type: BLOOD SPECIMENOrdering Facility: [facility] Address: [address] [place] [address] Performed By: #### 6 465-1, 576-9 #### [facility] CLIA [id number] [address] Erythrocyte distribution width (RBC) [Ratio] 12.5 % Normal 11.5-15.0 [facility] Comment on above: Order Comment: Speci men Type: BLOOD SPECIMENOrdering Facility: [facility] Address: [address] [place] [address] Performed By: #### 6 463-9, 273-4 #### [facility] CLIA [id number] 1 [address] [place] Hematocrit (Bld) [Volume fraction] 38.4 % Low 39.0-51.0 [facility] Comment on above: Order Comment: Speci men Type: BLOOD SPECIMENOrdering Facility: [facility] Address: [address] [place] [address] Performed By: #### 6 521-9, 406-2 #### [facility] CLIA [id number] [address] Hemoglobin (Bld) [Mass/Vol] 13.4 g/dL Normal 13.0-17.0 [facility] Comment on above: Order Comment: Speci men Type: BLOOD SPECIMENOrdering Facility: [facility] Address: [address] [place] [address] Performed By: #### 6 462-2, 525-3 #### [facility] CLIA [id number] [address] Immature granulocytes (Bld) [#/Vol] 0.04 10*3/uL Normal <0.10 [facility] Comment on above: Order Comment: Speci men Type: BLOOD SPECIMENOrdering Facility: [facility] Address: [address] [place] [address] Performed By: #### 6 460-7, 055-3 #### [facility] CLIA [id number] [address] Immature granulocytes/100 WBC (Bld) 0.7 % Normal [facility] Comment on above: Order Comment: Speci men Type: BLOOD SPECIMENOrdering Facility: [facility] Address: [address] [place] [address] Performed By: #### 6 464-2, 215-3 #### [facility] CLIA [id number] [address] Lymphocytes (Bld) [#/Vol] 0.94 10*3/uL Low 1.00-4.00 [facility] Comment on above: Order Comment: Speci men Type: BLOOD SPECIMENOrdering Facility: [facility] Address: [address] [place] [address] Performed By: #### 6 464-2, 645-3 #### [facility] CLIA [id number] [address] Lymphocytes/100 WBC (Bld) 16.7 % Normal [facility] Comment on above: Order Comment: Speci men Type: BLOOD SPECIMENOrdering Facility: [facility] Address: [address] [place] [address] Performed By: #### 6 469-7, 669-3 #### [facility] CLIA [id number] [address] MCH (RBC) [Entitic mass] 32.6 pg Normal 26.0-34.0 [facility] Comment on above: Order Comment: Speci men Type: BLOOD SPECIMENOrdering Facility: [facility] Address: [address] [place] [address] Performed By: #### 6 4626, 675- #### [facility] CLIA [id number] [address] [place] MCHC (RBC) [Mass/Vol] 34.9 g/dL Normal 30.5-36.0 [facility] Comment on above: Order Comment: Speci men Type: BLOOD SPECIMENOrdering Facility: [facility] Address: [address] [place] [address] Performed By: #### 6 462-2, 931-5 #### [facility] CLIA [id number] [address] STATES OF [facility] MCV (RBC) [Entitic vol] 93.4 fL Normal 80.0-100.0 [facility] Comment on above: Order Comment: Speci men Type: BLOOD SPECIMENOrdering Facility: [facility] Address: [address] [place] [address] Performed By: #### 6 467-6, 734-2 #### [facility] CLIA [id number] [address] Monocytes (Bld) [#/Vol] 0.41 10*3/uL Normal <0.87 [facility] Comment on above: Order Comment: Speci men Type: BLOOD SPECIMENOrdering Facility: [facility] Address: [address] [place] [address] Performed By: #### 6 468-5, 965-9 #### [facility] CLIA [id number] [address] Monocytes/100 WBC (Bld) 7.3 % Normal [facility] Comment on above: Order Comment: Speci men Type: BLOOD SPECIMENOrdering Facility: [facility] Address: [address] [place] [address] Performed By: #### 6 468-2, 065-3 #### [facility] CLIA [id number] [address] [place] Neutrophils (Bld) [#/Vol] 3.88 10*3/uL Normal 1.45-7.50 [facility] Comment on above: Order Comment: Speci men Type: BLOOD SPECIMENOrdering Facility: [facility] Address: [address] [place] [address] Performed By: #### 6 468-5, 125-3 #### [facility] CLIA [id number] [address] [place] Neutrophils/100 WBC (Bld) 68.8 % Normal [facility] Comment on above: Order Comment: Speci men Type: BLOOD SPECIMENOrdering Facility: [facility] Address: [address] [place] [address] Performed By: #### 6 464-3, 624-3 #### [facility] CLIA [id number] [address] [place] Nucleated RBC (Bld) [#/Vol] 10*3/uL Normal <0.01 [facility] Comment on above: Order Comment: Speci men Type: BLOOD SPECIMENOrdering Facility: [facility] Address: [address] [place] [address] Performed By: #### 6 467-1, 266-3 #### [facility] CLIA [id number] [address] [place] Nucleated RBC/100 WBC (Bld) [Ratio] 0.0 /100 WBC Normal [facility] Comment on above: Order Comment: Speci men Type: BLOOD SPECIMENOrdering Facility: [facility] Address: [address] [place] [address] Performed By: #### 6 461-5, 188-3 #### [facility] CLIA [id number] [address] [place] Platelet mean volume (Bld) [Entitic vol] 9.7 fL Normal 9.0-12.7 [facility] Comment on above: Order Comment: Speci men Type: BLOOD SPECIMENOrdering Facility: [facility] Address: [address] [place] [address] Performed By: #### 6 462-6 635-3 #### [facility] CLIA [id number] [address] [place] Platelets (Bld) [#/Vol] 184 10*3/uL Normal 150-400 [facility] Comment on above: Order Comment: Speci men Type: BLOOD SPECIMENOrdering Facility: [facility] Address: [address] [place] [address] Performed By: #### 6 462-6 635-3 #### [facility] CLIA [id number] [address] OF [facility] RBC (Bld) [#/Vol] 4.11 10*6/uL Low 4.20-6.00 [facility] Comment on above: Order Comment: Speci men Type: BLOOD SPECIMENOrdering Facility: [facility] Address: [address] [place] [address] Performed By: #### 6 462-6 635-3 #### [facility] CLIA [id number] [address] [place] WBC (Bld) [#/Vol] 5.64 10*3/uL Normal 3.70-11.00 [facility] Comment on above: Order Comment: Speci men Type: BLOOD SPECIMENOrdering Facility: [facility] Address: [address] [place] [address] Performed By: #### 6 462-6 635-3 #### [facility] CLIA [id number] [address] CONSULT PROGon 10-08-2024 CONSULT PROG HNO ID: [id number] Author: LAI AC RPh Service: Pharmacy Author Type: Pharmacist Type: Consult Progress Note Filed: 10/08/2024 19:30 Note Text: PHARMACY VANCOMYCIN DOSING NOTE Patient Name: Phillip Jesus Admission Date: 10/07/2024 Date of Consult: 10/08/2024 Time of Consult: 7:24 PM Indication: INFORMATION ASSURANCE SPECIALIST infection Goal Range: 15-20 mcg/mL RECOMMENDATIONS/PLAN: Pharmacy consulted for vancomycin dosing for Phillip Jesus, a 74 year old male. 1. Patient is currently ordered Vancomycin 1 g IV q12h. Today is day 1 of therapy. 1st dose (1 gm) given in ER @ 0102 today. Vancomycin 1 g with a dosing interval of q12h was suppose to be started @ 1300 today, but order was never entered. Therefore new order scheduled to start as soon as possible @1900. In addition, confirmed that only vancomycin powder was administered into the wound during OR procedure today according to Penny Rodríguez MD OR report from 10/08 @1319. 2. No vancomycin level has been drawn for this dosing regimen. 3. The present dose of vancomycin is the recommended dosage for this patient at this time. Continue therapy as prescribed. 4. The next vancomycin level has been ordered for 10/10 @0530. (Completed) We will follow patient renal function, vancomycin levels and doses with you during the course of therapy. Additional recommendations will appear in follow up notes. If you have any questions, [place] [phone]. Age: [age] year old Allergies: ALLERGIES No Known Allergies Last 3 Encounter Wt Readings: Date: Wt: 10/07/2024 65.8 kg (145 lb 1 oz) Last 1 Encounter Ht Readings: Date: Ht: 10/07/2024 180.3 cm (5' 11) CrCl: 91.4 mL/min Temp (24hrs), Av.6 ?C (97.9 ?F), Min:36.5 ?C (97.7 ?F), Max:36.8 ?C (98.2 ?F) - Current Temp: 36.8 ?C (98.2 ?F) Labs BUN (mg/dL) Date Value 10/08/2024 16 10/07/2024 19 Creatinine (mg/dL) Date Value 10/08/2024 0.68 (L) 10/07/2024 0.81 WBC (k/uL) Date Value 10/08/2024 5.64 10/07/2024 4.03 Vancomycin Levels: No results found for: ROSE Ac RPh [facility] CONSULT PROG HNO ID: [id number] Author: AISHWARYA GRANDE RPh Service: Pharmacy Author Type: Pharmacist Type: Consult Progress Note Filed: 10/08/2024 01:33 Note Text: PHARMACY VANCOMYCIN DOSING NOTE Patient Name: Phillip Jesus Admission Date: 10/07/2024 Date of Consult: 10/08/2024 Time of Consult: 12:36 AM Indication: INFORMATION ASSURANCE SPECIALIST infection Goal Range: 15-20 mcg/mL RECOMMENDATIONS/PLAN: Pharmacy consulted for vancomycin dosing for Phillip Jesus, a 74 year old male. 1. Patient is currently ordered Vancomycin 1 gram IV once. Today is day One of therapy. Dose given in ER @ 0102 today. Profile updated for future dosing. Patient presenting with Spinal epidural abscess, septic arthritis of vertebra, cervical cord compression with myelopathy, and Parkinson's disease. 2. No vancomycin level has been drawn for this dosing regimen. 3. Will schedule vancomycin to 1 g with a dosing interval of q12h. Dosing to start @ 1300 today. 4. The next vancomycin level has been ordered for 10-09-2024 @ 1100 prior 4th dose due to concern for goal/indication of therapy. (Completed) We will follow patient renal function, vancomycin levels and doses with you during the course of therapy. Additional recommendations will appear in follow up notes. If you have any [place] [phone]. Age: [age] year old Allergies: ALLERGIES No Known Allergies Last 3 Encounter Wt Readings: Date: Wt: 10/07/2024 65.8 kg (145 lb 1 oz) Last 1 Encounter Ht Readings: Date: Ht: 10/07/2024 180.3 cm (5' 11) CrCl: 76.7 mL/min Temp (24hrs), Av.5 ?C (97.7 ?F), Min:36.5 ?C (97.7 ?F), Max:36.5 ?C (97.7 ?F) - Current Temp: 36.5 ?C (97.7 ?F) Labs BUN (mg/dL) Date Value 10/07/2024 19 Creatinine (mg/dL) Date Value 10/07/2024 0.81 WBC (k/uL) Date Value 10/07/2024 4.03 Vancomycin Levels: No results found for: ROSE Sing[place], [facility] Normal [facility] Comprehensive metabolic 2000 panelon 10-08-2024 Albumin [Mass/Vol] 4.0 g/dL Normal 3.9-4.9 [facility] Comment on above: Order Comment: Speci men Type: BLOOD SPECIMENOrdering Facility: [facility] Address: [address] [place] [address] Performed By: #### 2 4323-8, , 2776-03 ####[facility] [id number] [address] [place] [facility] ALP [Catalytic activity/Vol] 71 U/L Normal 38-113 [facility] Comment on above: Order Comment: Speci men Type: BLOOD SPECIMENOrdering Facility: [facility] Address: [address] [place] [address] Performed By: #### 2 4323-8, , 2776-03 ####[facility]IA [id number] [address] [place] [facility] ALT With P-5'-P [Catalytic activity/Vol] U/L Low 10-54 [facility] Comment on above: Order Comment: Speci men Type: BLOOD SPECIMENOrdering Facility: [facility] Address: [address] [place] [address] Performed By: #### 2 4323-8, , 2776-03 ####[facility]ORY[facility]IA [id number] [address] STATES OF [facility] Anion gap [Moles/Vol] 8 mmol/L Normal 8-15 [facility] Comment on above: Order Comment: Speci men Type: BLOOD SPECIMENOrdering Facility: [facility] Address: [address] [place] [address] Performed By: #### 2 4323-8, , 2776-03 ####[facility]ORYCLIA [id number] [place] [address] [place] AST With P-5'-P [Catalytic activity/Vol] 16 U/L Normal 14-40 [facility] Comment on above: Order Comment: Speci men Type: BLOOD SPECIMENOrdering Facility: [facility] Address: [address] [place] [address] Performed By: #### 2 4323-8, , 2776-03 ####[facility]ORYCLIA [id number] [place] [address] [place] Bilirubin [Mass/Vol] 0.8 mg/dL Normal 0.2-1.3 [facility] Comment on above: Order Comment: Speci men Type: BLOOD SPECIMENOrdering Facility: [facility] Address: [address] [place] [address] Performed By: #### 2 4323-8, , 2776-03 ####[facility]ORYCLIA [id number] [place] [address] [place] Calcium [Mass/Vol] 9.1 mg/dL Normal 8.5-10.2 [facility] Comment on above: Order Comment: Speci men Type: BLOOD SPECIMENOrdering Facility: [facility] Address: [address] [place] [address] Performed By: #### 2 4323-8, , 2776-03 ####[facility]ORYCLIA [id number] [place] [address] [place] Chloride [Moles/Vol] 108 mmol/L High 98-107 [facility] Comment on above: Order Comment: Speci men Type: BLOOD SPECIMENOrdering Facility: [facility] Address: [address] [place] [address] Performed By: #### 2 4323-8, , 2776-03 ####[facility]ORYCLIA [id number] [place] [id number] [place] CO2 [Moles/Vol] 26 mmol/L Normal 22-30 [facility] Comment on above: Order Comment: Speci men Type: BLOOD SPECIMENOrdering Facility: [facility] Address: [address] [place] [address] Performed By: #### 2 4323-8, , 2776-03 ####[facility]ORYCLIA [id number] [place] [id number] [place] Creatinine [Mass/Vol] 0.68 mg/dL Low 0.73-1.22 [facility] Comment on above: Order Comment: Speci men Type: BLOOD SPECIMENOrdering Facility: [facility] Address: [address] [place] [address] Performed By: #### 2 4323-8, , 2776-03 ####[facility] [id number] [place] [address] [place] eGFRcr SerPlBld CKD-EPI 2020 99 mL/min/1.73m??? Normal >=60 [facility] Comment on above: Order Comment: Speci men Type: BLOOD SPECIMENOrdering Facility: [facility] Address: [address] [place] [address] Result Comment: Gifty mated Glomerular Filtration Rate (eGFR) is calculated using the 2020 CKD-EPI creatinine equation. This equation utilizes serum creatinine, sex, and age as parameters. The creatinine assay has traceable calibration to isotope dilution-mass spectrometry. Refer to KDIGO guidelines for clinical interpretation. In patients with unstable renal function, e.g. those with acute kidney injury, the eGFR may not accurately reflect actual GFR. Performed By: #### 2 4323-8, , 2776-03 ####[facility]ORYCLIA [id number] [place] [id number] [place] Glucose [Mass/Vol] 101 mg/dL High 74-99 [facility] Comment on above: Order Comment: Speci men Type: BLOOD SPECIMENOrdering Facility: [facility] Address: [address] [place] [address] Result Comment: The [place] Diabetes Association (ADA) provides guidance for cutoff values for fasting glucose and random glucose. The ADA defines fasting as no caloric intake for at least 8 hours. Fasting plasma glucose results between 100 to 125 mg/dL indicate increased risk for diabetes (prediabetes). Fasting plasma glucose results greater than or equal to 126 mg/dL meet the criteria for diagnosis of diabetes. In the absence of unequivocal hyperglycemia, results should be confirmed by repeat testing. In a patient with classic symptoms of hyperglycemia or hyperglycemic crisis, random plasma glucose results greater than or equal to 200 mg/dL meet the criteria for diagnosis of diabetes. Reference: Standards of Medical Care in Diabetes 2016, [place] [employer] Association. Diabetes Care. 2016.39(Suppl 1). Performed By: #### 2 4323-8, , 2776-03 ####[facility]ATORYCLIA [id number] [place] [address] [place] Potassium [Moles/Vol] 3.4 mmol/L Low 3.7-5.1 [facility] Comment on above: Order Comment: Dwayne cheung Type: BLOOD SPECIMENOrdering Facility: [facility] Address: [address] [place] [address] Performed By: #### 2 4323-8, , 2776-03 ####[facility]ATORYCLIA [id number] [place] [address] [place] Protein [Mass/Vol] 6.6 g/dL Normal 6.3-8.0 [facility] Comment on above: Order Comment: Dwayne cheung Type: BLOOD SPECIMENOrdering Facility: [facility] Address: [address] [place] [address] Performed By: #### 2 4323-8, , 2776-03 ####[facility]ORYCLIA [id number] [place] [id number] [place] Sodium [Moles/Vol] 142 mmol/L Normal 136-144 [facility] Comment on above: Order Comment: Dwayne men Type: BLOOD SPECIMENOrdering Facility: [facility] Address: [address] [place] [address] Performed By: #### 2 4323-8, , 2776-03 ####[facility]ATORYCLIA [id number] [place] [address] [place] Urea nitrogen [Mass/Vol] 16 mg/dL Normal 9-24 [facility] Comment on above: Order Comment: Speci men Type: BLOOD SPECIMENOrdering Facility: [facility] Address: [address] [place] [address] Performed By: #### 2 4323-8, 28797-3, 2777-1 ####[facility]ORYCLIA [id number] [place] [id number] [place] ECG COMPLETEon 10-08-2024 ECG COMPLETE Ventricular Rate : 8 4 BPM Atrial Rate : 84 BPM P-R Interval : 168 ms QRS Duration : 86 ms Q-T Interval : 414 ms QTC Calculation(Bazett) : 489 ms Calculated P [place] : 70 degrees Calculated R [place] : -23 degrees Calculated T [place] : 71 degrees NORMAL SINUS RHYTHM NONSPECIFIC ST AND T WAVE ABNORMALITY PROLONGED QT ABNORMAL ECG NO PREVIOUS ECGS AVAILABLE Confirmed by ALICIA LAZAR MD ([id number]) on 10/08/2024 9:53:13 AM NAME : PHILLIP JESUS PID : [id number] : 1950 Gender : Male Race : ORD : [id number] Procedure Date : Oct 08 2024 05:27:16 Edit Date : Oct 08 2024 09:53:16 Diagnosis: NORMAL SINUS RHYTHM NONSPECIFIC ST AND T WAVE ABNORMALITY PROLONGED QT ABNORMAL ECG NO PREVIOUS ECGS AVAILABLE Confirmed by ALICIA LAZAR MD ([id number]) on 10/08/2024 9:53:13 AM Test Reason : Pre-OP Location : 4 : [place] Overread By : ALICIA LAZAR MD Edited By : ALICIA LAZAR MD Referred By : , Acquired by : CHUCK BAH [facility] ED NOTEon 10-08-2024 ED NOTE HNO ID: [id number] Author: ROSE WILSON RN Service: Emergency Medicine Author Type: Registered Nurse Type: ED Notes Filed: 10/08/2024 13:04 Note Text: Pharmacy called regarding pt Sinemet Normal [facility] ED NOTE HNO ID: [id number] Author: ROSE WILSON RN Service: Emergency Medicine Author Type: Registered Nurse Type: ED Notes Filed: 10/08/2024 13:01 Note Text: RN called away from pt care d/t care for critical pt. [facility] ED NOTE HNO ID: [id number] Author: ROSE WILSON RN Service: Emergency Medicine Author Type: Registered Nurse Type: ED Notes Filed: 10/08/2024 11:31 Note Text: Message sent to Tereza Galdamez APRN regarding pt BP remaining >230 systolic, pt still asymptomatic. No new orders. [facility] ED NOTE HNO ID: [id number] Author: ROSE WILSON RN Service: Emergency Medicine Author Type: Registered Nurse Type: ED Notes Filed: 10/08/2024 11:15 Note Text: Notified Tereza Galdamez APRN, from neuro about pt arterial line BP having systolic >200. No new orders at this time. Pt asymptomatic at this time. [facility] ED NOTE HNO ID: [id number] Author: CHUCK BAH RN Service: Emergency Medicine Author Type: Registered Nurse Type: ED Notes Filed: 10/08/2024 05:55 Note Text: JE Tavares notified of pt QTC [facility] ED NOTE HNO ID: [id number] Author: CHUCK BAH RN Service: Emergency Medicine Author Type: Registered Nurse Type: ED Notes Filed: 10/08/2024 05:48 Note Text: Report called to presurgery. Presurgery to get pt at 0930. [facility] ED NOTE HNO ID: [id number] Author: LUCRETIA SOLITARIO RN Service: Emergency Medicine Author Type: Registered Nurse Type: ED Notes Filed: 10/08/2024 04:55 Note Text: Pt report given to chuck COSBY [facility] ED NOTE HNO ID: [id number] Author: NELLIE PRASAD RN Service: ? Author Type: Registered Nurse Type: ED Notes Filed: 10/08/2024 04:48 Note Text: Bed: 08-ED Expected date: Expected time: Means of arrival: Comments: 11 [facility] ED NOTE HNO ID: [id number] Author: SWIM, LUCRETIA, RN Service: Emergency Medicine Author Type: Registered Nurse Type: ED Notes Filed: 10/08/2024 02:42 Note Text: Pt seen shaking his whole body from outside of room. Pt states it is because of his restless leg syndrome. NICU PA messaged again asking for medication Normal [facility] ED NOTE HNO ID: [id number] Author: LUCRETIA SOLITARIO RN Service: Emergency Medicine Author Type: Registered Nurse Type: ED Notes Filed: 10/08/2024 01:29 Note Text: Pt c/o cramping pain in right leg. NICU JE made aware via secure chat message Normal [facility] ED NOTE HNO ID: [id number] Author: LUCRETIA SOLITARIO, ALEA Service: Emergency Medicine Author Type: Registered Nurse Type: ED Notes Filed: 10/08/2024 00:41 Note Text: NICU PA sent secure chat message to be made aware pt family requesting his parkinsons medication be ordered Normal [facility] ED NOTE HNO ID: [id number] Author: LUCRETIA SOLITARIO RN Service: Emergency Medicine Author Type: Registered Nurse Type: ED Notes Filed: 10/08/2024 00:41 Note Text: JOSE ANGEL WOOTEN at bedside Normal [facility] HISTORY PHYSICALon HISTORY PHYSICAL HNO ID: [id number] Author: MAE TAVARES PA-C Service: Neurology ICU Author Type: Physician Sweetbread Trimmer Type: H&P Filed: 10/08/2024 00:30 Note Text: SERVICE DATE: 10/08/2024 SERVICE TIME: 12:28 AM NEUROLOGICAL INTENSIVE CARE UNIT HISTORY AND PHYSICAL REASON FOR ADMISSION: C3-C4 compressive epidural abscess. Need for close neurologic monitoring Subjective HPI: Patient is a 74 year old male with past medical history of Parkinson's disease who presented to the ED on 10/07 with complaint of worsening weakness for the past 1 month. Patient suffered a mechanical fall one month ago as he was ambulating without his assisted device. Since, he endorses progressive decline in function w/ progressive RUE/RLE weakness and numbness. 1 week ago he was able to use a walker and now he is unable to ambulate at all. Endorses pain in his neck. Denies changes in bowel or bladder. MRI at outside hospital demonstrating cervical cord compression. Concern for C3-C4 septic arthritis with compressive epidural abscess. Ortho spine planning for surgical intervention 10/08. Recommending NSICU admission for q1h neuro checks and MAP >80. No past medical history on file. No past surgical history on file. No family history on file. ALLERGIES No Known Allergies PRIOR TO ADMISSION MEDICATIONS: (Not in a hospital admission) Employer And Job Title: None on file Years Of Education Completed: Not specified Marital Status: REVIEW OF SYSTEMS: COMPLETE REVIEW OF SYSTEMS PAIN ASSESSMENT: Current pain level 08/10 GENERAL: No weight loss, malaise or fevers HEENT: No changes in hearing or vision, no nose bleeds or other nasal problems. and Negative for frequent or significant headaches NECK: Positive for pain RESPIRATORY: Negative for cough, wheezing or shortness of breath. CARDIOVASCULAR: Negative for chest pain, leg swelling or palpitations. GI: Negative for abdominal discomfort, blood in stools or black stools or change in bowel habits. MUSCULOSKELETAL: Back pain and Muscular weakness, RLS SKIN: Negative for lesions, rash, and itching. HEMATOLOGY/LYMPHOLOGY: Negative for prolonged bleeding, bruising easily or swollen nodes. NEURO: Positive for Parkinson's disease Objective Vital Signs (Last 24hrs min/max): BP 152/107 Pulse 71 Temp 36.5 ?C (97.7 ?F) (Oral) Resp 20 Ht 180.3 cm (5' 11) Wt 65.8 kg (145 lb 1 oz) SpO2 97% BMI 20.23 kg/m? PHYSICAL EXAM: NEUROLOGICAL: Awake, alert and oriented x3. PERRL. EOMI. Face symmetric. Following all commands. C-collar in place. GCS: Eyes: 4. Spontaneous Verbal: 5: Oriented Motor: 6: Obeys Motor commands Total: 15 MOTOR STRENGTH: 3/5 proximally - biceps/triceps/deltoid, 4/5 bolt man on the Right UE. 5/5 on the LUE. RLE 3/5 proximally, 4/5 plantarflexion. LLE 4/5. SENSATION: Diminished light touch on RLE>RUE CV: RRR Pulm: CTA bilaterally, even and unlabored on RA GI/: Abdomen soft, non tender Skin/Extremities: Edema- No Peripheral pulses- Present all extremities Wounds/Drsgs- No DATA: Diagnostic tests reviewed for today's visit: Most recent labs and imaging results. Personally reviewed Lines, Drains, and Airways Line Duration Peripheral 10/07/24 1706 [facility] Right Forearm 20 Gauge <1 day Drain Duration External Collection Device 10/07/24 1831 [facility] <1 day PERSONAL INVOLVEMENT IN CARE: Reviewing initiation, responses and adjustments to therapies, coordination of care, and updating family with Staff Physician, Dr. Fitzpatrick. Assessment AND Plan Active Hospital Problems as of 10/08/2024 Noted - Resolved [facility] Parkinson disease (HCC) 10/07/2024 - Present Yes Current Assessment AND Plan - Continue home Sinemet Cervical cord compression with myelopathy (HCC) 10/07/2024 - Present Yes Current Assessment AND Plan Plan: See spinal epidural abscess Septic arthritis of vertebra 10/07/2024 - Present Yes Current Assessment AND Plan C3/C4 Right facet joint septic arthritis/osteomyelitis by MRI wwo contrast Plan: - IV Abx: Cefepime, vanc, flagyl - ID consult in AM - To OR in AM with ortho team * (Principal) Spinal epidural abscess ([facility]) 10/07/2024 - Present Yes Current Assessment AND Plan Assessment: MRI C/T/L spine w/wo contrast: 'Findings consistent with septic arthritis/osteomyelitis at the right C3/C4 facet joint with associated epidural abscess. Cord compression at C3/C4 predominantly due to disc osteophyte complex and ligamentum flavum hypertrophy, compounded by the epidural abscess. No cord signal abnormality. Mild signal abnormality and abnormal enhancement at the right C3/C4 endplate may represent a reactive osteitis or developing osteomyelitis. No definite signal abnormality or abnormal enhancement in the C3/C4 disc space. No evidence of a malignant process in the cervical spine. Thoracic and lumbar spine: Motion limited exam. No high-grade spinal canal or (more content not included)... Normal [facility] Magnesium SerPl-mCncon 10-08 Magnesium [Mass/Vol] 1.8 mg/dL Normal 1.7-2.3 [facility] Comment on above: Order Comment: Speci men Type: BLOOD SPECIMENOrdering Facility: [facility] Address: [address] [place] [address] Performed By: #### 2 4323-8, 77568-6, 2777-1 ####[facility] LABORATORYCLIA [id number] [address] OF [place] NURSING PROGon 10-08-2024 NURSING PROG HNO ID: [id number] Author: LUCRETIA SHAIKH RN Service: ? Author Type: Registered Nurse Type: Nursing Progress Note Filed: 10/08/2024 18:18 Note Text: Pt awake but not following commands, moving all extremities spontaneously but minimally. [facility] OPERATIVE NOon 10-08-2024 OPERATIVE NO HNO ID: [id number] Author: PENNY GARAY MD Service: Orthopaedic Surgery Author Type: Physician Type: Operative Report Filed: 10/12/2024 06:54 Note Text: OPERATIVE/PROCEDURE REPORT LOG ID: [id number] SURGERY/PROCEDURE DATE: 10/08/2024 INCISION/PROCEDURE START TIME: 2:27 PM INCISION CLOSE/PROCEDURE END TIME: 4:45 PM PRE-OP/PRE-PROCEDURE DIAGNOSIS: Cervical myelopathy Right C3-C4 septic facet C3-C4 epidural abscess POST-OP/POST-PROCEDURE DIAGNOSIS: Same PROCEDURE IN SUMMARY: C3-C6 posterior spinal fusion C3-C6 posterior spinal instrumentation C3, C4, C5 laminectomies for evacuation of epidural abscess Use of intraoperative neuromonitoring Application and removal of Haney chiseler head Increased Procedural Services (Modifier 22) Justification Infection: This case involved spinal infection with C3-C4 right septic facet, epidural abscess C3-C4 requiring extensive debridement of necrotic tissue and careful handling of infected bone and soft tissue. The infected area was highly friable and required increased attention to avoid dural injury or spread of infection. Reconstruction of the spine was more complex due to bone loss and inflammation. The effort, surgical risk, and intraoperative time exceeded standard expectations, supporting the use of Modifier 22. ANESTHESIA: Choice - Anesthesia Consult SURGEON(S)/PROCEDURALIST(S ) AND SWIMMING POOL MAINTENANCE(S): Surgeons and Role: * Penny Garay MD - Primary * Ping Hamilton MD - Resident - Assisting Nurse Practitioner: Poncho Martinez APRN.MANUFACTURING TEST ENGINEER Physician Sweetbread Trimmer: Didier Chapa PA-C; Valentino Bertrand PA-C Richard Patterson PA-C assisted during the entire operation due to the complexity of the case and no qualified available resident present and their involvement included: positioning the patient, surgical site preparation, draping, exposure, C3-C6 PSFI and laminectomies, and closure under supervision. SURGERY/PROCEDURE DETAILS: The patient was identified in the preoperative holding area. Consent and surgical level were verified. The risks, benefits, and alternatives of surgery were reviewed, and the patient accepted and desired to proceed. All questions were answered, and no guarantees were given or implied. The patient voiced an understanding of the surgical plan and postoperative care. The patient was taken to the operating room and after placement of intravenous lines, was intubated uneventfully by the Anesthesia team. A santos catheter was placed by the surgical team. Neuromonitoring electrodes were placed baseline MEP/SSEPs were obtained. A 3-point Haney head clamp was applied and the patient was carefully turned prone. All pressure points were padded and satisfactory positioning was confirmed by the surgical team. Neuromonitoring was stable after positioning. The patient was then prepped and draped in the usual fashion after marking the surgical incision based on external anatomic landmarks. Surgical time out was performed. A vertical midline incision was created with a #10 blade and the dissection was carried down to the spinous processes of C2-T1 with electrocautery. The muscles were elevated laterally using a subperiosteal dissection technique and self-retaining retractors were placed. The surgical field was exposed from the C3 lamina to C6 lamina. We confirmed our levels in a standard fashion. Manufacturing Test Engineer holes were created in the central aspect of the C3, C4, C5, C6 lateral masses bilaterally with a marva. An electric hand-held Magisto drill was then used to extend the entry points to 12 mm. A pedicle sounder was used to confirm patency of the holes without violation. We then removed the interspinous ligament at C2-C3 and C5-C6. Using the marva, bilateral troughs were drilled in the lamina-lateral mass junction bilaterally extending from C3 to C5. The lamina was removed en bloc. Dome laminectomy of C6 was performed using a Kerrison rongeur. Epidural abscess and phlegmon from right C3-C4 joint was debrided with kerrison. Specimen was sent to microbiology for culture. the Neuromonitoring demonstrated stable MEP/SSEPs upon removal of the lamina. The spinal cord was decompressed. The dura was carefully inspected and found to be free injury. The remaining ligamentum flavum was removed and foraminotomies were performed with a 2mm Kerrison punch. Nerve hook was used to ensure adequate decompression of the foramina and the neural elements were completely decompressed from C3 to C6. At this point, we placed screws in the C3, C4, C5, C6 lateral masses. We obtained fluoroscopy to confirm satisfactory placement and global cervical alignment. The wound was copiously irrigated. The cervical facet joints were decorticated bilaterally at C3-C4, C4-C5, C5-C6. We then placed appropriately sized titanium rods bilaterally and secured them with titanium caps. Local autograft was carefully placed bilaterally over the decorti (more content not included)... Normal [facility] Phosphate SerPl-mCncon 10-08 Phosphate [Mass/Vol] 2.6 mg/dL Low 2.7-4.8 [facility] Comment on above: Order Comment: Dwayne cheung Type: BLOOD SPECIMENOrdering Facility: [facility] Address: [address] [place] [address] Performed By: #### 2 4323-8, 20646-6, 2777-1 ####[facility]ORATORYCLIA [id number] [address] OF [facility] STAPHYLOCOCCUS AUREUS AND MR SA SCREEN, PCR, NASALon 10-08-2024 S. aureus and MRSA panel GOGO+probe (Nose) Methicillin-SUSCEPTIBLE Staphylococcus aureus Detected Abnormal Not Detected [facility] Comment on above: Order Comment: Dwayne chenug Type: BLOOD SPECIMEN [facility] Address: [address] [place] [address] Performed By: #### T SCR #### [facility] CLIA [id number] [address] [place] XR CERVICAL 2V AP/LATon XR CERVICAL 2V AP/LAT * * *Final Report* * * DATE OF EXAM: Oct 08 2024 4:03PM [facility] [id number] - XR CERVICAL 2V AP/LAT / PROCEDURE REASON: C3-6 PSFI * * * * Physician Interpretation * * * * EXAMINATION: XR CERVICAL 2V AP/LAT HISTORY: C3-6 PSFI TECHNIQUE: XR CERVICAL 2V AP/LAT 2 intraoperative fluoroscopic images of the cervical spine COMPARISON: 10/08/2024 RESULT: See impression IMPRESSION: 2 intraoperative fluoroscopic images demonstrating posterior instrumented fusion from C3-C6 Please see operative report for full details of the procedure. Total fluoroscopic time: 10 seconds Cumulative dose: 0.4187 mGy Marker Assembler: [facility] Transcribe Date/Time: Oct 11 2024 7:45A Dictated by : SUSANNA JOHNSON MD This examination was interpreted and the report reviewed and electronically signed by: SUSANNA JOHNSON MD on Oct 11 2024 7:46AM EST [id number] Normal [facility] XR CERVICAL 3V AP/LAT/ODONon 10-08-2024 XR CERVICAL 3V AP/LAT/ODON * * *Final Report* * * DATE OF EXAM: Oct 08 2024 12:07AM [id number] - XR CERVICAL 3V AP/LAT/ODON / PROCEDURE REASON: Spinal stenosis, cervical * * * * Physician Interpretation * * * * TECHNIQUE: XR CERVICAL 3V AP/LAT/ODON EXAM DATE: 10/08/2024 12:07 AM COMPARISON STUDIES: MRI and CT cervical spine 10/07/2024 CLINICAL HISTORY: Spinal stenosis. Pain. RESULT: Counting reference: Craniocervical junction. Anatomic Variants: None. Erosive changes related to the right-sided C3/4 facet joint seen on prior cross-sectional imaging not well seen on x-ray Vertebral body heights maintained Moderate disc space narrowing C7 with endplate osteophytes Facet and UVJ degenerative change Limited assessment on the odontoid film due to overlapping structures/positioning IMPRESSION: Erosive changes related to the right-sided C3/4 facet joint seen on prior cross-sectional imaging not well seen on x-ray Degenerative change Marker Assembler: [facility] Transcribe Date/Time: Oct 08 2024 9:44A Dictated by : PHIL HODGES MD This examination was interpreted and the report reviewed and electronically signed by: PHIL HODGES MD on Oct 08 2024 9:48AM EST [id number] Normal [facility] XR VERIFY LEVEL [id number] 10-08-2024 XR VERIFY LEVEL C-SPINE-NB * * *Final Report* * * DATE OF EXAM: Oct 08 2024 3:03PM [id number] - XR VERIFY LEVEL C-SPINE-NB / PROCEDURE REASON: LEVEL VERIFICATION * * * * Physician Interpretation * * * * EXAMINATION: XR VERIFY LEVEL C-SPINE-NB CLINICAL HISTORY: Intra-operative localization . C3-4 Central canal and foraminal stenosis. Right facet joint inflammatory changes and/or arthropathy TECHNIQUE: Lateral intraoperative image of the cervical spine with sagittal views on 1 images MQ: [id number] COMPARISON: 10/07/2024 CT and MRI RESULT: Counting Reference: Craniocervical junction on lateral view. Normal. Intra-operative localization: A localizing surgical instrument is noted, C3 spinous process . Image annotated with vertebral body levels and confirmed with the responsible surgeon at the time of interpretation. Other: IMPRESSION: A localizing surgical instrument is noted, C3 spinous process Anatomic Variant: None. Assume 7 cervical vertebrae with counting from the craniocervical junction. COMMUNICATION: Localization level(s) confirmed with Dr. Garay on 10/08/2024 at 1511 hours, via phone during the surgical procedure. Marker Assembler: [facility] Transcribe Date/Time: Oct 08 2024 3:10P Dictated by : HUANG EPPS MD This examination was interpreted and the report reviewed and electronically signed by: HUANG EPPS MD on Oct 08 2024 3:18PM EST [id number] Normal [facility] ALLIED HEALTHon 10-07-2024 ALLIED HEALTH HNO ID: [id number] Author: KEYONA GRAY Tech Service: ? Author Type: Technologist Type: Allied Health Filed: 10/07/2024 22:02 Note Text: Radiology Service Progress Note PATIENT NAME: Phillip Jesus DATE OF SERVICE: October 07, 2024 TIME: 10:02 PM PATIENT IDENTITY VERIFICATION COMPLETED USING TWO (2) IDENTIFIERS: Name and Date of confirmed by patient verbally and Name and Date of confirmed by identification band. FALL SCREENING: Has the patient had 2 falls in the last year or 1 fall with injury or currently using an Ambulatory Assistive Device (Walker, Cane, Wheelchair, Crutches, etc.)? Emergency Room Patient: Screened in ED PATIENT GENDER DATA: Assigned male at PATIENT RELEVANT IMPLANT DATA REVIEWED: Yes PATIENT PRESENTS WITH AN IMPLANTABLE OR ATTACHED SANITATION LEAD: No RADIOLOGY DEPARTMENT: CT; Exam(s) Completed: Spine PERIPHERAL IV DATA: Inpatient: see LDA documentation SIGNED BY: Tluio Roland October 07, 2024 10:02 PM Normal [facility] ALLIED HEALTH HNO ID: [id number] Author: SHELIA CARTAGENA MRI Tech Service: Radiology Author Type: [employer] Type: Allied Health Filed: 10/07/2024 21:01 Note Text: Radiology Service Progress Note DATE OF SERVICE: October 07, 2024 TIME: 9:00 PM PATIENT IDENTITY VERIFICATION COMPLETED USING TWO (2) STANDARD IDENTIFIERS: Name and Date of confirmed by patient verbally and Name and Date of confirmed by identification band. FALL SCREENING: Has the patient had 2 falls in the last year or 1 fall with injury or currently using an Ambulatory Assistive Device (Walker, Cane, Wheelchair, Crutches, etc.)? Emergency Room Patient: Screened in ED PATIENT GENDER DATA: Assigned male at PATIENT RELEVANT IMPLANT DATA REVIEWED: Yes PATIENT PRESENTS WITH AN IMPLANTABLE OR ATTACHED SANITATION LEAD: No ALLERGIES: Reviewed and unchanged CONTRAST ALLERGY: NO. EXAM: MRI - CONTRAST TYPE: GROUP II PERIPHERAL IV DATA: Inpatient - refer to [facility] documentation RADIOLOGY DEPARTMENT: MR; Exam(s) Completed: Spine: WHOLE spine. Aromatherapy Administered: No SIGNATURE: Shelia Cartagena grab jack worker PATIENT NAME: Phillip Jesus DATE: October 07, 2024 TIME: 9:00 PM Normal [facility] Bacteria Bld Culton 10-08-19 25 Bacteria identified Cx Nom (Bld) CULTURE, BLOOD: No growth 5 days Normal [facility] Comment on above: Performed By: #### 6 00-7 #### [facility] CLIA [id number] [address] [place] [address] [place] Basic metabolic 2000 panelon 10-07-2024 Anion gap [Moles/Vol] 11 mmol/L Normal 8-15 [facility] Comment on above: Order Comment: Speci men Type: BLOOD SPECIMEN [facility] Address: [address] [place] [address] Performed By: #### T SCR #### [facility] CLIA [id number] [address] [place] [address] [place] Calcium [Mass/Vol] 9.9 mg/dL Normal 8.5-10.2 [facility] Comment on above: Order Comment: Speci men Type: BLOOD SPECIMEN [facility] Address: [address] [place] [address] Performed By: #### T SCR #### [facility] CLIA [id number] [address] OF [facility] Chloride [Moles/Vol] 107 mmol/L Normal 98-107 [facility] Comment on above: Order Comment: Speci men Type: BLOOD SPECIMEN [facility] Address: [address] [place] [address] Performed By: #### T SCR #### [facility] CLIA [id number] [address] OF [facility] CO2 [Moles/Vol] 27 mmol/L Normal 22-30 [facility] Comment on above: Order Comment: Speci men Type: BLOOD SPECIMEN [facility] Address: [address] [place] [address] Performed By: #### T SCR #### [facility] CLIA [id number] [address] OF [facility] Creatinine [Mass/Vol] 0.81 mg/dL Normal 0.73-1.22 [facility] Comment on above: Order Comment: Speci men Type: BLOOD SPECIMEN [facility] Address: [address] [place] [address] Performed By: #### T SCR #### [facility] CLIA [id number] [address] [place] eGFRcr SerPlBld CKD-EPI 2020 94 mL/min/1.73m??? Normal >=60 [facility] Comment on above: Order Comment: Speci men Type: BLOOD SPECIMEN [facility] Address: [address] [place] [address] Result Comment: Gifty mated Glomerular Filtration Rate (eGFR) is calculated using the 2020 CKD-EPI creatinine equation. This equation utilizes serum creatinine, sex, and age as parameters. The creatinine assay has traceable calibration to isotope dilution-mass spectrometry. Refer to KDIGO guidelines for clinical interpretation. In patients with unstable renal function, e.g. those with acute kidney injury, the eGFR may not accurately reflect actual GFR. Performed By: #### T SCR #### [facility] CLIA [id number] [address] [place] [address] [place] Glucose [Mass/Vol] 106 mg/dL High 74-99 [facility] Comment on above: Order Comment: Dwayne cheung Type: BLOOD SPECIMEN [facility] Address: [address] [place] [address] Result Comment: The [place] Diabetes Association (ADA) provides guidance for cutoff values for fasting glucose and random glucose. The ADA defines fasting as no caloric intake for at least 8 hours. Fasting plasma glucose results between 100 to 125 mg/dL indicate increased risk for diabetes (prediabetes). Fasting plasma glucose results greater than or equal to 126 mg/dL meet the criteria for diagnosis of diabetes. In the absence of unequivocal hyperglycemia, results should be confirmed by repeat testing. In a patient with classic symptoms of hyperglycemia or hyperglycemic crisis, random plasma glucose results greater than or equal to 200 mg/dL meet the criteria for diagnosis of diabetes. Reference: Standards of Medical Care in Diabetes 2016, [place] Diabetes Association. Diabetes Care. 2016.39(Suppl 1). Performed By: #### T SCR #### [facility] CLIA [id number] [address] [place] [address] [place] Potassium [Moles/Vol] 3.6 mmol/L Low 3.7-5.1 [facility] Comment on above: Order Comment: Dwayne cheung Type: BLOOD SPECIMEN [facility] Address: [address] [place] [id number] Performed By: #### T SCR #### [facility] CLIA [id number] [address] [place] [address] [place] Sodium [Moles/Vol] 145 mmol/L High 136-144 [facility] Comment on above: Order Comment: Dwayne cheung Type: BLOOD SPECIMEN [facility] Address: [address] [place] [address] Performed By: #### T SCR #### [facility] CLIA [id number] [address] [place] [id number] [place] Urea nitrogen [Mass/Vol] 19 mg/dL Normal 9-24 [facility] Comment on above: Order Comment: Speci men Type: BLOOD SPECIMEN [facility] Address: [facility] [place] [address] Performed By: #### T SCR #### [facility] CLIA [id number] [address] [place] Brain W/WO Contraston 2024 Brain W/WO Contrast [facility] [address] [place], [place] [id number] Brain W/WO Contrast MR#: [id number] Acct: [id number] Name: PHILLIP JESUS Arminda Rep #: [id number] : 1950 M 74 From: Lai Quezada PCP: Dr. Earnest Amaral MD Status: [facility] CLI Study: Brain W/WO Contrast Date of Exam: 10/07/24 Exam# [id number] Ordering Dr: Sussy Callejas SPIDER ASSEMBLER-C PROCEDURE: BRAIN W/WO CONTRAST 10/07/2024 REASON FOR EXAM: HYPERREFLEXIA, SPASTICITY. Weakness on the right side for 1 month. TECHNIQUE: BRAIN W/WO CONTRAST Multiplanar and multisequence images were obtained. CONTRAST: Clariscan VOLUME: 14 mL intravenous COMPARISON: None. FINDINGS: Brain: No intracranial mass or mass effect is seen. No acute process is evident. Diffusion: Diffusion-weighted images demonstrate no area of restricted diffusion. Ventricles: Normal for age. Sinuses: Doqw-rq-thppkqex mucosal thickening is seen of the bilateral ethmoid and maxillary sinuses. No air-fluid level is noted. The remaining paranasal sinuses appear clear. Mastoids: Clear. Following intravenous contrast administration, no area of abnormal enhancement is seen.: MRI/Brain W/WO Contrast IMPRESSION: 1. No acute intracranial process is seen. 2. Chronic appearing paranasal sinus disease. Reading Location: [place] [address] CC: ELSIE Callejas; Dr. Earnest Amaral MD Marker Assembler: Signed Normal [facility] CBC W Auto Differential pane l (Bld)on 10-07-2024 Basophils (Bld) [#/Vol] 10*3/uL Normal <0.11 [facility] Comment on above: Order Comment: Speci men Type: BLOOD SPECIMENOrdering Facility: [facility] Address: [address] [place] [address] Performed By: #### 5 7021-8 ####[facility]ORY[facility]IA [id number] [place] [address] [place] Basophils/100 WBC (Bld) 0.5 % Normal [facility] Comment on above: Order Comment: Speci men Type: BLOOD SPECIMENOrdering Facility: [facility] Address: [address] [place] [address] Performed By: #### 5 7021-8 ####[facility] [id number] [place] [address] [place] Differential cell count method Nom (Bld) Auto Normal [facility] Comment on above: Order Comment: Speci men Type: BLOOD SPECIMENOrdering Facility: [facility] Address: [address] [place] [address] Performed By: #### 5 7021-8 ####[facility]ORYCLIA [id number] [place] [address] [place] Eosinophils (Bld) [#/Vol] 0.29 10*3/uL Normal <0.46 [facility] Comment on above: Order Comment: Speci men Type: BLOOD SPECIMENOrdering Facility: [facility] Address: [address] [place] [address] Performed By: #### 5 7021-8 ####[facility]ATORYCLIA [id number] [place] [address] [place] Eosinophils/100 WBC (Bld) 7.2 % Normal [facility] Comment on above: Order Comment: Speci men Type: BLOOD SPECIMENOrdering Facility: [facility] Address: [address] [place] [address] Performed By: #### 5 7021-8 ####[facility] LABORATORYCLIA [id number] [address] [place] [facility] Erythrocyte distribution width (RBC) [Ratio] 12.3 % Normal 11.5-15.0 [facility] Comment on above: Order Comment: Speci men Type: BLOOD SPECIMENOrdering Facility: [facility] Address: [address] [place] [address] Performed By: #### 5 7021-8 ####[facility] LABORATORYCLIA [id number] [address] [place] Hematocrit (Bld) [Volume fraction] 41.2 % Normal 39.0-51.0 [facility] Comment on above: Order Comment: Speci men Type: BLOOD SPECIMENOrdering Facility: [facility] Address: [address] [place] [address] Performed By: #### 5 7021-8 ####[facility] LABORATORYCLIA [id number] [address] [place] Hemoglobin (Bld) [Mass/Vol] 13.5 g/dL Normal 13.0-17.0 [facility] Comment on above: Order Comment: Speci men Type: BLOOD SPECIMENOrdering Facility: [facility] Address: [address] [place] [address] Performed By: #### 5 7021-8 ####[facility] LABORATORYCLIA [id number] [address] [place] Immature granulocytes (Bld) [#/Vol] 10*3/uL Normal <0.10 [facility] Comment on above: Order Comment: Speci men Type: BLOOD SPECIMENOrdering Facility: [facility] Address: [address] [place] [address] Performed By: #### 5 7021-8 ####[facility]ORATORYCLIA [id number] [address] [place] Immature granulocytes/100 WBC (Bld) 0.2 % Normal [facility] Comment on above: Order Comment: Speci men Type: BLOOD SPECIMENOrdering Facility: [facility] Address: [address] [place] [address] Performed By: #### 5 7021-8 ####[facility]ORATORYCLIA [id number] [address] [place] Lymphocytes (Bld) [#/Vol] 0.87 10*3/uL Low 1.00-4.00 [facility] Comment on above: Order Comment: Speci men Type: BLOOD SPECIMENOrdering Facility: [facility] Address: [address] [place] [address] Performed By: #### 5 7021-8 ####[facility]ORATORYCLIA [id number] [address] OF [facility] Lymphocytes/100 WBC (Bld) 21.6 % Normal [facility] Comment on above: Order Comment: Speci men Type: BLOOD SPECIMENOrdering Facility: [facility] Address: [address] [place] [address] Performed By: #### 5 7021-8 ####[facility] LABORATORYCLIA [id number] [address] [place] MCH (RBC) [Entitic mass] 31.0 pg Normal 26.0-34.0 [facility] Comment on above: Order Comment: Speci men Type: BLOOD SPECIMENOrdering Facility: [facility] Address: [address] [place] [address] Performed By: #### 5 7021-8 ####[facility]ORATORYCLIA [id number] [address] [place] MCHC (RBC) [Mass/Vol] 32.8 g/dL Normal 30.5-36.0 [facility] Comment on above: Order Comment: Speci men Type: BLOOD SPECIMENOrdering Facility: [facility] Address: [address] [place] [address] Performed By: #### 5 7021-8 ####[facility]ATORYCLIA [id number] [address] [place] MCV (RBC) [Entitic vol] 94.5 fL Normal 80.0-100.0 [facility] Comment on above: Order Comment: Speci men Type: BLOOD SPECIMENOrdering Facility: [facility] Address: [address] [place] [address] Performed By: #### 5 7021-8 ####[facility] LABORATORYCLIA [id number] [place] [address] [place] Monocytes (Bld) [#/Vol] 0.41 10*3/uL Normal <0.87 [facility] Comment on above: Order Comment: Speci men Type: BLOOD SPECIMENOrdering Facility: [facility] Address: [address] [place] [address] Performed By: #### 5 7021-8 ####[facility]ORATORYCLIA [id number] [address] [place] Monocytes/100 WBC (Bld) 10.2 % Normal [facility] Comment on above: Order Comment: Speci men Type: BLOOD SPECIMENOrdering Facility: [facility] Address: [address] [place] [address] Performed By: #### 5 7021-8 ####[facility]ORATORYCLIA [id number] [address] [place] Neutrophils (Bld) [#/Vol] 2.43 10*3/uL Normal 1.45-7.50 [facility] Comment on above: Order Comment: Speci men Type: BLOOD SPECIMENOrdering Facility: [facility] Address: [address] [place] [address] Performed By: #### 5 7021-8 ####[facility]ORATORYCLIA [id number] [address] [place] Neutrophils/100 WBC (Bld) 60.3 % Normal [facility] Comment on above: Order Comment: Speci men Type: BLOOD SPECIMENOrdering Facility: [facility] Address: [address] [place] [address] Performed By: #### 5 7021-8 ####[facility]ORATORYCLIA [id number] [place] [address] [place] Nucleated RBC (Bld) [#/Vol] 10*3/uL Normal <0.01 [facility] Comment on above: Order Comment: Speci men Type: BLOOD SPECIMENOrdering Facility: [facility] Address: [address] [place] [address] Performed By: #### 5 7021-8 ####[facility]ORATORYCLIA [id number] [place] [address] [place] Nucleated RBC/100 WBC (Bld) [Ratio] 0.0 /100 WBC Normal [facility] Comment on above: Order Comment: Speci men Type: BLOOD SPECIMENOrdering Facility: [facility] Address: [address] [place] [address] Performed By: #### 5 7021-8 ####[facility]ORATORYCLIA [id number] [address] [place] Platelet mean volume (Bld) [Entitic vol] 10.3 fL Normal 9.0-12.7 [facility] Comment on above: Order Comment: Speci men Type: BLOOD SPECIMENOrdering Facility: [facility] Address: [address] [place] [address] Performed By: #### 5 7021-8 ####[facility]ORATORYCLIA [id number] [place] [address] [place] Platelets (Bld) [#/Vol] 209 10*3/uL Normal 150-400 [facility] Comment on above: Order Comment: Speci men Type: BLOOD SPECIMENOrdering Facility: [facility] Address: [address] [place] [address] Performed By: #### 5 7021-8 ####[facility]ORATORYCLIA [id number] [place] [address] [place] RBC (Bld) [#/Vol] 4.36 10*6/uL Normal 4.20-6.00 [facility] Comment on above: Order Comment: Speci men Type: BLOOD SPECIMENOrdering Facility: [facility] Address: [address] [place] [address] Performed By: #### 5 7021-8 ####[facility]ORATORYCLIA [id number] [address] WBC (Bld) [#/Vol] 4.03 10*3/uL Normal 3.70-11.00 [facility] Comment on above: Order Comment: Speci men Type: BLOOD SPECIMENOrdering Facility: [facility] Address: [address] [place] [address] Performed By: #### 5 7021-8 ####[facility]ORATORYCLIA [id number] [address] CONFIRM BLOOD TYPEon 025 ABO O Normal [facility] Comment on above: Order Comment: Speci men Type: BLOOD SPECIMEN [facility] Address: [address] [place] [address] Performed By: #### C ONABO #### [facility] CLIA [id number] [address] Rh Nom (Bld) Negative Normal [facility] Comment on above: Order Comment: Speci men Type: BLOOD SPECIMEN [facility] Address: [address] [place] [address] Performed By: #### C ONABO #### [facility] CLIA [id number] [address] CONSULTon 10-07-2024 CONSULT HNO ID: [id number] Author: PENNY GARAY MD Service: Orthopaedic Surgery Author Type: Resident Type: Consults Filed: 10/08/2024 07:12 Note Text: -- Attestation with edits by Penny Garay MD at 10/08/2024 7:12 AM I reviewed the resident's note. I saw and examined the patient. I agree with Dr. Gamez's examination, assessment, and plan unless otherwise stated. Comment: -Hx of Parkinson's with progressive issues with walking and arm strength over the last month. -Agree with examination as outlined below -MRI cervical spine with and without contrast demonstrates stenosis with cord compression at C3-C4. Appearance of septic facet joint at C3-C4. -I discussed operative and non operative care. Recommended C3-C6 posterior spinal instrumentation and fusion with decompressive laminectomies. I discussed the risks, benefits, and alternatives of the procedure at length. After many appropriate questions and good understanding of the risks, the patient wished to proceed with operative intervention. -Plan for OR today, continue NPO, pre-op labs Penny Garay M.D. Department of Orthopaedic Surgery [facility] -- ORTHOPAEDIC SURGERY CONSULT Pt: PHILLIP JESUS Date of Consultation: 10/07/2024 Physician Consulted: Dr. Penny Garay Reason for Consultation: Cord compression, progressive weakness HPI: Patient is a 74 year old male with a PMH of Parkinson's disease (8 years, on several medications for Parkinson's) who presented to [facility] due to worsening weakness over the past month. Patient reports that he was ambulating without assistive device one month ago and then he fell. Since then, he has had progressive decline in his functional status as well as R UE weakness/numbness and R LE weakness. Patient had to use a walker one week ago and now can't walk at all. Patient states that he has pain in his neck. He has numbness down her R UE. He has trouble with fine motor tasks and has balance has worsened. No changes in bowel or bladder symptoms. No saddle anesthesia. No history of heart or lung disease. He is not on anticoagulation. No history of spine surgeries. He was sent to ED as he had an outside MRI that demonstrated cervical cord compression. No past medical history on file. No past surgical history on file. Allergies: Patient has no known allergies. Current Facility-Administered Medications Medication Dose Route Frequency iv contrast (radiology procedure) INTRAVENOUS DIRECTED PRN iv contrast (radiology procedure) INTRAVENOUS DIRECTED PRN iv contrast (radiology procedure) INTRAVENOUS DIRECTED PRN diazePAM 2.5 mg injection (VALIUM) 2.5 mg INTRAVENOUS ONCE No current outpatient medications on file. No family history on file. ROS: 10 pt ROS neg except in HPI O: Vitals: BP (!) 195/115 Pulse 75 Temp 36.5 ?C (97.7 ?F) (Oral) Resp 23 Wt 68 kg (150 lb) SpO2 99% Physical exam: General: Alert, answers all questions appropriately, no acute distress. Cooperative throughout entire interview and exam Spine Cervical collar in place in good position. Palpation: No midline or paraspinal tenderness to palpation. No palpable step-offs. Sensation: Sensation intact to light touch in C5-T1 and L1-S1 dermatomes. Motor: Upper Extremities Right Left Deltoid (C5) 3 4 Biceps (C6) 3 5 Triceps (C7) 3 5 Growth Hacker (C8) 2 5 Interossei (T1) 2 4 Lower Extremities Right Left Psoas (L2) 4 4 Quadriceps (L3) 4 4 Dorsiflexion (L4) 3 4 EHL (L5) 3 4 Plantarflexion (S1) 4 4 Reflexes: Biceps, and brachioradialis reflexes 2+ bilaterally. Quadriceps and Achilles reflexes 3+ bilaterally. Special Tests: Jimenez's positive bilaterally, Babinski down-going Non-fatigable 4+ clonus on right, 3+ clonus on left with four beats Rectal tone intact. Labs: BMP: Sodium 145 10/07/2024 Potassium 3.6 10/07/2024 Chloride 107 10/07/2024 CO2 27 10/07/2024 BUN 19 10/07/2024 Creatinine 0.81 10/07/2024 Glucose 106 10/07/2024 CBC: WBC 4.03 10/07/2024 Hemoglobin 13.5 10/07/2024 Hematocrit 41.2 10/07/2024 Platelet Count 209 10/07/2024 COAGS: No results found for this basename: aptt,inr SED RATE/CRP: No results found for this basename: wsr:*,crp:* Imaging: -No imaging at this time, ordered CT cervical spine and MRI with and without contrast A/P: 74 year old male with progressive weakness and decreased function secondary to worsening R UE and LE weakness who was referred to ED for cord compression. -Medical management per ED -Pain control -Weight bearing status: bed rest -Maintain c-collar -Acute orthopaedic surgery intervention pending MRI and CT results -Ordered CT cervical spine -Ordered cervical MRI with and without contrast Patient plan was discussed with Dr. Garay, all (more content not included)... 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 1. Patient is currently ordered Vancomycin 1 gram IV once. Today is day One of therapy. Need height updated to determine renal function and future dosing. 2. No vancomycin level has been drawn for this dosing regimen. 3. The present dose of vancomycin is the recommended dosage for this patient at this time. Continue therapy as prescribed. 4. The next vancomycin level will be ordered for 10-09-2024 unless clinically indicated sooner. (Pharmacy will order) We will follow patient renal function, vancomycin levels and doses with you during the course of therapy. Additional recommendations will appear in follow up notes. If you have [place] [phone]. Age: [age] year old Allergies: ALLERGIES No Known Allergies Last 3 Encounter Wt Readings: Date: Wt: 10/07/2024 65.8 kg (145 lb 1 oz) Last 1 Encounter Ht Readings: Date: Ht: 10/07/2024 180.3 cm (5' 11) Need height updated Temp (24hrs), Av.5 ?C (97.7 ?F), Min:36.5 ?C (97.7 ?F), Max:36.5 ?C (97.7 ?F) - Current Temp: 36.5 ?C (97.7 ?F) Labs BUN (mg/dL) Date Value 10/07/2024 19 Creatinine (mg/dL) Date Value 10/07/2024 0.81 WBC (k/uL) Date Value 10/07/2024 4.03 Vancomycin Levels: No results found for: ROSE [place], [facility] Normal [facility] CT CERVICAL SPINE WO IVCONon 10-07-2024 CT CERVICAL SPINE WO IVCON * * *Final Report* * * DATE OF EXAM: Oct 07 2024 10:04PM [facility] [id number] - CT CERVICAL SPINE WO IVCON / PROCEDURE REASON: Spinal stenosis, cervical * * * * Physician Interpretation * * * * EXAMINATION: CT CERVICAL SPINE WO IVCON CLINICAL HISTORY: Suspected septic arthritis in the right C3-4 facet joint. Preop planning. TECHNIQUE: Spiral, high resolution axial unenhanced images were obtained from the skull base to the cervicothoracic junction with sagittal and coronal planar reconstructions. MQ: [id number] CT Radiation dose: Integrated CT Dose-Length Product (DLP) for this visit = 391 mGy*cm CT Dose Reduction Employed: Automated exposure control(AEC) and iterative recon COMPARISON: 10/07/2024 RESULT: Counting reference: Craniocervical junction. Anatomic Variants: None. Character Actor (topogram) images: No additional findings. Alignment: Alignment is anatomic. Severe disc space narrowing is noted at C6-7 and mild disc space narrowing is noted at C3-4. There is relative narrowing of the canal and foramina on a developmental basis. Craniocervical junction: Alignment at the craniocervical junction is within normal limits. Osseous structures/fracture: There is irregularity of the articular margins of the right facet joint at C3-4 compatible with the suspicion of septic arthritis with resultant mild loss in height of the right lateral masses of C3 and C4. There is also slight irregularity of the right lateral margin of the endplates at C3-4 which may reflect early disc space infection and osteomyelitis in view of the above. Circumferential soft tissue of increased attenuation is noted along the margins of the thecal sac at C3-4 on the soft tissue windows suggesting epidural phlegmon contributing to moderate cord compression and right foraminal compromise.. No clear evidence of disc space infection and osteomyelitis or septic arthritis otherwise in the visualized spine. Cervical soft tissues: Mild asymmetric soft tissue prominence is noted along the dorsal margins of the right C3-4 facet joint with peripheral intermediate attenuation and central, crescentic low-attenuation suggesting small paraspinal abscess. There is slight loss in definition of the adjacent soft tissue planes in the erector spinae muscles, suggesting mild contiguous edema. C2-C3: Canal and foramina are patent. C3-C4: Mild osteophyte formation and circumferential soft tissue of increased attenuation suspicious for epidural phlegmon that likely extends into the right neural foramen. When combined with bony hypertrophic changes, these findings cause moderate to severe right foraminal stenosis. Bony hypertrophic changes cause moderate left foraminal stenosis. C4-C5: Mild disc osteophyte complex likely abutting the ventral surface of cord without significant cord compression. Facet and uncinate process hypertrophy cause mild right foraminal stenosis. C5-C6: Minimal disc osteophyte complex likely abutting the ventral surface of the cord without significant cord compression. Uncinate process hypertrophy causes moderate left and mild right foraminal stenosis. C6-C7: Mild disc osteophyte complex likely abutting the ventral surface of the cord without significant cord compression. Facet and uncinate process hypertrophy cause moderate to severe left foraminal stenosis. The right neural foramen is patent. C7-T1: The canal and right neural foramen are patent. Facet degenerative changes cause mild left foraminal stenosis. IMPRESSION: Findings compatible with the suspicion septic arthritis involving the right C3-4 facet joint and suspicion of early disc space infection and osteomyelitis in the adjacent C3-4 disc space. Suspicion of circumferential epidural phlegmon and small dorsal right paraspinal abscess at C3-4. Mild cervical canal stenosis and multilevel bony foraminal narrowing as well otherwise as outlined above. Anatomic Variant: None. Assume 7 cervical vertebrae with counting from the craniocervical junction. Marker Assembler: CAHRISMA Transcribe Date/Time: Oct 09 2024 10:31A Dictated by : MEEK ROCKWELL MD This examination was interpreted and the report reviewed and electronically signed by: MEEK ROCKWELL MD on Oct 09 2024 10:53AM EST [id number] [facility] ED NOTEon 10-07-2024 ED NOTE HNO ID: [id number] Author: LUCRETIA SOLITARIO RN Service: Emergency Medicine Author Type: Registered Nurse Type: ED Notes Filed: 10/07/2024 22:50 Note Text: Xray notified patient is ready for scans. Normal [facility] ED NOTE HNO ID: [id number] Author: LUCRETIA SOLITARIO RN Service: Emergency Medicine Author Type: Registered Nurse Type: ED Notes Filed: 10/07/2024 22:43 Note Text: Ortho spine Residents at bedside Normal [facility] ED NOTE HNO ID: [id number] Author: LUCRETIA SOLITARIO RN Service: Emergency Medicine Author Type: Registered Nurse Type: ED Notes Filed: 10/07/2024 21:30 Note Text: CT notified patient is ready for scans. Normal [facility] ED NOTE HNO ID: [id number] Author: LUCRETIA SOLITARIO RN Service: Emergency Medicine Author Type: Registered Nurse Type: ED Notes Filed: 10/07/2024 19:29 Note Text: Pt updated on POC Normal [facility] ED NOTE HNO ID: [id number] Author: LUCRETIA SOLITARIO RN Service: Emergency Medicine Author Type: Registered Nurse Type: ED Notes Filed: 10/07/2024 19:24 Note Text: Per alarm installation technician in secure chat message they are sending a transporter for pt to go to MRI now. Okay to give medication when transport arrives for premedication Normal [facility] ED NOTE HNO ID: [id number] Author: MALACHI BOYER MD Service: ? Author Type: Physician Type: ED Notes Filed: 10/07/2024 23:49 Note Text: Chart reviewed showing PMHx HTN, HLD, Parkinson's disease. He was sent from outpatient orthopedic office after MRIs showed cervical spine fx's with spinal cord edema, per report. They were not sent with imaging. Per family, he had a fall about 5 weeks ago with resultant neck pain. He went to the ED where he had cervical XRs that just showed arthritis. On follow up, he was noted to have progressively worsening neurologic deficits starting ~3 weeks ago in all extremities R>L. No AC use. No new injuries. He now cannot ambulate. No urinary incontinence. He did not have his anti-HTN today. Well-appearing Heart RRR w/o murmurs Lungs CTAB Distal pulses intact CN II-XII intact. B/l UE weakness 4/5 on left and 3/5 on right. B/l LE weakness 4/5 on left and 3/5 on right. 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 Valium administered IV to aid in tremors for MRI. IV saline administered while waiting. Vancomycin+cefepime+flagyl administered per spine recommendations. Pt admitted. Malachi Boyer MD Normal [facility] ED NOTE HNO ID: [id number] Author: DEVIN BORRERO RN Service: ? Author Type: Registered Nurse Type: ED Notes Filed: 10/07/2024 15:58 Note Text: Bed: 11-ED Expected date: Expected time: Means of arrival: Comments: [email or web address] Normal [facility] ED Triage Noteon 10-07-2024 ED Triage Note HNO ID: [id number] Author: ROSY BALLARD APRN.CNP Service: Emergency Medicine Author Type: Nurse Practitioner Type: ED Triage Notes Filed: 10/07/2024 15:58 Note Text: I was not involved in the care of this patient Normal [facility] MRI CERVICAL SPINE WO/W IVCO Non 10-07-2024 MRI CERVICAL SPINE WO/W IVCON * * *Final Report* * * DATE OF EXAM: Oct 07 2024 9:15PM [facility] 0298 - MRI CERVICAL SPINE WO/W IVCON / PROCEDURE REASON: Spine fracture, cervical, pathological * * * * Physician Interpretation * * * * EXAMINATION: MRI LUMBAR SPINE WO/W IVCON, MRI THORACIC SPINE WO/W IVCON, MRI CERVICAL SPINE WO/W IVCON CLINICAL HISTORY: C3/C4 compression fractures with edema. Spine fracture, cervical, pathological. History of Parkinson's disease. TECHNIQUE: Routine cervical, thoracic, and lumbosacral spine MR protocol without and with intravenous gadolinium. MQ: [id number] Contrast: IV administration of 6.8 ml of Elucirem COMPARISON: None. RESULT: CERVICAL: Multiple sequences are degraded by motion artifact. Counting reference: Craniocervical junction. Anatomic Variants: None. Localizer images: Unremarkable. Alignment: Alignment is anatomic. Craniocervical junction: Craniocervical junction is normal. Cord: The cervical spinal cord is normal in size and signal. Please see below for additional findings. Bone marrow signal/fracture: Moderate to severe degenerative changes at the atlantodental interval. Multilevel degenerative disc disease due to disc desiccation, disc space narrowing and small osteophytes, moderate at C6/C7 and mild in the remainder of the cervical spine. Multilevel facet arthropathy severe on the right at C3/C4 and mild to on the left at C3/C4. Bilateral C3/C4 facet joint effusions (right greater than left). Diffuse abnormal signal and enhancement involving right C3/C4 facet and facet joint consistent with septic arthritis/osteomyelitis. Mild abnormal signal and enhancement at the right sided C3/C4 endplate may represent a reactive osteitis or developing osteomyelitis. No definite abnormal signal or enhancement within the C3/C4 disc. No evidence of pathologic marrow infiltration. No evidence of prior fracture. Cervical soft tissues: Mild edema and enhancement in the right posterior posterior and right lateral C3/C4 paraspinal soft tissues, likely due to underlying infection. Degenerative changes: Canal and foramina: Congenitally narrow spinal canal. C2-C3: Mild spinal canal stenosis due to a small disc bulge and ligamentum flavum hypertrophy. No significant neuroforaminal stenosis. C3-C4: Abnormal enhancement in the C3/C4 epidural space and right C3/C4 neuroforamina consistent with an abscess. Severe spinal canal stenosis and cord compression predominantly due to a broad-based disc osteophyte complex and marked ligamentum flavum hypertrophy, compounded by the epidural abscess. Severe right and mild left neuroforaminal stenosis due to uncovertebral and facet hypertrophy. C4-C5: Moderate spinal canal stenosis due to a broad-based disc osteophyte complex and ligamentum flavum hypertrophy. Moderate right and mild left neuroforaminal stenosis due to uncovertebral and facet hypertrophy C5-C6: Mild to moderate spinal canal stenosis due to a broad-based disc osteophyte complex and ligamentum flavum hypertrophy. Severe left and mild right neuroforaminal stenosis due to uncovertebral and facet hypertrophy. C6-C7: Mild spinal canal stenosis due to a broad-based disc osteophyte complex and ligamentum flavum hypertrophy. Moderate to severe left and mild right neuroforaminal stenosis due to uncovertebral and facet hypertrophy. C7-T1: Canal and foramina are patent. THORACIC: Some sequences are degraded by motion artifact. Counting reference: Craniocervical and lumbosacral junctions. For the purposes of this report, L4-5 is considered the level of the iliac crest and assume there are 5 lumbar-type vertebrae. Anatomic variant: None. Localizer images: Mild thoracic dextroscoliosis. Alignment: Alignment is anatomic. Cord: The thoracic spinal cord is within normal limits of signal intensity and morphology. Bone marrow signal/fracture: No evidence of pathologic marrow infiltration. No evidence of prior fracture. No abnormal signal or enhancement. Thoracic soft tissues: The paraspinal soft tissues are within normal limits. Canal and foramina: No significant thoracic canal or foraminal stenosis within the constraints of the study. No abnormal signal or enhancement. LUMBAR: Some sequences are degraded by motion artifact. Counting reference: Craniocervical and lumbosacral junctions. For the purposes of this report, L4-5 is considered the level of the iliac crest and assume there are 5 lumbar-type vertebrae. Anatomic variant: None. Localizer images: Unremarkable. Alignment: Alignment is anatomic. Bone marrow signal/fracture: Small multilevel intraosseous hemangiomas. No evidence of pathologic marrow infiltration. No evidence of prior fracture. No abnormal signal or enhancement. Conus: The conus is within normal limits of signal intensity and morphology. Paraspinal soft tissues: Paraspinal soft tissues are within normal limits. Degenerativ (more content not included)... Normal [facility] MRI LUMBAR SPINE WO/W IVCONo n 10-07-2024 MRI LUMBAR SPINE WO/W IVCON * * *Final Report* * * DATE OF EXAM: Oct 07 2024 9:15PM [facility] 0304 - MRI LUMBAR SPINE WO/W IVCON / PROCEDURE REASON: C3/C4 compression fractures * * * * Physician Interpretation * * * * EXAMINATION: MRI LUMBAR SPINE WO/W IVCON, MRI THORACIC SPINE WO/W IVCON, MRI CERVICAL SPINE WO/W IVCON CLINICAL HISTORY: C3/C4 compression fractures with edema. Spine fracture, cervical, pathological. History of Parkinson's disease. TECHNIQUE: Routine cervical, thoracic, and lumbosacral spine MR protocol without and with intravenous gadolinium. MQ: MRCTLWO_3 Contrast: IV administration of 6.8 ml of Elucirem COMPARISON: None. RESULT: CERVICAL: Multiple sequences are degraded by motion artifact. Counting reference: Craniocervical junction. Anatomic Variants: None. Localizer images: Unremarkable. Alignment: Alignment is anatomic. Craniocervical junction: Craniocervical junction is normal. Cord: The cervical spinal cord is normal in size and signal. Please see below for additional findings. Bone marrow signal/fracture: Moderate to severe degenerative changes at the atlantodental interval. Multilevel degenerative disc disease due to disc desiccation, disc space narrowing and small osteophytes, moderate at C6/C7 and mild in the remainder of the cervical spine. Multilevel facet arthropathy severe on the right at C3/C4 and mild to on the left at C3/C4. Bilateral C3/C4 facet joint effusions (right greater than left). Diffuse abnormal signal and enhancement involving right C3/C4 facet and facet joint consistent with septic arthritis/osteomyelitis. Mild abnormal signal and enhancement at the right sided C3/C4 endplate may represent a reactive osteitis or developing osteomyelitis. No definite abnormal signal or enhancement within the C3/C4 disc. No evidence of pathologic marrow infiltration. No evidence of prior fracture. Cervical soft tissues: Mild edema and enhancement in the right posterior posterior and right lateral C3/C4 paraspinal soft tissues, likely due to underlying infection. Degenerative changes: Canal and foramina: Congenitally narrow spinal canal. C2-C3: Mild spinal canal stenosis due to a small disc bulge and ligamentum flavum hypertrophy. No significant neuroforaminal stenosis. C3-C4: Abnormal enhancement in the C3/C4 epidural space and right C3/C4 neuroforamina consistent with an abscess. Severe spinal canal stenosis and cord compression predominantly due to a broad-based disc osteophyte complex and marked ligamentum flavum hypertrophy, compounded by the epidural abscess. Severe right and mild left neuroforaminal stenosis due to uncovertebral and facet hypertrophy. C4-C5: Moderate spinal canal stenosis due to a broad-based disc osteophyte complex and ligamentum flavum hypertrophy. Moderate right and mild left neuroforaminal stenosis due to uncovertebral and facet hypertrophy C5-C6: Mild to moderate spinal canal stenosis due to a broad-based disc osteophyte complex and ligamentum flavum hypertrophy. Severe left and mild right neuroforaminal stenosis due to uncovertebral and facet hypertrophy. C6-C7: Mild spinal canal stenosis due to a broad-based disc osteophyte complex and ligamentum flavum hypertrophy. Moderate to severe left and mild right neuroforaminal stenosis due to uncovertebral and facet hypertrophy. C7-T1: Canal and foramina are patent. THORACIC: Some sequences are degraded by motion artifact. Counting reference: Craniocervical and lumbosacral junctions. For the purposes of this report, L4-5 is considered the level of the iliac crest and assume there are 5 lumbar-type vertebrae. Anatomic variant: None. Localizer images: Mild thoracic dextroscoliosis. Alignment: Alignment is anatomic. Cord: The thoracic spinal cord is within normal limits of signal intensity and morphology. Bone marrow signal/fracture: No evidence of pathologic marrow infiltration. No evidence of prior fracture. No abnormal signal or enhancement. Thoracic soft tissues: The paraspinal soft tissues are within normal limits. Canal and foramina: No significant thoracic canal or foraminal stenosis within the constraints of the study. No abnormal signal or enhancement. LUMBAR: Some sequences are degraded by motion artifact. Counting reference: Craniocervical and lumbosacral junctions. For the purposes of this report, L4-5 is considered the level of the iliac crest and assume there are 5 lumbar-type vertebrae. Anatomic variant: None. Localizer images: Unremarkable. Alignment: Alignment is anatomic. Bone marrow signal/fracture: Small multilevel intraosseous hemangiomas. No evidence of pathologic marrow infiltration. No evidence of prior fracture. No abnormal signal or enhancement. Conus: The conus is within normal limits of signal intensity and morphology. Paraspinal soft tissues: Paraspinal soft tissues are within normal limits. Degenerative changes: Mi (more content not included)... Normal [facility] MRI THORACIC SPINE WO/W IVCO Non 10-07-2024 MRI THORACIC SPINE WO/W IVCON * * *Final Report* * * DATE OF EXAM: Oct 07 2024 9:15PM [facility] 0326 - MRI THORACIC SPINE WO/W IVCON / PROCEDURE REASON: C3/C4 compression with cord Edema, hx parkinsonism * * * * Physician Interpretation * * * * EXAMINATION: MRI LUMBAR SPINE WO/W IVCON, MRI THORACIC SPINE WO/W IVCON, MRI CERVICAL SPINE WO/W IVCON CLINICAL HISTORY: C3/C4 compression fractures with edema. Spine fracture, cervical, pathological. History of Parkinson's disease. TECHNIQUE: Routine cervical, thoracic, and lumbosacral spine MR protocol without and with intravenous gadolinium. MQ: MRCTLWO_3 Contrast: IV administration of 6.8 ml of Elucirem COMPARISON: None. RESULT: CERVICAL: Multiple sequences are degraded by motion artifact. Counting reference: Craniocervical junction. Anatomic Variants: None. Localizer images: Unremarkable. Alignment: Alignment is anatomic. Craniocervical junction: Craniocervical junction is normal. Cord: The cervical spinal cord is normal in size and signal. Please see below for additional findings. Bone marrow signal/fracture: Moderate to severe degenerative changes at the atlantodental interval. Multilevel degenerative disc disease due to disc desiccation, disc space narrowing and small osteophytes, moderate at C6/C7 and mild in the remainder of the cervical spine. Multilevel facet arthropathy severe on the right at C3/C4 and mild to on the left at C3/C4. Bilateral C3/C4 facet joint effusions (right greater than left). Diffuse abnormal signal and enhancement involving right C3/C4 facet and facet joint consistent with septic arthritis/osteomyelitis. Mild abnormal signal and enhancement at the right sided C3/C4 endplate may represent a reactive osteitis or developing osteomyelitis. No definite abnormal signal or enhancement within the C3/C4 disc. No evidence of pathologic marrow infiltration. No evidence of prior fracture. Cervical soft tissues: Mild edema and enhancement in the right posterior posterior and right lateral C3/C4 paraspinal soft tissues, likely due to underlying infection. Degenerative changes: Canal and foramina: Congenitally narrow spinal canal. C2-C3: Mild spinal canal stenosis due to a small disc bulge and ligamentum flavum hypertrophy. No significant neuroforaminal stenosis. C3-C4: Abnormal enhancement in the C3/C4 epidural space and right C3/C4 neuroforamina consistent with an abscess. Severe spinal canal stenosis and cord compression predominantly due to a broad-based disc osteophyte complex and marked ligamentum flavum hypertrophy, compounded by the epidural abscess. Severe right and mild left neuroforaminal stenosis due to uncovertebral and facet hypertrophy. C4-C5: Moderate spinal canal stenosis due to a broad-based disc osteophyte complex and ligamentum flavum hypertrophy. Moderate right and mild left neuroforaminal stenosis due to uncovertebral and facet hypertrophy C5-C6: Mild to moderate spinal canal stenosis due to a broad-based disc osteophyte complex and ligamentum flavum hypertrophy. Severe left and mild right neuroforaminal stenosis due to uncovertebral and facet hypertrophy. C6-C7: Mild spinal canal stenosis due to a broad-based disc osteophyte complex and ligamentum flavum hypertrophy. Moderate to severe left and mild right neuroforaminal stenosis due to uncovertebral and facet hypertrophy. C7-T1: Canal and foramina are patent. THORACIC: Some sequences are degraded by motion artifact. Counting reference: Craniocervical and lumbosacral junctions. For the purposes of this report, L4-5 is considered the level of the iliac crest and assume there are 5 lumbar-type vertebrae. Anatomic variant: None. Localizer images: Mild thoracic dextroscoliosis. Alignment: Alignment is anatomic. Cord: The thoracic spinal cord is within normal limits of signal intensity and morphology. Bone marrow signal/fracture: No evidence of pathologic marrow infiltration. No evidence of prior fracture. No abnormal signal or enhancement. Thoracic soft tissues: The paraspinal soft tissues are within normal limits. Canal and foramina: No significant thoracic canal or foraminal stenosis within the constraints of the study. No abnormal signal or enhancement. LUMBAR: Some sequences are degraded by motion artifact. Counting reference: Craniocervical and lumbosacral junctions. For the purposes of this report, L4-5 is considered the level of the iliac crest and assume there are 5 lumbar-type vertebrae. Anatomic variant: None. Localizer images: Unremarkable. Alignment: Alignment is anatomic. Bone marrow signal/fracture: Small multilevel intraosseous hemangiomas. No evidence of pathologic marrow infiltration. No evidence of prior fracture. No abnormal signal or enhancement. Conus: The conus is within normal limits of signal intensity and morphology. Paraspinal soft tissues: Paraspinal soft tissues are within normal limits. (more content not included)... Normal [facility] Magnetic resonance imaging r eportOrdered By: Lai Ness on 10-07-[address] [facility] Imaging Services [address] [place] [address] Spine Cervical W/WO Contrast MR#: [id number] Acct: [id number] Name: PHILLIP JESUS Rep #: [id number] : 1950 M 74 From: Isaac Ness MD PCP: Dr. Earnest Amaral MD Status: REG CLI Study:Spine Cervical W/WO Contrast Date of E xam: 10/07/24 Exam# [id number] Ordering Dr: Sussy Callejas SPIDER ASSEMBLER-C PROCEDURE: SPINE CERVICAL W/WO CONTRAST 10/07/2024 REASON FOR EXAM: HYPERREFLEXIA, SPASTICITY. Weakness on right side for 1 month. TECHNIQUE: SPINE CERVICAL W/WO CONTRAST Multiplanar and multisequence images were obtainedwith intravenous gadolinium-based contrast administration. CONTRAST: Clariscan VOLUME: 14 mL intravenous. COMPARISON: Cervical spine studies of 10/06/2024 and of 09/15/2024.. FINDINGS: Vertebrae: Cervical vertebral body heights are preserved. Cervical spine degenerative changes are again seen, again most prominent in the C6-C7 level, where moderately severe disc narrowing is noted, and vertebral body osteophytosis is seen, along with more subtle other osseous reactive changes. Alignment: No significant subluxation is seen. Spinal Cord: At the level of greatest spinal canal narrowing, C3-C4, cervical cord signal changes are consistent with chronic cord contusion. C2-3: Unremarkable C3-4: At least moderate spinal canal stenosis is seen, in the presence of ligamentum flavum hypertrophy, uncovertebral joint hypertrophy, [id number] broad-based disc protrusion/extrusion. No definite neural foraminal narrowing noted. C4-5: Mild disc bulge. No central canal or neural foraminal stenosis. C5-6: No significant disc bulge or herniation is noted. No spinal canal stenosis or significant neural foraminal narrowing is identified. C6-7: Mild vertebral body osteophytosis and a mild disc bulge are noted. No significant degree of spinal canal stenosis is seen. No definite neural foraminal narrowing is noted. C7-T1: Unremarkable Postcontrast images: No area of significant postcontrast enhancement is seen. MRI/Spine Cervical W/WO Contrast IMPRESSION: Multilevel cervical degenerative disc disease, as described, but with at least moderate spinal canal stenosis at the C3-C4 level, also with cervical cord signal changes at that level consistent with chronic cord contusion. Reading Location: [place] [address] CC: ELSIE Callejas; Dr. Earnest Amaral MD ~ Marker Assembler: Signed [facility] Study report [facility] Imaging Services [address] [place] [address] Spine Thoracic W/WO Contrast MR#: [id number] Acct: [id number] Name: PHILLIP JESUS Rep #: [id number] : 1950 M 74 From: Isaac Ness MD PCP: Dr. Earnest Amaral MD Status: REG CLI Study:Spine Thoracic W/WO Contrast Date of E xam: 10/07/24 Exam# [id number] Ordering Dr: Sussy Callejas SPIDER ASSEMBLERJerry PROCEDURE: SPINE THORACIC W/WO CONTRAST 10/07/2024 REASON FOR EXAM: HYPERREFLEXIA, SPASTICITY. Right-sided weakness for 1 month. TECHNIQUE: Thoracic spine MRI without and with intravenous gadolinium-based contrast. Multiplanar and multisequence images were obtained. CONTRAST: Clariscan VOLUME: 14mL IV COMPARISON: None. FINDINGS: Vertebrae: Thoracic vertebral body heights are preserved. Bone marrow signal is unremarkable. Alignment: Normal. No spondylolisthesis. Spinal Cord: Thoracic spinal cord is of normal size. No clear thoracic cord signal changes are seen. No area of abnormal enhancement is seen. Disc spaces: Mild degenerative disc disease is seen, most prominent in the mid to lower thoracic spine. No significant disc bulge or herniation is evident. No spinal canal stenosis or significant neural foraminal narrowing is evident. Paraspinal Tissues: Unremarkable. Postcontrast images: No area of abnormal enhancement is seen. MRI/Spine Thoracic W/WO Contrast IMPRESSION: Mild degenerative changes, most prominent at the mid to lower thoracic spine. Reading Location: [place] [address] CC: ELSIE Callejas; Dr. Earnest Amaral MD ~ Marker Assembler: Signed [facility] Study report [facility] Imaging Services [address] [place], [place] [address] Brain W/WO Contrast MR#: [id number] Acct: [id number] Name: PHILLIP JESUS Rep #: [id number] : 1950 M 74 From: Isaac Ness MD PCP: Dr. Earnest Amaral MD Status: REG CLI Study:Brain W/WO Contrast Date of Exam: 10/07/24 Exam# [id number] Ordering Dr: Sussy Callejas SPIDER ASSEMBLERJerry PROCEDURE: BRAIN W/WO CONTRAST 10/07/2024 REASON FOR EXAM: HYPERREFLEXIA, SPASTICITY. Weakness on the right side for 1 month. TECHNIQUE: BRAIN W/WO CONTRAST Multiplanar and multisequence images were obtained. CONTRAST: Clariscan VOLUME: 14 mL intravenous COMPARISON: None. FINDINGS: Brain: No intracranial mass or mass effect is seen. No acute process is evident. Diffusion: Diffusion-weighted images demonstrate no area of restricted diffusion. Ventricles: Normal for age. Sinuses: Mfic-di-fmgomfzp mucosal thickening is seen of the bilateral ethmoid and maxillary sinuses. No air-fluid level is noted. The remaining paranasal sinuses appear clear. Mastoids: Clear. Following intravenous contrast administration, no area of abnormal enhancement is seen.: MRI/Brain W/WO Contrast IMPRESSION: 1. No acute intracranial process is seen. 2. Chronic appearing paranasal sinus disease. Reading Location: [place] [address] CC: SPIDER ASSEMBLER-Patricio Callejas; Dr. Earnest Amaral MD ~ Marker Assembler: Signed [facility] Magnetic resonance imaging r eportOrdered By: Ranjan Baum on 10-07-[address] [facility] Imaging Services [address] [place] [address] Spine Lumbar W/WO Contrast MR#: [id number] Acct: [id number] Name: PHILLIP JESUS Rep #: [id number] : 1950 M 74 From: Kishor Baum MD PCP: Dr. Earnest Amaral MD Status: REG CLI Study:Spine Lumbar W/WO Contrast Date of Exa m: 10/07/24 Exam# [id number] Ordering Dr: Sussy Callejas SPIDER ASSEMBLER-C PROCEDURE: SPINE LUMBAR W/WO CONTRAST 10/07/2024 REASON FOR EXAM: HYPERREFLEXIA, SPASCITY TECHNIQUE: SPINE LUMBAR W/WO CONTRAST Multiplanar and multisequence images were obtained without and with intravenous gadolinium-based contrast administration. CONTRAST: Clariscan VOLUME: 14 mL COMPARISON: None FINDINGS: Vertebrae: There are no compression fractures. There are no significant bone marrow abnormalities. Alignment: There is maintenance of the normal lumbar lordosis. Conus Medullaris: The conus medullaris terminates normally at the T12-L1 level. L1-2: There is mild disc degeneration. There is no disc bulging or disc protrusion. There is mild bilateral facet arthropathy with ligamentum flavum bulging. There is mild compression of the thecal sac. There is no lateral recess stenosis. There is mild foraminal narrowing bilaterally. L2-3: There is mild disc degeneration. There is no disc bulging or disc protrusion. There is mild bilateral facet arthropathy with ligamentum flavum bulging. There is mild compression of the thecal sac. There is no lateral recess stenosis. There is mild foraminal narrowing bilaterally. L3-4: There is mild disc degeneration. There is no disc bulging or disc protrusion. There is mild bilateral facet arthropathy with ligamentum flavum bulging. There is mild compression of the thecal sac. There is no lateral recess stenosis. There is mild foraminal narrowing bilaterally. L4-5: There is mild disc degeneration. There is no disc bulging or disc protrusion. There is mild bilateral facet arthropathy with ligamentum flavum bulging. There is mild compression of the thecal sac. There is no lateral recess stenosis. There is mild foraminal narrowing bilaterally. L5-S1: There is mild disc degeneration. There is no disc bulging or disc protrusion. There is mild bilateral facet arthropathy with ligamentum flavum bulging. There is mild compression of the thecal sac. There is no lateral recess stenosis. There is mild foraminal narrowing bilaterally. Sacrum: Unremarkable. Postcontrast images: There is no abnormal contrast enhancement. MRI/Spine Lumbar W/WO Contrast IMPRESSION: Mild diffuse degenerative disc disease of the lumbar spine. There is mild compression of the thecal sac and mild foraminal narrowing, bilaterally, throughout the lumbar spine. Reading Location: [id number] CC: ELSIE Callejas; Dr. Earnest Amaral MD ~ Marker Assembler: Signed [facility] Work Phone: PT panel Coag (PPP)on 2024 INR Coag (PPP) [Relative time] 1.1 {INR} Normal 0.9-1.3 [facility] Comment on above: Order Comment: Specjustine cheung Type: BLOOD SPECIMENOrdering Facility: [facility] Address: [address] [place] [address] Result Comment: Sydnie min K Antagonist (VKA) Therapeutic Range: INR 2 to 3 (Target INR of 2.5) Note: For patients treated with VKA drugs, such as warfarin, the [place] [employer] 2012 Guideline recommends a therapeutic INR range of 2 to 3 (target INR of 2.5). This recommendation includes high-risk patients with antiphospholipid syndrome with previous arterial or venous thromboembolism, current-generation mechanical or bioprosthetic aortic heart valve replacement. Note: Patients with mechanical aortic valve replacement and additional risk factors for thromboembolic events (atrial fibrillation, previous thromboembolism, LV dysfunction, hypercoagulable conditions) or an older generation mechanical AVR (i.e., ball in-Cage) or any mechanical MVR should have a INR therapeutic range of 2.5 to 3.5 (target INR of 3). aCren GH, et al. Chest 2012, 141:7S-47S Olga RA, et al. JAC 2017, 70: 252-289 Performed By: #### 4 3408-4, 635-3 #### [employer] [facility] CLIA [id number] [address] [place] PT Coag (PPP) [Time] 11.5 s Normal 9.7-13.0 [facility] Comment on above: Order Comment: Dwayne cheung Type: BLOOD SPECIMENOrdering Facility: [facility] Address: [address] [place] [address] Performed By: #### 4 3408-4, 635-3 #### [employer] [facility] CLIA [id number] [address] [place] [id number] [place] Spine Cervical W/WO Contrast on 10-07-2024 Spine Cervical W/WO Contrast [facility] Imaging Services [address] [place] [address] Spine Cervical W/WO Contrast MR#: [id number] Acct: [id number] Name: PHILLIP JESUS Rep #: [id number] : 1950 M 74 From: Lai Quezada PCP: Dr. Earnest Amaral MD Status: REG CLI Study: Spine Cervical W/WO Contrast Date of Exam: Exam# [id number] Ordering Dr: Sussy Callejas SPIDER ASSEMBLER-C PROCEDURE: SPINE CERVICAL W/WO CONTRAST 10/07/2024 REASON FOR EXAM: HYPERREFLEXIA, SPASTICITY. Weakness on right side for 1 month. TECHNIQUE: SPINE CERVICAL W/WO CONTRAST Multiplanar and multisequence images were obtained with intravenous gadolinium-based contrast administration. CONTRAST: Clariscan VOLUME: 14 mL intravenous. COMPARISON: Cervical spine studies of 10/06/2024 and of 09/15/2024.. FINDINGS: Vertebrae: Cervical vertebral body heights are preserved. Cervical spine degenerative changes are again seen, again most prominent in the C6-C7 level, where moderately severe disc narrowing is noted, and vertebral body osteophytosis is seen, along with more subtle other osseous reactive changes. Alignment: No significant subluxation is seen. Spinal Cord: At the level of greatest spinal canal narrowing, C3-C4, cervical cord signal changes are consistent with chronic cord contusion. C2-3: Unremarkable C3-4: At least moderate spinal canal stenosis is seen, in the presence of ligamentum flavum hypertrophy, uncovertebral joint hypertrophy, lvim-vc-ielivuid broad-based disc protrusion/extrusion. No definite neural foraminal narrowing noted. C4-5: Mild disc bulge. No central canal or neural foraminal stenosis. C5-6: No significant disc bulge or herniation is noted. No spinal canal stenosis or significant neural foraminal narrowing is identified. C6-7: Mild vertebral body osteophytosis and a mild disc bulge are noted. No significant degree of spinal canal stenosis is seen. No definite neural foraminal narrowing is noted. C7-T1: Unremarkable Postcontrast images: No area of significant postcontrast enhancement is seen. MRI/Spine Cervical W/WO Contrast IMPRESSION: Multilevel cervical degenerative disc disease, as described, but with at least moderate spinal canal stenosis at the C3-C4 level, also with cervical cord signal changes at that level consistent with chronic cord contusion. Reading Location: [place] [address] CC: SPIDER ASSEMBLER-C Sussy Callejas; Dr. Earnest Amaral MD Marker Assembler: Signed Normal [facility] Spine Lumbar W/WO Contraston 10-07-2024 Spine Lumbar W/WO Contrast [facility] Imaging Services [address] [place], [place] [id number] Spine Lumbar W/WO Contrast MR#: [id number] Acct: [id number] Name: PHILLIP JESUS Rep #: [id number] : 1950 74 From: Ranjan Baum MD PCP: Dr. Earnest Amaral MD Status: REG CLI Study: Spine Lumbar W/WO Contrast Date of Exam: 09/24 Exam# [id number] Ordering Dr: Sussy Callejas SPIDER ASSEMBLER-C PROCEDURE: SPINE LUMBAR W/WO CONTRAST 10/07/2024 REASON FOR EXAM: HYPERREFLEXIA, SPASCITY TECHNIQUE: SPINE LUMBAR W/WO CONTRAST Multiplanar and multisequence images were obtained without and with intravenous gadolinium-based contrast administration. CONTRAST: Clariscan VOLUME: 14 mL COMPARISON: None FINDINGS: Vertebrae: There are no compression fractures. There are no significant bone marrow abnormalities. Alignment: There is maintenance of the normal lumbar lordosis. Conus Medullaris: The conus medullaris terminates normally at the T12-L1 level. L1-2: There is mild disc degeneration. There is no disc bulging or disc protrusion. There is mild bilateral facet arthropathy with ligamentum flavum bulging. There is mild compression of the thecal sac. There is no lateral recess stenosis. There is mild foraminal narrowing bilaterally. L2-3: There is mild disc degeneration. There is no disc bulging or disc protrusion. There is mild bilateral facet arthropathy with ligamentum flavum bulging. There is mild compression of the thecal sac. There is no lateral recess stenosis. There is mild foraminal narrowing bilaterally. L3-4: There is mild disc degeneration. There is no disc bulging or disc protrusion. There is mild bilateral facet arthropathy with ligamentum flavum bulging. There is mild compression of the thecal sac. There is no lateral recess stenosis. There is mild foraminal narrowing bilaterally. L4-5: There is mild disc degeneration. There is no disc bulging or disc protrusion. There is mild bilateral facet arthropathy with ligamentum flavum bulging. There is mild compression of the thecal sac. There is no lateral recess stenosis. There is mild foraminal narrowing bilaterally. L5-S1: There is mild disc degeneration. There is no disc bulging or disc protrusion. There is mild bilateral facet arthropathy with ligamentum flavum bulging. There is mild compression of the thecal sac. There is no lateral recess stenosis. There is mild foraminal narrowing bilaterally. Sacrum: Unremarkable. Postcontrast images: There is no abnormal contrast enhancement. MRI/Spine Lumbar W/WO Contrast IMPRESSION: Mild diffuse degenerative disc disease of the lumbar spine. There is mild compression of the thecal sac and mild foraminal narrowing, bilaterally, throughout the lumbar spine. Reading Location: [facility] CC: SPIDER ASSEMBLER-C Sussy Callejas; Dr. Earnest Amaral MD Marker Assembler: Signed Normal [facility] Spine Thoracic W/WO Contrast on 10-07-2024 Spine Thoracic W/WO Contrast [facility] Imaging Services [address] [place] [address] Spine Thoracic W/WO Contrast MR#: [id number] Acct: [id number] Name: PHILLIP JESUS Arminda Rep #: [id number] : 1950 M 74 From: Lai Quezada PCP: Dr. Earnest Amaral MD Status: REG CLI Study: Spine Thoracic W/WO Contrast Date of Exam: Exam# [id number] Ordering Dr: Sussy Callejas SPIDER ASSEMBLER-C PROCEDURE: SPINE THORACIC W/WO CONTRAST 10/07/2024 REASON FOR EXAM: HYPERREFLEXIA, SPASTICITY. Right-sided weakness for 1 month. TECHNIQUE: Thoracic spine MRI without and with intravenous gadolinium-based contrast. Multiplanar and multisequence images were obtained. CONTRAST: Clariscan VOLUME: 14mL IV COMPARISON: None. FINDINGS: Vertebrae: Thoracic vertebral body heights are preserved. Bone marrow signal is unremarkable. Alignment: Normal. No spondylolisthesis. Spinal Cord: Thoracic spinal cord is of normal size. No clear thoracic cord signal changes are seen. No area of abnormal enhancement is seen. Disc spaces: Mild degenerative disc disease is seen, most prominent in the mid to lower thoracic spine. No significant disc bulge or herniation is evident. No spinal canal stenosis or significant neural foraminal narrowing is evident. Paraspinal Tissues: Unremarkable. Postcontrast images: No area of abnormal enhancement is seen. MRI/Spine Thoracic W/WO Contrast IMPRESSION: Mild degenerative changes, most prominent at the mid to lower thoracic spine. Reading Location: [place] [address] CC: ELSIE Callejas; Dr. Earnest Amaral MD Marker Assembler: Signed Normal [facility] TYPE + SCREENon 10-07-2024 ABO O Normal [facility] Comment on above: Order Comment: Speci men Type: BLOOD SPECIMEN Ordering Facility: [facility] Address: [address] [place] [address] Performed By: #### T SCR #### [facility] CLIA [id number] [address] [place] [address] [place] Rh Nom (Bld) Negative Normal [facility] Comment on above: Order Comment: Speci men Type: BLOOD SPECIMEN Ordering Facility: [facility] Address: [address] [place] [address] Performed By: #### T SCR #### [facility] CLIA [id number] [address] [place] TYPE AND SCREEN EXPIRATION 10/10/2024 23:59 Normal [facility] Comment on above: Order Comment: Speci men Type: BLOOD SPECIMEN Ordering Facility: [facility] Address: [address] [facility] [place] [address] Performed By: #### T SCR #### [facility] CLIA [id number] 1 [place] [id number] [facility] aPTT PPPon 10-07-2024 aPTT Coag (PPP) [Time] 26.5 s Normal 23.0-32.4 [facility] Comment on above: Order Comment: Speci men Type: BLOOD SPECIMENOrdering Facility: [facility] Address: [address] [place] [id number] Performed By: #### 4 3408-4, 635-3 #### [facility] CLIA [id number] [address] [facility] Cerv Spine 2 or 3 Viewson Cerv Spine [address] [facility] Imaging Services [address] [place], [place] [address] Cerv Spine 2 or 3 Views MR#: [id number] Acct: [id number] Name: PHILLIP JESUS Rep #: [id number] : 1950 M 74 From: Lyndon Foster MD PCP: Dr. Earnest Amaral MD Status: DEP AMB Study: Cerv Spine 2 or 3 Views Date of Exam: 10/06/24 Exam# [id number] Ordering Dr: Stephanie Mayer PROCEDURE: CERV SPINE 2 OR 3 VIEWS 10/06/2024 REASON FOR EXAM: NECK PAIN TECHNIQUE: CERV SPINE 2 OR 3 VIEWS COMPARISON: 09/15/2024 FINDINGS: Multilevel mild disc space narrowing, more moderately severe at C6-C7, with large anterior osteophyte.. Diffuse facet arthritis. No acute bone or soft tissue pathology. No abnormal motion with flexion/extension. No interspinous widening. RAD/Cerv Spine 2 or 3 Views IMPRESSION: Cervical spine degeneration. No acute findings. Disclaimer: Reading Location: [facility]- CC: JE Davidson; Dr. Earnest Amaral MD Marker Assembler: Signed Normal [facility] Orthopedic Visit Reporton Orthopedic Visit Report [facility] [address] [facility] [address] [place] [address] OFFICE VISIT Date of Service: 10/06/24 MR#: [id number] Acct: [id number] Name: PHILLIP JESUS Rep #: [id number] : 1950 Provider: JE Davisdon Age/Sex: 74/M Location: [facility].MARY JANE Status: Signed with Addenda ADDENDUM by JE Davidson on 10/07/24 at 1252 Assessment and Plan Assessment and Plan (1) Cervical myelopathy: Status: Suspected (2) Hyperreflexia: Status: Acute (3) History of Parkinson's disease: Status: Chronic Orders: Orders Cerv Spine 2 or 3 Views 10/06/24 M54.2 - Cervicalgia Plan Patient received cervical, thoracic, lumbar and brain MRI today. Cervical MRI shows C3-4 disc protrusion and stenosis with cord edema and cord signal change. Other imaging does not show any acute abnormalities. Called patients and spoke to her about these findings. Encouraged the patient to go to [facility] ER for evaluation, patient's understands and says that they will plan to be seen there. Encouraged them not to wait too long as he has significant functional loss over the last 2-3 weeks. Called the [facility] ER and spoke to a physician and gave a report. We will send these images to [facility]. 10/07/24 1252 Date Stephanie Mayer cc: ELSIE Callejas; Dr. Earnest Amaral MD * Signed Intake Vital Signs 09/15/24 13:44 Height 5 ft 10.25 in Intake Visit Reasons: CERVICAL SPINE Chief Complaint: Cervical Spine Pain Is patient in pain?: Yes Pain scale (1-10): 8 Allergies No Known Allergies Allergy (Verified 10/06/24 13:42) Medications ???Medication ???Instructions ???Recorded ???Confirmed ???Type gabapentin 600 mg tablet 600 mg PO QHS 02/17/24 10/06/24 Hi story carbidopa ER 50 mg-levodopa 200 mg See Rx Instructions PO .COMPLEX 04/29/24 10/06/24 History tablet,extended release pramipexole 0.75 mg tablet 0.75 mg PO TID 05/06/24 10/06/24 H istory tizanidine 4 mg tablet 8 mg (2 x 4 mg) PO QHS PRN muscle 09/20/24 10/06/24 Rx spasticity #60 tabs alfalfa 650 mg tablet 650 mg PO BID 09/29/24 10/06/24 Hi story baclofen 5 mg tablet 5 mg PO QPM #30 tabs 09/29/2408/25 Rx capsicum (cayenne) 450 mg capsule 450 mg PO QDAY 09/29/24 10/06/24 History cholecalciferol (vitamin D3) 25 25 mcg PO QDAY 09/29/24 10/06/24 H istory mcg (1,000 unit) capsule colon support 1 tab PO BID PRN 09/29/24 10/06/24 History homeopathic prostate drops See Rx Instructions PO .COMPLEX 10/06/24 History losartan 25 mg tablet 25 mg PO BID 09/29/24 10/06/24 His tory lysine 1,000 mg tablet 1,000 mg PO QDAY 09/29/24 10/06/24 History magnesium oxide 500 mg capsule 500 mg PO QDAY 09/29/24 10/06/24 H istory olive leaf 500 mg capsule 500 mg PO QDAY 09/29/24 10/06/24 H istory oregano 1 tablet PO QDAY 09/29/24 10/06/24 History sertraline 50 mg tablet 50 mg PO QAM 09/29/24 10/06/24 His tory vitamins A,C,A-vftv-uivfux 4,296 1 cap PO QAM AND QPM 09/29/2408/25 History mcg-226 mg-90 mg capsule (PreserVision AREDS) zinc gluconate 50 mg tablet 50 mg PO Q OTHER DAY 09/29/2408/25 History Handicap Placard See Rx Instructions .Route 5 10/06/24 Rx .COMPLEX #1 unit Have you fallen in the past year?: Yes PFSH Medical History Essential (primary) hypertension Surgical History Hx of appendectomy Family History Mother , 80 yrs old No problems noted. Father , 83 years old Heart disease Social History household members: spouse and children current occupational status: retired pets and animals: No Smoking Status: Former smoker alcohol intake: never caffeine: Yes Type: coffee Number of servings: 1 do you feel safe at home: Yes HPI CERVICAL SPINE Details: This documentation accurately reflects the service provided and the decisions made by me, JE Davidson 10/06/24 3383. Part of today???s visit was documented by Regina Baker ATC, acting as scribe. PHILLIP JESUS is a 74 year old M here today for cervical spine pain. Patient had a fall about a month ago and the neck started really bothering him after. He was seen in [facility] ER on 09/15/2024 for the fall. He had some stiffness prior to the fall but nothing severe. He states the right shoulder is really bothering him more than the neck. He states he has numbness in both hands. He does have dexterity issues. Patient is RHD. Patient is in a wheelchair today and he is not able to walk. About 2 weeks after the fall he started not charis (more content not included)... Normal [facility] Neurology Visit Reporton Neurology Visit Report [facility] [address] [facility] [address], [address] [place] [address] OFFICE VISIT Date of Service: 09/29/24 MR#: [id number] Acct: [id number] Name: PHILLIP JESUS Rep #: [id number] : 1950 Provider: ELSIE burr Age/Sex: 74/M Location: [facility].BN Status: Signed HPI HPI Chief Complaint: Acute [...] 130 Albumin (YANDEL) 4.1 Albumin/Globulin (YANDEL) 1.3 Lzirc-9-Lcmnolbqz YANDEL 0.3 Dbfga-6-Crajmugnx YANDEL 0.6 Beta-Globulins (YANDEL) 0.9 Gamma Globulins (YANDEL) 1.5 YANDEL M-Edmond Not Observed [place] Screen Negative Free [place] LC, Quant 34.9 H Free Lambda LC, Quant 19.4 Free [place]/Lambda Ratio 1.80 H HTLVI/II Antibodies Negative Patient [...] has continuous (more content not included)... Normal [facility] Folates, RBCon 09-24-2024 Fol.,Hemolysate > 620.0 Normal Not Estab. [facility] Comment on above: Order Comment: Test( s) 094825-Ocu. B1, Whole Bloodwas developed and its performance characteristicsdetermined by [employer]. It has not been cleared or approvedby the Food and Drug Administration. Performed By: #### L 3100.5450, L501.6710, L3410.9992, L3100.3425, L3100.1725, L101.9900, L3130.0010, L3300.8000 ####[facility] [address] [place], [place], [id number] Folate, RBC > 1480 Normal >498 [facility] Comment on above: Order Comment: Test( s) 776632-Utr. B1, Whole Bloodwas developed and its performance characteristicsdetermined by [employer]. It has not been cleared or approvedby the Food and Drug Administration. Performed By: #### L 3100.5450, L501.6710, L3410.9992, L3100.3425, L3100.1725, L101.9900, L3130.0010, L3300.8000 ####[facility] [address] [place], [place], [id number] Hematocrit (Bld) [Volume fraction] 41.9 % Normal 37.5-51.0 [facility] Comment on above: Order Comment: Test( s) 928946-Pee. B1, Whole Bloodwas developed and its performance characteristicsdetermined by [facility]. It has not been cleared or approvedby the Food and Drug Administration. Performed By: #### L 3100.5450, L501.6710, L3410.9992, L3100.3425, L3100.1725, L101.9900, L3130.0010, L3300.8000 ####[facility] [address] [place], [place], [phone] YANDEL + Protein Elect, Serumon 09-24-2024 Albumin [Mass/Vol] 4.1 g/dL Normal 2.9-4.4 [facility] Comment on above: Order Comment: Test( s) 673163-Yvh. B1, Whole Bloodwas developed and its performance characteristicsdetermined by [facility]. It has not been cleared or approvedby the Food and Drug Administration.N Performed By: #### L 3100.5450, L501.6710, L3410.9992, L3100.3425, L3100.1725, L101.9900, L3130.0010, L3300.8000 ####[facility] [address] [place], [place], [phone] Albumin/Globulin [Mass ratio] 1.3 {ratio} Normal 0.7-1.7 [facility] Comment on above: Order Comment: Test( s) 340137-Vel. B1, Whole Bloodwas developed and its performance characteristicsdetermined by [facility]. It has not been cleared or approvedby the Food and Drug Administration.N Performed By: #### L 3100.5450, L501.6710, L3410.9992, L3100.3425, L3100.1725, L101.9900, L3130.0010, L3300.8000 ####[facility] [address] [place], [address] KDKHI-4-FXVF 0.3 g/dL Normal 0.0-0.4 [facility] Comment on above: Order Comment: Test( s) 867196-Utg. B1, Whole Bloodwas developed and its performance characteristicsdetermined by [facility]. It has not been cleared or approvedby the Food and Drug Administration.N Performed By: #### L 3100.5450, L501.6710, L3410.9992, L3100.3425, L3100.1725, L101.9900, L3130.0010, L3300.8000 ####[facility] [address] [place], [address] MSTIK-2-BUFV 0.6 g/dL Normal 0.4-1.0 [facility] Comment on above: Order Comment: Test( s) 813550-Agf. B1, Whole Bloodwas developed and its performance characteristicsdetermined by [employer].. It has not been cleared or approvedby the Food and Drug Administration.N Performed By: #### L 3100.5450, L501.6710, L3410.9992, L3100.3425, L3100.1725, L101.9900, L3130.0010, L3300.8000 ####[facility] [address] [place], [address] BETA GLOBULIN 0.9 g/dL Normal 0.7-1.3 [facility] Comment on above: Order Comment: Test( s) 750287-Ujy. B1, Whole Bloodwas developed and its performance characteristicsdetermined by [employer].. It has not been cleared or approvedby the Food and Drug Administration.N Performed By: #### L 3100.5450, L501.6710, L3410.9992, L3100.3425, L3100.1725, L101.9900, L3130.0010, L3300.8000 ####[facility] [address] [place], [address] GAMMA GLOBULIN 1.5 g/dL Normal 0.4-1.8 [facility] Comment on above: Order Comment: Test( s) 900748-Unc. B1, Whole Bloodwas developed and its performance characteristicsdetermined by [facility]. It has not been cleared or approvedby the Food and Drug Administration.N Performed By: #### L 3100.5450, L501.6710, L3410.9992, L3100.3425, L3100.1725, L101.9900, L3130.0010, L3300.8000 ####[facility] [address] [place], [address] Globulin (S) [Mass/Vol] 3.3 g/dL Normal 2.2-3.9 [facility] Comment on above: Order Comment: Test( s) 708862-Roi. B1, Whole Bloodwas developed and its performance characteristicsdetermined by [facility]. It has not been cleared or approvedby the Food and Drug Administration.N Performed By: #### L 3100.5450, L501.6710, L3410.9992, L3100.3425, L3100.1725, L101.9900, L3130.0010, L3300.8000 ####[facility] [address] [place], [address] YANDEL RESULT,S Comment Normal . [facility] Comment on above: Order Comment: Test( s) 021581-Mdb. B1, Whole Bloodwas developed and its performance characteristicsdetermined by [facility]. It has not been cleared or approvedby the Food and Drug Administration.N Result Comment: No m onoclonality detected. Performed By: #### L 3100.5450, L501.6710, L3410.9992, L3100.3425, L3100.1725, L101.9900, L3130.0010, L3300.8000 ####[facility] [address] [place], [address] IMMUNOGLOB A QN 145 mg/dL Normal 61-437 [facility] Comment on above: Order Comment: Test( s) 742552-Xir. B1, Whole Bloodwas developed and its performance characteristicsdetermined by [employer]. It has not been cleared or approvedby the Food and Drug Administration.N Performed By: #### L 3100.5450, L501.6710, L3410.9992, L3100.3425, L3100.1725, L101.9900, L3130.0010, L3300.8000 ####[facility] [address] [place], [address] IMMUNOGLOB G QN 1454 mg/dL Normal 603-1613 [facility] Comment on above: Order Comment: Test( s) 281434-Fyk. B1, Whole Bloodwas developed and its performance characteristicsdetermined by [employer]. It has not been cleared or approvedby the Food and Drug Administration.N Performed By: #### L 3100.5450, L501.6710, L3410.9992, L3100.3425, L3100.1725, L101.9900, L3130.0010, L3300.8000 ####[facility] [address] [place], [address] IMMUNOGLOB M QN 130 mg/dL Normal 15-143 [facility] Comment on above: Order Comment: Test( s) 812262-Iyh. B1, Whole Bloodwas developed and its performance characteristicsdetermined by [employer]. It has not been cleared or approvedby the Food and Drug Administration.N Performed By: #### L 3100.5450, L501.6710, L3410.9992, L3100.3425, L3100.1725, L101.9900, L3130.0010, L3300.8000 ####[facility] [address] [place], [address] M-Edmond Not Observed Normal Not Observed [facility] Comment on above: Order Comment: Test( s) 798697-Ggp. B1, Whole Bloodwas developed and its performance characteristicsdetermined by [employer]. It has not been cleared or approvedby the Food and Drug Administration.N Performed By: #### L 3100.5450, L501.6710, L3410.9992, L3100.3425, L3100.1725, L101.9900, L3130.0010, L3300.8000 ####[facility] [address] [place], [place], [address] NOTE: Comment Normal . [facility] Comment on above: Order Comment: Test( s) 777320-Umi. B1, Whole Bloodwas developed and its performance characteristicsdetermined by [facility]. It has not been cleared or approvedby the Food and Drug Administration.N Result Comment: Prot ein electrophoresis scan will follow via computer, mail, or baseball glove shaper delivery. Performed By: #### L 3100.5450, L501.6710, L3410.9992, L3100.3425, L3100.1725, L101.9900, L3130.0010, L3300.8000 ####[facility] [address] [place], [place], [phone] Protein [Mass/Vol] 7.4 g/dL Normal 6.0-8.5 [facility] Comment on above: Order Comment: Test( s) 646285-Zth. B1, Whole Bloodwas developed and its performance characteristicsdetermined by [employer]. It has not been cleared or approvedby the Food and Drug Administration.N Performed By: #### L 3100.5450, L501.6710, L3410.9992, L3100.3425, L3100.1725, L101.9900, L3130.0010, L3300.8000 ####[facility] [address] [place], [place], [phone] [place] Lambda Light Chainson 09-24-2024 FR KAPPA LT CHN 34.9 mg/L Abnormal 3.3-19.4 [facility] Comment on above: Order Comment: Test( s) 408171-Kkh. B1, Whole Bloodwas developed and its performance characteristicsdetermined by [employer]. It has not been cleared or approvedby the Food and Drug Administration. Performed By: #### L 3100.5450, L501.6710, L3410.9992, L3100.3425, L3100.1725, L101.9900, L3130.0010, L3300.8000 ####[facility] [address] [place], [phone] FR LAMBDA LT CH 19.4 mg/L Normal 5.7-26.3 [facility] Comment on above: Order Comment: Test( s) 102092-Bvm. B1, Whole Bloodwas developed and its performance characteristicsdetermined by [employer]. It has not been cleared or approvedby the Food and Drug Administration. Performed By: #### L 3100.5450, L501.6710, L3410.9992, L3100.3425, L3100.1725, L101.9900, L3130.0010, L3300.8000 ####[facility] [address] [place], [place], [id number] KAPPA/LAMBDA % 1.80 Abnormal 0.26-1.65 [facility] Comment on above: Order Comment: Test( s) 270909-Njz. B1, Whole Bloodwas developed and its performance characteristicsdetermined by [employer]. It has not been cleared or approvedby the Food and Drug Administration. Performed By: #### L 3100.5450, L501.6710, L3410.9992, L3100.3425, L3100.1725, L101.9900, L3130.0010, L3300.8000 ####[facility] [id number] [place] [address] Vitamin B1, Thiamineon 09-24 VIT B1 THIAMINE 79.6 nmol/L Normal 66.5-200.0 [facility] Comment on above: Order Comment: Test( s) 626520-Pqg. B1, Whole Bloodwas developed and its performance characteristicsdetermined by [employer]. It has not been cleared or approvedby the Food and Drug Administration. Result Comment: Perf ormed at: - [address] [id number] Wood Carving Lathe Operator: Deny Donahue PhD, Phone: [phone] Performed at: [facility] [address] [id number] Wood Carving Lathe Operator: Aj Watson MD, Phone: [phone] Performed By: #### L 3100.5450, L501.6710, L3410.9992, L3100.3425, L3100.1725, L101.9900, L3130.0010, L3300.8000 ####[facility] [address] [place], [address] STANFORD w/ Reflex Mult Confirmon 09-23-2024 ANTI-DNA (DS)AB TNP Normal [facility] Comment on above: Performed By: #### L 3100.5450, L501.6710, L3410.9992, L3100.3425, L3100.1725, L101.9900, L3130.0010, L3300.8000 #### [facility] [address] [place], [address] ANTI-SS-A TNP Normal [facility] Comment on above: Performed By: #### L 3100.5450, L501.6710, L3410.9992, L3100.3425, L3100.1725, L101.9900, L3130.0010, L3300.8000 #### [facility] [address] [place], [address] ANTI-SS-B TNP Normal [facility] Comment on above: Performed By: #### L 3100.5450, L501.6710, L3410.9992, L3100.3425, L3100.1725, L101.9900, L3130.0010, L3300.8000 #### [facility] [address] [place], [address] L3410.9992on 09-22-2024 [facility] [place] [place]. COMMENT Normal . [facility] Comment on above: Order Comment: [id number] 6 HTLV-1/HTLV-2 Result Comment: Test Ordered: [id number] HTLV-I/II Antibodies, Qual HTLV-I/II Antibodies, Qual Negative LALCA Reference Range: Negative Performed at: [facility] [employer] [facility] [employer] [address] [id number] Wood Carving Lathe Operator: Sanford Johnson [facility], Phone: [phone] Performed at: - [address] [id number] Wood Carving Lathe Operator: Deny Donahue PhD, Phone: [phone] Performed By: #### L 3100.5450, L501.6710, L3410.9992, L3100.3425, L3100.1725, L101.9900, L3130.0010, L3300.8000 #### [facility] [address] [place], [address] Albumin Elph [Mass/Vol]Order ed By: Sussy Callejas on 09-20-2024 Albumin [Mass/Vol] 4.1 g/dL 2.9-4.4 [facility] CRPon 09-20-2024 C-REACTIVE PROT < 3.00 Normal 0.0-3.0 [facility] Comment on above: Performed By: #### L 3100.5450, L501.6710, L3410.9992, L3100.3425, L3100.1725, L101.9900, L3130.0010, L3300.8000 #### [facility] [address] [place], [address] Erythrocyte Sed Rateon 09-20 SED RATE 5 mm/hr Normal 0-20 [facility] Comment on above: Performed By: #### L 3100.5450, L501.6710, L3410.9992, L3100.3425, L3100.1725, L101.9900, L3130.0010, L3300.8000 #### [facility] [address] [place], [address] Erythrocyte folate measureme nt with hematocritOrdered By: Sussy Callejas on 09-20-2024 Hematocrit (Bld) [Volume fraction] 41.9 % 37.5-51.0 [facility] Erythrocyte sedimentation ra teOrdered By: Sussy Callejas on 09-20-2024 ESR (Bld) [Velocity] 5 mm/h 0-20 [facility] Interpretation of serum or p lasma protein pattern by immunofixation (narrative resultOrdered By: Sussy Callejas on 09-20-2024 Protein Fractions Immunofixation Eric [Interp] Not Observed g/dL Not Observed [facility] Neurology Visit Reporton Neurology Visit Report [facility] [address] [facility] [place], [address] [place] [address] OFFICE VISIT Date of Service: 09/20/24 MR#: [id number] Acct: [id number] Name: PHILLIP JESUS Rep #: [id number] : 1950 Provider: ELSIE burr Age/Sex: 74/M Location: [facility].BN Status: Signed HPI HPI Details: History of [...] and r (more content not included)... Normal [facility] No Panel InformationOrdered By: Sussy Callejas on 09-20-2024 Addendum Document Comment . [facility] Comment on above: Protein electrophore sis scan will follow via computer,mail, or baseball glove shaper delivery. Serum DNA double strand anti body assay (units/volume)Ordered By: Sussy Callejas on 09-20-2024 DNA double strand Ab Qn (S) [facility] Comment on above: Test not performed Serum Scl-70 antibody assay (units/volume)Ordered By: Sussy Callejas on 09-20-2024 SCL-70 extractable nuclear Ab Qn (S) [facility] Comment on above: Test not performed Serum globulin measurement ( mass/volume)Ordered By: Sussy Callejas on 09-20-2024 Globulin (S) [Mass/Vol] 3.3 g/dL 2.2-3.9 [facility] Serum immunoglobulin kappa l ight chains/immunoglobulin lambda light chains mass ratioOrdered By: Sussy Callejas on 09-20-2024 Immunoglobulin light chains.kappa/Immunoglo bulin light chains.lambda (S) [Mass ratio] 1.80 High 0.26-1.65 [facility] Serum or plasma C reactive p rotein measurement (mass/volume)Ordered By: Sussy Callejas on 09-20-2024 CRP [Mass/Vol] mg/L 0.0-3.0 [facility] Serum or plasma IgA measurem ent (mass/volume)Ordered By: Sussy Calljeas on 09-20-2024 IgA [Mass/Vol] 145 mg/dL 61-437 [facility] Serum or plasma IgG measurem ent (mass/volume)Ordered By: Sussy Callejas on 09-20-2024 IgG [Mass/Vol] 1454 mg/dL 603-1613 [facility] Serum or plasma alpha 1 glob ulin measurement by electrophoresis (mass/volume)Ordered By: Sussy Callejas on 09-20-2024 Alpha 1 globulin Elph [Mass/Vol] 0.3 g/dL 0.0-0.4 [facility] Alpha 1 globulin Elph [Mass/Vol] 0.6 g/dL 0.4-1.0 [facility] Serum or plasma beta globuli n measurement by electrophoresis (mass/volume)Ordered By: Sussy Callejas on 09-20-2024 Beta globulin Elph [Mass/Vol] 0.9 g/dL 0.7-1.3 [facility] Serum or plasma gamma globul in measurement by electrophoresis (mass/volume)Ordered By: Sussy Callejas on 09-20-2024 Gamma globulin Elph [Mass/Vol] 1.5 g/dL 0.4-1.8 [facility] Serum or plasma immunoelectr ophoresis interpretation (nominal result)Ordered By: Sussy Callejas on 09-20-2024 Interpretation IEP [Interp] Comment . [facility] Comment on above: No monoclonality det ected. Serum or plasma immunoglobul in kappa light chains measurement (mass/volume)Ordered By: Sussy Callejas on 09-20-2024 Immunoglobulin light chains.kappa [Mass/Vol] 34.9 mg/L High 3.3-19.4 [facility] Serum or plasma protein herrera urement (mass/volume)Ordered By: Sussy Callejas on 07-21-2025 Protein [Mass/Vol] 7.4 g/dL 6.0-8.5 [facility] Serum or plasma thiamine frantz surement (mass/volume)Ordered By: Sussy Callejas on 09-20-2024 Thiamine [Mass/Vol] 79.6 nmol/L 66.5-200.0 [facility] Comment on above: Performed at: CB - [facility] [address] [id number] Director: Deny Donahue PhD, Phone: [phone] at: - [facility] [address] [id number] Director: Aj Watson MD, Phone: [phone] Cerv Spine 2 or 3 Viewson Cerv Spine [address] [facility] Imaging Services [address] [place] [address] Cerv Spine 2 or 3 Views MR#: [id number] Acct: [id number] Name: PHILLIP JESUS Rep #: [id number] : 1950 M 74 From: Asaf Avalos MD PCP: Dr. Earnest Amaral MD Status: REG ER Study: Cerv Spine 2 or 3 Views Date of Exam: 09/15/24 Exam# [id number] Ordering Dr: Cas Boyer MD EXAM: XR [...] the cervical spine as described. Reading [facility] CC: Dr. Cas Boyer MD; Dr. Earnest Amaral MD Marker Assembler: Signed Normal [facility] Emergency Department Summary on 09-15-2024 Emergency Department Summary [facility] Medical Records Department [address] [place] [address] Emergency Department Summary 09/15/24 MR#: [id number] Acct: [id number] Name: PHILLIP JESUS Rep #: [id number] : 1950 74 From: Cas Boyer MD [...] similar symptoms: Yes Recent Illness/Hospitalization: No PFSH PFSH Medical History Essential (primary) hypertension Home Medications [...] moving all 4 extremities. No deformity. Normal bolt man strength. Normal dorsi plantarflexion. Hips are nontender [...] normocephalic atraumatic; (more content not included)... Normal [facility] Shoulder min 2 Viewson 09-15 Shoulder min 2 Views [facility] Imaging Services [address] [place] [address] Shoulder min 2 Views MR#: [id number] Acct: [id number] Name: PHILLIP JESUS Rep #: [id number] : 1950 M 74 From: Asaf Avalos MD PCP: Dr. Earnest Amaral MD Status: REG ER Study: Shoulder min 2 Views Date of Exam: 09/15/24 Exam# [id number] Ordering Dr: Cas Boyer MD EXAM: XR [...] 2. Degenerative changes as above. Reading Location: [facility] CC: Dr. Cas Boyer MD; Dr. Earnest Amaral MD Marker Assembler: Signed Normal [facility] FERRITIN [CCL]on 07-29-2024 Ferritin [Mass/Vol] 191.0 ng/mL Normal 30.3-565.7 [facility] Comment on above: Result Comment: [facility] [address] [place] [address] Leonardo Stacy III, M.D. [id number] Performed By: #### 2 15286 #### [facility],[address] [place] [address] CBC + DIFFon 07-28-2024 Baso # 0.01 x10EE3/UL Normal 0.00 - 0.10 [facility] Comment on above: Performed By: #### 2 [address] #### [place] [address] Basophils/100 WBC (Bld) 0.2 % Normal 0.0 - 2.0 [facility] Comment on above: Performed By: #### 2 17684 #### [place] [address] CBC + DIFF Normal [facility] Comment on above: Result Comment: CBC- COMPLETE BLOOD COUNT Performed By: #### 2 03522 #### [place] [address] EO # 0.30 x10EE3/UL Normal 0.00 - 0.50 [facility] Comment on above: Performed By: #### 2 78376 #### [place] [address] Eosinophils/100 WBC (Bld) 7.4 % High 0.0 - 7.0 [facility] Comment on above: Performed By: #### 2 61868 #### [place] [address] Erythrocyte distribution width (RBC) [Ratio] 12.8 % Normal 12.0 - 15.6 [facility] Comment on above: Performed By: #### 2 30468 #### [place] [address] Hematocrit (Bld) [Volume fraction] 40.6 % Normal 40.0 - 52.0 [facility] Comment on above: Performed By: #### 2 64040 #### [place] [address] Hemoglobin (Bld) [Mass/Vol] 14.3 g/dL Normal 13.0 - 17.5 [facility] Comment on above: Performed By: #### 2 95348 #### [facility],[address] [place] [address] Lymph # 1.22 x10EE3/UL Normal 0.80 - 2.80 [facility] Comment on above: Performed By: #### 2 49828 #### [facility],[address] [place] [address] Lymphocytes/100 WBC (Bld) 30.4 % Normal 20.0 - 45.0 [facility] Comment on above: Performed By: #### 2 90338 #### [facility],[address] [place] [address] MANUAL DIFF N/A Normal [facility] Comment on above: Performed By: #### 2 07388 #### [facility],[address] [place] [address] MCH (RBC) [Entitic mass] 33 pg Normal 27 - 33 [facility] Comment on above: Performed By: #### 2 67236 #### [facility],[address] [place] [address] MCHC 35 X10 3 Normal 32 - 36 [facility] Comment on above: Performed By: #### 2 71957 #### [facility],[address] [place] [address] MCV (RBC) [Entitic vol] 94 fL Normal 81 - 98 [facility] Comment on above: Performed By: #### 2 63929 #### [facility],[address] [place] [address] Wood # 0.31 x10EE3/UL Normal 0.20 - 1.00 [facility] Comment on above: Performed By: #### 2 65610 #### [place] [address] MONOS % 7.6 % Normal 0.0 - 10.0 [facility] Comment on above: Performed By: #### 2 32825 #### [facility],[address],[place] [address] Morphology Eric (Bld) [Interp] N/A Normal [facility] Comment on above: Performed By: #### 2 16921 #### [facility],[address] [place] [address] Neut # 2.18 x10EE3/UL Normal 1.50 - 7.10 [facility] Comment on above: Performed By: #### 2 59538 #### [facility],[address] [place], [place] [address] Neutrophils/100 WBC (Bld) 54.4 % Normal 46.0 - 76.0 [facility] Comment on above: Performed By: #### 2 90849 #### [facility],[address] [place], [place] [address] PLATELET 189 x10EE3/UL Normal 150 - 450 [facility] Comment on above: Performed By: #### 2 07002 #### [facility],[address] [place] [address] Platelet mean volume (Bld) [Entitic vol] 9.0 fL Normal 6.4 - 10.5 [facility] Comment on above: Result Comment: AUTO MATED DIFFERENTIAL Performed By: #### 2 94627 #### [address] [address] RBC 4.32 x 10EE6/UL Low 4.50 - 6.00 [facility] Comment on above: Performed By: #### 2 48867 #### [facility],[address] [place], [place] [address] WBC 4.0 x 10EE3/UL Low 4.5 - 10.8 [facility] Comment on above: Performed By: #### 2 52897 #### [facility],[address] [place], [place] [address] CMP with eGFRon 07-28-2024 AGE 73 years Normal [facility] Comment on above: Performed By: #### 2 57557 #### [facility],[address] [place], [place] [address] Albumin [Mass/Vol] 3.8 g/dL Normal 3.4 - 5.0 [facility] Comment on above: Performed By: #### 2 52338 #### [facility],[address] [place] [address] Albumin/Globulin [Mass ratio] 1.2 {ratio} Normal 0.9 - 1.6 [facility] Comment on above: Performed By: #### 2 72271 #### [facility],[address] [place] [address] ALK PHOS 76 U/L Normal 46 - 116 [facility] Comment on above: Performed By: #### 2 27326 #### [facility],[address] [place] [address] ALT [Catalytic activity/Vol] 18 U/L Normal 16 - 63 [facility] Comment on above: Performed By: #### 2 81821 #### [facility],[address] [place] [address] Anion gap [Moles/Vol] 10 mmol/L Normal 10 - 20 [facility] Comment on above: Performed By: #### 2 37189 #### [facility],[address] [place] [address] AST [Catalytic activity/Vol] 18 U/L Normal 15 - 37 [facility] Comment on above: Performed By: #### 2 59033 #### [facility],[address] [place] [address] B/C RATIO 24 ratio Normal 0 - 30 [facility] Comment on above: Performed By: #### 2 83615 #### [facility],[address] [place] [address] Bilirubin [Mass/Vol] 0.8 mg/dL Normal 0.2 - 1.0 [facility] Comment on above: Performed By: #### 2 71640 #### [facility],[address] [place] [address] Calcium [Mass/Vol] 9.0 mg/dL Normal 8.5 - 10.1 [facility] Comment on above: Performed By: #### 2 01271 #### [facility],[address] [place] [address] Chloride [Moles/Vol] 106 mmol/L Normal 98 - 107 [facility] Comment on above: Performed By: #### 2 30737 #### [facility],[address] [place] [address] CMP with eGFR Normal [facility] Comment on above: Result Comment: COMP REHENSIVE METABOLIC PANEL Performed By: #### 2 69433 #### [facility],[address] [place] [address]15[address] CO2 [Moles/Vol] 30.2 mmol/L Normal 21.0 - 32.0 [facility] Comment on above: Performed By: #### 2 53003 #### [facility],[address] [place], [place] [address] Creatinine [Mass/Vol] 0.92 mg/dL Normal 0.70 - 1.30 [facility] Comment on above: Performed By: #### 2 93565 #### [facility],[address] [place] [address] GFR/1.73 sq M.predicted among non-blacks MDRD (S/P/Bld) [Vol rate/Area] mL/min/{1.73_m2} Normal 60 - 999 [facility] Comment on above: Performed By: #### 2 62149 #### [facility],[address] [place] [address] Result Comment: ACCO RDING TO THE NATIONAL KIDNEY DISEASE EDUCATION PROGRAM(NKDE), A NORMAL eGFR IS A VALUE GREATER THAN OR EQUAL TO 60 ML/MIN/1.73 SQ METERS. CHRONIC KIDNEY DISEASE: <60mL/MIN/1.73 SQ METERS KIDNEY FAILURE: <15mL/MIN/1.73 SQ METERS THIS TEST SHOULD ONLY BE USED FOR PATIENTS 18 YEARS OF AGE AND OLDER. Globulin (S) [Mass/Vol] 3.2 g/dL Normal 1.5 - 3.8 [facility] Comment on above: Performed By: #### 2 16060 #### [facility],[address] [place] [address] Glucose [Mass/Vol] 101 mg/dL Normal 74 - 106 [facility] Comment on above: Performed By: #### 2 96412 #### [facility],[address] [place] [address] Potassium [Moles/Vol] 3.5 mmol/L Normal 3.5 - 5.1 [facility] Comment on above: Performed By: #### 2 13206 #### [facility],[address] [place] [address] 31665 Protein [Mass/Vol] 7.0 g/dL Normal 6.4 - 8.2 [facility] Comment on above: Performed By: #### 2 34325 #### [facility],[address] [place] [address]4816 Sodium [Moles/Vol] 143 mmol/L Normal 136 - 145 [facility] Comment on above: Performed By: #### 2 14995 #### [facility],[address] [place] [address] 15250 Urea nitrogen [Mass/Vol] 22 mg/dL High 7 - 18 [facility] Comment on above: Performed By: #### 2 79493 #### [facility],[address] [place] [address] LIPID PROFILEon 07-28-2024 Cholesterol [Mass/Vol] 230 mg/dL Normal 0 - 240 [facility] Comment on above: Performed By: #### 2 23695 #### [facility],[address] [place] [address] Cholesterol in HDL [Mass/Vol] 85 mg/dL High 40 - 60 [facility] Comment on above: Performed By: #### 2 20388 #### [facility],[address] [place] [address] 20615 Cholesterol in LDL [Mass/Vol] 127 mg/dL Normal 0 - 129 [facility] Comment on above: Performed By: #### 2 56941 #### [facility],[address] [place] [address]876 Cholesterol.total/Chol esterol in HDL [Mass ratio] 2.7 {ratio} Normal 0.0 - 5.0 [facility] Comment on above: Performed By: #### 2 35055 #### [facility],[address] [place] [address]15 Lipid 1996 panel Normal [facility] Comment on above: Result Comment: LIPI D PROFILE Performed By: #### 2 62259 #### [facility],[address] [place] [address] Triglyceride [Mass/Vol] 92 mg/dL Normal 0 - 150 [facility] Comment on above: Performed By: #### 2 18365 #### [facility],[address] [place] [address] MAGNESIUMon 07-28-2024 Magnesium [Mass/Vol] 2.1 mg/dL Normal 1.8 - 2.4 [facility] Comment on above: Performed By: #### 2 83497 #### [facility],[address] [place], [place] [address] TSHon 07-28-2024 TSH Qn 2.58 m[IU]/L Normal 0.35 - 3.74 [facility] Comment on above: Performed By: #### 2 81755 #### [facility],[address] [place] [address] 47912 VITAMIN B-12on 07-28-2024 Cobalamin (Vitamin B12) [Mass/Vol] 920 pg/mL Normal 193 - 986 [facility] Comment on above: Performed By: #### 2 15879 #### [facility],[address] [place] [address] 35626 VITAMIN D, 25 HYDROXYon 05 VitD 32.40 ng/mL Normal 30.00 - 100 [facility] Comment on above: Result Comment: 25-O HD3 [...] D2 Not Established Performed By: #### 2 37526 #### [facility],[address] [place] [address] Neurology Visit Reporton Neurology Visit Report [facility] [address] [facility] [place], [address] [place] [address] OFFICE VISIT Date of Service: 04/29/24 MR#: [id number] Acct: [id number] Name: PHILLIP JESUS Rep #: [id number] : 1950 Provider: Dr. 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 Normal [facility] Neurology Visit Reporton Neurology Visit Report [facility] [address] [facility] [place], [address] [place] [address] OFFICE VISIT Date of Service: 03/31/24 MR#: [id number] Acct: [id number] Name: PHILLIP JESUS Rep #: [id number] : 1950 Provider: Dr. Sly cee MD Age/Sex: 73/M Location: [facility]. Status: Signed with Addenda ADDENDUM by ELSIE [...] is currently still taking. 04/07/24 1140 Date BrittaSussy ZIMMERMAN cc: * Signed HPI HPI Details: The [...] ER. Patient notes that he has some facility designer stiffness. Then when he is active during [...] a nightly is an attempt to manage facility designer stiffness. Today only the patient will not [...] the dayt (more content not included)... Normal [facility] Neurology Visit Reporton Neurology Visit Report [facility] [address] [facility] [address] [place] [address] OFFICE VISIT Date of Service: 02/17/24 MR#: [id number] Acct: [id number] Name: PHILLIP JESUS Rep #: [id number] : 1950 Provider: Dr. Sly cee MD Age/Sex: 73/M Location: [facility].BN Status: Signed HPI HPI Chief Complaint: Establish Care Details: The patient is a 73-year-old right handed male who presents to [facility]. He was referred 01/16/[address] Linh Latham with [facility] for parkinsons disease. This patient presents with his for evaluation of Parkinson's disease. Nurse practitioner Sussy is present heel reducer. Patient is awake and alert and able [...] may have been distracted. Language shows no legal receptionist expression. Insight and judgment appears to be [...] Assessment and (more content not included)... Normal [facility] CBC + DIFFon 10-02-2023 Baso # 0.01 x10EE3/UL Normal 0.00 - 0.10 [facility] Comment on above: Performed By: #### 2 61244 #### [facility],[address] [place] [address] Basophils/100 WBC (Bld) 0.2 % Normal 0.0 - 2.0 [facility] Comment on above: Performed By: #### 2 15119 #### [facility],[address] [place] [address] CBC + DIFF Normal [facility] Comment on above: Result Comment: CBC- COMPLETE BLOOD COUNT Performed By: #### 2 60185 #### [facility],[address] [place] [address] EO # 0.20 x10EE3/UL Normal 0.00 - 0.50 [facility] Comment on above: Performed By: #### 2 15991 #### [facility],[address] [place] [address] Eosinophils/100 WBC (Bld) 5.5 % Normal 0.0 - 7.0 [facility] Comment on above: Performed By: #### 2 19359 #### [place] [address] Erythrocyte distribution width (RBC) [Ratio] 12.8 % Normal 12.0 - 15.6 [facility] Comment on above: Performed By: #### 2 64877 #### [facility],[address] [place] [address] Hematocrit (Bld) [Volume fraction] 39.1 % Low 40.0 - 52.0 [facility] Comment on above: Performed By: #### 2 93075 #### [facility],[address] [place] [address] Hemoglobin (Bld) [Mass/Vol] 13.5 g/dL Normal 13.0 - 17.5 [facility] Comment on above: Performed By: #### 2 31135 #### [facility],[address] [place] [address] Lymph # 0.94 x10EE3/UL Normal 0.80 - 2.80 [facility] Comment on above: Performed By: #### 2 09393 #### [facility],[address] [place] [address] Lymphocytes/100 WBC (Bld) 25.7 % Normal 20.0 - 45.0 [facility] Comment on above: Performed By: #### 2 51361 #### [facility],[address] [place] [address] MANUAL DIFF N/A Normal [facility] Comment on above: Performed By: #### 2 95975 #### [facility],[address] [place] [address] MCH (RBC) [Entitic mass] 32 pg Normal 27 - 33 [facility] Comment on above: Performed By: #### 2 75960 #### [facility],[address] [place] [address] MCHC 34 X10 3 Normal 32 - 36 [facility] Comment on above: Performed By: #### 2 46856 #### [facility],[address] [place], [place] [id number] MCV (RBC) [Entitic vol] 93 fL Normal 81 - 98 [facility] Comment on above: Performed By: #### 2 41357 #### [facility],[address] [place] [address] Wood # 0.21 x10EE3/UL Normal 0.20 - 1.00 [facility] Comment on above: Performed By: #### 2 01715 #### [facility],[address] [place] [address] MONOS % 5.6 % Normal 0.0 - 10.0 [facility] Comment on above: Performed By: #### 2 55375 #### [facility],[address] [place] [address] Morphology Eric (Bld) [Interp] N/A Normal [facility] Comment on above: Performed By: #### 2 40829 #### [facility],[address] [place] [address] Neut # 2.31 x10EE3/UL Normal 1.50 - 7.10 [facility] Comment on above: Performed By: #### 2 07503 #### [place] [address] Neutrophils/100 WBC (Bld) 63.0 % Normal 46.0 - 76.0 [facility] Comment on above: Performed By: #### 2 60887 #### [place] [address] PLATELET 190 x10EE3/UL Normal 150 - 450 [facility] Comment on above: Performed By: #### 2 82554 #### [facility],[address] [place] [address] Platelet mean volume (Bld) [Entitic vol] 8.8 fL Normal 6.4 - 10.5 [facility] Comment on above: Result Comment: AUTO MATED DIFFERENTIAL Performed By: #### 2 68173 #### [place] [address] RBC 4.19 x 10EE6/UL Low 4.50 - 6.00 [facility] Comment on above: Performed By: #### 2 95100 #### [place] [address] WBC 3.7 x 10EE3/UL Low 4.5 - 10.8 [facility] Comment on above: Performed By: #### 2 85608 #### [facility],[address] [place], [place] [id number] CMP with eGFRon 10-02-2023 AGE 73 years Normal [facility] Comment on above: Performed By: #### 2 24470 #### [facility],[address] [place] [address] Albumin [Mass/Vol] 3.5 g/dL Normal 3.4 - 5.0 [facility] Comment on above: Performed By: #### 2 97602 #### [facility],[address] [place] [address] Albumin/Globulin [Mass ratio] 1.0 {ratio} Normal 0.9 - 1.6 [facility] Comment on above: Performed By: #### 2 03835 #### [facility],[address] [place], [place] [id number] ALK PHOS 63 U/L Normal 46 - 116 [facility] Comment on above: Performed By: #### 2 40157 #### [facility],[address] [place], [place] [id number] ALT [Catalytic activity/Vol] 8 U/L Low 16 - 63 [facility] Comment on above: Performed By: #### 2 39432 #### [facility],[address] [place] [address] Anion gap [Moles/Vol] 9 mmol/L Low 10 - 20 [facility] Comment on above: Performed By: #### 2 73806 #### [facility],[address] [place] [address] AST [Catalytic activity/Vol] 17 U/L Normal 15 - 37 [facility] Comment on above: Performed By: #### 2 68361 #### [facility],[address] [place], [place] [id number] B/C RATIO 21 ratio Normal 0 - 30 [facility] Comment on above: Performed By: #### 2 17554 #### [facility],[address] [place] [address] Bilirubin [Mass/Vol] 1.2 mg/dL High 0.2 - 1.0 [facility] Comment on above: Performed By: #### 2 81170 #### [facility],[address] [place], [place] [id number] Calcium [Mass/Vol] 8.9 mg/dL Normal 8.5 - 10.1 [facility] Comment on above: Performed By: #### 2 70127 #### [facility],[address] [place], [place] [id number] Chloride [Moles/Vol] 105 mmol/L Normal 98 - 107 [facility] Comment on above: Performed By: #### 2 17598 #### [facility],[address] [place], [place] [id number] CMP with eGFR Normal [facility] Comment on above: Result Comment: COMP REHENSIVE METABOLIC PANEL Performed By: #### 2 53737 #### [facility],[address] [place] [address] CO2 [Moles/Vol] 30.6 mmol/L Normal 21.0 - 32.0 [facility] Comment on above: Performed By: #### 2 00091 #### [facility],[address] [place] [address] Creatinine [Mass/Vol] 0.86 mg/dL Normal 0.70 - 1.30 [facility] Comment on above: Performed By: #### 2 58261 #### [facility],[address] [place] [address] GFR/1.73 sq M.predicted among non-blacks MDRD (S/P/Bld) [Vol rate/Area] mL/min/{1.73_m2} Normal 60 - 999 [facility] Comment on above: Performed By: #### 2 59254 #### [facility],[address] [place] [address] Result Comment: ACCO RDING TO THE NATIONAL KIDNEY DISEASE EDUCATION PROGRAM(NKDE), A NORMAL eGFR IS A VALUE GREATER THAN OR EQUAL TO 60 ML/MIN/1.73 SQ METERS. CHRONIC KIDNEY DISEASE: <60mL/MIN/1.73 SQ METERS KIDNEY FAILURE: <15mL/MIN/1.73 SQ METERS THIS TEST SHOULD ONLY BE USED FOR PATIENTS 18 YEARS OF AGE AND OLDER. Globulin (S) [Mass/Vol] 3.6 g/dL Normal 1.5 - 3.8 [facility] Comment on above: Performed By: #### 2 74779 #### [facility],[address] [place] [address]44 Glucose [Mass/Vol] 102 mg/dL Normal 74 - 106 [facility] Comment on above: Performed By: #### 2 30555 #### [facility],[address] [place] [address] Potassium [Moles/Vol] 3.6 mmol/L Normal 3.5 - 5.1 [facility] Comment on above: Performed By: #### 2 03807 #### [facility],[address] [place] [address] 79899 Protein [Mass/Vol] 7.1 g/dL Normal 6.4 - 8.2 [facility] Comment on above: Performed By: #### 2 64234 #### [facility],[address] [place] [address] 42264 Sodium [Moles/Vol] 141 mmol/L Normal 136 - 145 [facility] Comment on above: Performed By: #### 2 13391 #### [facility],[address] [place] [address] 13068 Urea nitrogen [Mass/Vol] 18 mg/dL Normal 7 - 18 [facility] Comment on above: Performed By: #### 2 86074 #### [facility],[address] [place] [address]34[address] FERRITINon 10-02-2023 Ferritin [Mass/Vol] 227 ng/mL Normal 8 - 388 [facility] Comment on above: Performed By: #### 2 21393 #### [facility],[address] [place] [address] LIPID PROFILEon 10-02-2023 Cholesterol [Mass/Vol] 195 mg/dL Normal 0 - 240 [facility] Comment on above: Performed By: #### 2 38239 #### [facility],[address] [place] [address]31 Cholesterol in HDL [Mass/Vol] 86 mg/dL High 40 - 60 [facility] Comment on above: Performed By: #### 2 34107 #### [facility],[address] [place] [address]1854 Cholesterol in LDL [Mass/Vol] 100 mg/dL Normal 0 - 129 [facility] Comment on above: Performed By: #### 2 15157 #### [facility],[address] [place] [address] 856[address] Cholesterol.total/Chol esterol in HDL [Mass ratio] 2.3 {ratio} Normal 0.0 - 5.0 [facility] Comment on above: Performed By: #### 2 15745 #### [facility],[address] [place] [address] 03688 Lipid 1996 panel Normal [facility] Comment on above: Result Comment: LIPI D PROFILE Performed By: #### 2 19759 #### [facility],[address] [place] [address] 40818 Triglyceride [Mass/Vol] 43 mg/dL Normal 0 - 150 [facility] Comment on above: Performed By: #### 2 96036 #### [facility],[address] [place] [address] 18636 VITAMIN D, 25 HYDROXYon 08-0 VitD 34.50 ng/mL Normal 30.00 - 100 [facility] Comment on above: Result Comment: 25-O HD3 [...] D2 Not Established Performed By: #### 2 71892 #### [facility],[address] [place] [address] Vital Signs Date Time Vital Sign Value Performing Clinician Faci lity 09-29-2024 11:32-0400 Body temperature 98.6 [degF] Dr. Cas Boyer MD Work Phone: 2(047)461-724949 [place] [address] 09-29-2024 11:32-0400 Diastolic blood pressure 88 mm[Hg] Dr. Cas Boyer MD Work Phone: 0(083)419-731849 [place] [address] 09-29-2024 11:32-0400 Heart rate 82 /min Dr. Cas Boyer MD Work Phone: 7(553)267-712649 [place] [address] 09-29-2024 11:32-0400 Respiratory rate 15 /min Dr. Cas Boyer MD Work Phone: 4(267)482-537649 [place] [address] 09-29-2024 11:32-0400 SaO2% (BldA) [Mass fraction] 100 % Dr. Cas Boyer MD Work Phone: 5(006)904-014889 [place] [address] 09-29-2024 11:32-0400 Systolic blood pressure 153 mm[Hg] Dr. Cas Boyer MD Work Phone: 4(935)791-296349 [place] [address] 09-20-2024 13:23-0400 Body temperature 98.4 [degF] Dr. Cas Boyer MD Work Phone: 0(711)170-757049 [place] [address] 09-20-2024 13:23-0400 Diastolic blood pressure 77 mm[Hg] Dr. Cas Boyer MD Work Phone: 1(185)059-913649 [place] [address] 09-20-2024 13:23-0400 Heart rate 83 /min Dr. Cas Boyer MD Work Phone: 6(339)520-008889 [place] [address] 09-20-2024 13:23-0400 Respiratory rate 15 /min Dr. Cas Boyer MD Work Phone: 2(852)509-106149 [place] [address] 09-20-2024 13:23-0400 SaO2% (BldA) [Mass fraction] 98 % Dr. Cas Boyer MD Work Phone: 9(342)294-804889 [place] [address] 09-20-2024 13:23-0400 Systolic blood pressure 127 mm[Hg] Dr. Cas Boyer MD Work Phone: 1(310)185-022849 [place] [address] 09-15-2024 15:12-0400 Body temperature 97.8 [degF] Dr. Cas Boyer MD Work Phone: 7(138)800-411049 [place] [address] 09-15-2024 15:12-0400 Diastolic blood pressure 78 mm[Hg] Dr. Cas Boyer MD Work Phone: 0(920)185-249049 [place] [address] 09-15-2024 15:12-0400 Heart rate 82 /min Dr. Cas Boyer MD Work Phone: 0(202)170-263818 [address] 09-15-2024 15:12-0400 Respiratory rate 16 /min Dr. Cas Boyer MD Work Phone: 5(050)367-151289 [place] [address] 09-15-2024 15:12-0400 SaO2% (BldA) [Mass fraction] 98 % Dr. Cas Boyer MD Work Phone: 3(222)232-496589 [place] [address] 09-15-2024 15:12-0400 Systolic blood pressure 122 mm[Hg] Dr. Cas Boyer MD Work Phone: 4(140)648-251389 [place] [address] 09-15-2024 13:44-0400 Body height 178.[address] Cas Boyer MD Work Phone: 3(755)653-944118 [address] Encounters Encounter Date Encounter Type Care Provider Facility Start: 10-07-2024 Evaluation and management of inpatient MALACHI BOYER Facility:[facility] Start: 10-07-2024 End: 10-07-2024 Patient encounter procedure Sussy Callejas SPIDER ASSEMBLER-C -MRI - [facility] Work Phone: Start: 10-07-2024 End: 10-07-2024 ambulatory [facility] Facility:[facility] Start: 10-06-2024 End: 10-06-[address] Fabian Hernandez MD -[facility] Start: 10-06-2024 End: 10-06-[address] Cas Boyer MD Work Phone: [facility] Start: 09-29-2024 End: 09-29-2024 Patient encounter procedure Sussy Callejas NP-C -[facility] Work Phone: Start: 09-29-2024 End: 09-29-[address] Cas Boyer MD Work Phone: [facility] Start: 09-20-2024 End: 09-20-[address] Cas Boyer MD Work Phone: -[facility] Start: 09-20-2024 End: 09-20-2024 Patient encounter procedure [facility] Work Phone: Start: 09-20-2024 End: 09-20-2024 Patient encounter procedure Sussy Callejas NP-C -[facility] Work Phone: Start: 09-20-2024 End: 09-20-[address] Cas Boyer MD Work Phone: [facility] Start: 09-20-2024 End: 09-20-2024 ambulatory Earnest Amaral Facility:[facility] Start: 09-15-2024 End: 09-15-2024 Emergency department patient visit Dr. Cas Boyer MD Work Phone: -Emergency Department Work Phone: Start: 08-02-[address] [facility] Start: 07-28-2024 End: 07-28-2024 ambulatory LINH L[facility] Start: 07-28-2024 End: 07-28-2024 Encounter for general adult medical examination without abnormal findings [facility] Start: 04-29-2024 End: 04-29-2024 ambulatory Demetrio Chantel Facility:[facility] Start: 03-31-2024 End: 03-31-2024 ambulatory Demetrio Chantel Facility:[facility] Start: 02-17-2024 End: 02-17-2024 ambulatory Demetrio Chantel Facility:[facility] Start: 10-02-2023 End: 10-02-2023 ambulatory LINH WONG [facility] Procedures Date Procedure Procedure Detail Performing Clinician Start: 10-07-2024 Antibody screen MALACHI Shilo GROVER Comment on above: Order Comment: Speci men Type: BLOOD SPECIMEN Ordering Facility: [facility] Address: [address] [place] [address] Performed By: #### T SCR #### [facility] CLIA [id number] [address] [facility] Start: 10-07-2024 MRI of cervical spin e with contrast Dr. Cas Boyer MD Work Phone: Start: 10-07-2024 MRI of lumbar spine with contrast Dr. Cas Boyer MD Work Phone: Start: 10-07-2024 MRI of brain with contrast Dr. Cas Boyer MD Work Phone: Start: 10-07-2024 MRI of thoracic spin e with contrast Dr. Cas Boyer MD Work Phone: Start: 10-06-2024 X-ray of cervical spine Dr. Cas Boyer MD Work Phone: Start: 09-20-2024 Albumin/Globulin ratio Dr. Cas Boyer MD Work Phone: Start: 09-20-[address] Ronal Boyer MD Work Phone: Comment on above: Performed at: [address] [id number] Director: Deny Donahue PhD, Phone: [phone] Start: 09-20-2024 Antibody to centrome re measurement [...] Work Phone: Comment on above: Test Ordered: [id number] HTLV-I/II Antibodies, QualHTLV-I/II Antibodies, Qual Negative [facility] Reference Range: NegativePerformed at: [facility] [address] [id number] Director: [facility], Phone: [phone] at: [address] [id number] Director: Deny Donahue PhD, Phone: [phone] Start: 09-20-2024 WEBLOGIC ADMINISTRATOR antibody measurement Dr. Cas Boyer MD Work Phone: Comment on above: Test not performed Start: 09-20-2024 Urine lambda light c arielle measurement Dr. Cas Boyer MD Work Phone: Start: 09-15-2024 Plain X-ray of shoulder Dr. Cas Boyer MD Work Phone: Start: 09-15-2024 X-ray of cervical spine Dr. Cas Boyer MD Work Phone: Plan of Treatment Date Care Activity Detail Author Start: 10-06-2024 X-ray of cervical spine Cerv S pine 2 or 3 Views [facility] Start: 10-06-2024 XR Cervical spine 2 or 3 Views [facility] Start: 09-15-2024 [facility] C reactive protein [Mass/volume] in Serum or Plasma [facility] Cytoplasmic ANCA Screen [facility] Erythrocyte sediment ation rate [facility] Folic acid measurement, RBC [facility] MR Brain WO and W co ntrast IV [facility] MR Cervical spine WO and W contrast IV [facility] MR Lumbar spine WO a nd W contrast IV [facility] MRI of thoracic spin e with contrast [facility] Patient Education ED Neck Pain [facility] Work Phone: Procedure [facility] Serum immunofixation [facility] Thiamine measurement [facility] Vitamin B6 measurement [facility] Payers Date Payer Category Payer Self-pay 2017 Medicaid [id number] 1950 Unknown [id number] 2.16.8 [id number] 1950 Unknown [id number] 2.16.8 [id number] 1950 Unknown [id number] 2.16.8 [id number] Medicare [id number] Unknown [id number] 2.16.8 [id number] Unknown [id number] 2.16.8 [id number] Unknown [id number] 2.16.8 [id number] Unknown [id number] 2.16.8 [id number] Unknown [id number] 2.16.8 [id number] Unknown [id number] 2.16.8 [id number] Unknown [id number] 2.16.8 [id number] Unknown [id number] 2.16.8 [id number] Unknown [id number] 2.16.8 [id number] Unknown [id number] 2.16.8 [id number] Social History Date Type Detail Facility Start: 09-15-[address] [facility] Start: 1950 Sex Assigned At Male [facility] Clinical Notes 09-15-2024 to 10-14-2024 Note Date & Type Note Facility 10-14-2024 Note HNO ID: [id number] Author: LAI RILEY MD Service: Hospital Medicine Author Type: Physician Type: Progress Notes Filed: 10/14/2024 21:19 Note Text: DEPARTMENT OF HOSPITAL MEDICINE [facility] PHYSICIANS PROGRESS NOTE- HOSPITAL DAY 7 SERVICE DATE: 10/14/2024 ROOM: [place] [address]/[place] [address]* Hospital Medicine/Primary Attending: Lai Riley MD Problem List Spinal epidural abscess (HCC) (POA: Yes) Septic arthritis of vertebra (POA: Yes) Cervical cord compression with myelopathy (HCC) (POA: Yes) S/P cervical spinal fusion (POA: No) Parkinson disease (HCC) (POA: Yes) Agitation (POA: No) Pressure injury of coccygeal region, stage 1 (POA: Yes) Injury of left toe (POA: Yes) Injury of toe on right foot (POA: Yes) Severe protein-calorie malnutrition (HCC) (POA: Yes) MSSA (methicillin-susceptible Staphylococcus aureus) colonization (POA: Yes) Patient Vitals for the past 24 hrs: BP Temp Temp src Pulse Resp SpO2 10/14/24 1919 157/99 36.6 ?C (97.9 ?F) Oral 91 17 97 % 10/14/24 1511 136/87 36.6 ?C (97.8 ?F) Oral 86 18 97 % 10/14/24 1051 132/80 36.3 ?C (97.4 ?F) Oral 79 18 96 % 10/14/24 0801 137/89 36.6 ?C (97.8 ?F) Oral 78 18 96 % 10/14/24 0724 145/94 36.4 ?C (97.5 ?F) Oral 81 16 97 % 10/14/24 0531 145/94 -- -- 80 -- 95 % Temp (24hrs), Av.5 ?C (97.7 ?F), Min:36.3 ?C (97.4 ?F), Max:36.6 ?C (97.9 ?F) CHIEF COMPLAINT: Spinal epidural abscess (HCC) OVERNIGHT EVENTS: None INTERVAL HISTORY OF PRESENT ILLNESS: Patient's condition is stable, still weak in all 4 extremities, appetite is modest at most, no difficulty swallowing, but he does find eating to be frustrating wearing the rigid cervical collar. Discharge planning is in progress, precertification for acute rehab has been started. REVIEW OF SYSTEMS GENERAL: Positive for malaise HEENT: Negative NECK: Negative RESPIRATORY: Negative CARDIOVASCULAR: Negative for chest pain, leg swelling and palpitations GI: Negative for abdominal discomfort, blood in stools or black stools : Negative MUSCULOSKELETAL: See history of present illness SKIN: Negative PHYSICAL EXAM: GENERAL: Alert, mild distress, Cooperative, fatigued SKIN: Surgical site was not disturbed OROPHARYNX: dry NECK: No jugulovenous distention, No carotid bruits, Carotid pulse normal contour, Supple LUNGS: Clear bilaterally CARDIAC: Normal S1 and S2; no rubs, murmurs, or gallops ABDOMEN: Abdomen soft, non-tender, BS normal, No masses or organomegaly EXTREMITIES: No edema ASSESSMENT AND PLAN Principal Problem: Spinal epidural abscess (HCC) (POA: Yes) Assessment AND Plan: Cultures were negative from surgical samples, he has now off antibiotics per infectious disease recommendations Active Problems: Septic arthritis of vertebra (POA: Yes) Assessment AND Plan: Negative culture on samples from surgery. Off antibiotics Cervical cord compression with myelopathy (HCC) (POA: Yes) Assessment AND Plan: Stable after C3-6 fusion S/P cervical spinal fusion (POA: No) Assessment AND Plan: Continue rehab postoperatively, stable for discharge to next setting of care Parkinson disease (HCC) (POA: Yes) Assessment AND Plan: Continue Sinemet Agitation (POA: No) Assessment AND Plan: Transient delirium during hospitalization, now resolved Pressure injury of coccygeal region, stage 1 (POA: Yes) Assessment AND Plan: Continue wound care Severe protein-calorie malnutrition (HCC) (POA: Yes) Assessment AND Plan: Encourage intake, continue nutritional supplements MSSA (methicillin-susceptible Staphylococcus aureus) colonization (POA: Yes) Assessment AND Plan: Off antibiotics as above Resolved Problems: Hyponatremia (POA: Yes) Hypokalemia (POA: Yes) Hypomagnesemia (POA: Yes) Severe protein-calorie malnutrition (HCC) (POA: Yes) Based on: Muscle Loss, Subcutaneous Fat Loss Assessment: I have reviewed the result of the nutrition assessment and plan and agree Plan: Diet, Supplements, Vitamin/Mineral Supplements CODE STATUS: DNR-CCA PLANNED DISPOSITION: Extended Care Facility Total time 25 minutes during this encounter, including chart review, discussion with nursing staff and/or other providers, documentation, warehouse order filler, and [id number] time with patient. Diagnostic tests reviewed for today's visit: Most recent labs and imaging results. Most recent EKG TELEMETRY: NSR LABS CBC: Recent Labs 10/14/24 0635 WBC 4.56 HB 11.7* PLT 191 CMP: Recent Labs 10/14/24 0635 NA 140 K 3.8 CHLOR 104 CO2 26 BUN 18 CREAT 0.57* GLUC 103* CA 9.0 AST 34 ALT <5* ALKPHOS 75 Plan of care discussed with: Provider, RN, Patient and Care Management (more content not included)... [facility] 10-14-2024 Note HNO ID: [id number] Author: TEREZA MARTINEZ RN Service: Care Management Author Type: Registered Nurse Type: Care Mgt Progress Note Filed: 10/14/2024 15:34 Note Text: CMRC tasked for pre-cert. [facility] 10-13-2024 Note HNO ID: [id number] Author: CHERELLE ARANA RN Service: Care Management Author Type: Registered Nurse Type: Care Mgt Progress Note Filed: 10/13/2024 13:29 Note Text: CARE MANAGEMENT PROGRESS NOTE SERVICE DATE: 10/13/2024 SERVICE TIME: 1:26 PM LOS: 6 days Needs Prior to Discharge: Insurance Authorization, Discharge Transportation [place] accepted. [place] declined to accept, but are able to accept in their TCU for rehab. I spoke to Leyx and reviewed both options. She states location is important to them and elects [facility]. Referral sent in [facility] and Updated jen [phone] at [facility]. Will need auth, cot transport. CM to continue to follow. SIGNATURE: Cherelle Arana RN PATIENT NAME: Phillip Jesus DATE: October 13, 2024 TIME: 1:26 PM [facility] 10-13-2024 Note HNO ID: [id number] Author: SLY CASTILLO APRN.REINIER Service: Neurology ICU Author Type: Nurse Practitioner Type: Progress Notes Filed: 10/13/2024 11:14 Note Text: SERVICE DATE: 10/13/2024 SERVICE TIME: 11:14 AM NEURO ICU PROGRESS NOTE DATE OF ADMISSION: 10/07/2024 Subjective Hospital Course: 10/08: to OR for washout of epidural spinal abscess 10/09: No acute events overnight. Pain better controlled this AM. Neuro exam stable. 10/10: NAEON 10/11: NAEON 10/12: NAEON. MAP goal >80 complete. Short run of Vtach. Troponins negative. 10/13: NAEON. Stable for transfer to [facility] Events Since Last Note: as above Objective BP 124/79 Pulse 90 Temp 36.5 ?C (97.7 ?F) (Temporal) Resp 13 Ht 180.3 cm (5' 11) Wt 65.8 kg (145 lb 1 oz) SpO2 97% BMI 20.23 kg/m? Weight change: Neuro: C-collar on PERRL Face symmetric Speech clear BUE 5/5 RLE 4/5 LLE 5/5 Sensation intact GCS: Eyes: 4. Spontaneous Verbal: 5: Oriented Motor: 6: Obeys Motor commands Total: 15 CV: RRR Pulm: Nasal cannula, incentive spirometer, clear anterior/lateral umanzor GI/: Normoactive all quadrants, not tender/firm/distended Skin/Extremities: Edema- No Peripheral pulses- Present all extremities Wounds/Drsgs- Post operative dressing Breakdown- No Diagnostic tests reviewed for today's visit: Most recent labs and imaging results. Lines, Drains, and Airways Line Duration Peripheral 10/07/24 1706 [facility] Right Forearm 20 Gauge 5 days Peripheral 10/08/24 0619 [facility] Right Hand 20 Gauge 5 days Peripheral 10/13/24 0129 [facility] Short Left Forearm 20 Gauge <1 day Drain Duration External Collection Device 10/07/24 1831 [facility] 5 days ICU Checklist Last Documented/Reviewed time: 10/13/2024 11:04 AM ICU Consent Complete?: Yes ICU Code Status History assess/Full code by default: No, active code status present -- --- A= Assess, Prevent, Manage Pain Pain adequately controlled?: Yes C= Choice of Sedation and Analgesia RASS at Goal?: Yes B= Both Spontaneous Awakening and Breathing Trials Ventilator: None D= Delirium: Assess, Prevent and Manage ICU Delirium Status: CAM Positive - existing, continue interventions Sleep adequate?: Yes Restraint Status: None E= Early Mobility/Excercise ICU Mobility: ICU Mobility Goal: PT/OT consult ordered F= Family Engagement and Empowerment ICU plan of care visit at bedside in last 24 hours: Yes, Provider, RN, Patient/ designee ICU Disposition: ICU Disposition-POC Detail: Yes-Inspector Advanced Composite notified Prevention: Line Status: None Santos Status: None Pressure Injury Status: Present - no new action required GI/Stress Ulcer Prophylaxis: None - not required Nutrition is at Goal: Advancing to goal VTE Prophylaxis: Chemoprophylaxis: Heparin SQ Mechanical Prophylaxis: Knee high SCD PERSONAL INVOLVEMENT IN CARE: Reviewing initiation, responses and adjustments to therapies, coordination of care, and updating family with Staff Physician, Dr. Carrero. Assessment AND Plan 74 year old M, hx of parkinson's disease, HTN and RLS, presenting with progressive cervical myelopathy post fall 1 month ago. - MRI w/ C3/C4 septic arthritis/osteo, epidural abscess w/ cord compression. - Ortho spine requesting NSICU admit for neuro checks and MAP goal >80. Assessment AND Plan Spinal epidural abscess (HCC) Present on Admission: Yes Assessment: MRI C/T/L spine w/wo contrast: '- Findings consistent with septic arthritis/osteomyelitis at the right C3/C4 facet joint with associated epidural abscess. Cord compression at C3/C4 predominantly due to disc osteophyte complex and ligamentum flavum hypertrophy, compounded by the epidural abscess. No cord signal abnormality. Mild signal abnormality and abnormal enhancement at the right C3/C4 endplate may represent a reactive osteitis or developing osteomyelitis. - No definite signal abnormality or abnormal enhancement in the C3/C4 disc space. No evidence of a malignant process in the cervical spine.' Thoracic and lumbar spine: Motion limited exam. No high-grade spinal canal or neuroforaminal stenosis. No cord compression. No evidence of a malignant or infectious process in the thoracic and lumbar spine. ' Plan: - Close neuro monitoring in NSICU - Neuro checks q4h - MAP >80 x 3 days ( Complete tonight) - diet as tolerated - Mobilize - Maintain C-collar - Pain control - ID consult - Fu daily labs - SQ DVT ppx w/ Heparin q8h - exploration for source of infection: UA, echo and CXR pending. Blood Cx NGTD - Additional recs per ortho team, s/p spinal washout Septic arthritis of vertebra Present on Admission: Yes C3/C4 Right facet joint septic arthritis/osteomyelitis by MRI wwo contrast Plan: - Blood (more content not included)... [facility] 10-13-2024 Note HNO ID: [id number] Author: JUMA JANE MD Service: Orthopaedic Surgery Author Type: Resident Type: Progress Notes Filed: 10/13/2024 08:49 Note Text: Orthopaedic Surgery Inpatient Progress Note Assessment Phillip Jesus is a 74 year old male with C3-4 epidural abscess POD#5 from C3-C6 posterior spinal fusion w/ decompressive laminectomies Plan -OK for RNF -Medical management: per primary -Pain control -PT/OT recommending acute rehab -PMR consult for myelopathy -Antibiotics: monitor off abx per ID -DVT ppx: SCDs, heparin 5000 BID -Diet: per primary -Imaging: cervical uprights completed, stable -Dressing: gauze, tegederms -Drains: pulled 10/11 -Dispo: pending discharge to acute rehab. Orthopedic spine will sign off, will do an incision check on Sunday 10/15 Subjective No acute events overnight. Upper extremity strength continues to show improvement. Pain controlled. No new complaints. Physical Examination Vitals BP 139/86 Pulse 83 Temp 36.7 ?C (98.1 ?F) (Temporal) Resp 20 Ht 180.3 cm (5' 11) Wt 65.8 kg (145 lb 1 oz) SpO2 96% BMI 20.23 kg/m? General Alert and answering questions appropriately. No acute distress. Cooperative with interview. Spine Inspection: cervical collar in good position Sensation: Sensation intact to light touch in C5-T1 and L1-S1 dermatomes. Motor: Upper Extremities Right Left Deltoid (C5) 5 5 Biceps (C6) 5 5 Triceps (C7) 5 5 Growth Hacker (C8) 4 5 Interossei (T1) 4 5 Lower Extremities Right Left Psoas (L2) 5 5 Quadriceps (L3) 5 5 Dorsiflexion (L4) 5 5 EHL (L5) 5 5 Plantarflexion (S1) 5 5 Labs Recent Labs 10/13/24 0301 10/13/24 0119 10/12/24 0304 10/12/24 0303 NA -- 138 139 -- K -- 3.9 4.1 -- CHLOR -- 104 106 -- CO2 -- 28 25 -- BUN -- 22 21 -- CREAT -- 0.62* 0.63* -- GLUC -- 103* 94 -- ANION -- 6* 8 -- CA -- 8.9 8.6 -- MG 2.0 -- 1.9 -- P 2.8 -- 2.7 -- ALB -- 3.4* 3.3* -- AST -- 25 27 -- ALT -- <5* 20 -- ALKPHOS -- 69 59 -- TBILI -- 0.4 0.4 -- WBC 4.63 -- -- 4.18 HB 11.1* -- -- 10.1* HCT 32.4* -- -- 30.9* PLT 187 -- -- 156 Imaging Upright cervical xrays reviewed and stable Juma Jane MD Orthopaedic Surgery - PGY 2 5:49 AM 10/13/2024 Pager #[phone] [facility] 10-13-2024 Note HNO ID: [id number] Author: TROY LEBLANC RN Service: Nursing Author Type: Registered Nurse Type: Progress Notes Filed: 10/13/2024 01:49 Note Text: Pt had an 11 to 12 beat run of VTACH. Pt reported no ill effects. Vital signs stable. SPIDER ASSEMBLER notified morning BMP sent early this am. Will continue to monitor. [facility] 10-12-2024 Note HNO ID: [id number] Author: ALEX MARTIN MD Service: Physical Medicine AND Rehabilitation Author Type: Physician Type: Plan of Care Filed: 10/12/2024 14:11 Note Text: PLAN OF CARE: PMANDR DATE: 10/12/2024 Consult completed: 10/11/2024 REASON FOR CONSULTATION: Assessment of rehab service needs and recommendations regarding level of care assignment ASSESSMENT AND PLAN: Phillip Jesus is a 74 year old male with PMH of Parkinson's disease who was admitted to [facility] on 10/07/2024 for cervical cord compression with myelopathy due to epidural abscess s/p C3-C6 posterior spinal fusion w/ decompressive laminectomies. Patient currently in ICU for MAP goals, IV antibiotics as per ID, being evaluated for source of infection, echo completed 10/11. Patient was evaluated by physical therapy and noted to have functional deficits. PMANDR consulted to help address rehab needs. Patient deferred MYNOR-ISNCSCI exam, Clinical evaluation suggests incomplete tetraplegia. Interval updates: - OT evaluation completed - Off Antibiotics per ID - Plan to transfer to [facility] - Evaluated by Wound care OT 10/12: FUNCTIONAL STATUS Activities of Daily Living Assist Level Additional Information Feeding Minimal Assistance Modified with Ue's elevated on pillows and silverware built up to increase ease and independence due to swelling in hands and arms. Grooming Moderate Assistance Facilitated in unsupported sitting. Increased assist with repositioning and maintaining balance as well as supporting arm for washing face. Bathing Upper Body Moderate Assistance Bathing Lower Body Maximal Assistance Dressing Upper Body Moderate Assistance Education on importance of [place] collar. Increased assist with management and adjusting collar at EOB Dressing Lower Body Maximal Assistance Education on figure-4 lower body dressing technique to maximize functional independence and safety with spinal precautions. Toileting Maximal Assistance Mobility Assist Level Additional Information Bed Mobility Supine To Sit: Moderate Assistance Sit to Stand Moderate Assistance Stand to Sit Moderate Assistance Bed to Chair Moderate Assistance Bed To Chair Transfer Type: Stepping Bed To Chair Transfer Equipment: Wheeled Walker Educated on the role of OT in the acute care setting. Facilitated supine to sit edge of bed and provided physical assist and cues to improve bed mobility. Provided verbal cues and assist to scoot patient to edge of bed to ensure safe static sitting and improve functional activity tolerance. Facilitated sit to stand and provided education on proper hand placement for safety awareness during transfer. Facilitated transfer from bed to chair and provided physical assist x1, verbal cues, and fall guarding for a safe transfer to chair and improve functional transfers. Increased tactile and verbal cueing for sequencing steps to chair for overall safety. Provided verbal cues for patient to scoot back in the chair. Positioned patient for comfort to maximize functional participation in seated ADLs. Provided patient with call quinn and education on how to reach nurse for any mobility needs. Toilet/Commode Shower Functional Mobility RANGE OF MOTION Upper Extremity Comments R Upper Extremity ROM Comments: shoulder flexion about 45*, distally WFL (increased time for completion) L Upper Extremity ROM Comments: shoulder flexion about 90*, dsitally WFL STRENGTH Right Upper Extremity Strength Comments: shoulder flexion 2+/5, distally 3/5 Left Upper Extremity Strength Comments: shoulder flexion 3/5, distally 3+/5 throughout ACTIVITY TOLERANCE Sitting Activity: bed mobility, sitting EOB, upper and lower body ADls, grooming, in hand coordination Sitting Activity Tolerance (in minutes): 10 Standing Activity: sit to stand transfer, functional transfer to chair from bed Standing Activity Tolerance (in minutes): 3 BALANCE Static Sitting Balance: Fair Dynamic Sitting Balance: Fair Static Standing Balance: Fair Dynamic Standing Balance: Fair PT 10/12 FUNCTIONAL STATUS mobility performed during session in bold, other mobility completed during prior session and may no longer be correct or appropriate to complete. Bed Mobility Supine To Sit: Moderate Assistance, Additional Information Scooting: Maximal Assistance, Additional Information Transfers Sit To Stand: Moderate Assistance, Minimal Assistance, Additional Information cues/assist to push up though LE's, hand placement and safety Stand To Sit: Minimal Assistance, Additional Information cues/assist to align up to chair , slowly lower , hand placement and safety Bed to Chair Gait Minimal Assistance, Additional Information cues/assist for upright posture , gait sequence and walker placement Gait Device: Wheeled Walker General Deviations/Observations: Narrow Base of Support, Flexed trunk posture, Sherry decreased, Step length decreas (more content not included)... [facility] 10-12-2024 Note HNO ID: [id number] Author: JUAN DAVID CARRERO MD Service: Neurology ICU Author Type: Nurse Practitioner Type: Progress Notes Filed: 10/13/2024 09:27 Note Text: -- Attestation signed by Juan David Carrero MD at 10/13/2024 9:27 AM Reviewed and agree with. Check EKG Follow elect/exam/bp -- SERVICE DATE: 10/12/2024 SERVICE TIME: 10:55 AM NEURO ICU PROGRESS NOTE DATE OF ADMISSION: 10/07/2024 Subjective Hospital Course: 10/08: to OR for washout of epidural spinal abscess 10/09: No acute events overnight. Pain better controlled this AM. Neuro exam stable. 10/10: NAEON 10/11: NAEON 10/12: NAEON. MAP goal >80 complete. Okay to transfer to [facility] today Events Since Last Note: As above Objective BP 146/88 Pulse 83 Temp 37.2 ?C (99 ?F) (Oral) Resp 23 Ht 180.3 cm (5' 11) Wt 65.8 kg (145 lb 1 oz) SpO2 98% BMI 20.23 kg/m? Weight change: Neuro: Awake, alert, oriented x3 Follows commands PERRL, EOMI, VFF Face symmetric Speech appropriate BUE 4/5, 3/5 push/pull BLE 5/5 Sensation grossly intact to light touch throughout GCS: Eyes: 4. Spontaneous Verbal: 5: Oriented Motor: 6: Obeys Motor commands Total: 15 CV: RRR Pulm: Even, unlabored, CTAB, Mechanical Ventilation: No GI/: Soft, NT, ND Skin/Extremities: Edema- No Peripheral pulses- Present all extremities Wounds/Drsgs- Yes Breakdown- No Diagnostic tests reviewed for today's visit: Most recent labs and imaging results. Lines, Drains, and Airways Line Duration Peripheral 10/07/24 1706 [facility] Right Forearm 20 Gauge 4 days Peripheral 10/08/24 0619 [facility] Right Hand 20 Gauge 4 days Peripheral 10/08/24 1330 [facility] Short Left Forearm 14 Gauge 3 days Drain Duration External Collection Device 10/07/24 1831 [facility] 4 days ICU Checklist Last Documented/Reviewed time: 10/12/2024 7:20 AM ICU Consent Complete?: Yes ICU Code Status History assess/Full code by default: No, active code status present -- --- A= Assess, Prevent, Manage Pain Pain adequately controlled?: Yes C= Choice of Sedation and Analgesia RASS at Goal?: Yes B= Both Spontaneous Awakening and Breathing Trials Ventilator: None D= Delirium: Assess, Prevent and Manage ICU Delirium Status: CAM Positive - existing, continue interventions Sleep adequate?: Yes Restraint Status: None E= Early Mobility/Excercise ICU Mobility: ICU Mobility Goal: PT/OT consult ordered F= Family Engagement and Empowerment ICU plan of care visit at bedside in last 24 hours: Yes, Provider, RN, Patient/ designee ICU Disposition: ICU Disposition-POC Detail: Yes-Inspector Advanced Composite notified Prevention: Line Status: Arterial line Arterial Line Status: Still need today Santso Status: None Pressure Injury Status: Present - no new action required GI/Stress Ulcer Prophylaxis: None - not required Nutrition is at Goal: Advancing to goal VTE Prophylaxis: Chemoprophylaxis: Heparin SQ Mechanical Prophylaxis: Knee high SCD PERSONAL INVOLVEMENT IN CARE: Reviewing initiation, responses and adjustments to therapies, coordination of care, and updating family with Staff Physician, Dr. Carrero. Assessment AND Plan 74 year old M, hx of parkinson's disease, HTN and RLS, presenting with progressive cervical myelopathy post fall 1 month ago. - MRI w/ C3/C4 septic arthritis/osteo, epidural abscess w/ cord compression. - Ortho spine requesting NSICU admit for neuro checks and MAP goal >80. Active Hospital Problems as of 10/12/2024 Noted - [facility] Acute right hemiparesis (HCC) 10/11/2024 - Present Yes Current Assessment AND Plan In the setting of cervical cord compression with myelopathy PT/OT Agitation 10/10/2024 - Present No Current Assessment AND Plan - agitated overnight - higher risk for delirium given parksinon's disease and high sinemet dosing - Continue Seroquel - continue to monitor Bowel habit changes 10/11/2024 - Present No Current Assessment AND Plan Last BM: 10/10 Bowel regimen: Senna s 2 tablets BID Miralax 17g daily Cervical cord compression with myelopathy (HCC) 10/07/2024 - Present Yes Current Assessment AND Plan Plan: See spinal epidural abscess Cervical myelopathy (HCC) 10/11/2024 - Present Yes Drug induced akathisia 10/10/2024 - Present Yes Current Assessment AND Plan - patient complaining of restless legs on admission - improved - likely secondary to high doses of home sinemet - restarted home pramipexole with improvement in symptoms Edema of spinal cord (HCC) 10/11/2024 - Present Yes Current Assessment AND Plan In the setting of cervical cord compressi (more content not included)... [facility] 10-12-2024 Note HNO ID: [id number] Author: CHERELLE ARANA RN Service: Care Management Author Type: Registered Nurse Type: Care Mgt Progress Note Filed: 10/12/2024 14:06 Note Text: CARE MANAGEMENT PROGRESS NOTE SERVICE DATE: 10/12/2024 SERVICE TIME: 10:52 AM LOS: 5 days Needs Prior to Discharge: To Be Determined, Insurance Authorization, Discharge Transportation S/p spinal fusion, ortho and ID following. Therapy recommends [facility], and they are still reviewing. I spoke to Sol at [place], they will review updates sent today and determine if able to accept. [facility] has accepted. Unable to reach to update her. TC/VM left for requesting return call back. Final FOC will need to be determined. Will need auth and cot transport. CM to continue to follow. 1410 Spoke to Lexy and updated her on above info. She states [facility] still [facility] and would like to see if they will accept. SIGNATURE: Cherelle Arana RN PATIENT NAME: Phillip Jesus DATE: October 12, 2024 TIME: 10:52 AM [facility] 10-12-2024 Note HNO ID: [id number] Author: PENNY GARAY MD Service: Orthopaedic Surgery Author Type: Resident Type: Progress Notes Filed: 10/12/2024 07:20 Note Text: -- Attestation signed by Penny Garay MD at 10/12/2024 7:20 AM I reviewed the resident's note. I saw and examined the patient. I agree with Dr. Jane's examination, assessment, and plan unless otherwise stated. Comment: -Pain controlled -Motor strength improving -Drain pulled -Radiographs pending -Ok for floor Penny Garay M.D. Department of Orthopaedic Surgery [facility] -- Orthopaedic Surgery Inpatient Progress Note Assessment Phillip Jesus is a 74 year old male with C3-4 epidural abscess POD#4 from C3-C6 posterior spinal fusion w/ decompressive laminectomies Plan -MAP goals >80 x 3 post op nights -OK for [facility] today -Medical management: per primary -Pain control -PT/OT recommending acute rehab -PMR consult for myelopathy -Antibiotics: monitor off abx per ID -DVT ppx: SCDs, heparin 5000 BID -Diet: per primary -Imaging: cervical uprights ordered and pending -Dressing: gauze, tegederms -Drains: pulled 10/11 -Dispo: pending clinical disposition Subjective No acute events overnight. Endorses continued improvement in bilateral hand numbness and strength. Patient denies new motor weakness or sensory symptoms. Pain controlled. No new complaints. Physical Examination Vitals BP 152/86 Pulse 81 Temp 37.2 ?C (99 ?F) (Oral) Resp 22 Ht 180.3 cm (5' 11) Wt 65.8 kg (145 lb 1 oz) SpO2 96% BMI 20.23 kg/m? General Alert and answering questions appropriately. No acute distress. Cooperative with interview. Spine Inspection: cervical collar in good position, GABRIEL drain with serosanguinous output Sensation: Sensation intact to light touch in C5-T1 and L1-S1 dermatomes. Motor: Upper Extremities Right Left Deltoid (C5) 5 5 Biceps (C6) 5 5 Triceps (C7) 5 5 Growth Hacker (C8) 4 5 Interossei (T1) 4 5 Lower Extremities Right Left Psoas (L2) 5 5 Quadriceps (L3) 5 5 Dorsiflexion (L4) 5 5 EHL (L5) 5 5 Plantarflexion (S1) 5 5 Labs Recent Labs 10/12/24 0304 10/12/24 0303 10/11/24 0240 NA 139 -- 141 K 4.1 -- 4.0 CHLOR 106 -- 106 CO2 25 -- 25 BUN 21 -- 16 CREAT 0.63* -- 0.61* GLUC 94 -- 101* ANION 8 -- 10 CA 8.6 -- 8.7 MG 1.9 -- 1.9 P 2.7 -- 2.9 ALB 3.3* -- 3.3* AST 27 -- 23 ALT 20 -- <5* ALKPHOS 59 -- 58 TBILI 0.4 -- 0.5 WBC -- 4.18 4.59 HB -- 10.1* 11.1* HCT -- 30.9* 33.5* PLT -- 156 169 Imaging NNOI Juma Jane MD Orthopaedic Surgery - PGY 2 5:49 AM 10/12/2024 Pager #[phone] [facility] 10-11-2024 Note HNO ID: [id number] Author: ?, ?, ? Service: Pharmacy Author Type: [employer] Type: Plan of Care Filed: 10/11/2024 11:06 Note Text: PHARMACY MEDICATION REVIEW Patient Name: Phillip Jesus : 1950 The following medications were updated within the PHLEBOTOMIST medication list: Medications ADDED to PHLEBOTOMIST medication list carbidopa-levodopa CR (SINEMET CR) 50-200 mg per tablet Take 1 tablet by mouth four times daily. 6 am, 11 am, 4 pm and 10 pm losartan (COZAAR) 25 mg tablet Take 1 tablet by mouth once daily. Pramipexole 0.75 mg tablet Take 0.75 mg by mouth three times a day. sertraline (ZOLOFT) 50 mg tablet Take 25 mg by mouth every morning. tiZANidine (ZANAFLEX) 4 mg tablet Take 1-2 tablets by mouth at bedtime as needed (muscle spasticity/spasms). gabapentin (NEURONTIN) 600 mg tablet Take 600 mg by mouth daily at bedtime. OTC NUTRITIONAL SUPPLEMENT Take 1 capsule by mouth once daily. [place] supplement Oregano Oil 1,500 mg cap Take 1 capsule by mouth once daily. alfalfa 600 mg tab Take 1 tablet by mouth once daily. Capsicum, Cayenne, 450 mg cap Take 1 capsule by mouth once daily. cholecalciferol (VITAMIN D) 1,000 unit tab tablet Take 1,000 Units by mouth once daily. zinc sulfate (ZINC-220) 220 mg (50 mg zinc) capsule Take 220 mg by mouth every other day. L. gasseri-B. bifidum-B longum (PROBIOTIC COLON SUPPORT) 1.5 billion cell cap Take 1 capsule by mouth once daily. Medications CHANGED on PHLEBOTOMIST medication list Medications REMOVED from PHLEBOTOMIST medication list Additional comments: Verified medication information with e-scripts/dispense report and chart review. Confirmed medications with family. Family stated patient taking Simemet CR, losartan, pramipexole, Zoloft, tizanidine, gabapentin, olive leaf, oregano, alfalfa, capsicum, Vit D, Zinc, and Colon Support - added to med list. Family stated patient not taking Baclofen - did not to med list. Family stated for Sinemet patient takes 1 tablet QID - 6 am, 11 am, 4 pm and 10 pm - added times to med list. Family stated patient taking 25 mg of Zoloft daily(other rivera patient sleeps all day). 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 Unable to assess Preferred outpatient pharmacy: [facility] [address] [place] [phone] [facility] [phone] [id number] Allergies: No Known Allergies Prior to Admission Medications Prescriptions Last Dose Informant Patient Reported? Taking? Capsicum, Cayenne, 450 mg cap Yes Yes Sig: Take 1 capsule by mouth once daily. L. gasseri-B. bifidum-B longum (PROBIOTIC COLON SUPPORT) 1.5 billion cell cap Yes Yes Sig: Take 1 capsule by mouth once daily. OTC NUTRITIONAL SUPPLEMENT Yes Yes Sig: Take 1 capsule by mouth once daily. [place] supplement Oregano Oil 1,500 mg cap Yes Yes Sig: Take 1 capsule by mouth once daily. Pramipexole 0.75 mg tablet Yes Yes Sig: Take 0.75 mg by mouth three times a day. alfalfa 600 mg tab Yes Yes Sig: Take 1 tablet by mouth once daily. carbidopa-levodopa CR (SINEMET CR) 50-200 mg per tablet Yes Yes Sig: Take 1 tablet by mouth four times daily. 6 am, 11 am, 4 pm and 10 pm cholecalciferol (VITAMIN D) 1,000 unit tab tablet Yes Yes Sig: Take 1,000 Units by mouth once daily. gabapentin (NEURONTIN) 600 mg tablet Yes Yes Sig: Take 600 mg by mouth daily at bedtime. losartan (COZAAR) 25 mg tablet Yes Yes Sig: Take 1 tablet by mouth once daily. sertraline (ZOLOFT) 50 mg tablet Yes Yes Sig: Take 25 mg by mouth every morning. tiZANidine (ZANAFLEX) 4 mg tablet Yes Yes Sig: Take 1-2 tablets by mouth at bedtime as needed (muscle spasticity/spasms). zinc sulfate (ZINC-220) 220 mg (50 mg zinc) capsule Yes Yes Sig: Take 220 mg by mouth every other day. Facility-Administered Medications: None Emely Reed ([employer] Underwriter)[id number] 10/11/2024 [facility] 10-11-2024 Note HNO ID: [id number] Author: CHERELLE ARANA RN Service: Care Management Author Type: Registered Nurse Type: Care Mgt Progress Note Filed: 10/11/2024 09:21 Note Text: CARE MANAGEMENT PROGRESS NOTE SERVICE DATE: 10/11/2024 SERVICE TIME: 9:06 AM LOS: 4 days Needs Prior to Discharge: To Be Determined, Accepting Facility, Bed Availability, Insurance Authorization, Discharge Transportation Chart reviewed. Pending AR referrals, [facility] is FOC if accepts. Awaiting OT notes, will need accepting AR, auth, cot transport. CM to continue to follow. SIGNATURE: Cherelle Arana RN PATIENT NAME: Phillip Jesus DATE: October 11, 2024 TIME: 9:06 AM [facility] 10-11-2024 Note HNO ID: [id number] Author: PENNY GARAY MD Service: Orthopaedic Surgery Author Type: Resident Type: Progress Notes Filed: 10/11/2024 11:28 Note Text: -- Attestation signed by Penny Garay MD at 10/11/2024 11:28 AM I reviewed the resident's note. I saw and examined the patient. I agree with Dr. Jane's examination, assessment, and plan unless otherwise stated. Comment: -Pain controlled -Improving neurologic exam and hand function -Drain d/c -Radiographs pending -Ok for floor POD4 -PT/OT Penny Garay M.D. Department of Orthopaedic Surgery [facility] -- Orthopaedic Surgery Inpatient Progress Note Assessment Phillip Jesus is a 74 year old male with C3-4 epidural abscess POD#3 from C3-C6 posterior spinal fusion w/ decompressive laminectomies Plan -MAP goals >80 x 3 post op nights -Medical management: per primary -Pain control -PT/OT recommending acute rehab -PMR consult for myelopathy -Antibiotics: Cefepime, Vanc, per primary/ID, Ancef 2g x 2 doses completed -DVT ppx: SCDs, heparin 5000 BID -Diet: per primary -Imaging: cervical uprights when able -Dressing: gauze, tegederms -Drains: posterior cervical drain -25cc output last 8 hours -pulled this morning -Dispo: pending clinical disposition Subjective No acute events overnight. Drain pulled this morning, patient tolerated removal well. Drain site dressed with clean tegaderm and 4x4. Endorses continued improvement in bilateral hand numbness. Patient denies new motor weakness or sensory symptoms. Ambulated well with therapy yesterday. Pain controlled. No new complaints. Physical Examination Vitals BP 130/84 Pulse 79 Temp 36.9 ?C (98.4 ?F) (Oral) Resp 20 Ht 180.3 cm (5' 11) Wt 65.8 kg (145 lb 1 oz) SpO2 97% BMI 20.23 kg/m? General Alert and answering questions appropriately. No acute distress. Cooperative with interview. Spine Inspection: cervical collar in good position, GABRIEL drain with serosanguinous output Sensation: Sensation intact to light touch in C5-T1 and L1-S1 dermatomes. Motor: Upper Extremities Right Left Deltoid (C5) 5 5 Biceps (C6) 5 5 Triceps (C7) 5 5 Growth Hacker (C8) 4 5 Interossei (T1) 4 5 Lower Extremities Right Left Psoas (L2) 5 5 Quadriceps (L3) 5 5 Dorsiflexion (L4) 5 5 EHL (L5) 5 5 Plantarflexion (S1) 5 5 Labs Recent Labs 10/11/24 0240 10/10/24 0219 NA 141 141 K 4.0 3.6* CHLOR 106 105 CO2 25 25 BUN 16 17 CREAT 0.61* 0.68* GLUC 101* 105* ANION 10 11 CA 8.7 8.6 MG 1.9 2.0 P 2.9 2.7 ALB 3.3* 3.6* AST 23 28 ALT <5* <5* ALKPHOS 58 64 TBILI 0.5 0.8 WBC 4.59 5.80 HB 11.1* 12.2* HCT 33.5* 35.4* PLT 169 177 Imaging NNOI Juma Jane MD Orthopaedic Surgery - PGY 2 5:49 AM 10/11/2024 Pager #[phone] [facility] 10-11-2024 Note HNO ID: [id number] Author: JUAN DAVID CARRERO MD Service: Neurology ICU Author Type: Physician Sweetbread Trimmer Type: Progress Notes Filed: 10/11/2024 09:17 Note Text: -- Attestation signed by Juan David Carrero MD at 10/11/2024 9:17 AM Reviewed and agree with Follow BP and exam -- SERVICE DATE: 10/11/2024 SERVICE TIME: 5:15 AM NEURO ICU PROGRESS NOTE DATE OF ADMISSION: 10/07/2024 Subjective Hospital Course: 10/08: to OR for washout of epidural spinal abscess 10/09: No acute events overnight. Pain better controlled this AM. Neuro exam stable. 10/10: NAEON 10/11: NAEVY Objective BP 130/84 Pulse 79 Temp 36.9 ?C (98.4 ?F) (Oral) Resp 20 Ht 180.3 cm (5' 11) Wt 65.8 kg (145 lb 1 oz) SpO2 97% BMI 20.23 kg/m? Weight change: Neuro: GCS: Eyes: 4. Spontaneous Verbal: 5: Oriented Motor: 6: Obeys Motor commands Total: 15 MOTOR STRENGTH: RUE 4/5, RLE 3/5. Left UE 5/5. RLE 3/5. Dorsi/plantarflexion 5/5 bilaterally SENSATION: Intact light touch CV: RRR Pulm: CTA bilaterally, unlabored on RA GI/: soft, non tender Skin/Extremities: Edema- No Peripheral pulses- Present all extremities Wounds/Drsgs- Yes Breakdown- No Diagnostic tests reviewed for today's visit: Most recent labs and imaging results. Personally reviewed Lines, Drains, and Airways Line Duration Arterial Line/Sheath 10/08/24 Left Radial 3 days Peripheral 10/07/24 1706 [facility] Right Forearm 20 Gauge 3 days Peripheral 10/08/24 0619 [facility] Right Hand 20 Gauge 2 days Peripheral 10/08/24 1330 [facility] Short Left Forearm 14 Gauge 2 days Drain Duration External Collection Device 10/07/24 1831 [facility] 3 days Drain/Tube 10/08/24 1610 [facility] Posterior Neck 2 days ICU Checklist Last Documented/Reviewed time: 10/11/2024 5:10 AM ICU Consent Complete?: Yes ICU Code Status History assess/Full code by default: No, active code status present -- --- A= Assess, Prevent, Manage Pain Pain adequately controlled?: Yes C= Choice of Sedation and Analgesia RASS at Goal?: Yes B= Both Spontaneous Awakening and Breathing Trials Ventilator: None D= Delirium: Assess, Prevent and Manage ICU Delirium Status: CAM Positive - existing, continue interventions Sleep adequate?: Yes Restraint Status: None E= Early Mobility/Excercise ICU Mobility: ICU Mobility Goal: PT/OT consult ordered F= Family Engagement and Empowerment ICU plan of care visit at bedside in last 24 hours: Yes, Provider, RN, Patient/ designee ICU Disposition: ICU Disposition-POC Detail: Yes-Inspector Advanced Composite notified Prevention: Line Status: Arterial line Arterial Line Status: Still need today Santos Status: None Pressure Injury Status: Present - no new action required GI/Stress Ulcer Prophylaxis: None - not required Nutrition is at Goal: Advancing to goal VTE Prophylaxis: Chemoprophylaxis: Heparin SQ Mechanical Prophylaxis: Knee high SCD PERSONAL INVOLVEMENT IN CARE: Reviewing initiation, responses and adjustments to therapies, coordination of care, and updating family with Staff Physician. Assessment AND Plan 74 year old M, hx of parkinson's disease, HTN and RLS, presenting with progressive cervical myelopathy post fall 1 month ago. - MRI w/ C3/C4 septic arthritis/osteo, epidural abscess w/ cord compression. - Ortho spine requesting NSICU admit for neuro checks and MAP goal >80. Active Hospital Problems as of 10/11/2024 Noted - Resolved [facility] Parkinson disease (HCC) 10/07/2024 - Present Yes Current Assessment AND Plan - Continue home Sinemet Agitation 10/10/2024 - Present No Current Assessment AND Plan - agitated overnight - higher risk for delirium given parksinon's disease and high sinemet dosing - Continue Seroquel - continue to monitor Cervical cord compression with myelopathy (HCC) 10/07/2024 - Present Yes Current Assessment AND Plan Plan: See spinal epidural abscess Decubitus ulcer of sacral region, stage 1 10/10/2024 - Present Yes Current Assessment AND Plan - present when patient presented to ED - wound care consult Drug induced akathisia 10/10/2024 - Present Yes Current Assessment AND Plan - patient complaining of restless legs on admission - likely secondary to high doses of home sinemet - restarted home pramipexole with improvement in symptoms Septic arthritis of vertebra 10/07/2024 - Present Yes Current Assessment AND Plan C3/C4 Right facet joint septic arthritis/osteomyelitis by MRI wwo contrast Plan: - Blood culture: no growth to date - Spinal abscess culture: no growth to date, anaerobic panel pending - IV Abx managed by infectio (more content not included)... [facility] 10-10-2024 Note HNO ID: [id number] Author: AILYN TORRES RN Service: Care Management Author Type: Registered Nurse Type: Care Mgt Initial Assessment Filed: 10/10/2024 13:36 Note Text: CARE MANAGEMENT: ASSESSMENT AND DISCHARGE PLAN SERVICE DATE: October 10, 2024 SERVICE TIME: 1334 PCP: Linh Latham MD Primary Contact: Extended Emergency Contact Information Primary Emergency Contact: Ann Marie,Lexy Mobile Relation: Spouse Admission Status: Inpatient Insurance Provider: PRIMETIME HMO POS Discharge Planning requested by: Per Department Practice Potential Transition Plans Rehab Facility Advance Directives Current Advance Directive: None Eyelet Punch Operator Attempted to Assist with AD Completion: Yes Action: Education Provided Current Living Arrangements and Support Lives with: Spouse/significant other Type of Residence: Private Residence (House) Does the patient have to climb stairs at home?: No Support: Family members, Friends/neighbors, Spouse/significant other, Children How do you manage to accomplish the following: Independent: Ambulation, Bathe/Shower, Dress, Meals/Meal Prep, Going to the bathroom, Medication Management Needs Assistance: Transportation to appointments/community Current Services/Equipment Current Post-Acute Service(s): DME Current DME Type: Cane Discharge Planning Patient Goal(s): Better mobility, Increase strength, General wellness, Be able to go home, Less pain [place] Explained: [place] Given: Yes Level of Care Discussed: Inpatient Rehab Facility Are you interested in bedside delivery of your medications? No Discharge Planning Participant(s): Patient, Spouse/significant other Patient/Family Comments: Caregiver Assessment: Caregiver is ready, willing and able to meet the patient's needs as recommended by the inter-professional team: No Transport at Discharge: Transportation Arrangements: Ambulance Transportation Agency and Phone #:: [facility] ( [facility] ) [phone] / [phone] Type of Service: BLS Non-emergency Is Patient Medicaid Pending?: No Was transportation financial coverage discussed with family?: Patient, Spouse Interpreter Location: [facility] Destination: [facility] Financial Care Management Responsibility: None Needs Prior to Discharge: Needs Prior to Discharge: To Be Determined, Discharge Prescriptions, Discharge Transportation, Patient/Family, Other: See Comment, Precertification, Accepting Facility, Bed Availability, OT/PT Evaluation, Insurance Authorization (medical clearance) Patient/Family: Education Post-Acute Discharge Plan: Spoke with patient/spouse. From home with spouse and IND prior to fall approx 1-2 mos ago. Uses cane, PRN. Has ramp entrance to home. PT/OT recommending acute rehab, patient/spouse agreeable and would like to stay as close to home as possible. AR referrals placed; [facility] is [facility]. Awaiting responses. Will need accepting facility, precert, and cot transport. SIGNATURE: Ailyn Torres RN PATIENT NAME: Phillip Jesus DATE: October 10, 2024 TIME: 1:34 PM [facility] 10-10-2024 Note HNO ID: [id number] Author: DERIAN FITZPATRICK, ? Service: Neurology ICU Author Type: Resident Type: Progress Notes Filed: 10/10/2024 15:31 Note Text: -- Attestation signed by Derian Fitzpatrick at 10/10/2024 3:31 PM THE NEURO ICU MANAGEMENT OF THIS PATIENT WAS DISCUSSED WITH THE NSICU TEAM UNDER DR. FITZPATRICK I have reviewed the progress note obtained and documented by the resident, Dr. Renteria and I personally participated in the light components. I have discussed the case and management of the patient's care. The following comments revise or confirm relevant light components of the note. I have repeated the examination and confirm the findings except as documented. PATIENT PROBLEMS I REVIEWED, REVISED AND/OR INITIATED: The care of this patient required my full attention and direct personal management of: Principal Problem: Spinal epidural abscess (HCC) Active Problems: Septic arthritis of vertebra Cervical cord compression with myelopathy (HCC) Parkinson disease (HCC) Drug induced akathisia Agitation Decubitus ulcer of sacral region, stage 1 Resolved Problems: * No resolved hospital problems. * ==== STAFF COORDINATION OF CRITICAL CARE [facility] Staff Physician note of personal involvement in Care The patient is critically ill because of imminent risk of acute brain damage and acute respiratory failure and continues to require intensive support and observation. This patient has a high probability of sudden, clinically significant deterioration, which requires the highest level of physician preparedness to intervene urgently. I managed/supervized life or organ supporting interventions that required frequent physician assessment. I devoted my full attention to the direct care of this patient for the amount of time indicated below. Time I spent with family or surrogate(s) is included only if the patient was incapable of providing the necessary information or participating in medical decision making. Time devoted to teaching or to any procedures I billed separately is not included. CRITICAL CARE: I personally spent 33 minutes of critical care time involved in the care of this patient. ==== Events: NAEON, slightly delirious this AM PLAN, IMPRESSION AND ACTION(S) TAKEN 74 yo M with H parkinson's disease, HTN who presented with cervical myelopathy, found to have C3/C4 septic arthritis and epidural abscess. - Ortho spine following, s/p C3-C6 posterior spinal fusion, decompressive laminectomy on 10/08. Drain to be pulled today. - MAP goal 80 - Home sinemet. Start seroquel qhs for delirium/agitation. - Collar, frequent neurochecks - Continue cefepime, vancomycin, - ID c/s for assistance in management - Follow blood cultures, OR cultures. Unclear source for epidural abscess - TTE pending - Remainder as per resident note Access: PIVs, arterial line. Please see the documented [id number] plan in the updated problem list. Plan of care discussed with: ICU Team and RN. Derian Fitzpatrick Staff, Neurointensive Care [facility] Date of Service: 10/10/2024 Time of Service: 3:29 PM -- SERVICE DATE: 10/10/2024 SERVICE TIME: 9:20 AM NEURO ICU PROGRESS NOTE DATE OF ADMISSION: 10/07/2024 Subjective Hospital Course: 10/08: to OR for washout of epidural spinal abscess 10/09: No acute events overnight. Pain better controlled this AM. Neuro exam stable. 10/10: NAEON Events Since Last Note: see above Objective BP 170/108 Pulse 88 Temp 36.6 ?C (97.9 ?F) (Oral) Resp 19 Ht 180.3 cm (5' 11) Wt 65.8 kg (145 lb 1 oz) SpO2 98% BMI 20.23 kg/m? Weight change: Neuro: GCS: Eyes: 4. Spontaneous Verbal: 5: Oriented Motor: 6: Obeys Motor commands Total: 15 CRANIAL NERVES: Normal mood and affect. CNII-XII grossly intact. MOTOR STRENGTH: Right UE: 4/5, Left UE 5/5. RLE 3/5. 5/5 dorsi/plantarflexion. LLE 5/5. SENSATION: Intact light touch COORDINATION: RUE dysmetria, heel to melgar normal bilaterally, no dysmetria LUE B/l ankle clonus, sustained LLE, RLE 10 beats, improved LLE leg twitches/less frequent CV: RRR with no murmurs, rubs, gallops Pulm: clear and equal bilaterally, Mechanical Ventilation: No. Supplemental Oxygen: No GI/: soft, non-tender, non-distended Skin/Extremities: Edema- No Peripheral pulses- Present all extremities Wounds/Drsgs- yes, stage 1 sacral decubitus Diagnostic tests reviewed for today's visit: Most recent labs and imaging results. Personally reviewed Lines, Drains, and Airways Line Duration Arterial Line/Sheath 10/08/24 Left Radial 1 day Peripheral 10/07/24 1706 [facility] Right Forearm 20 Gauge 1 day Peripheral 10/08/24 0619 [facility] Right Hand 20 Gauge <1 day Peripheral 10/08/24 1330 [facility] S (more content not included)... [facility] 10-10-2024 Note HNO ID: [id number] Author: PENNY GARAY MD Service: Orthopaedic Surgery Author Type: Resident Type: Progress Notes Filed: 10/10/2024 09:17 Note Text: -- Attestation signed by Penny Garay MD at 10/10/2024 9:17 AM I reviewed the resident's note. I saw and examined the patient. I agree with Dr. Jane's examination, assessment, and plan unless otherwise stated. Comment: -Pain controlled -Drain pull today -Radiographs pending -MAP goals 3 post op nights -PT/OT -Ok to begin heparin 5000 units BID for VTE ppx Penny Garay M.D. Department of Orthopaedic Surgery [facility] -- Orthopaedic Surgery Inpatient Progress Note Assessment Phillip Jesus is a 74 year old male with C3-4 epidural abscess POD#2 from C3-C6 posterior spinal fusion w/ decompressive laminectomies Plan -MAP goals >80 x 3 days -Medical management: per primary -Pain control -PT/OT -Yee consult for [place] -PMR consult for myelopathy -Antibiotics: Cefepime, Vanc, per primary/ID, Ancef 2g x 2 doses -DVT ppx: SCDs, can start heparin 5000 BID today -Diet: per primary -Imaging: cervical uprights when able -Dressing: gauze, tegederms -Drains: posterior cervical drain -25cc output last 8 hours -Dispo: pending clinical disposition Subjective No acute events overnight. Endorses continued improvement in bilateral hand numbness. Patient denies new motor weakness or sensory symptoms. Pain controlled. No new complaints. Physical Examination Vitals BP 144/93 Pulse 87 Temp 36.6 ?C (97.9 ?F) (Oral) Resp 23 Ht 180.3 cm (5' 11) Wt 65.8 kg (145 lb 1 oz) SpO2 96% BMI 20.23 kg/m? General Alert and answering questions appropriately. No acute distress. Cooperative with interview. Spine Inspection: cervical collar in good position, GABRIEL drain with serosanguinous output Sensation: Sensation intact to light touch in C5-T1 and L1-S1 dermatomes. Motor: Upper Extremities Right Left Deltoid (C5) 5 5 Biceps (C6) 5 5 Triceps (C7) 5 5 Growth Hacker (C8) 4 5 Interossei (T1) 3 5 Lower Extremities Right Left Psoas (L2) 5 5 Quadriceps (L3) 5 5 Dorsiflexion (L4) 5 5 EHL (L5) 5 5 Plantarflexion (S1) 5 5 Labs Recent Labs 10/10/24 0219 10/09/24 0302 10/08/24 0621 10/07/24 2320 NA 141 135* < > -- K 3.6* 3.7 < > -- CHLOR 105 102 < > -- CO2 25 23 < > -- BUN 17 13 < > -- CREAT 0.68* 0.64* < > -- GLUC 105* 115* < > -- ANION 11 10 < > -- CA 8.6 8.7 < > -- MG 2.0 1.6* < > -- P 2.7 2.9 < > -- ALB 3.6* 3.7* < > -- AST 28 21 < > -- ALT <5* <5* < > -- ALKPHOS 64 67 < > -- TBILI 0.8 0.9 < > -- WBC 5.80 6.93 < > -- HB 12.2* 12.3* < > -- HCT 35.4* 36.0* < > -- PLT 177 186 < > -- INR -- -- -- 1.1 < > = values in this interval not displayed. Imaging NNOI Juma Jane MD Orthopaedic Surgery - PGY 2 5:49 AM 10/10/2024 Pager #[phone] [facility] 10-09-2024 Note HNO ID: [id number] Author: PENNY GARAY MD Service: Orthopaedic Surgery Author Type: Resident Type: Progress Notes Filed: 10/09/2024 09:32 Note Text: -- Attestation signed by Penny Garay MD at 10/09/2024 9:32 AM (Updated) I reviewed the resident's note. I saw and examined the patient. I agree with Dr. Jane's examination, assessment, and plan unless otherwise stated. Comment: -Pain controlled -Drain: continue to suction -Radiographs pending -MAP goals 80 for 3 nights -Begin heparin 5000 units BID POD2 Penny Garay M.D. Department of Orthopaedic Surgery [facility] -- Orthopaedic Surgery Inpatient Progress Note Assessment Phillip Jesus is a 74 year old male with C3-4 epidural abscess POD#1 from C3-C6 posterior spinal fusion w/ decompressive laminectomies Plan -MAP goals >80 x 3 days -Medical management: per primary -Pain control -PT/OT Augie consult for [place] -PMR consult for myelopathy -Antibiotics: Cefepime, Vanc, Flagyl per primary/ID, Ancef 2g x 2 doses -DVT ppx: SCDs, can start heparin 5000 BID morning of POD2 -Diet: per primary -Imaging: cervical uprights when able -Dressing: gauze, tegederms -Drains: posterior cervical drain -85cc output last 8 hours -Dispo: pending clinical disposition Subjective No acute events overnight. Endorses improvement in bilateral hand numbness. Patient denies new motor weakness or sensory symptoms. Pain controlled. No new complaints. Physical Examination Vitals BP 170/108 Pulse 96 Temp 36.6 ?C (97.9 ?F) (Oral) Resp 14 Ht 180.3 cm (5' 11) Wt 65.8 kg (145 lb 1 oz) SpO2 98% BMI 20.23 kg/m? General Alert and answering questions appropriately. No acute distress. Cooperative with interview. Spine Inspection: cervical collar in good position, GABRIEL drain with serosanguinous output Sensation: Sensation intact to light touch in C5-T1 and L1-S1 dermatomes. Motor: Upper Extremities Right Left Deltoid (C5) 5 5 Biceps (C6) 5 5 Triceps (C7) 5 5 Growth Hacker (C8) 4 5 Interossei (T1) 3 5 Lower Extremities Right Left Psoas (L2) 4 5 Quadriceps (L3) 4 5 Dorsiflexion (L4) 4 5 EHL (L5) 4 5 Plantarflexion (S1) 4 5 Labs Recent Labs 10/09/24 0302 10/08/24 0621 10/07/24 2320 NA 135* 142 -- K 3.7 3.4* -- CHLOR 102 108* -- CO2 23 26 -- BUN 13 16 -- CREAT 0.64* 0.68* -- GLUC 115* 101* -- ANION 10 8 -- CA 8.7 9.1 -- MG 1.6* 1.8 -- P 2.9 2.6* -- ALB 3.7* 4.0 -- AST 21 16 -- ALT <5* <5* -- ALKPHOS 67 71 -- TBILI 0.9 0.8 -- WBC 6.93 5.64 -- HB 12.3* 13.4 -- HCT 36.0* 38.4* -- PLT 186 184 -- INR -- -- 1.1 Imaging NNOI Juma Jane MD Orthopaedic Surgery - PGY 2 5:49 AM 10/09/2024 Pager #[phone] [facility] 10-09-2024 Note HNO ID: [id number] Author: MAE TAVARES PA-C Service: Neurology ICU Author Type: Physician Sweetbread Trimmer Type: Progress Notes Filed: 10/09/2024 04:51 Note Text: -- Attestation signed by Derian Fitzpatrick at 10/09/2024 5:30 PM THE NEURO ICU MANAGEMENT OF THIS PATIENT WAS DISCUSSED WITH THE NSICU TEAM UNDER DR. FITZPATRICK I have reviewed the progress note obtained and documented by the advanced practice provider Mae Tavares. I have personally seen and examined the patient and discussed their management with the MICHAEL. I reviewed the MICHAEL note and agree with the documented findings and plan of care. I have repeated the examination and confirm the findings except as documented. PATIENT PROBLEMS I REVIEWED, REVISED AND/OR INITIATED: The care of this patient required my full attention and direct personal management of: Principal Problem: Spinal epidural abscess (HCC) Active Problems: Septic arthritis of vertebra Cervical cord compression with myelopathy (HCC) Parkinson disease (HCC) Resolved Problems: * No resolved hospital problems. * ==== STAFF COORDINATION OF CRITICAL CARE [facility] Staff Physician note of personal involvement in Care The patient is critically ill because of imminent risk of damage to organ(s) (spine) and continues to require intensive support and observation. This patient has a high probability of sudden, clinically significant deterioration, which requires the highest level of physician preparedness to intervene urgently. I managed/supervized life or organ supporting interventions that required frequent physician assessment. I devoted my full attention to the direct care of this patient for the amount of time indicated below. Time I spent with family or surrogate(s) is included only if the patient was incapable of providing the necessary information or participating in medical decision making. Time devoted to teaching or to any procedures I billed separately is not included. CRITICAL CARE: I personally spent 33 minutes of critical care time involved in the care of this patient. ==== Events: Exam stable today. PLAN, IMPRESSION AND ACTION(S) TAKEN 74 yo M with [facility] parkinson's disease, HTN who presented with cervical myelopathy, found to have C3/C4 septic arthritis and epidural abscess. - Ortho spine following, s/p C3-C6 posterior spinal fusion, decompressive laminectomy on 10/08 - MAP goal 80 - Home sinemet - Collar, frequent neurochecks - Continue cefepime, vancomycin, flagyl - ID c/s for assistance in management - Follow blood cultures, OR cultures. Unclear source for epidural abscess - TTE - Remainder as per resident note Access: PIVs, arterial line. Please see the documented [id number] plan in the updated problem list. Plan of care discussed with: ICU Team and RN. Derian Fitzpatrick Staff, Neurointensive Care [facility] Date of Service: 10/09/2024 Time of Service: 5:27 PM -- SERVICE DATE: 10/09/2024 SERVICE TIME: 4:50 AM NEURO ICU PROGRESS NOTE DATE OF ADMISSION: 10/07/2024 Subjective Hospital Course: 10/08: to OR for washout of epidural spinal abscess 10/09: No acute events overnight. Pain better controlled this AM. Neuro exam stable. Objective BP 170/108 Pulse 88 Temp 36.6 ?C (97.9 ?F) (Oral) Resp 19 Ht 180.3 cm (5' 11) Wt 65.8 kg (145 lb 1 oz) SpO2 98% BMI 20.23 kg/m? Weight change: Neuro: GCS: Eyes: 4. Spontaneous Verbal: 5: Oriented Motor: 6: Obeys Motor commands Total: 15 MOTOR STRENGTH: Right UE: 4/5, Left UE 5/5. RLE 3/5. 5/5 dorsi/plantarflexion. LLE 5/5. SENSATION: Intact light touch CV: RRR Pulm: CTA bilaterally, unlabored on RA GI/: Abdomen soft, non tender Skin/Extremities: Edema- No Peripheral pulses- Present all extremities Diagnostic tests reviewed for today's visit: Most recent labs and imaging results. Personally reviewed Lines, Drains, and Airways Line Duration Arterial Line/Sheath 10/08/24 Left Radial 1 day Peripheral 10/07/24 1706 [facility] Right Forearm 20 Gauge 1 day Peripheral 10/08/24 0619 [facility] Right Hand 20 Gauge <1 day Peripheral 10/08/24 1330 [facility] Short Left Forearm 14 Gauge <1 day Drain Duration External Collection Device 10/07/24 1831 [facility] 1 day Drain/Tube 10/08/24 1610 [facility] Posterior Neck <1 day ICU Checklist Last Documented/Reviewed time: 10/09/2024 4:40 AM ICU Consent Complete?: No ICU Code Status History assess/Full code by default: Yes, will address today -- --- A= Assess, Prevent, Manage Pain Pain adequately controlled?: Yes C= Choice of Sedation and Analgesia R (more content not included)... [facility] 10-09-2024 Note HNO ID: [id number] Author: NOTE, INTERFACE, ? Service: ? Author Type: ? Type: Progress Notes Filed: 10/09/2024 15:51 Note Text: Epic Scheduled Downtime: 10/09/2024 1:00:00 AM to 10/09/2024 2:17:00 AM [facility] 10-08-2024 Note HNO ID: [id number] Author: JAYLAN LOGAN MD Service: Orthopaedic Surgery Author Type: Resident Type: Plan of Care Filed: 10/08/2024 20:07 Note Text: Orthopaedic Surgery Post-Op Check Subjective Patient resting comfortably in bed. Per nursing e was slow to awake from anesthesia. Reports subjective improvement, but is unable to vocalize how. Denies any new numbness or tingling. Objective Vitals BP 171/110 Pulse 102 Temp 36.8 ?C (98.2 ?F) Resp 17 Ht 180.3 cm (5' 11) Wt 65.8 kg (145 lb 1 oz) SpO2 100% BMI 20.23 kg/m? General No distress. Laying comfortably in bed, still sedated and needs redirecting and coaching to full participate in exam Spine Inspection: Dressing clean, dry, and intact. Cervical collar in place in good position. Hemovac drain in place with good seal and sanguinous output in cannister. Sensation: Sensation intact to light touch in C5-T1 and L2-S1 dermatomes. Motor: Upper Extremities Right Left Deltoid (C5) 3 3 Biceps (C6) 4 5 Triceps (C7) 4 5 Growth Hacker (C8) 2 3 Interossei (T1) 2 3 Lower Extremities Right Left Psoas (L2) 4 5 Quadriceps (L3) 4 5 Dorsiflexion (L4) 4 5 EHL (L5) 4 5 Plantarflexion (S1) 4 5 Assessment Phillip Jesus is a 74 year old male who is POD #0 status-post C3-6 PSF and laminectomies. Pain well-controlled, exam appropriate Plan - Continue routine post-operative care as outlined in brief operative note. Jaylan Logan MD Orthopaedic Surgery 8:03 PM 10/08/2024 Pager #[phone] [facility] 10-08-2024 Note HNO ID: [id number] Author: SACHA FLETCHER APRN.LEAD GAME DESIGNER Service: Nursing Author Type: Nurse Civil Laboratory Technician Type: Anesthesia Procedure Notes Filed: 10/08/2024 15:50 Note Text: ANESTHESIOLOGY PROCEDURE NOTE PIV General Information Procedure Start Time/Medication Administration: 10/08/2024 1:50 PM Procedure End Time: 10/08/2024 1:51 PM Patient Location: OR Staffing LEAD GAME DESIGNER: Sacha Fletcher APRN.LEAD GAME DESIGNER SRNA: Kristine Romero SRNA Performed by: SRNA and LEAD GAME DESIGNER Preparation Sterility Preparation: hand hygiene performed prior to procedure, surgical cap used, mask used, skin prep agent completely dried prior to procedure Site Prep: Chloraprep Procedure Details Indication: need for IV access Needle Size/Type: 14 gauge angiocath Orientation: Left Location: Forearm Imaging Guidance Used: No SIGNATURE: Sacha Fletcher APRN.CRNA PATIENT NAME: Phillip Jesus DATE: October 08, 2024 TIME: 3:49 PM CSN: [id number] [facility] 10-08-2024 Note HNO ID: [id number] Author: SACHA FLETCHER APRN.LEAD GAME DESIGNER Service: Nursing Author Type: Nurse Civil Laboratory Technician Type: Anesthesia Procedure Notes Filed: 10/08/2024 13:57 Note Text: ANESTHESIOLOGY PROCEDURE NOTE Airway General Information Procedure Start Time/Medication Administration: 10/08/2024 1:41 PM Procedure End Time: 10/08/2024 1:42 PM Patient location during procedure: OR Timeout Performed Pre-procedure: timeout performed Consent Obtained: Yes Patient identity confirmed: arm band and patient Staffing Anesthesiologist: Fransisco King DO LEAD GAME DESIGNER: Sacha Fletcher APRN.LEAD GAME DESIGNER SRNA: Kristine Romero SRNA Performed by: SRNA and anesthesiologist Indications and Patient Condition Indications for airway management: anesthesia Preoxygenated: yes anesthesia circuit Patient position: sniffing Method: asleep Cricoid Pressure: No Manual In-Line Stabilization: Yes Difficult Mask: No Airway Accessory: oral airway Final Airway Details Final airway type: endotracheal airway Final Endotracheal Airway: ETT Cuffed: yes Successful intubation technique: video laryngoscopy Devices used: Glidescope Endotracheal tube insertion site: oral Blade type: S3. Blade size: #3 ETT size (mm): 7.5 Measured from: lips Measurement (cm): 22 Placement verified by: chest auscultation and capnometry Cormack-Lehane Classification: grade I - full view of glottis Number of attempts at approach: 1 Failed airway: no Unrecognized esophageal intubation: no Airway not difficult SIGNATURE: Sacha Fletcher APRN.LEAD GAME DESIGNER PATIENT NAME: Phillip Jesus DATE: October 08, 2024 TIME: 1:55 PM CSN: [id number] [facility] 10-08-2024 Note HNO ID: [id number] Author: DERIAN FITZPATRICK, ? Service: Neurology ICU Author Type: Resident Type: Progress Notes Filed: 10/08/2024 17:41 Note Text: -- Attestation signed by Derian Fitzpatrick at 10/08/2024 5:41 PM THE NEURO ICU MANAGEMENT OF THIS PATIENT WAS DISCUSSED WITH THE NSICU TEAM UNDER DR. FITZPATRICK I have reviewed the progress note obtained and documented by the resident, Dr. Renteria and I personally participated in the light components. I have discussed the case and management of the patient's care. The following comments revise or confirm relevant light components of the note. I have repeated the examination and confirm the findings except as documented. PATIENT PROBLEMS I REVIEWED, REVISED AND/OR INITIATED: The care of this patient required my full attention and direct personal management of: Principal Problem: Spinal epidural abscess (HCC) Active Problems: Septic arthritis of vertebra Cervical cord compression with myelopathy (HCC) Parkinson disease (HCC) Resolved Problems: * No resolved hospital problems. * ==== STAFF COORDINATION OF CRITICAL CARE [facility] Staff Physician note of personal involvement in Care The patient is critically ill because of imminent risk of acute respiratory failure and damage to organ(s) (spine) and continues to require intensive support and observation. This patient has a high probability of sudden, clinically significant deterioration, which requires the highest level of physician preparedness to intervene urgently. I managed/supervized life or organ supporting interventions that required frequent physician assessment. I devoted my full attention to the direct care of this patient for the amount of time indicated below. Time I spent with family or surrogate(s) is included only if the patient was incapable of providing the necessary information or participating in medical decision making. Time devoted to teaching or to any procedures I billed separately is not included. CRITICAL CARE: I personally spent 45 minutes of critical care time involved in the care of this patient. ==== Events: To OR today for C3-C6 spinal fusion, laminectomies, epidural abscess evacuation. PLAN, IMPRESSION AND ACTION(S) TAKEN 74 yo M with [facility] parkinson's disease, HTN who presented with cervical myelopathy, found to have C3/C4 septic arthritis and epidural abscess. Evidence on exam of significant myelopathy with diffuse weakness BUE>BLE, hyperreflexia in BLE, with sustained clonus LLE, ~10 beats in RLE. - Ortho spine c/s, to OR today for laminectomy/fusion/washout - MAP goal 85 - Hypertensive - Cardene for SBP <220 - Home sinemet - C Collar, frequent neurochecks - Continue cefepime, vancomycin, flagyl - Follow blood cultures, OR cultures. ID c/s. Unclear source for epidural abscess - TTE - Remainder as per resident note Access: PIVs, arterial line. Likely to require PICC post OR. Please see the documented [id number] plan in the updated problem list. Plan of care discussed with: ICU Team, RN, and Pharmacist. Derian Fitzpatrick Staff, Neurointensive Care [facility] Date of Service: 10/08/2024 Time of Service: 5:33 PM -- SERVICE DATE: 10/08/2024 SERVICE TIME: 1:54 PM NEURO ICU PROGRESS NOTE DATE OF ADMISSION: 10/07/2024 Subjective Hospital Course: 10/08: to OR for washout of epidural spinal abscess Events Since Last Note: see above Objective BP 135/77 Pulse (!) 98 Temp 36.5 ?C (97.7 ?F) (Oral) Resp 22 Ht 180.3 cm (5' 11) Wt 65.8 kg (145 lb 1 oz) SpO2 96% BMI 20.23 kg/m? Weight change: Neuro: GCS: Eyes: 4. Spontaneous Verbal: 5: Oriented Motor: 6: Obeys Motor commands Total: 15 CRANIAL NERVES: Normal mood and affect. CNII-XII grossly intact. MOTOR STRENGTH: Right upper extremity: 3/5 strength shoulder abduction/external/flexion/extension, 4/5 strength elbow flexion/extension, 5/5 strength wrist flexion/extension Left upper extremity 5/5 strength throughout the shoulder, elbow, wrist Right lower extremity: 3/5 strength hip flexion/extension, 4/5 strength knee flexion/extension, 5 strength dorsiflexion/plantarflexion Left lower extremity 5/5 strength throughout the hip, knee, ankle 10 beats of ankle clonus in the right ankle, runs of sustained clonus in left ankle SENSATION: Intact COORDINATION: Dysmetria noted in LUE, RUE finger to nose normal, heel to melgar normal bilaterally CV: RRR with no murmurs, rubs, gallops Pulm: clear and equal bilaterally, Mechanical Ventilation: No. Supplemental Oxygen: No GI/: soft, non-tender, non-distended Skin/Extremities: Edema- No Peripheral pulses- Present all extremities Wounds/Drsgs- No Breakdown- No Diagnostic tests reviewed for today's visit: Most recent labs and imaging results (more content not included)... [facility] 10-08-2024 Note HNO ID: [id number] Author: ALIZE GAYTAN MD Service: Orthopaedic Surgery Author Type: Resident Type: Progress Notes Filed: 10/08/2024 06:19 Note Text: Orthopaedic Surgery Inpatient Progress Note Assessment Phillip Jesus is a 74 year old male with compressive cervical epidural abscess Plan - Pain control. - Weight-bearing status: NWB . -Diet: NPO for OR today -Abx: flagyl and cefepime - DVT PPx: SCDs. Hold chemoppx for OR today -ICU for MAP goals >80, Q1H neuro checks - Plan for surgery today with Dr. Garay -Preop labs obtained - Disposition: pending surgical intervention. Subjective No acute events overnight. AF, hypertensive. Patient denies new motor weakness or sensory symptoms. Does have significant restless leg symptoms which he attributes to his Parkinsons. Pain controlled. No new complaints. Physical Examination Vitals BP 177/106 Pulse 82 Temp 36.5 ?C (97.7 ?F) (Oral) Resp 19 Ht 180.3 cm (5' 11) Wt 65.8 kg (145 lb 1 oz) SpO2 97% BMI 20.23 kg/m? General Alert and answering questions appropriately. No acute distress. Cooperative with interview. Spine Sensation: Sensation intact to light touch in C5-T1 and L1-S1 dermatomes. Motor: Upper Extremities Right Left Deltoid (C5) 3 4 Biceps (C6) 3 5 Triceps (C7) 3 5 Growth Hacker (C8) 2 5 Interossei (T1) 2 5 Lower Extremities Right Left Psoas (L2) 4 5 Quadriceps (L3) 4 5 Dorsiflexion (L4) 4 5 EHL (L5) 4 5 Plantarflexion (S1) 4 5 Labs Recent Labs 10/07/24 2320 10/07/24 1802 NA -- 145* K -- 3.6* CHLOR -- 107 CO2 -- 27 BUN -- 19 CREAT -- 0.81 GLUC -- 106* ANION -- 11 CA -- 9.9 WBC -- 4.03 HB -- 13.5 HCT -- 41.2 PLT -- 209 INR 1.1 -- Imaging NNOI Alize Gaytan MD Orthopaedic Surgery - PGY 3 5:49 AM 10/08/2024 Pager #[phone] [facility] 10-07-2024 Note HNO ID: [id number] Author: FLYNN GAMEZ MD Service: Orthopaedic Surgery Author Type: Resident Type: Plan of Care Filed: 10/07/2024 23:09 Note Text: Orthopedic Surgery Plan of Care: MRI reviewed by myself and Dr. Garay with radiologist interpretation. Concern for C3-C4 septic arthritis with compressive epidural abscess with surgery planned for 10/08. NPO after midnight, hold anticoagulation, recommend medical admission and ICU monitoring overnight with MAP >80 and q1 hour neuro checks. Please page ortho with further questions or concerns. Flynn Gamez MD Orthopaedic Surgery Resident 11:07 PM 10/07/2024 Pager #[phone] [facility] 09-20-2024 Evaluation note Diagnosis Onset Date Resolution Alteration in sensory perception acute September 20, 2024 1:21pm Hyperreflexia acute September 20, 2024 1:21pm Muscle spasticity acute September 202024 1:21pm Urinary incontinence acute September 20, 2024 1:21pm Dyskinesia chronic September 20 1:21pm Cervical myelopathy suspected September 20, 2024 1:21pm History of Parkinson's disease inactive September 20, 2024 1:21pm [facility] Work Phone: 1(395) 234-974507-21-2025 Evaluation note* Diagnosis Onset Date Resolution Status Admit Date Alteration in sensory perception acute September 20, 2024 1:21pm Hyperreflexia acute September 20, 2024 1:21pm Muscle spasticity acute September 202024 1:21pm Urinary incontinence acute September 20, 2024 1:21pm Dyskinesia chronic September 20 1:21pm Cervical myelopathy suspected September 20, 2024 1:21pm History of Parkinson's disease inact melissa September 20, 2024 1:21pm Alteration in sensory perception acute September 29, 2024 11:23am Hyperreflexia acute September 29, 2024 11:23am Muscle spasticity acute September 292024 11:23am Urinary incontinence acute September 29, 2024 11:23am Dyskinesia chronic September 29 11:23am Cervical myelopathy suspected September 29, 2024 11:23am History of Parkinson's disease inact melissa September 29, 2024 11:23am [facility] Work Phone: 1(638) 776-967607-21-2025 Evaluation note* Diagnosis Onset Date Resolution Status Admit Date Alteration in sensory perception acute September 20, 2024 1:21pm Hyperreflexia acute September 20, 2024 1:21pm Muscle spasticity acute September 202024 1:21pm Urinary incontinence acute September 20, 2024 1:21pm Dyskinesia chronic September 20 1:21pm History of Parkinson's disease chron ic September 20, 2024 1:21pm Cervical myelopathy suspected September 20, 2024 1:21pm Alteration in sensory perception acute September 29, 2024 11:23am Hyperreflexia acute September 29, 2024 11:23am Muscle spasticity acute September 292024 11:23am Urinary incontinence acute September 29, 2024 11:23am Dyskinesia chronic September 29 11:23am History of Parkinson's disease chron ic September 29, 2024 11:23am Cervical myelopathy suspected September 29, 2024 11:23am [facility] Work Phone: 1(992) 510-613007-21-2025 Evaluation note* Diagnosis Onset Date Resolution Status Admit Date Alteration in sensory perception acute September 20, 2024 1:21pm Hyperreflexia acute September 20, 2024 1:21pm Muscle spasticity acute September 202024 1:21pm Urinary incontinence acute September 20, 2024 1:21pm Dyskinesia chronic September 20 1:21pm History of Parkinson's disease chron ic September 20, 2024 1:21pm Cervical myelopathy suspected September 20, 2024 1:21pm Alteration in sensory perception acute September 29, 2024 11:23am Hyperreflexia acute September 29, 2024 11:23am Muscle spasticity acute September 292024 11:23am Urinary incontinence acute September 29, 2024 11:23am Dyskinesia chronic September 29 11:23am History of Parkinson's disease chron ic September 29, 2024 11:23am Cervical myelopathy suspected September 29, 2024 11:23am Hyperreflexia acute October 06, 2024 1:32pm History of Parkinson's disease chron ic October 06, 2024 1:32pm Cervical myelopathy suspected Aug2024 1:32pm [facility] Work Phone: 1(715) 911-145007-16-2025 Discharge summary [facility] Medical Records Department [address] [place] [address] Emergency Department Summary 09/15/24 MR#: [id number] Acct: [id number] Name: PHILLIP JESUS Rep #:[id number] : 1950 74 [...] no blood thinners. He denies any recent i llness. Prior similar symptoms: Yes Recent Illness/Hospitalization: No PFSH PFSH Medical History Essential (primary) hypertension Home Medications [...] moving all 4 extremities. No deformity. Normal bolt man strength. Normal dorsi plantarflexion. Hips are nontender and without rotation or shortening. Mild tenderness right shoulder no defor mity. No swelling. No redness or warmth. Bilateral elbows forearms wrist and hands are nontender. Neurologically he is awake alert. Answering questions and following commands. Parkinsonian movements.He knows month, year and president. Const Vital [...] all extremities and no focal motor deficits [place] Coma Scale: document GCS findings Spontaneous Obeys [...] complaining of right shoulder discomfort and neck discomfortx-rays being obtained. No LOC. No headache. No blood thinners I do not think he needs a CAT scan ofhis head. His neurologic exam other than his [...] the cervical spine as described. Reading Location: RAD-- Shoulder X-Ray 09/15/24 14:25 IMPRESSION: 1. No acute fracture. 2. Degenerative changes as above. Reading Location: RAD-[facility] Right shoulder x-ray, 4 views, interpreted by myself and radiologist. Shows chronic changes. No fracture. No dislocation. C-spine x-ray, 3 views, interpreted by myself and the radiologist, shows chronicchanges. Arthritis.No acute process. No fracture. Discharge Plan Triage [...] Demetrio Golden DO [Non-Staff] - Print Language: [place] What to do if you have Problems For any increased pain, shortness of breath, bleeding, nausea or vomiting, chestpain, or any unexpected problems, contact your Primary Care Provider. Call [facility] ([phone]) or report tothe closest Emergency Room. Call 911 if necessary. 09/15/24 1451 Cosigner Signature (if applicable): CC: Dr. Earnest Amaral MD ~ Signed [facility]07-16-2025 Radiology Diagnostic study note [facility] Imaging Services [address], [place] [id number] Shoulder min 2 Views MR#: [id number] Acct: [id number] Name: PHILLIP JESUS Rep #: [id number] : 1950 M 74 From: Tiera Avalos MD PCP: Dr. Earnest Amaral MD Status: REG ER Study:Shoulder min 2 Views Date of Exam: 09/15/24 Exam# [id number] Ordering Dr: Arminda Boyer MD EXAM: XR [...] 2. Degenerative changes as above. Reading Location: [facility] CC: Dr. Cas Boyer MD; Dr. Earnest Amaral MD ~ Marker Assembler: Signed [facility]07-16-2025 Radiology Diagnostic study note [facility] Imaging Services [address] [place], [place] [address] Cerv Spine 2 or 3 Views MR#: [id number] Acct: [id number] Name: PHILLIP JESUS Rep #: [id number] : 1950 M 74 From: Tiera Avalos MD PCP: Dr. Earnest Amaral MD Status: REG ER Study:Cerv Spine 2 or 3 Views Date of Exam: 09/15/24 Exam# [id number] Ordering Dr: Arminda Boyer MD EXAM: XR Cervical Spine, 4 or 5 Views CLINICAL INDICATION: FALL TECHNIQUE: Frontal, lateral and bilateral oblique views of the cervical spine. COMPARISON: No relevant prior studies available. FINDINGS: VERTEBRAE: Degenerative facet arthropathy throughout the cervical spine. Normal alignment. No acutefracture. DISC SPACES: Degenerative disc disease throughout the cervical spine. SOFT TISSUES: Soft tissue swelling. RAD/Cerv Spine 2 or 3 Views IMPRESSION: 1. No acute fracture. 2. Degenerative changes of the cervical spine as described. Reading Location: [facility] CC: Dr. Cas Boyer MD; Dr. Earnest Amaral MD ~ Marker Assembler: Signed [facility]07-16-2025 Discharge summary Author Cas Boyer [facility] Note Date/Time September 15, 2024 2:51 pm [facility] Medical Records Department [address] [place] [address] Emergency Department Summary 09/15/24 MR#: [id number] Acct: [id number] Name: PHILLIP JESUS Rep #:[id number] : 1950 74 [...] similar symptoms: Yes Recent Illness/Hospitalization: No PFSH PFSH Medical History Essential (primary) hypertension Home Medications [...] moving all 4 extremities. No deformity. Normal bolt man strength. Normal dorsi plantarflexion. Hips are nontender [...] the cervical spine as described. Reading Location: [facility] Shoulder X-Ray 09/15/24 14:25 IMPRESSION: 1. No acute fracture. 2. Degenerative changes as above. Reading Location: [facility] Right shoulder x-ray, 4 views, interpreted by [...] Primary Care Provider: Earnest Amaral Referrals: Demetrio Golden, [Non-Staff] - Print Language: [place] What to do if you have Problems For any increased pain, shortness of breath, bleeding, nausea or vomiting, chestpain, or any unexpected problems, contact your Primary Care Provider. Call [facility] ([phone]) or report to the closest Emergency Room. Call 911 if necessary. 09/15/24 1451 <Electronically signed by Cas Boyer MD> Cosigner Signature (if applicable): CC: Dr. Earnest Amaral MD ~ Signed [facility] Work Phone: Evaluation noteNo assessment information available [facility] Work Phone: Hospital Discharge instructionsAdditional Instructions Motrin for inflammation and pain. Tylenol for pain. Ice to your shoulder. Ice and heat to your neck. If this is not progressively getting better follow-up with a local orthopedic physician they can do a steroid injection in your right shoulder.[facility] Work Phone: Reason for referral (narrative)No reason for referral information availableWSouthwest General Health Center Work Phone: Summary Purpose Family History Relationship Condition Age at Onset Recorded Date/T gio father Cardiac disease Unknown Advance Directives Advance Directive Response Recorded Date/ Time Do you have a Healthcare Power of Strategy Manager? Yes September 15, 2024 2:06pm Chief Complaint and Reason for Visit Chief Complaint Admit Date Fall September 15, 2024 1:42 pm Chief Complaint Admit Date fallSeptember 15, [...] disease August 1:21pm Chief Complaint Admit Date fallSeptember 15, 2024 [...] Cervical myelopathy September 29, 2024 11:2 3am Chief Complaint Admit Date Fall September 15, 2024 1:42 pm Follow up September 20, 2024 1:21 pm EORDERS September 20, 2024 3:10 pm ACUTE VISIT September 29, 2024 11:2 3am CERVICAL SPINE October 06, 2024 1:3 2pm Room 3 October 06, 2024 1:4 8pm hyperreflexia, spasticity October 07 6:56am Reason for Visit Admit Date Alteration in [...] Cervical myelopathy September 29, 2024 11:2 3am Hyperreflexia October 06, 2024 1:3 2pm History of Parkinson's disease October 1:32pm Cervical myelopathy October 06, 2024 1:3 2pm Additional Source Comments (unrecognized sect ion and content) No Status Records FoundNo Status Records FoundNo Status Records Found INFORMATION SOURCE (unrecogn ized section and content) DATE CREATED AUTHOR 08/03/2024 [facility] DATE CREATED AUTHOR AUTHOR'S ORGANIZ ATION 10/07/2024 [facility] DATE CREATED AUTHOR AUTHOR'S ORGANIZ ATION 10/14/2024 [facility] Care Teams (unrecognized sec tion and [...] September 20, 2024 End: September 20, 2024 ELSIE Pastrana Attending Provider Active S tart: September 20, [...] September 20, 2024 End: September 20, 2024 DIMITRI PastranaC Attending Provider Active S tart: September 20, 2024 End: September 20, 2024 ELSIE Pastrana Referring Provider Active S tart: September 20, 2024 End: September 20, 2024 Team Status: Inactive Member Role/Relationship Status Dates Dr. Earnest Amaral MD Primary Care Provider Active Start: September 29, 2024 End: September 29, 2024 Dr. Earnest Amaral MD Referring Provider Active Sta rt: September 29, 2024 End: September 29, 2024 ELSIE Pastrana Attending Provider Active S tart: September 29, [...] MD Primary Care Provider Active Start: October 07, 2024 End: October 07, 2024 ELSIE Pastrana Attending Provider Active S tart: October 07, 2024 End: October 07, 2024 DIMITRI PastranaC Referring Provider Active S tart: October 07, 2024 End: October 07, 2024 Goals (unrecognized section and content) Goals [...] BE BASED ON THE PRIMARY CLINICAL RECORDS. [facility]. provides no warranty or guarantee of the accuracy or completeness of information in this document.
[2024-10-16 17:47] VITALS: BP 144/90; PULSE 80; RESP 14; TEMP 36.3; O2SAT 99; BMI 19.1
--- NOTE | 2024-10-16 20:01 | HP.PCM_ITS ---
[facility] - General General Date of Admission: 10/16/24 Date of Service: 10/18/24 Chief Complaint: Here for rehabilitation, intravenous antibiotics. [facility] Narrative SYDNIE FAIRCHILD, is a 74 Male who presents with followin10/08/2024 Admit [facility] Neuro ICU. Worsening weakness for 1 month, fell 1 month ago. Progressive decline, progressive right upper extremity, right lower extremity numbness, weakness. Unable to walk at all. MRI shows cervical cord compression, concern for c3-c4 septic arthritis with compressive epidural abscess. 10/08/2024 Ortho performed followin. C3-C6 posterior spinal fusion. 2. C3-C6 posterior spinal instrumentation. 3. C3, C4, C5 Laminectomy for evacuation of epidural abscess. 10/09/2024 Cefepime, Vancomycin, Flagyl for cervical myelopathy, C3/C4 septic arthritis, epidural abscess. 10/10/2024 Pain controlled, Drain pulled. PT/OT. Agitated overnight, high risk for delirium. Continue Seroquel. 10/12/2024 Pain controlled, motor strength improving. ID recommended monitoring off antibiotics. Ortho signed off. 10/14/2024 Stable, weak in all 4 extremities, moderate appetite. Hard to eat with rigid cervical collar. Surgical cultures negative. Delirium resolved. 10/15/2024 Culture grew Propionibacterium acnes, Ceftriaxone IV x6 weeks, PICC line placed. 10/16/2024 Admit to TCU with debility, here for rehabilitation, strengthening, intravenous antbiotics, prior to discharge home with spouse, children. [facility] Medical History (Updated 10/16/24 @ 20:[address] 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 Debility Essential (primary) hypertension Home Medications ?Medication ?Instructions ?Recorded ?Last Taken ?Type gabapentin 600 mg tablet 600 mg PO QHS 02/17/24 Unkno wn History carbidopa ER 50 mg-levodopa 200 mg See Rx Instructions PO .COMPLEX 04/29/24 Unknown History tablet,extended release Parkinsons Disease pramipexole 0.75 mg tablet 0.75 mg PO TID Tremors 08/25 Unknown History tizanidine 4 mg tablet 8 mg (2 x 4 mg) PO QHS PRN m uscle 09/20/24 Unknown Rx spasticity #60 tabs alfalfa 650 mg tablet 650 mg PO BID Supplement Unknown History baclofen 5 mg tablet 5 mg PO QPM #30 tabs 5 Unknown Rx capsicum (cayenne) 450 mg capsule 450 mg PO QDAY Suppl ement 09/29/24 Unknown History cholecalciferol (vitamin D3) 25 25 mcg PO QDAY Supplem ent 09/29/24 Unknown History mcg (1,000 unit) capsule colon support 1 tab PO BID PRN Supplement 09/29/24 Unknown History homeopathic prostate drops See Rx Instructions PO .COM PLEX 09/29/24 Unknown History losartan 25 mg tablet 25 mg PO DAILY BP 09/29/24 U nknown History lysine 1,000 mg tablet 1,000 mg PO QDAY 09/29/24 Un known History magnesium oxide 500 mg capsule 500 mg PO QDAY 09/29/24 Unknown History olive leaf 500 mg capsule 500 mg PO QDAY Supplement Unknown History oregano 1 tablet PO QDAY Supplement 09/29/24 Unknown History sertraline 50 mg tablet 50 mg PO QAM Mood 09/29/24 U nknown History vitamins A,C,C-pmjo-hrulkm 4,296 1 cap PO QAM AND QPM 09/29/24 Unknown History mcg-226 mg-90 mg capsule (PreserVision AREDS) zinc gluconate 50 mg tablet 50 mg PO Q OTHER DAY Suppl ement 09/29/24 Unknown History Handicap Placard See Rx Instructions .Route 0 09/30/24 Unknown Rx .COMPLEX #1 unit acetaminophen 325 mg capsule 650 mg PO Q6H PRN pain Unknown History ceftriaxone 2 gram intravenous 2 g IV DAILY Antibiotic 10/16/24 Unknown History solution gabapentin 300 mg capsule 300 mg PO BID Nerve Pain Unknown History methocarbamol 750 mg tablet 750 mg PO TID Muscle Spasm 10/16/24 Unknown History oxycodone 5 mg capsule 5 mg PO Q4H PRN Pain 6-10 Unknown History polyethylene glycol 3350 17 17 g PO BID Constipation 0 10/16/24 Unknown History gram/dose oral powder (ClearLax) quetiapine 25 mg tablet (Seroquel) 12.5 mg PO QHS Mood 10/16/24 Unknown History senna-docusate sodium tablet 2 tab PO DAILY Constipati on 10/16/24 Unknown History Allergy/AdvReac Type Severity Reaction Status Date / Time No Known Allergies Allergy Verified 10/06/24 13:42 Family History Mother , 80 yrs old No problems noted. Father , 83 years old Heart disease Surgical History Hx of appendectomy Social History household members: spouse and children current occupational status: retired pets and animals: No Smoking Status: Former smoker alcohol intake: never caffeine: Yes Type: coffee Number of servings: 1 do you feel safe at home: Yes ROS Constitutional Constitutional: Reports weakness; Denies chills, fever(s) or weight gain ENT HEENT: Denies headache(s), nasal congestion or nasal discharge Cardiovascular Cardiovascular: Denies chest pain or palpitations Respiratory/Chest Respiratory/Chest: Denies cough, excessive phlegm production or shortness of breath with exertion Gastrointestinal Gastrointestinal: Denies abdominal pain, nausea or vomiting Genitourinary Genitourinary: Denies dysuria Musculoskeletal Musculoskeletal: Denies joint pain or joint swelling Integumentary Integumentary: Denies rash or wounds Neurologic Neurologic: Denies focal weakness, numbness or tingling Psychiatric Psychiatric: Denies anxiety, auditory hallucinations, depression, homicidal ideation or suicidal ideation Vital Signs Vital Signs Vital Signs: 10/16/24 17:47 10/16/24 17:47 Temperature 97.3 F L Temperature Source Temporal Pulse Rate 80 Pulse Rhythm Irregular Pulse Strength Normal (2+) Respiratory Rate 14 Respiratory Effort Normal Non-Labored Respiratory Depth Normal Respiratory Pattern Normal Blood Pressure 144/90 H Blood Pressure Mean 108 Blood Pressure Source Monitor Blood Pressure Position Semi-Fowlers Blood Pressure Location Left Arm Pulse Ox 99 Oxygen Delivery Method Room Air Room Air Weight Weight: 63.957 kg Body Mass Index (BMI) 19.1 Physical Exam Const alert General Appearance: cooperative HEENT normocephalic Eyes PERRL and EOMs intact bilaterally Neck supple, no JVD and no carotid bruits Neck Narrative: [place] J Collar. Resp normal respiratory effort, normal air movement and clear to auscultation bilaterally Cardio regular rate and regular rhythm GI normal to inspection, nondistended, normoactive bowel sounds, non-tender and non-distended Extremity normal capillary refill Extremity Narrative: Right upper extremity PICC line. 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 * Debility - PT/OT. * Pain - Tylenol 1000mg q6 prn pain (1-5), Oxycodone 5mg-10mg q4 prn pain (6- 10). * Bowel - Miralax 17gm bid, senna/colace 2 tablets bid, Magnesium citrate 300mL daily prn. * Adult immunization - Administer pneumonia vaccine, covid vaccine, flu vaccine as appropriate. * DVT prophylaxis - Lovenox 40mg sc daily. * Parkinson Disease - Sinemet 50/200mg qid, Mirapaex 0.75mg tid. * Cervical epidural abscess/osteomyelitis s/p laminectomy/fusion/evacuation of abscess - Ceftriaxone 2gm iv q24 thru 11/27/2024. * Vitamin D deficiency - D3 25mcg daily. * Neuropathic pain - Gabapentin 300mg bid. * Hypertension - Losartan 25mg daily. * Muscle spasm - Methocarbamol 750mg tid. * Zinc deficiency - Zinc 50mg daily. The following psychotropic medication was present on admission: Seroquel 12.5mg qhs. Psychotropic medication therapy is indicated for a diagnosis of: Delirium. Based on my clinical evaluation, continuation of the medication is necessary at this time. Gradual dose reduction plan (select one): ____ GDR will be attempted. Will monitor patient symptoms and behaviors in response to GDR. __x__ GRD contraindicated. Reason contraindicated: stable short term use. The following psychotropic medication was present on admission: Zoloft 50mg qam. Psychotropic medication therapy is indicated for a diagnosis of: Major Depression. Based on my clinical evaluation, continuation of the medication is necessary at this time. Gradual dose reduction plan (select one): ____ GDR will be attempted. Will monitor patient symptoms and behaviors in response to GDR. __x__ GRD contraindicated. 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
[2024-10-16] MEDS: Senna/Docusate Sodium 1 Tablet 2 TABLET PO (21:39)
[2024-10-16] MEDS: 0.9% Saline Lock 10 ML Syringe IV (21:42)
[2024-10-17 06:31] LABS: Hematocrit 32.7 % (40-54); Hemoglobin 11.3 g/dL (13.0-16.5); Immature Granulocytes Count 0.010 X10^3/uL (0.0-0.0); Mean Corp Hgb Conc 34.6 g/dL (32-36); Mean Corpuscular Volume 93.7 fL (80-94); Mean Platelet Vol. 9.3 fl (6.2-12.0); NRBC Flagged by Analyzer 0 % (0-5); Platelet Count 230 K/mm3 (150-450); RBC Distribution Width CV 13.2 % (11.6-14.6); RBC Distribution Width SD 44.3 fl (35.1-43.9); Red Blood Count 3.49 M/mm3 (4.6-6.2); White Blood Count 4.1 K/mm3 (4.4-11.0)
[2024-10-17 07:08] LABS: Anion Gap 10 (5-15); BUN 30 mg/dL (4-19); BUN/Creat Ratio 43.5 RATIO (10-20); Calcium,Total 9.4 mg/dL (7.6-11.0); Carbon Dioxide 26.3 mmol/L (21.0-32.0); Chloride 105 mmol/L (98-108); Estimated Creatinine Clearance 75.50 ml/min (50-250); Glucose 97 mg/dL (70-99); Potassium 3.9 mmol/L (3.3-5.1)
[2024-10-17] MEDS: Cholecalciferol (VIT D3) 25 MCG TABLET (1,000 UNITS) PO (10:06)
[2024-10-17] MEDS: Ceftriaxone 2 GM in 0.9% Normal Saline (50mL MB+) 50 ML IV (11:07)
[2024-10-17] MEDS: 0.9% Saline Lock 10 ML Syringe IV ×2 (11:10→20:47)
[2024-10-17] MEDS: 0.9% Normal Saline (250mL Bag) 250 ML 15 ML IV (11:18)
[2024-10-17] MEDS: Tuberculin,Purif.prot.deriv. 50 TU/ML Vial 0.1 ML ID (11:37)
[2024-10-17 11:47] VITALS: PULSE 88; RESP 14
[2024-10-17 12:48] VITALS: BP 83/62; PULSE 88; RESP 14; TEMP 36.7; O2SAT 97
[2024-10-17] MEDS: Senna/Docusate Sodium 1 Tablet 2 TABLET PO (20:43)
[2024-10-18 05:50] LABS: Hematocrit 32.7 % (40-54); Hemoglobin 11.1 g/dL (13.0-16.5); Immature Granulocytes Count 0.000 X10^3/uL (0.0-0.0); Mean Corp Hgb Conc 33.9 g/dL (32-36); Mean Corpuscular Volume 94.5 fL (80-94); Mean Platelet Vol. 9.1 fl (6.2-12.0); NRBC Flagged by Analyzer 0 % (0-5); Platelet Count 236 K/mm3 (150-450); RBC Distribution Width CV 13.2 % (11.6-14.6); RBC Distribution Width SD 45.7 fl (35.1-43.9); Red Blood Count 3.46 M/mm3 (4.6-6.2); White Blood Count 3.7 K/mm3 (4.4-11.0)
[2024-10-18 08:34] VITALS: BP 98/60; PULSE 82; RESP 17; TEMP 36.5; O2SAT 96
[2024-10-18] MEDS: Senna/Docusate Sodium 1 Tablet 2 TABLET PO ×2 (08:40→23:59)
[2024-10-18] MEDS: Cholecalciferol (VIT D3) 25 MCG TABLET (1,000 UNITS) PO (08:42)
[2024-10-18] MEDS: Zinc Sulfate 50 mg zinc (220 mg) ORAL capsule PO (08:42)
--- NOTE | 2024-10-18 08:53 | NURSING ---
Offered covid vaccine, VIS provided. Resident declines.
[2024-10-18] MEDS: Ceftriaxone 2 GM in 0.9% Normal Saline (50mL MB+) 50 ML IV (11:34)
--- NOTE | 2024-10-18 12:29 | NURSING ---
Addendum entered by Adrianna Vincent 10/18/24 12:44: Call back from , she will plan to take resident to appt. Original Note: Discussed surgical f/u with resident in room and left VM with about her possibly providing transportation. Appt scheduled for 10/22/24 at 1330 for xrays then appt with PROCESS SAFETY SPECIALIST.
--- NOTE | 2024-10-18 12:57 | MDS.RN ---
MDS entry tracker complete, assessed for pain.
--- NOTE | 2024-10-18 14:27 | CHAPLAIN ---
Type of Pastoral Visit _x__ Initial Visit ___ Follow-up Visit ___ On-call Visit ___ General Patient Visit ___ Spiritual Assessment ___ Family Conference ___ Bereavement ___ Rapid Response ___ Code Blue ___ Other (describe below) Pastoral Care Referral From _x__ Patient ___ Family ___ Nurse ___ Physician ___ Patient Care ___ Supervisor Adult Education ___ Other (describe below) Sacrament/Intervention _x__ Active listening ___ Anointing ___ Zoroastrian ___ Bereavement ___ Communion ___ Gena exploration ___ _x__ Life review _x__ Prayer ___ Reconciliation ___ Sacrament of Sick _x__ Supportive presence ___ Wedding ___ Other (describe below) Pastoral Comments patient is welcoming of a visit but immediately talks about his desire to go home and how his dog is missing him; pt talks about his pets, both past and current; pt admits that he has been discouraged and even has wondered if living is worth it since he has had to deal with Parkinson's and with spinal cord issues; however pt does explain that he wants to live and that he is blessed with a good family; pt finds his support in family and acknowledges that he prays; as discussion continues the patient reveals some lessons of life that he has been learning because of his illness; presence and prayers welcomed
--- NOTE | 2024-10-18 15:47 | NURSING ---
Linux Unix Engineer Note; Activity Asset: Maximo Fisher is independent in his choice of daily activities. He stated w/ his Parkinson's its hard to write however he did ask for sudoku so he can try and do a few numbers a day. His family will visits and bring him items he may need, he will read or watch tv and rest. He welcomes the driving instructor and therapy dog when available. Staff will remind him of weekly activities and respect his right to say no.
--- NOTE | 2024-10-18 16:04 | CASEMGMT ---
Addendum entered by Judith Chiu 10/19/24 13:55: SW phoned to follow up on assessment information. confirmed she assists with IADLs, but for pt to return home mod I (ambulating, bed mobility, toileting) for to continue assisting in other areas. stated she uses a FWW herself. However, stated they share 6 total children; 3 are out of the house and , while 3 live in the home with pt and . 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 The children can assist outside of work hours. Pt's dtr, Claudia, is the main caregiver with check-ins and driving pt/ to appts. SW to share insurance information and discuss DC plan further at POC meeting tomorrow. Original Note: Social Work SW met with patient to complete initial assessment. Introduced self and role. Verified/updated contacts. Discussed code status and pt wishes to be DNR-CCA, no intubation. Nursing notified. SW educated to [facility] insurance with NRD 10/18 and continued stay is not guaranteed with each review. Pt's goal is to return home with closer to [place]. See assessment for barriers. SW will continue to follow for discharge planning. SW to phone to verify information. Judith Chiu WEB ARCHITECT SR. DIRECTOR PRODUCT MANAGEMENT
[2024-10-18] MEDS: Polyethylene Glycol 3350 17 GM PACKET PO (23:57)
[2024-10-19] MEDS: 0.9% Saline Lock 10 ML Syringe IV ×3 (05:48→21:10)
[2024-10-19 10:00] VITALS: BP 88/52; PULSE 75; RESP 18; TEMP 36.5; O2SAT 96
[2024-10-19] MEDS: Senna/Docusate Sodium 1 Tablet 2 TABLET PO (10:00)
[2024-10-19] MEDS: Cholecalciferol (VIT D3) 25 MCG TABLET (1,000 UNITS) PO (10:01)
[2024-10-19] MEDS: Ceftriaxone 2 GM in 0.9% Normal Saline (50mL MB+) 50 ML IV (10:04)
[2024-10-19] MEDS: 0.9% Normal Saline (250mL Bag) 250 ML 100 ML IV (10:06)
--- NOTE | 2024-10-19 13:51 | PCM.PN.DRR ---
Documented by User: Quirino Flood 10/19/24 14:25 TCU RX Drug Regimen Review Subjective/Objective Subjective/Objective Subjective: TCU admission note. 74 year old male with below past medical history hospitalized for cervical myelopathy 2/2 cervical epidural abscess/cervical osteomyelitis, underwent cervical fusion/laminectomy/evacuation of epidural abscess 10/08/2024, admitted to TCU with debility, here for rehabilitation, strengthening, intravenous antibiotics, prior to discharge home with spouse/family. Objective: Allergies No Known Allergies Allergy (Verified 10/06/24 13:42) Current Medications Generic Name Dose Route Start Last Admin Trade Name Freq PRN Reason Stop Dose Admin Acetaminophen 1,000 mg 10/16/24 20:21 10/19/24 12:47 Acetaminophen 500 Mg Tablet PO 1,000 mg Q6H PRN PRN Administration Pain Score 1-5 Carbidopa/Levodopa 1 tablet 10/16/24 22:00 10/19/24 10:03 Carbidopa/Levodopa Cr 50/200 Tablet PO 1 tablet 0600,1100,1600,2200 JAYME Administration Cholecalciferol 25 mcg 10/17/24 10:00 10/19/24 10:01 Cholecalciferol (Vit D3) 25 Mcg Tablet (1,000 Units) PO 25 mcg DAILY JAYME Administration Enoxaparin Sodium 40 mg 10/17/24 12:00 10/19/24 05:45 Enoxaparin 40 Mg/0.4 Ml Syringe SC 40 mg DAILY@0600 JAYME Administration Gabapentin 300 mg 10/16/24 22:00 10/19/24 09:57 Gabapentin 300 Mg Capsule PO 300 mg BID JAYME Administration Ceftriaxone Sodium 2 gm/ 50 mls @ 100 mls/hr 10/17/24 10:00 10/19/24 11:49 Sodium Chloride IV 11/25/24 23:59 Infused Q24 JAYME Infusion Sodium Chloride 250 mls @ 15 mls/hr 10/17/24 11:06 10/19/24 10:06 IV 100 mls/hr .[id number] PRN Administration Saline Flush Sodium Chloride 250 mls @ 15 mls/hr 10/17/24 11:06 IV .[id number] PRN Additional IVPB Infusion Losartan Potassium 25 mg 10/17/24 10:00 10/19/24 09:59 Losartan Potassium 25 Mg Tablet PO Not Given DAILY JAYME Protocol Magnesium Citrate 300 ml 10/16/24 20:20 Magnesium Citrate 300 Ml PO DAILY PRN CONSTIPATION Methocarbamol 750 mg 10/16/24 22:00 10/19/24 05:47 Methocarbamol 750 Mg Tablet PO 750 mg TID JAYME Administration Oxycodone HCl 5 - 10 mg 10/16/24 18:30 10/19/24 12:47 Oxycodone 5 Mg Tablet PO 10 mg Q4H PRN Administration Pain 6-10 Polyethylene Glycol 17 gm 10/16/24 22:00 10/19/24 10:00 Polyethylene Glycol 3350 17 Gm Packet PO Not Given BID JAYME Pramipexole Dihydrochloride 0.75 mg 10/16/24 22:00 10/19/24 05:46 Pramipexole Di-Hcl 0.25 Mg Tablet PO 0.75 mg TID JAYME Administration Quetiapine Fumarate 12.5 mg 10/16/24 22:00 10/19/24 00:00 Quetiapine 25 Mg Tablet PO 12.5 mg QHS JAYME Administration Protocol Senna/Docusate Sodium 2 tablet 10/16/24 22:00 10/19/24 10:00 Senna/Docusate Sodium 1 Tablet PO 2 tablet BID JAYME Administration Sertraline HCl 50 mg 10/17/24 10:00 10/19/24 10:01 Sertraline 50 Mg Tablet PO 50 mg QAM JAYME Administration Sodium Chloride 10 - 40 ml 10/16/24 17:51 10/19/24 10:07 0.9% Saline Lock 10 Ml Syringe IV 20 ml UD PRN Administration Open End PICC Flush Sodium Chloride 10 - 40 ml 10/16/24 17:51 0.9 % Nacl (Sterile) Posiflush 10 Ml IV UD PRN Port access or dressing change Tuberculin PPD 0.1 ml 10/24/24 10:00 Tuberculin,Purif.Prot.Deriv. 50 Tu/Ml Vial ID 10/24/24 10:01 X1 ONE Zinc Sulfate 50 mg 10/18/24 10:00 10/18/24 08:42 Zinc Sulfate 50 Mg Zinc (220 Mg) Oral Capsule PO 50 mg QODAY JAYME Administration Problem List Major depression (Acute) Neuropathic pain (Acute) Essential (primary) hypertension (Acute) Parkinson disease (Acute) Osteomyelitis of cervical spine (Acute) Abscess in epidural space of cervical spine (Acute) Debility (Acute) Cervical myelopathy (Suspected) Vital Signs Temp Pulse Resp BP Pulse Ox O2 Del Method 97.7 F L 75 18 88/52 L 96 Room Air 10/19/24 10:00 10/19/24 10:00 10/19/24 10:00 10/19/24 10:00 10/19/24 10:00 10/19/24 10:00 Oxygen Delivery Method Room Air Weight: 63.957 kg Body Mass Index (BMI) 19.1 Sodium 142 mmol/L (133-145) 10/17/24 05:38 Potassium 3.9 mmol/L (3.3-5.1) 10/17/24 05:38 Chloride 105 mmol/L (98-108) 10/17/24 05:38 Carbon Dioxide 26.3 mmol/L (21.0-32.0) 10/17/24 05:38 Anion Gap 10 (5-15) 10/17/24 05:38 BUN 30 mg/dL (4-19) H 10/17/24 05:38 Creatinine 0.69 mg/dL (0.70-1.20) L 10/17/24 05:38 Est GFR (MDRD) Non-Af 98 (>60) 10/17/24 05:38 BUN/Creatinine Ratio 43.5 RATIO (10-20) H 10/17/24 05:38 Glucose 97 mg/dL (70-99) 10/17/24 05:38 Assessment/Plan: 1. Pain: acetaminophen 1000 mg PO Q6H PRN pain (1-5), oxycodone 5-10 mg PO Q4H PRN pain (6-10). The patient has required 3 doses of PRN acetaminophen and 2 doses of PRN oxycodone so far this admission. Please continue to monitor pain levels, PRN medication usage, LFTs (no recent LFTs documented), for respiratory depression, constipation, syncope/ataxia/falls, and for dizziness/drowsiness. 2. Bowel: polyethylene glycol 17 grams PO BID, senna/docusate 2 tablets PO BID, magnesium citrate 300 mL PO daily PRN constipation. The patient has not required any PRN doses of magnesium citrate so far this admission, and the patient's last bowel movement was on 10/16/24. Please continue to monitor for constipation, diarrhea, PRN medications, and bowel movements. 3. DVT prophylaxis: enoxaparin 40 mg SC daily. Please continue to monitor for s/s of a DVT such as pain/erythema/edema in an extremity, renal function (serum creatinine = 0.69 mg/dL with creatinine clearance ~ 76 mL/min on 10/17/24), for s/s of bleeding/excessive bruising, hemoglobin levels (Hgb = 11.1 g/dL on 10/18/24), and platelet counts (Plt = 236 K/mm3 on 10/17/24). 4. Epidural abscess/osteo: ceftriaxone 2 grams IV Q24H through 11/27/24. Please continue to monitor for s/s of infection such as fever (Temp = 97.7F on 10/17/24), chills, and WBC counts (WBC = 3.7 K/mm3 on 10/18/24). 5. Parkinson disease: carbidopa/levodopa 1 tablet PO 4 times/day, pramipexole 0.75 mg PO TID. Please continue to monitor for s/s of Parkinson disease, for movement issues and for dizziness/ataxia. 6. Neuropathic pain: gabapentin 300 mg PO BID. Please continue to monitor for neuropathic pain, for lower extremity edema, renal function (serum creatinine = 0.69 mg/dL with creatinine clearance ~ 76 mL/min on 10/17/24), and for dizziness/drowsiness. 7. Muscle spasms: methocarbamol 750 mg PO TID. Please continue to monitor for muscle spasms, flushing, blood pressures (recent range = 88-150/52-90 mmHg) , syncope, heart rates (recent range = 75-88 beats/min) , and dizziness/vertigo/confusion. 8. Hypertension: losartan 25 mg PO daily. Please continue to monitor blood pressures (recent range = 88-150/52-90 mmHg), renal function (serum creatinine = 0.69 mg/dL with creatinine clearance ~ 76 mL/min on 10/17/24), sodium levels (Na = 142 mmol/L on 10/17/24), and potassium levels (K = 3.9 mmol/L on 10/17/24). 9. Cholecalciferol 25 mcg PO daily. Please continue to monitor vitamin D levels (no recent vitamin D level documented), and for s/s of vitamin D deficiency. 10. Zinc deficiency: zinc 50 mg PO daily. Please continue to monitor for s/s of zinc deficiency. Assessment/Plan for indications treated with psychotropic medications: 1. Delirium: quetiapine 12.5 mg PO QHS. Please see provider note regarding stable short term use GDR not recommended. Monitor for efficacy including resident symptoms, behaviors and indications of distress. Monitor for delirium prior to bedtime. Monitor for tolerability including mental status, cognition, excessive sleepiness, withdrawal or decreased participation in activities and decline in physical functioning. Maximize use of nonpharmacologic/behavioral interventions to facilitate dose reduction or discontinuation as appropriate. Please evaluate the appropriateness of GDR unless contraindicated. If appropriate, GDR should be attempted in 2 separate quarters within the first year of use or admission to TCU. If GDR attempted, monitor resident symptoms/behaviors. Monitor for efficacy including resident symptoms, behaviors and indications of distress. Monitor for tolerability including mental status, cognition, excessive sleepiness, withdrawal or decreased participation in activities and decline in physical functioning. Maximize use of nonpharmacologic/behavioral interventions to facilitate dose reduction or discontinuation as appropriate. Please evaluate the appropriateness of GDR unless contraindicated. If appropriate, GDR should be attempted in 2 separate quarters within the first year of use or admission to TCU. If GDR attempted, monitor resident symptoms/behaviors. 2. Depression: sertraline 50 mg PO daily. Please see provider note regarding stable long-term use GDR not recommended. Monitor for efficacy including resident symptoms, behaviors and indications of distress. Monitor for depression and SI. Monitor for tolerability including mental status, cognition, excessive sleepiness, withdrawal or decreased participation in activities and decline in physical functioning. Maximize use of nonpharmacologic/behavioral interventions to facilitate dose reduction or discontinuation as appropriate. Please evaluate the appropriateness of GDR unless contraindicated. If appropriate, GDR should be attempted in 2 separate quarters within the first year of use or admission to TCU. If GDR attempted, monitor resident symptoms/behaviors. Monitor for diarrhea, nausea, headache, anxiety or drowsiness, suicidal thoughts or behaviors (Boxed Warning), symptoms of bleeding, symptoms of serotonin syndrome (including agitation, confusion, hyperreflexia, rigidity/myoclonus, tremor, tachycardia, tachypnea), sodium levels (last Na = 142 on 10/17/24). Medical chart and medication regimen reviewed. The following medication irregularities or issues were identified: NA Date Date of Note: 10/19/24 Documented by User: Dr. Pola Richardson MD 10/19/24 15:19 TCU RX Drug Regimen Review Provider Comments Provider responsibility Provider Comments to Recommendations by Pharmacy Agree
[2024-10-19 16:32] VITALS: BMI 19.2
[2024-10-19 21:20] VITALS: PULSE 80; RESP 18; O2SAT 98
[2024-10-20 03:50] VITALS: PULSE 90; RESP 16; O2SAT 98
[2024-10-20 08:10] VITALS: BP 98/50; PULSE 75; RESP 18; TEMP 35.9
[2024-10-20] MEDS: Cholecalciferol (VIT D3) 25 MCG TABLET (1,000 UNITS) PO (08:15)
[2024-10-20] MEDS: Senna/Docusate Sodium 1 Tablet 2 TABLET PO (08:15)
[2024-10-20] MEDS: Zinc Sulfate 50 mg zinc (220 mg) ORAL capsule PO (08:15)
[2024-10-20] MEDS: 0.9% Saline Lock 10 ML Syringe IV ×2 (09:03→22:04)
[2024-10-20] MEDS: 0.9% Normal Saline (250mL Bag) 250 ML 15 ML IV (09:03)
[2024-10-20] MEDS: Ceftriaxone 2 GM in 0.9% Normal Saline (50mL MB+) 50 ML IV (09:05)
--- NOTE | 2024-10-20 10:02 | CASEMGMT ---
Social Work IDT met with patient, , dtr Claudia and dtr Shelley, for care plan meeting. Discussed patient's progress in PT/OT/SN/RDN. Educated to [facility] insurance with NRD 10/25 and continued stay is not guaranteed with each review. Provided pt/family with written communication of insurance process and copay coverage during stay. Pt has IV ATB through 11/09, wound and wearing c-collar AAT. ST consulted for Parkinson's dx. Offered family therapy training. Scheduled car tx training in preparation for Drs appt on Fri. confirmed pt needs to return to OF with ambulating and toileting as well. SW willl coordinate services closer to [place]. Will continue to follow. Judith Chiu TEENAGE BABYSITTER PANTS MAKER
[2024-10-21] MEDS: Cholecalciferol (VIT D3) 25 MCG TABLET (1,000 UNITS) PO (09:23)
[2024-10-21] MEDS: 0.9% Saline Lock 10 ML Syringe IV ×2 (09:24→21:58)
[2024-10-21] MEDS: Ceftriaxone 2 GM in 0.9% Normal Saline (50mL MB+) 50 ML IV (09:24)
[2024-10-21 09:39] VITALS: BP 99/59; PULSE 74; RESP 16; TEMP 36.4; O2SAT 97
--- NOTE | 2024-10-21 10:18 | NURSING ---
Fax from Infectious disease Dr. Tinsley to have labs faxed to them. Edited weekly labs to [facility] to provide the labs they requested, current labs faxed to [phone].
[2024-10-21 20:00] VITALS: PULSE 86; O2SAT 96
[2024-10-21] MEDS: Senna/Docusate Sodium 1 Tablet 2 TABLET PO (21:56)
[2024-10-22 10:00] VITALS: PULSE 84; RESP 17; O2SAT 97
--- NOTE | 2024-10-22 11:22 | MDS.RN ---
Pain assessment for MDS complete.
[2024-10-22 11:37] VITALS: BP 121/74; PULSE 86; RESP 17; TEMP 36.6; O2SAT 97
[2024-10-22] MEDS: Ceftriaxone 2 GM in 0.9% Normal Saline (50mL MB+) 50 ML IV (11:40)
[2024-10-22] MEDS: Cholecalciferol (VIT D3) 25 MCG TABLET (1,000 UNITS) PO (12:09)
[2024-10-22] MEDS: Zinc Sulfate 50 mg zinc (220 mg) ORAL capsule PO (12:09)
--- NOTE | 2024-10-22 12:34 | NURSING ---
pt left for appointment
--- NOTE | 2024-10-22 13:06 | CASEMGMT ---
Social Work SW completed BIMS () and PHQ-9 (02/26) for MDS assessment. Judith Chiu EDUCATION SPEC CLIENT SUPPORT CONSULTANT
[2024-10-22] MEDS: Senna/Docusate Sodium 1 Tablet 2 TABLET PO ×2 (15:34→22:37)
--- NOTE | 2024-10-22 16:01 | NURSING ---
pt returned from appointment new orders placed.
[2024-10-22] MEDS: 0.9% Saline Lock 10 ML Syringe IV (22:35)
[2024-10-23] MEDS: Cholecalciferol (VIT D3) 25 MCG TABLET (1,000 UNITS) PO (09:12)
[2024-10-23] MEDS: Senna/Docusate Sodium 1 Tablet 2 TABLET PO ×2 (09:13→20:47)
[2024-10-23 10:00] VITALS: O2SAT 96
[2024-10-23] MEDS: Ceftriaxone 2 GM in 0.9% Normal Saline (50mL MB+) 50 ML IV (10:43)
[2024-10-23 11:32] VITALS: BP 141/86; PULSE 72; RESP 18; TEMP 36.6; O2SAT 96
[2024-10-23] MEDS: 0.9% Saline Lock 10 ML Syringe IV (20:48)
--- NOTE | 2024-10-23 20:54 | NURSING ---
Administered HS medications at this time per pt request
[2024-10-24 05:58] VITALS: PULSE 80; RESP 18; O2SAT 97
[2024-10-24] MEDS: Senna/Docusate Sodium 1 Tablet 2 TABLET PO ×2 (08:19→21:58)
[2024-10-24] MEDS: Cholecalciferol (VIT D3) 25 MCG TABLET (1,000 UNITS) PO (08:20)
[2024-10-24] MEDS: Zinc Sulfate 50 mg zinc (220 mg) ORAL capsule PO (08:21)
[2024-10-24] MEDS: Ceftriaxone 2 GM in 0.9% Normal Saline (50mL MB+) 50 ML IV (11:07)
[2024-10-24] MEDS: Tuberculin,Purif.prot.deriv. 50 TU/ML Vial 0.1 ML ID (11:08)
[2024-10-24] MEDS: 0.9% Saline Lock 10 ML Syringe IV ×2 (11:11→21:58)
[2024-10-24 14:26] VITALS: BP 111/65; PULSE 84; RESP 18; TEMP 36.7; O2SAT 97
--- NOTE | 2024-10-25 04:51 | NURSING ---
Written communication left for Dr. Richardson regarding pt consistently refusing Miralax. Pt requesting to have medication discontinued.
[2024-10-25 06:32] LABS: Hematocrit 33.6 % (40-54); Hemoglobin 11.4 g/dL (13.0-16.5); Immature Granulocytes Count 0.010 X10^3/uL (0.0-0.0); Mean Corp Hgb Conc 33.9 g/dL (32-36); Mean Corpuscular Volume 95.2 fL (80-94); Mean Platelet Vol. 9.5 fl (6.2-12.0); NRBC Flagged by Analyzer 0 % (0-5); Platelet Count 272 K/mm3 (150-450); RBC Distribution Width CV 13.6 % (11.6-14.6); RBC Distribution Width SD 47.6 fl (35.1-43.9); Red Blood Count 3.53 M/mm3 (4.6-6.2); White Blood Count 4.4 K/mm3 (4.4-11.0)
[2024-10-25 06:57] LABS: AST(SGOT) 20 U/L (<=37); Alanine Aminotransfer ALT/SGPT 9 U/L (<=46); Albumin, Serum 3.8 g/dL (3.4-4.8); Alkaline Phosphatase 96 U/L (40-129); Anion Gap 10 (5-15); BUN 31 mg/dL (4-19); BUN/Creat Ratio 47.6 RATIO (10-20); Calcium,Total 9.3 mg/dL (7.6-11.0); Carbon Dioxide 26.1 mmol/L (21.0-32.0); Chloride 109 mmol/L (98-108); Estimated Creatinine Clearance 75.93 ml/min (50-250); Globulin 2.7 g/dL (2.2-4.2); Glucose 95 mg/dL (70-99); Potassium 3.6 mmol/L (3.3-5.1)
--- NOTE | 2024-10-25 08:30 | NURSING ---
Full Stack Developer Note; MDS for 10/23/2024 Complete
[2024-10-25 09:30] VITALS: BP 113/72; PULSE 82; RESP 16; TEMP 36.4; O2SAT 97
[2024-10-25] MEDS: Cholecalciferol (VIT D3) 25 MCG TABLET (1,000 UNITS) PO (09:34)
[2024-10-25] MEDS: 0.9% Saline Lock 10 ML Syringe IV ×2 (09:34→21:49)
[2024-10-25] MEDS: Senna/Docusate Sodium 1 Tablet 2 TABLET PO ×2 (09:37→21:45)
[2024-10-25] MEDS: Ceftriaxone 2 GM in 0.9% Normal Saline (50mL MB+) 50 ML IV (09:45)
[2024-10-25] MEDS: 0.9% Normal Saline (250mL Bag) 250 ML 15 ML IV (11:05)
--- NOTE | 2024-10-25 12:27 | NURSING ---
Labs from today faxed to [facility].
[2024-10-25 21:45] VITALS: RESP 16
[2024-10-26 06:22] VITALS: PULSE 80; RESP 16
[2024-10-26 08:27] VITALS: BP 119/73; PULSE 76; RESP 15; TEMP 36.4; O2SAT 97
[2024-10-26] MEDS: Senna/Docusate Sodium 1 Tablet 2 TABLET PO ×2 (08:28→21:30)
[2024-10-26] MEDS: Cholecalciferol (VIT D3) 25 MCG TABLET (1,000 UNITS) PO (08:28)
[2024-10-26] MEDS: Zinc Sulfate 50 mg zinc (220 mg) ORAL capsule PO (08:29)
[2024-10-26 08:54] LABS: Anion Gap 8 (5-15); BUN 24 mg/dL (4-19); BUN/Creat Ratio 33.8 RATIO (10-20); Calcium,Total 9.3 mg/dL (7.6-11.0); Carbon Dioxide 27.6 mmol/L (21.0-32.0); Chloride 109 mmol/L (98-108); Estimated Creatinine Clearance 75.93 ml/min (50-250); Glucose 96 mg/dL (70-99); Potassium 3.7 mmol/L (3.3-5.1)
[2024-10-26] MEDS: Ceftriaxone 2 GM in 0.9% Normal Saline (50mL MB+) 50 ML IV (11:37)
[2024-10-26] MEDS: 0.9% Normal Saline (250mL Bag) 250 ML 15 ML IV (11:37)
--- NOTE | 2024-10-26 13:10 | NURSING ---
This nurse assessed patient's coccyx. Scabbing from possible shearing noted. No pressure injury observed.
--- NOTE | 2024-10-26 13:53 | MDS.RN ---
Information for the MDS was obtained from review of the clinical record, interview of resident, staff, and direct observation of resident?s care.
--- NOTE | 2024-10-26 14:31 | CASEMGMT ---
Addendum entered by Judith Chiu 10/26/24 15:55: SW received return call from . SW updated that therapy will not be making pt adlib and do not foresee that changing. Therapy reports pt is unsteady, has poor balance, a fall risk, and poor safety awareness. Pt is SBA-CGA for balance and safety cues. ST confirms cognitive impairment and cannot manage finances and meds. Pt does have a wound nursing is caring for. SW explained IDT does not agree pt is ready for DC yet. explained she called [employer] insurance and pt has a $850/day copay starting on day 21, which is 9/5, and pt cannot afford that. SW expressed understanding and offered infusion center daily or teaching with [facility]. stated she would prefer infusion center, as she is not comfortable doing IVs. SW offered to contact infusion center to inquire about scheduling and pricing. appreciative. - SW spoke with Infusion Center and will send referral form, and requesting written, signed script from ID Dr. INMAN to coordinate. SW left VM with PFS to inquire about pricing. Will continue to follow. Original Note: Social Work SW left VM with to follow up on requests for DC and adlib status with therapy. Judith Chiu ABSTRACT MANAGER OUTREACH CONSULTANT
[2024-10-26 15:56] VITALS: BMI 19.1
[2024-10-26] MEDS: 0.9% Saline Lock 10 ML Syringe IV (21:32)
--- NOTE | 2024-10-27 08:15 | CASEMGMT ---
Addendum entered by Judith Chiu 10/27/24 16:37: [facility] provided pricing: drug copay $19.49 per week OOP $4,300 - met $2,325.68, will owe 20% until this is met. - STORM phoned to notify. to review cost and notify this worker of decision. SW will continue to follow. Addendum entered by Judith Chiu 10/27/24 15:26: Received pricing from [facility]: [id number] ? CEFTRIAXONE - $29.92 Infusion (45 mins) - $297.25? Saline - $36.82 Flush - $22.06 The estimated amount is $306.05 - SW phoned to update that would be a daily cost. requested this worker inquire about home infusion. SW sent referral to [facility] via [facility]. Original Note: Social Work SW phoned [facility] insurance to inquire about SNF coverage. Days 1-20 covered at 100%; days 21-45 has $150/day copay; days 46-100 covered at 100%; no deductible, and max OOP is approx $4300, and currently has met approx $2300. SW phoned to update on accurate copay coverage. appreciative, but stated pt is unlikely wanting to stay through the month of November. SW understood and will still gather information for cost for infusion center. appreciative. - STORM sent another inquiry to [facility] for pricing. Judith Chiu MSW EPIC CADENCE ANALYST
[2024-10-27] MEDS: Cholecalciferol (VIT D3) 25 MCG TABLET (1,000 UNITS) PO (10:15)
[2024-10-27] MEDS: Ceftriaxone 2 GM in 0.9% Normal Saline (50mL MB+) 50 ML IV (10:15)
[2024-10-27] MEDS: Senna/Docusate Sodium 1 Tablet 2 TABLET PO ×2 (10:16→20:14)
[2024-10-27] MEDS: 0.9% Saline Lock 10 ML Syringe IV ×2 (11:06→20:17)
--- NOTE | 2024-10-27 15:00 | NURSING ---
Spoke with ID Dr. Mooney's office, requested faxed script for antibiotics and flushes. Fax provided, they stated they will have physician sign and fax over.
[2024-10-27 15:15] VITALS: BP 141/91; PULSE 83; RESP 83; TEMP 36.4; O2SAT 98
[2024-10-27 20:33] VITALS: PULSE 76; RESP 15; O2SAT 94
[2024-10-28 04:46] VITALS: PULSE 78; RESP 16; O2SAT 93
[2024-10-28] MEDS: 0.9% Saline Lock 10 ML Syringe IV ×3 (06:27→23:00)
[2024-10-28] MEDS: Senna/Docusate Sodium 1 Tablet 2 TABLET PO ×2 (09:39→22:56)
[2024-10-28] MEDS: Zinc Sulfate 50 mg zinc (220 mg) ORAL capsule PO (09:39)
[2024-10-28] MEDS: Cholecalciferol (VIT D3) 25 MCG TABLET (1,000 UNITS) PO (09:39)
[2024-10-28] MEDS: Ceftriaxone 2 GM in 0.9% Normal Saline (50mL MB+) 50 ML IV (09:40)
[2024-10-28 10:10] VITALS: BP 94/58; PULSE 70; RESP 16; TEMP 36.9; O2SAT 97
--- NOTE | 2024-10-28 15:13 | CHAPLAIN ---
Type of Pastoral Visit ___ Initial Visit _x__ Follow-up Visit ___ On-call Visit ___ General Patient Visit ___ Spiritual Assessment ___ Family Conference ___ Bereavement ___ Rapid Response ___ Code Blue ___ Other (describe below) Pastoral Care Referral From _x__ Patient ___ Family ___ Nurse ___ Physician ___ Airbrush Artist ___ Long Term Care Social Worker ___ Other (describe below) Sacrament/Intervention _x__ Active listening ___ Anointing ___ Catholic ___ Bereavement ___ Communion ___ Gena exploration ___ _x__ Life review ___ Prayer ___ Reconciliation ___ Sacrament of Sick _x__ Supportive presence ___ Wedding ___ Other (describe below) Pastoral Comments conversation about interests; activities of past life; being back at home; family; pt goal is about getting home amy
[2024-10-29] MEDS: 0.9% Saline Lock 10 ML Syringe IV ×3 (05:40→22:44)
[2024-10-29] MEDS: Senna/Docusate Sodium 1 Tablet 2 TABLET PO ×2 (09:16→22:36)
[2024-10-29] MEDS: Cholecalciferol (VIT D3) 25 MCG TABLET (1,000 UNITS) PO (09:16)
[2024-10-29] MEDS: 0.9% Normal Saline (250mL Bag) 250 ML 15 ML IV (09:17)
[2024-10-29] MEDS: Ceftriaxone 2 GM in 0.9% Normal Saline (50mL MB+) 50 ML IV (09:17)
[2024-10-29 09:35] VITALS: BP 115/67; PULSE 77; RESP 17; TEMP 36.5; O2SAT 96
--- NOTE | 2024-10-29 13:08 | CASEMGMT ---
Social Work SW phoned to follow up on IV ATB situation. said she spoke with ID Dr's office and the Dr said for him to do another week of IV ATB then he can be switched to PO, but pt still wants to DC home the start of his copay days. SW inquired who would be administering the IV ATB at home, and clarified it would be HHC, not the infusion center. confirmed HHC and dtr, Claudia would be doing it. SW requested dtr's phone number to schedule training prior to DC. provided. SW offered list of skilled HHC agencies within geographical area, INN with insurance, that include quality and resource data via [employer] via email or printing if will be visit soon. sill visit this evening. SW requested to review the list and leave VM for SW of preferences for this worker to make a referral on 11/02. agreed. SW updated dtr's phone number in chart. STORM phoned ID Dr RN to verify 's report. RN stated the Dr would prefer pt remain on IVs until stop date, but if can have at least a week after being home, if DC is 11/05, and that is not sustainable, the can contact the Drs office to get switched to PO. RN stated the Dr already reduced from 8 wks to 6 wks of IVs. STORM confirmed. SW to coordinate DC of 11/05 and requested script. Phoned dtr to confirm administration of IV ATB. Dtr confirmed. STORM scheduled training with dtr for 11/02 at 1000. Explained the day of DC 11/05, pt will receive his ATB on the day of DC, then HHC will do SOC 11/06 and dtr will be present to learn their mechanism of IV ATB administration. Dtr confirmed. STORM updated pt's nurse. Left printed HHC list in pt's room. Plan: DC home with 11/05, IV ATB, HHC PT/OT/SN Judith Chiu MSW HUMAN RESOURCES COMMUNICATIONS MANAGER
--- NOTE | 2024-10-29 15:30 | PCM.DC.SUM ---
Providers Date of Admission: 10/16/24 Primary Care Physician: Dr. 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: Status: Acute Code(s): G06.1 - Intraspinal abscess and granuloma (4) Osteomyelitis of cervical spine: Status: Acute Code(s): M46.22 - Osteomyelitis of vertebra, cervical region (5) Parkinson disease: Status: Acute Code(s): G20.A1 - Parkinson's disease without dyskinesia, without mention of fluctuations (6) Essential (primary) hypertension: Status: Acute Code(s): I10 - Essential (primary) hypertension (7) Neuropathic pain: Status: Acute Code(s): M79.2 - Neuralgia and neuritis, unspecified (8) Major depression: Status: Acute Code(s): F32.9 - Major depressive disorder, single episode, unspecified Plan 74 year old male with below past medical history hospitalized for cervical myelopathy 2/2 cervical epidural abscess/cervical osteomyelitis, underwent cervical fusion/laminectomy/evacuation of epidural abscess 10/08/2024, admitted to TCU with debility, here for rehabilitation, strengthening, intravenous antibiotics, prior to discharge home with spouse/family. Debility - PT/OT. Pain - Tylenol 1000mg q6 prn pain (1-5), Oxycodone 5mg-10mg q4 prn pain (6-10). Bowel - Miralax 17gm bid, senna/colace 2 tablets bid, Magnesium citrate 300mL daily prn. Adult immunization - Administer pneumonia vaccine, covid vaccine, flu vaccine as appropriate. DVT prophylaxis - Lovenox 40mg sc daily. Parkinson Disease - Sinemet 50/200mg qid, Mirapaex 0.75mg tid. Cervical epidural abscess/osteomyelitis s/p laminectomy/fusion/evacuation of abscess - Ceftriaxone 2gm iv q24 thru 11/27/2024. Vitamin D deficiency - D3 25mcg daily. Neuropathic pain - Gabapentin 300mg bid. Hypertension - Losartan 25mg daily. Muscle spasm - Methocarbamol 750mg tid. Zinc deficiency - Zinc 50mg daily. The following psychotropic medication was present on admission: Seroquel 12.5mg qhs. Psychotropic medication therapy is indicated for a diagnosis of: Delirium. Based on my clinical evaluation, continuation of the medication is necessary at this time. Gradual dose reduction plan (select one): ____ GDR will be attempted. Will monitor patient symptoms and behaviors in response to GDR. __x__ GRD contraindicated. Reason contraindicated: stable short term use. The following psychotropic medication was present on admission: Zoloft 50mg qam. Psychotropic medication therapy is indicated for a diagnosis of: Major Depression. Based on my clinical evaluation, continuation of the medication is necessary at this time. Gradual dose reduction plan (select one): ____ GDR will be attempted. Will monitor patient symptoms and behaviors in response to GDR. __x__ GRD contraindicated. 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 Medications at Discharge Home Medications carbidopa ER 50 mg-levodopa 200 mg tablet,extended release See Rx Instructions PO .COMPLEX Parkinsons Disease 04/29/24 pramipexole 0.75 mg tablet 0.75 mg PO TID Tremors 05/06/24 cholecalciferol (vitamin D3) 25 mcg (1,000 unit) capsule 25 mcg PO QDAY Supplement 09/29/24 losartan 25 mg tablet 25 mg PO DAILY BP 09/29/24 sertraline 50 mg tablet 50 mg PO QAM Mood 09/29/24 zinc gluconate 50 mg tablet 50 mg PO Q OTHER DAY Supplement 09/29/24 ceftriaxone 2 gram intravenous solution 2 g IV Q24H 10/29/24 gabapentin 300 mg capsule 300 mg PO BID 30 days #60 caps 10/29/24 methocarbamol 750 mg tablet 750 mg PO TID 30 days #90 tabs 10/29/24 quetiapine 25 mg tablet 12.5 mg (1/2 x 25 mg) PO QHS 30 days #15 tabs 10/29/24 Hospital Course Operations - (See below.) Procedures None Summary of Care Provided Minutes Spent on Discharge: 35 Hospital Course: 74 year old male with below past medical history hospitalized for cervical myelopathy 2/2 cervical epidural abscess/cervical osteomyelitis, underwent cervical fusion/laminectomy/evacuation of epidural abscess 10/08/2024, admitted to TCU with debility, here for rehabilitation, strengthening, intravenous antibiotics, prior to discharge home with spouse/family. Discharge home with 11/05/2024, IV ATB's, [facility] PT/OT/SN. Physical Exam Const alert General Appearance: cooperative HEENT normocephalic Eyes PERRL and EOMs intact bilaterally Neck supple, no JVD and no carotid bruits Neck Narrative: [place] J Collar. Resp normal respiratory effort, normal air movement and clear to auscultation bilaterally Cardio regular rate and regular rhythm GI normal to inspection, nondistended, normoactive bowel sounds, non-tender and non-distended Extremity normal capillary refill Extremity Narrative: Right upper extremity PICC line. General Extremity: Negative for edema Skin no rashes or lesions noted General Skin Exam: no breakdown Psych affect normal Appearance: appropriate Weight / BMI Weight Weight: 63.866 kg Body Mass Index (BMI) 19.1 ABG / Lab / Microbiology Data 10/25/24 05:41 10/26/24 07:55 Microbiology: Microbiology 10/25/24 05:56 Nasal Secretion SARS-CoV-2 Antigen (Rapid) - Final 10/23/24 06:10 Nasal Secretion SARS-CoV-2 Antigen (Rapid) - Final 10/21/24 06:40 Nasal Secretion SARS-CoV-2 Antigen (Rapid) - Final D/C Instructions Discharge Activity: Return to Normal Activity, May Shower and Use Walker Weight Bearing Status: Weight bearing as tolerated Call your doctor if you observe: Fever of 101 or Higher, Inability to urinate, Inability to have a bowel movement, Shortness of breath, Dizziness, Fainting spells, Swelling in the ankles, Chest pain and Uncontrolled pain DC O2, CPAP, BIPAP Needs Home O2 Discharge instructions: No Additional Instructions: Discharge home with 11/05/2024, IV ATB's, [facility] PT/OT/SN. Please Follow Up With: Skye Lopes APRN, CNP When: As scheduled. Meaningful Use Info Meaningful Use Meaningful Use Diagnoses (Choose all that apply): None applicable Discharge Plan Admission Admit Date/Time: 10/16/24 17:36 Primary Reason for Your Visit: Debility. Attending Provider: Pola Richardson Chi Primary Care Provider: Earnest Amaral Instructions Additional Instructions / Restrictions: Discharge home with 11/05/2024, IV ATB's, [facility] PT/OT/SN. Discharge Orders/Prescriptions Prescriptions: New ceftriaxone 2 gram recon soln 2 g IV Q24H methocarbamol 750 mg Tablet 750 mg PO TID 30 Days Qty: 90 0RF gabapentin 300 mg Capsule 300 mg PO BID 30 Days Qty: 60 0RF quetiapine 25 mg Tablet 12.5 mg PO QHS 30 Days Qty: 15 0RF Continued losartan 25 mg tablet 25 mg PO DAILY carbidopa-levodopa 50-200 mg tablet extended release See Rx Instructions PO .COMPLEX Rx Instructions: 1 tablet at 6 am, 11 am, 4 pm, and 10 pm sertraline 50 mg tablet 50 mg PO QAM cholecalciferol (vitamin D3) 25 mcg (1,000 unit) capsule 25 mcg PO QDAY zinc gluconate 50 mg tablet 50 mg PO Q OTHER DAY pramipexole 0.75 mg tablet 0.75 mg PO TID Discontinued gabapentin 600 mg tablet 600 mg PO QHS tizanidine 4 mg tablet 8 mg PO QHS PRN (Reason: muscle spasticity) Qty: 60 1RF Rx Instructions: Take 1 - 2 tablets PRN muscle spasms QHS oregano 450 mg tablet 1 tablet PO QDAY PreserVision AREDS 4,296 mcg-226 mg-90 mg capsule 1 cap PO QAM AND QPM olive leaf 500 mg capsule 500 mg PO QDAY Patient Comments: Wait to take until 10/30/24 alfalfa 650 mg tablet 650 mg PO BID Patient Comments: Wait to start taking until 10/30/24 lysine 1,000 mg tablet 1,000 mg PO QDAY colon support 1 tab PO BID PRN (Reason: Supplement) Rx Instructions: Potassium 99mg, slippery elm 200mg, senna leaf 85mg, Inulin 75mg, cascara bark extract 50mg, black walnut hulls 50mg, aloe vera extract 40mg capsicum (cayenne) 450 mg capsule 450 mg PO QDAY Patient Comments: Wait to take until 10/30/24 homeopathic prostate drops See Rx Instructions PO .COMPLEX Rx Instructions: orally 1/2 dropper full BID - Dr. Darci Bangura; magnesium oxide 500 mg capsule 500 mg PO QDAY baclofen 5 mg tablet 5 mg PO QPM Qty: 30 1RF Rx Instructions: Take before dinner Handicap Placard See Rx Instructions .ROUTE .COMPLEX Qty: 1 0RF Rx Instructions: Duration: 5 years ICD10: Z86.69 acetaminophen 325 mg capsule 650 mg PO Q6H PRN (Reason: pain) ceftriaxone 2 gram recon soln 2 g IV DAILY methocarbamol 750 mg tablet 750 mg PO TID oxycodone 5 mg capsule 5 mg PO Q4H PRN (Reason: Pain 6-10) polyethylene glycol 3350 [ClearLax] 17 gram/dose powder 17 g PO BID quetiapine [Seroquel] 25 mg tablet 12.5 mg PO QHS senna-docusate sodium Tablet 2 tab PO DAILY gabapentin 300 mg capsule 300 mg PO BID Referrals / Follow Up: Earnest Amaral MD [Primary Care Provider] - Within 1 Week (Transition Care Management appt.) Pola Richardson Chi, MD [Med Staff - Active Staff] - Within 1 Week (Transition Care Management appt IF Dr. Amaral unable to accommodate. Dr[facility] no longer available at [facility]. ) Disposition Disposition (needs filled in before D/C Order can be placed): Home Health Service
[2024-10-29 22:30] VITALS: PULSE 82; RESP 16; O2SAT 94
[2024-10-30 04:07] VITALS: PULSE 76; RESP 15; O2SAT 94
[2024-10-30 09:46] VITALS: BP 126/76; PULSE 78; RESP 16; TEMP 36.6; O2SAT 98
[2024-10-30] MEDS: 0.9% Saline Lock 10 ML Syringe IV (09:49)
[2024-10-30] MEDS: Ceftriaxone 2 GM in 0.9% Normal Saline (50mL MB+) 50 ML IV (09:49)
[2024-10-30] MEDS: Senna/Docusate Sodium 1 Tablet 2 TABLET PO ×2 (09:50→22:05)
[2024-10-30] MEDS: Cholecalciferol (VIT D3) 25 MCG TABLET (1,000 UNITS) PO (09:50)
[2024-10-30] MEDS: Zinc Sulfate 50 mg zinc (220 mg) ORAL capsule PO (09:54)
[2024-10-31 05:22] VITALS: PULSE 72; RESP 16; O2SAT 95
[2024-10-31 09:34] VITALS: BP 110/62; PULSE 76; RESP 16; TEMP 36.7; O2SAT 96
[2024-10-31] MEDS: 0.9% Saline Lock 10 ML Syringe IV ×2 (09:36→21:39)
[2024-10-31] MEDS: Ceftriaxone 2 GM in 0.9% Normal Saline (50mL MB+) 50 ML IV (09:36)
[2024-10-31] MEDS: Cholecalciferol (VIT D3) 25 MCG TABLET (1,000 UNITS) PO (09:37)
[2024-10-31] MEDS: Senna/Docusate Sodium 1 Tablet 2 TABLET PO ×2 (09:37→21:40)
[2024-11-01 07:33] LABS: Hematocrit 34.4 % (40-54); Hemoglobin 11.7 g/dL (13.0-16.5); Immature Granulocytes Count 0.020 X10^3/uL (0.0-0.0); Mean Corp Hgb Conc 34.0 g/dL (32-36); Mean Corpuscular Volume 95.3 fL (80-94); Mean Platelet Vol. 9.3 fl (6.2-12.0); NRBC Flagged by Analyzer 0 % (0-5); Platelet Count 211 K/mm3 (150-450); RBC Distribution Width CV 13.3 % (11.6-14.6); RBC Distribution Width SD 46.0 fl (35.1-43.9); Red Blood Count 3.61 M/mm3 (4.6-6.2); White Blood Count 4.7 K/mm3 (4.4-11.0)
[2024-11-01 07:56] LABS: AST(SGOT) 18 U/L (<=37); Alanine Aminotransfer ALT/SGPT 7 U/L (<=46); Albumin, Serum 3.7 g/dL (3.4-4.8); Alkaline Phosphatase 102 U/L (40-129); Anion Gap 9 (5-15); BUN 29 mg/dL (4-19); BUN/Creat Ratio 43.6 RATIO (10-20); Calcium,Total 9.1 mg/dL (7.6-11.0); Carbon Dioxide 25.2 mmol/L (21.0-32.0); Chloride 107 mmol/L (98-108); Estimated Creatinine Clearance 75.40 ml/min (50-250); Globulin 2.8 g/dL (2.2-4.2); Glucose 94 mg/dL (70-99); Potassium 3.8 mmol/L (3.3-5.1)
[2024-11-01] MEDS: Cholecalciferol (VIT D3) 25 MCG TABLET (1,000 UNITS) PO (09:56)
[2024-11-01] MEDS: Senna/Docusate Sodium 1 Tablet 2 TABLET PO ×2 (09:57→20:47)
[2024-11-01] MEDS: Zinc Sulfate 50 mg zinc (220 mg) ORAL capsule PO (09:57)
[2024-11-01] MEDS: 0.9% Saline Lock 10 ML Syringe IV ×2 (10:04→20:49)
[2024-11-01] MEDS: Ceftriaxone 2 GM in 0.9% Normal Saline (50mL MB+) 50 ML IV (10:05)
[2024-11-01 20:59] VITALS: PULSE 74; RESP 16; O2SAT 96
[2024-11-02] MEDS: 0.9% Saline Lock 10 ML Syringe IV ×3 (05:19→20:04)
--- NOTE | 2024-11-02 08:30 | CASEMGMT ---
Addendum entered by Judith Chiu 11/02/24 11:18: [facility] can accept with SOC 11/06 SW phoned to update. Original Note: Social Work SW received VM from with [facility] preferences - 1. [facility], 2. [facility]. also stated that she and pt agreed to Dr. Richardson being new PCP when offered at bedside d/t pt not having current PCP. SW notified nursing. SW phoned [facility] with referral for PT/OT/SN and IV ATB orders. 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
[2024-11-02 09:47] VITALS: BP 110/63; PULSE 75; RESP 17; TEMP 36.4; O2SAT 97
[2024-11-02] MEDS: Cholecalciferol (VIT D3) 25 MCG TABLET (1,000 UNITS) PO (09:49)
[2024-11-02] MEDS: Senna/Docusate Sodium 1 Tablet 2 TABLET PO ×2 (09:49→20:02)
[2024-11-02] MEDS: Ceftriaxone 2 GM in 0.9% Normal Saline (50mL MB+) 50 ML IV (09:49)
--- NOTE | 2024-11-02 11:21 | NURSING ---
PICC teaching completed with patient's daughter.
[2024-11-02 15:00] VITALS: BMI 19.4
[2024-11-03] MEDS: 0.9% Saline Lock 10 ML Syringe IV ×3 (05:16→20:57)
[2024-11-03] MEDS: Cholecalciferol (VIT D3) 25 MCG TABLET (1,000 UNITS) PO (09:48)
[2024-11-03] MEDS: Zinc Sulfate 50 mg zinc (220 mg) ORAL capsule PO (09:48)
[2024-11-03] MEDS: Senna/Docusate Sodium 1 Tablet 2 TABLET PO ×2 (09:48→20:53)
[2024-11-03] MEDS: Ceftriaxone 2 GM in 0.9% Normal Saline (50mL MB+) 50 ML IV (09:49)
[2024-11-03 10:06] VITALS: BP 122/81; PULSE 71; RESP 16; TEMP 36.4; O2SAT 97
[2024-11-04] MEDS: Cholecalciferol (VIT D3) 25 MCG TABLET (1,000 UNITS) PO (09:54)
[2024-11-04] MEDS: Senna/Docusate Sodium 1 Tablet 2 TABLET PO ×2 (09:54→22:09)
[2024-11-04] MEDS: Ceftriaxone 2 GM in 0.9% Normal Saline (50mL MB+) 50 ML IV (09:57)
[2024-11-04] MEDS: 0.9% Saline Lock 10 ML Syringe IV (09:58)
[2024-11-04 10:06] VITALS: BP 130/72; PULSE 70; RESP 17; TEMP 36.3; O2SAT 97
[2024-11-04 22:30] VITALS: PULSE 79; RESP 16; O2SAT 95
[2024-11-05] MEDS: 0.9% Saline Lock 10 ML Syringe IV (06:19)
[2024-11-05 06:34] VITALS: PULSE 76; RESP 18; O2SAT 94
[2024-11-05] MEDS: Zinc Sulfate 50 mg zinc (220 mg) ORAL capsule PO (08:13)
[2024-11-05] MEDS: Senna/Docusate Sodium 1 Tablet 2 TABLET PO (08:13)
[2024-11-05] MEDS: Cholecalciferol (VIT D3) 25 MCG TABLET (1,000 UNITS) PO (08:13)
[2024-11-05 08:21] VITALS: BP 132/84; PULSE 81; RESP 18; TEMP 36.6; O2SAT 95
[2024-11-05] MEDS: Ceftriaxone 2 GM in 0.9% Normal Saline (50mL MB+) 50 ML IV (10:22)
--- NOTE | 2024-11-05 12:22 | CASEMGMT ---
Social Work SW completed BIMS () and PHQ-2 () for MDS assessment. 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
[2024-11-05 14:46] VITALS: BP 122/77; PULSE 83; RESP 18; TEMP 37.1; O2SAT 96
== END 2024-11-05 14:45 | disposition home health service (06) | DRG 559 ==
PROVIDERS: Admitting Provider Family Medicine Geriatric Medicine; PCP Internal Medicine; Visit Provider Family Medicine Geriatric Medicine
DX: Z47.89 Encounter for other orthopedic aftercare (principal); G06.1 Intraspinal abscess and granuloma; M46.22 Osteomyelitis of vertebra, cervical region; G95.9 Disease of spinal cord, unspecified; G20.A1 Parkinson's disease without dyskinesia, without mention of fluctuations; F32.9 Major depressive disorder, single episode, unspecified; I10 Essential (primary) hypertension; E53.8 Deficiency of other specified B group vitamins; G62.9 Polyneuropathy, unspecified; E55.9 Vitamin D deficiency, unspecified; Z79.899 Other long term (current) drug therapy; Z87.891 Personal history of nicotine dependence; Z98.1 Arthrodesis status
CPT/HCPCS: 36415; 80048; 80053; 85025; 87811; 92507; 92523; 97110; 97116; 97129; 97130; 97161; 97165; 97530; 97535; 97802; A4216; J0696

== ENCOUNTER 2024-11-08 10:55 | Outpatient (RCR) | payer MEDICARE, SELFPAY ==
[2024-11-08 11:34] LABS: Hematocrit 33.6 % (40-54); Hemoglobin 11.5 g/dL (13.0-16.5); Immature Granulocytes Count 0.020 X10^3/uL (0.0-0.0); Mean Corp Hgb Conc 34.2 g/dL (32-36); Mean Corpuscular Volume 96.3 fL (80-94); Mean Platelet Vol. 9.9 fl (6.2-12.0); NRBC Flagged by Analyzer 0 % (0-5); Platelet Count 187 K/mm3 (150-450); RBC Distribution Width CV 13.7 % (11.6-14.6); RBC Distribution Width SD 48.3 fl (35.1-43.9); Red Blood Count 3.49 M/mm3 (4.6-6.2); White Blood Count 5.0 K/mm3 (4.4-11.0)
[2024-11-08 12:15] LABS: AST(SGOT) 22 U/L (<=37); Alanine Aminotransfer ALT/SGPT 22 U/L (<=46); Albumin, Serum 3.9 g/dL (3.4-4.8); Alkaline Phosphatase 117 U/L (40-129); Bilirubin, Direct 0.14 mg/dL (0.00-0.30); Globulin 2.8 g/dL (2.2-4.2)
== END 2024-11-30 23:59 ==
LOC: LABSPEC 10:55
PROVIDERS: PCP Internal Medicine; Referring Provider Student in an Organized Health Care Education/Training Program; Visit Provider Student in an Organized Health Care Education/Training Program
DX: M86.9 Osteomyelitis, unspecified (principal); M46.46 Discitis, unspecified, lumbar region
CPT/HCPCS: 80076; 82565; 85025